=== PATIENT | female | born 1955 | race Caucasian/White ===

== ENCOUNTER 2023-08-10 11:33 | Outpatient (OUT) | payer OTHER, SELFPAY ==
--- NOTE | 2023-08-10 11:34 | MM_ITS ---
Patient: KINSEY PANDEY Exam Date: 08/10/2023 : 1955 Gender:F Ordering : DR SABRINA MEEK Admission #: [id number] Family : Order #: [id number] CLICK HERE TO VIEW EXAM RADIOLOGY REPORT PROCEDURE: MM TOMOSYNTHESIS SCREENING BI COMPARISON: MG MAMM SCREEN 3D ALESSIO CAD, 07/25/2022. MG MAMM SCREEN 3D ALESSIO CAD, 07/22/2021. MG MAMM SCREEN ALESSIO W CAD, 05/14/2020. MG MAMM ALESSIO SCRN W CAD DIG, 07/28/2011. INDICATIONS: Screening Calculator Name NCI Breast Cancer Risk Assessment Tool 5 Year Breast Cancer Risk 1.70% Lifetime Breast Cancer Risk 5.70% Personal Breast Cancer No Personal Ovarian Cancer No Treatments None Family Cancers Mother with colon cancer at age 73; Father with eye cancer at age 79; Daughter with uterine cancer at age 26. LOCATION: [facility] BREAST COMPOSITION: Scattered areas fibroglandular density. FINDINGS: DIAGNOSTIC CATEGORY 2--BENIGN FINDING: RIGHT BREAST: No significant suspicious finding. Scattered benign-appearing calcifications are present. No significant change has occurred. LEFT BREAST: No significant suspicious finding. Stable collections of dense material within upper-outer quadrant suspected secondary to prior implant rupture. Implants have been removed. No significant change has occurred. RECOMMENDATIONS: ROUTINE MAMMOGRAM AND CLINICAL EVALUATION IN 12 MONTHS. PLEASE NOTE: A NORMAL MAMMOGRAM DOES NOT EXCLUDE THE POSSIBILITY OF BREAST CANCER. A CLINICALLY SUSPICIOUS PALPABLE LUMP SHOULD BE BIOPSIED. Dictated by: Gaurang Collins M.D. on 08/14/2023 at 13:12 Approved by: Gaurang Collins M.D. on 08/14/2023 at 13:16
== END 2023-08-10 11:34 | disposition home or self-care (01) ==
LOC: MAMMO 11:33
PROVIDERS: PCP Family Medicine; Visit Provider Family Medicine
DX: Z12.31 Encounter for screening mammogram for malignant neoplasm of breast (principal); Z80.0 Family history of malignant neoplasm of digestive organs; Z80.49 Family history of malignant neoplasm of other genital organs; Z80.8 Family history of malignant neoplasm of other organs or systems
CPT/HCPCS: 77063; 77067

== ENCOUNTER 2023-09-27 09:10 | Outpatient (OUT) | payer OTHER, SELFPAY ==
[2023-09-27 12:56] LABS: Calcium 9.7 mg/dL (8.5-10.1)
== END 2023-09-27 09:11 | disposition home or self-care (01) ==
LOC: LAB 09:12
PROVIDERS: PCP Family Medicine
DX: E83.51 Hypocalcemia (principal)
CPT/HCPCS: 36415; 82310

== ENCOUNTER 2023-10-04 07:27 | Outpatient (RCR) | payer OTHER, SELFPAY ==
[2023-10-04 09:49] LABS: Estimated GFR (African America >60 (>=60); Estimated GFR (Non-African Ame >60 (>=60)
[2023-10-04 09:55] VITALS: BP 147/90; PULSE 100; RESP 16; TEMP 36.6; O2SAT 95
[2023-10-04] MEDS: ZOLEDRONIC ACID/MANNITOL-WATER 5 MG/100 ML BOTTLE 400 MG IV (09:58)
--- NOTE | 2023-10-04 10:04 | PC.NURSE ---
0940: Pt. to [facility] amb. for Reclast infusion. Relays going to lab already. Seated in recliner. VSS. #22 gauge IV initiated to left ac on first attempt. Flushes easily without edema or redness. Pt. tolerated with no c/o. Drinking water. Denies needs or c/o.
--- NOTE | 2023-10-04 10:06 | PC.NURSE ---
0958: IV Reclast initiated as ordered.
--- NOTE | 2023-10-04 10:21 | PC.NURSE ---
1019: IV Reclast completed. Pt. without s&s of adverse reaction. IV d/c'd, pressure to site. 1020: Pt. d/c'd amb. to home.
== END 2023-10-15 12:00 | disposition home or self-care (01) ==
LOC: LAB 07:27
PROVIDERS: PCP Family Medicine
DX: M85.80 Other specified disorders of bone density and structure, unspecified site (principal)
CPT/HCPCS: 36415; 82310; 82565; 96365; J3489

== ENCOUNTER 2024-05-21 14:00 | Outpatient (OUT) | payer OTHER, SELFPAY ==
--- NOTE | 2024-05-21 | XR_ITS ---
The [address] [address] Patient Name: KINSEY PANDEY MRN: [id number] date: 1955 Sex: F Assigned Patient Location: Current Patient Location: Accession/Order Number: [id number] Exam Date: 05/21/2024 15:00 Report Date: 05/23/2024 06:37 At the request of: BELLA PURDY Procedure: XR foot RT min 3V PROCEDURE: XR foot RT min 3V HISTORY: RIGHT FOOT PAIN COMPARISON: None. FINDINGS: BONES:Marked degenerative change of the first metatarsophalangeal joint. Mild degenerative changes of the second through 5th tarsal-metatarsal joints. No fracture, dislocation, bone lesion. SOFT TISSUES:No visible soft tissue swelling. EFFUSION:None visible. OTHER: Negative. XR/XR foot RT min 3V IMPRESSION: 1. Multifocal degenerative changes; marked involving the first metatarsophalangeal joint. Electronically authenticated by: JOSE ALEJANDRO MACK Date: 05/23/2024 06:37
== END 2024-05-21 14:01 | disposition home or self-care (01) ==
LOC: EC 14:00
PROVIDERS: PCP Family Medicine; Visit Provider Podiatrist Foot & Ankle Surgery
DX: M79.671 Pain in right foot (principal)
CPT/HCPCS: 73630

== ENCOUNTER 2024-08-14 11:23 | Outpatient (OUT) | payer OTHER, SELFPAY ==
--- NOTE | 2024-08-14 11:26 | MM_ITS ---
Patient Name: KINSEY PANDEY MR#: [id number] : 1955 Exam Date: 08/14/2024 Ordering Doctor: DR SABRINA MEEK RADIOLOGY REPORT PROCEDURE: MM TOMOSYNTHESIS SCREENING BI COMPARISON: MM TOMOSYNTHESIS SCREENING BI, 08/10/2023. MG MAMM SCREEN 3D ALESSIO CAD, 07/25/2022. MG MAMM SCREEN 3D ALESSIO CAD, 07/22/2021. MG MAMM ALESSIO SCRN W CAD DIG, 07/28/2011. INDICATIONS: Screening Calculator Name NCI Breast Cancer Risk Assessment Tool 5 Year Breast Cancer Risk 1.70% Lifetime Breast Cancer Risk 5.50% Personal Breast Cancer No Personal Ovarian Cancer No Treatments None Family Cancers Mother with colon cancer at age 73; Father with eye cancer at age 79; Daughter with uterine cancer at age 26. LOCATION: [facility] BREAST COMPOSITION: There are scattered areas of fibroglandular density. FINDINGS: DIAGNOSTIC CATEGORY 2--BENIGN FINDING: RIGHT BREAST: No significant suspicious finding. No significant change has occurred. LEFT BREAST: No significant suspicious finding. No significant change has occurred. Stable numerous lobules of dense material within posterior upper-outer quadrant secondary to prior implant rupture. Implants have been removed. RECOMMENDATIONS: ROUTINE MAMMOGRAM AND CLINICAL EVALUATION IN 12 MONTHS. PLEASE NOTE: A NORMAL MAMMOGRAM DOES NOT EXCLUDE THE POSSIBILITY OF BREAST CANCER. A CLINICALLY SUSPICIOUS PALPABLE LUMP SHOULD BE BIOPSIED. Dictated by: Gaurang Collins M.D. on 08/14/2024 at 15:03 Approved by: Gaurang Collins M.D. on 08/14/2024 at 15:05
== END 2024-08-14 11:24 | disposition home or self-care (01) ==
LOC: MAMMO 11:24
PROVIDERS: PCP Family Medicine; Visit Provider Family Medicine
DX: Z12.31 Encounter for screening mammogram for malignant neoplasm of breast (principal); Z80.0 Family history of malignant neoplasm of digestive organs; Z80.8 Family history of malignant neoplasm of other organs or systems
CPT/HCPCS: 77063; 77067

== ENCOUNTER 2024-09-27 09:18 | Outpatient (OUT) | payer OTHER, SELFPAY ==
--- NOTE | 2024-09-27 09:23 | XR_ITS ---
The [place] [id number] Patient Name: KINSEY PANDEY MRN: [id number] date: 1955 Sex: F Assigned Patient Location: [facility] Current Patient Location: [facility] Accession/Order Number: [id number] Exam Date: 09/27/2024 09:30 Report Date: 09/27/2024 15:30 At the request of: SABRINA MEEK Procedure: XR DEXA axial skeleton EXAMINATION: XR DEXA axial skeleton, 09/27/2024 9:30 AM EST HISTORY: Osteoporosis, M81.0 COMPARISON: None. TECHNIQUE: Dual-energy X-ray absorptiometry (DEXA) bone density study performed for the axial skeleton. FINDINGS: Bone mineral density AP spine L1-L4 measures 1.076 g/sq cm. T score -0.9. Normal. Lowest bone mineral densities in the left femoral neck measuring 0.816 g/sq cm. squared. T score -1.6. Osteopenia XR/XR DEXA axial skeleton IMPRESSION: Osteopenia. Moderate fracture risk Pharmacologic treatment recommendations * No uniform recommendation applies to all patients. Management plans must be individualized. * Consider initiating pharmacologic treatment in postmenopausal women and men >= 50 years of age who have the following: Primary fracture prevention: * T-score <= - 2.5 at the femoral neck, total hip, lumbar spine, 33% radius (some uncertainty with existing data) by DXA. * Low bone mass (osteopenia: T-score between - 1.0 and - 2.5) at the femoral neck or total hip by DXA with a 10-year hip fracture risk >= 3% or a 10-year major osteoporosis-related fracture risk >= 20% (i.e., clinical vertebral, hip, forearm, or proximal humerus) based on the [place]-adapted FRAXregistered model. Secondary fracture prevention: * Fracture of the hip or vertebra regardless of BMD [4, 5]. * Fracture of proximal humerus, pelvis, or distal forearm in persons with low bone mass (osteopenia: T-score between - 1.0 and - 2.5). The decision to treat should be individualized in persons with a fracture of the proximal humerus, pelvis, or distal forearm who do not have osteopenia or low BMD [12, 13]. Nat MS, Ambika SL, Jagdeep KL, Francisco Javier EM, Srinath KG, Salas AJ, Keren ES. The clinician's guide to prevention and treatment of osteoporosis. Osteoporos Int. 2021;33(10):4586-5991. doi: 10.1007/r70894-101-69948-n. Epub 2021Feb 10. Erratum in: Osteoporos Int. 2021May 12;: PMID: [id number]; PMCID: [id number]. Electronically authenticated by: THANH MARS Date: 09/27/2024 15:30
--- OUTSIDE RECORDS SUMMARY | 2024-09-27 09:26 | XMS_ITS | CCD ---
Author Organization [facility] Inform ion Partnership [facility] Care Team Providers Care Financial Services Internship Name Role Phone BELLE HUGHES Referring Unavailjone e BELLE HUGHES Referring Unavailjone e Sabrina Meek Unavailable Ascencion Fallon II Unavailable [phone] Sarahi Carlos Unavailable DO Sabrina Meek Primary Care Provider DO Sabrina Meek Attending Provider Sabrina Meek Unavailable Unavailable Unavailable FANTASMA, DR BENNETT Admitting Unavailable FANTASMA, DR BENNETT Attending Unavailable FANTASMA, DR BENNETT Primary Care Unavailable BUTTERNUT, DR THANH Louis Consulting Unavailable FANTASMA, DR BENNETT Consulting Unavailable ERNIE ORDONEZ Admitting Unavailable ERNIE ORDONEZ Attending Unavailable FANTASMA, DR BENNETT Primary Care Unavailable ERNIE ORDONEZ Consulting Unavailable DO Sabrina Meek Primary Care Provider DO George Cox Attending Provider [phone] MD Teddy Thurston Attending Provider DO Sabrina Meek Primary Care Provider [phone] MD [facility]enc[facility] Fallon II Attending Provider Marcella Flores Unavailable DO Sabrina Meek Primary Care Provider [phone] DONI Flores Attending Provider [phone] DO Sabrina Meek Attending Provider DO Sabrina Meek Primary Care Provider Teddy Thurston Referring Unavailable Teddy Thurston Attending Unavailable Dr. Sabrina Meek Primary Care Unavailabl e Kuns, DO Sabrina Primary Care Provider MD [facility]enc[facility] Fallon II Attending Provider [phone] Rajeev Ziegler Unavailable Mehul Solano Unavailable Yossis, DO Sabrina Attending Provider MD Mehul Solano Attending Provider [phone] Kuns, DO Sabrina Primary Care Provider [phone] Kuns, DO Sabrina Primary Care Provider [phone] Kuns, DO Sabrina Attending Provider MD Mehul Solano Attending Provider Kuns Sabrina VALENZUELA R Primary Care Provider Unavailab le TEDDY THURSTON Referring Unavailable KUNS, SABRINA R Primary Care Unavailable Kuns, DO Bennett Primary Care Provider Kuns, DO Sabrina Attending Provider Kuns, Sabrina Attending Unavailable Kuns, Sabrina Admitting Unavailable Kuns, Sabrina Primary Care Unavailable Kuns, Sabrina Attending Unavailable Kuns, Sabrina Admitting Unavailable Kuns, Sabrina Primary Care Unavailable [facility]enc[facility] Fallon II Admitting Unavailjone e [facility]enc[facility] Fallon II Attending Unavailabl e Kuns, Sabrina Primary Care Unavailable Mehul Solano Admitting Unavailable Mehul Solano Attending Unavailable Kuns, Sabrina Primary Care Unavailable Kuns, Sabrina Attending Unavailable Kuns, Sabrina Admitting Unavailable Kuns, Sabrina Primary Care Unavailable Kuns , Sabrina R Primary Care Provider GEORGE COX Attending Unavailable Allergies Allergy Classification Reported Allergen(s) Allergy Type Date of Onset Reaction(s) Facility HMG-CoA Reductase Inhibitors (statins) (1 source) rosuvastatin Drug Allergy 01-05-20 [facility] Work Phone: Opioid Agonists (1 source) Codeine Drug Allergy 01-05-20 24 Nausea/vomiting [facility] red yeast rice (1 source) red yeast rice Drug Allergy 01-05-20 24 Bleeding [facility] Work Phone: Unclassified (4 sources) Iodinated Contrast Media; Translations: [IODINATED CONTRAST MEDIA] Drug Allergy 01-05-20 24 Nausea/vomiting , GI intolerance [facility] Work Phone: (20 sources) Amoxicillin / Clavulanate Drug Allergy vomiting [facility] [employer] Other (20 sources) Codeine; Translations: [codeine] Drug Allergy 05-21-20 02 GI intolerance [facility] (20 sources) homatropine / HYDROcodone Drug Allergy hallucinates [facility] [employer] Other (20 sources) Lovastatin Drug Allergy 11-05-19 21 muscle pain [facility] (20 sources) red rice yeast Propensity to adverse reactions 11-08-19 24 nosebleeds [facility] (20 sources) RADIOACTIVE DYE Propensity to adverse reactions 11-08-19 24 violent vomiting and migraine [facility] (18 sources) Amoxicillin; Translations: [amoxicillin] Drug Allergy 11-05-19 21 GI intolerance [facility] (18 sources) Clavulanate; Translations: [clavulanic acid] Drug Allergy 11-05-19 21 GI intolerance [facility] (18 sources) homatropine; Translations: [homatropine] Drug Allergy 11-06-19 21 Hallucinating, Hallucinating, hallucinates [facility] (18 sources) HYDROcodone; Translations: [hydrocodone] Drug Allergy 11-06-19 21 Hallucinating, Hallucinating, hallucinates [facility] (3 sources) Contrast media Allergy to substance (finding) Nausea, Vomiting -[facility] 250 DO Work Phone: (6 sources) red yeast rice; Translations: [red yeast rice] Drug Allergy 12-22-19 16 GI bleeding, GI intolerance [facility] (1 source) Dannielle albicans allergenic extract Drug Allergy [facility] (1 source) Codeine Drug Allergy [facility] (1 source) Iodine (And Iodine Containting Drugs) Drug allergy (disorder) [facility] (11 sources) Amoxicillin / Clavulanate Drug Allergy vomiting [employer] Other (20 sources) rosuvastatin; Translations: [rosuvastatin] Drug Allergy 05-15-20 myalgia, dysuria, fatigue, Muscle weakness, Other [facility] (1 source) Codeine Drug Allergy 11-06-19 [facility] (1 source) Lovastatin Drug Allergy 11-05-19 [facility] (2 sources) Black Cohosh Extract Drug Allergy 02-21-20 [facility] (2 sources) Lovastatin Allergy to substance 07-10-20 [facility] (2 sources) Rosuvastatin calcium Allergy to substance 01-05-20 [facility] Medications Current Medications Medication Drug Class(es) Dates Sig (Normalized) Sig (Original) acetaminophen 325 mg oral tablet (20 sources) Start: 11-30-2023 acetaminophen (Tylenol) 325 MG tablet 1 tablet 11/30/2023 Active take 1 tablet by phil th every four hours Tylenol 325 MG 1 tablet as needed Orally every 4 hrs Active take 1 tablet by phil th three times daily Acetaminophen 500 MG Oral Tablet one thr ee times daily Quantity: 0 Refills: 0 Ordered: 01-Jul-2022 DO Active amLODIPine 5 mg oral tablet (20 sources) Dihydropyridine Calcium Channel Sumeet Start: 05-12-2020 End: 04-23-2024 amLODIPine (Norvasc) 5 MG tablet Daily 04/23/2024 Active azithromycin 250 mg oral tablet (20 sources) Macrolide Antimicrobial Start: 09-19-2023 Zithro max Z-Juliano 250 MG as directed Orally as directed Sep, Active Start: 11-30-2022 Zithromax Z-Pa k 250 MG as directed Orally as directed Nov, Active Start: 05-14-2022 Azithromycin 2 50 MG Oral Tablet Quantity: 6 Refills: 0 Ordered: 14-May-2022 DO Start : 14-May-2022 Complete Start: 05-14-2022 Azithromycin 2 50 MG 2 tablet on the first day, then 1 tablet daily for 4 days Orally Once a day for 5 day(s) Apr, Active Start: 05-02-2022 Zithromax Z-Pa k 250 MG 2 tablet on the first day, then 1 tablet daily for 4 days Orally Once a day for 5 day(s) Apr, Active Start: 09-13-2021 take 2 tablets by mo ut once daily, then take 1 tablet by mouth once daily Zithromax 250 MG 2 tablet on the first day, then 1 tablet daily for 4 days Orally as directed Sep, Active Calcium (2 sources) Phosphate Binder, Calcium Start: 02-24-2024 take 2 tablets by mouth twice daily at mealtime [facility] Calcium 600 MG tablet TAKE 2 TABLETS BY MOUTH TWICE A DAY WITH MEALS FOR 90 DAYS 02/24/2024 Active calcium carbonate 1500 mg oral tablet (20 sources) Start: 11-30-2023 take 2 tablets by mouth twice daily at mealtime Calcium Carbonate Active MG PO November 30, 2023 1:00am Free[employer] tablets with meals Orally Twice a day; Note: Source Status: Taking; Refills: 1; Qty: 360 Tablet; Provider: Fantasma Hong Start: 03-09-2023 take 2 tablets by mo [facility] every twelve hours Calcium 600 MG 2 tablets with meals Orally Twice a day for 90 days February, Active Start: 03-09-2023 take 2 tablets by mo [facility] every twelve hours Calcium 600 MG 2 tablets with meals Orally Twice a day February, Active Start: 03-09-2023 take 2 tablets by mo [facility] every twelve hours take 2 tablets by mo [facility] once daily calcium carbonate (CALCIUM 600 ORAL) Take 2 tablets by mouth once daily. Active Calcium 600 MG T ABS 2 tabs daily Quantity: 0 Refills: 0 Ordered: 11-Jul-2023 DO Active cholecalciferol 1.25 mg oral capsule (20 sources) Vitamin D Start: 11-30-2023 take 1 capsule by mouth every week Cholecalciferol (Vitamin D3) Active 1250 MCG PO every week November 30, 2023 1:00am FreeTextSig: TAKE 1 CAPSULE BY MOUTH ONE TIME PER WEEK FOR 30 DAYS; Note: Source Status: Taking; Refills: 4; Qty: 12 Capsule; Provider: Mark Naranjo ( ) Start: 03-06-2023 take 1 capsule by mo uth every week Cholecalciferol 1.25 MG (26033 UT) 1 capsule Orally Once a week for 30 days SIG: Take 1 capsule once a week for 8 weeks. February, Active Start: 03-06-2023 D3-50 1.25 MG (5 0000 UT) TAKE 1 CAPSULE BY MOUTH ONE TIME PER WEEK FOR 30 DAYS for 84 Active ezetimibe 10 mg oral tablet (20 sources) Dietary Cholesterol Absorption Inhibitor Start: 05-04-2023 take 1 tablet by mouth two times weekly Ezetimibe 10 MG 1 tablet Orally twice a week Apr, Active Start: 11-12-2021 Ezetimibe 10 M G Oral Tablet Quantity: 30 Refills: 0 Ordered: 07-Jun-2022 DO Start : 12-Nov-2021 Complete Start: 03-18-2019 [facility] Ezetimibe (Zetia) 10 mg Tablet Active 10 MG PO Daily November 05, 2020 1:00am hydroCHLOROthiazide 25 mg / triamterene 37.5 mg oral capsule (20 sources) Potassium-sparing Diuretic, Thiazide Diuretic Start: 11-21-2023 End: 12-11-2023 take 1 capsule by mouth once daily Triamterene-Hydrochlorothiazid Active 1 CAP PO Daily 90 December 11, 2023 3:43pm Start: 12-01-2021 take 1 capsule by mo [facility] once daily in the morning Triamterene-HCTZ 37.5-25 MG Oral Capsule TAKE 1 CAPSULE BY MOUTH EVERY DAY IN THE MORNING Quantity: 30 Refills: 0 Ordered: 07-Jun-2022 DO Start : 01-Dec-2021 Complete Start: 06-17-2020 Start: 06-17-2020 take 1 capsule by mo coh once daily in the morning Dyazide 37.5-25 MG 1 capsule in the morning Orally Once a day for 90 days Jun, Active Start: 06-17-2020 take 1 capsule by mo coh once daily in the morning Dyazide 37.5-25 MG 1 capsule in the morning Orally Once a day Jun, Active triamterene-hydr ochlorothiazide (Maxzide-25) 37.5-25 MG tablet 1 (one) time each day at the same time Active Magnesium (2 sources) magnesium 250 MG tablet 1 (one) time each day at the same time Active melatonin 10 mg oral tablet (4 sources) take 1 tablet by phil th once daily at bedtime melatonin 10 mg tablet Take 1 tablet (10 mg) by mouth once daily at bedtime. Active take 1 capsule by mo [facility] once daily at bedtime Melatonin 10 MG Oral Capsule one daily a t bedtime Quantity: 0 Refills: 0 Ordered: 01-Jul-2022 DO Active methylPREDNISolone 4 mg oral tablet (13 sources) Corticosteroid Start: 06-12-2023 Medrol 4 MG as directed Orally May, Active Start: 05-14-2022 methylPREDNISo lone 4 MG as directed Orally for daily dose take half with breakfast, half with dinner for 6 days Apr, Active Start: 05-02-2022 Medrol 4 MG as directed Orally as directed Apr, Active Start: 12-31-2021 Medrol 4 MG as directed Orally every 12 hrs for 5 days Dec, Active Start: 09-16-2021 Medrol 4 MG as directed Orally Sep, Active Multiple Vitamin (Multi Vitamin) tablet (2 sources) Multiple Vitamin (Multi Vitamin) tablet 1 (one) time each day at the same time Active Fmdelzzzgskd-Il-Aiir-Min erals (Multiple Vitamin, Womens) Tablet (15 sources) Start: 11-05-2020 take 1 tablet by mouth once daily Qkhswzsfrtnl-Ot-Nqrw-Mi nerals (Multiple Vitamin, Womens) Tablet Active 10 TAB PO Daily November 05, 2020 12:00am Start: 11-05-2020 take 1 tablet by phil once daily Tmxagoirbatg-Bj-Mfsv-Minerals (Multiple Vitamin, Womens) Tablet Active 10 TAB PO Daily November 05, 2020 1:00am potassium chloride 20 meq extended release oral tablet (20 sources) Start: 05-06-2022 Potassium Chlo ride ER 20 MEQ Oral Tablet Extended Release Quantity: 30 Refills: 0 Ordered: 07-Jun-2022 DO Start : 06-May-2022 Complete Start: 07-20-2020 End: 04-23-2024 take 20 mEq by mouth once daily Potassium Chloride Dis continued 20 MEQ PO Daily November 05, 2020 1:00am April 23, 2024 5:29pm take 1 tablet by phil th once daily potassium chloride CR (Klor-Con M20) 20 mEq ER tablet Take 1 tablet (20 mEq) by mouth once daily. Active prasterone 10 mg oral tablet (2 sources) prasterone, DHEA , 10 MG tablet 1 (one) time each day at the same time Active simvastatin 20 mg oral tablet (20 sources) HMG-CoA Reductase Inhibitor Start: 07-11-2023 Simvastatin Active 20 MG PO January 01, 2024 12:00am Start: 11-12-2021 Simvastatin 10 MG Oral Tablet Quantity: 30 Refills: 0 Ordered: 07-Jun-2022 DO Start : 12-Nov-2021 Complete Start: 08-20-2018 End: 01-01-2024 take 10 mg by mouth once daily Simvastatin Discontinue d 10 MG PO Daily November 05, 2020 1:00am January 01, 2024 5:18pm Womens One Daily (20 sources) Womens One Daily Active Completed/Discontinued Medications Medication Drug Class(es) Dates Sig (Normalized) Sig (Original) alendronic acid 70 mg oral tablet (20 sources) Bisphosphonate Start: 11-30-2023 End: 01-02-2024 take 1 tablet by mouth once daily Alendronate Discontinued MG PO November 30, 2023 1:00am January 02, 2024 10:44am FreeTextSi tablet 30 minutes before the first food, beverage or medicine of the day with plain water Orally Q week; Note: Source Status: Not-Taking\PRN; Provider: Daryn Dooley take 1 tablet by mouth in the mo rning alendronate (Fosamax) 70 mg tablet Take 1 tablet (70 mg) by mouth every 7 days. Take in the morning with a full glass of water, on an empty stomach, and do not take anything else by mouth or lie down for the next 30 min. Active take 1 tablet by mouth once darren y Fosamax 70 MG 1 tablet 30 minutes before the first food, beverage or medicine of the day with plain water Orally Q week Not-Taking/PRN take 1 tablet by mouth every wee k Alendronate Sodium 70 MG Oral Tablet TAKE 1 TABLET ONCE WEEKLY. Quantity: 0 Refills: 0 Ordered: 11-Jul-2023 DO Active amoxicillin 500 mg oral capsule (20 sources) Penicillin-class Antibacterial Start: 11-12-2021 Amoxicillin 500 MG Oral Capsule Quantity: 8 Refills: 0 Ordered: 12-Nov-2021 DO Start : 12-Nov-2021 Complete Start: 04-22-2019 take 4 tablets by mo [facility] every two hours Amoxicillin 500 MG 4 tablets Orally 2 hours prior to oral surgery Apr, Active Start: 04-22-2019 Ketorolac (20 sources) Nonsteroidal Anti-inflammatory Drug, Cyclooxygenase Inhibitor Start: 02-24-2014 Start: 02-24-2014 Toradol per 15 mg February, 2 mL loratadine 10 mg oral tablet (2 sources) take 1 tablet by mouth once daily Loratadine 10 MG Oral Tablet TAKE 1 TABLET DAILY. Quantity: 90 Refills: 1 Ordered: 01-Jul-2022 DO Active meclizine hydrochloride 12.5 mg oral tablet (20 sources) Antiemetic Start: 02-25-20 take 1-2 tablets by mouth every eight hours as needed Meclizine HCl 12.5 MG 1-2 tablets as needed Orally q 8 hours PRN February, Not-Taking meloxicam 7.5 mg oral tablet (20 sources) Nonsteroidal Anti-inflammatory Drug Start: 11-21-19 End: 02-07-20 24 take 7.5 mg by mouth once daily Meloxicam Discontinued 7.5 MG PO Daily January 17, 2024 3:27pm February 07, 2024 5:06pm Start: 02-14-2022 Meloxicam 7.5 MG Oral Tablet Quantity: 30 Refills: 0 Ordered: 06-Jun-2022 DO Start : 14-Feb-2022 Complete Start: 09-12-2003 take 7.5 mg by mouth twice daily Meloxicam Active 7.5 MG PO Twice daily 180 February 07, 2024 5:05pm methylPREDNISolone 4 MG Oral Tablet Therapy Pack (1 source) Start: 05-14-2022 methylPREDNISolone 4 MG Oral Tablet Therapy Pack TAKE 6 TABLETS ON DAY 1 DIRECTED ON PACKAGE AND DECREASE BY 1 TAB EACH DAY FOR A TOTAL OF 6 DAYS Quantity: 21 Refills: 0 Ordered: 14-May-2022 DO Start : 14-May-2022 Complete rosuvastatin calcium 20 mg oral tablet (11 sources) HMG-CoA Reductase Inhibitor Start: 07-01-2022 take 1 tablet by mouth once daily Rosuvastatin Calcium 20 MG Oral Tablet TAKE 1 TABLET DAILY. Quantity: 90 Refills: 3 Ordered: 01-Jul-2022 Teddy Thurston MD Start : 01-Jul-2022 Active new start/ stop simvastatin/ stop zetia take 1 tablet by mouth two times weekly Rosuvastatin Calcium 20 MG 1 tablet Orally twice a week Active triamcinolone acetonide 40 mg/ml injectable suspension (20 sources) Corticosteroid Start: 05-14-2022 Kenalog-40 May, 40 mg Start: 05-14-2022 Start: 03-15-2020 Start: 03-15-2020 Kenalog -40 mg February, 40 mg Start: 04-01-2018 Start: 04-01-2018 KENALOG - 10 m g Mar, 40 mg Start: 07-11-2013 Start: 07-11-2013 KENALOG - 10 m g Jun, 1 mL Problems Active Problems Problem Classification Problem Date Documented Date Episodic/Chronic Anxiety disorders (20 sources) Mixed anxiety and depressive disorder; Translations: [Other specified anxiety disorders] 01-01-2024 Chronic Cardiac dysrhythmias (20 sources) Ventricular premature beats; Translations: [Ventricular premature depolarization] Onset: 2 Resolved: 2 Chronic Coagulation and hemorrhagic disorders (15 sources) Easy bruising; Translations: [Spontaneous ecchymoses] 11-06-2020 Episodic Conditions associated with dizziness or vertigo (20 sources) Dizziness; Translations: [Dizziness and giddiness] Onset: 2 Resolved: 2 Episodic Diabetes mellitus without complication (20 sources) Hyperglycemia; Translations: [Hyperglycemia, unspecified] 01-01-2024 Episodic Diseases of mouth; excluding dental (14 sources) Aphthous ulcer of mouth; Translations: [Recurrent oral aphthae] Episodic Disorders of lipid metabolism (20 sources) Hyperlipidemia; Translations: [Hyperlipidemia, unspecified] Onset: 2 Resolved: 2 Chronic Esophageal disorders (20 sources) Gastroesophageal reflux disease; Translations: [Gastro-esophageal reflux disease without esophagitis] 01-01-2024 Chronic Essential hypertension (20 sources) Elevated blood pressure; Translations: [Essential (primary) hypertension] Onset: 2 Resolved: 2 Chronic Genitourinary symptoms and ill-defined conditions (15 sources) Blood in urine; Translations: [Hematuria, unspecified] Episodic Malaise and fatigue (14 sources) Fatigue; Translations: [Other fatigue] Episodic Menopausal disorders (1 source) Postmenopausal atrophic vaginitis; Translations: [Postmenopausal atrophic vaginitis] Onset: Chronic Mood disorders (7 sources) Menopausal depression; Translations: [Other specified depressive episodes] 01-02-2024 Chronic Osteoarthritis (20 sources) Osteoarthritis of knee; Translations: [Unilateral primary osteoarthritis, right knee] 01-01-2024 Chronic Osteoporosis (20 sources) Osteoporosis; Translations: [Age-related osteoporosis without current pathological fracture] 01-01-2024 Chronic Other and unspecified benign neoplasm (1 source) Benign lipomatous neoplasm of skin and subcutaneous tissue of right leg Episodic Other bone disease and musculoskeletal deformities (4 sources) Other specified disorders of bone density and structure, unspecified site Episodic Other bone disease and musculoskeletal deformities (6 sources) Osteopenia; Translations: [Other specified disorders of bone density and structure, unspecified site] Episodic Other bone disease and musculoskeletal deformities (11 sources) Osteopenia; Translations: [Other specified disorders of bone density and structure, unspecified site] Episodic Other connective tissue disease (20 sources) History of right hip replacement; Translations: [Presence of right artificial hip joint] Chronic Other connective tissue disease (20 sources) History of total replacement of right hip joint; Translations: [Presence of right artificial hip joint] Chronic Other connective tissue disease (5 sources) Presence of right artificial hip joint; Translations: [Hip joint replacement] Chronic Other connective tissue disease (5 sources) History of total hip arthroplasty; Translations: [Presence of right artificial hip joint] 01-02-2024 Chronic Other connective tissue disease (14 sources) Muscle pain; Translations: [Myalgia] Episodic Other connective tissue disease (20 sources) Recurrent falls ; Translations: [Repeated falls] Episodic Other connective tissue disease (2 sources) Iliotibial band syndrome, right leg Episodic Other connective tissue disease (3 sources) Trochanteric bursitis; Translations: [Trochanteric bursitis, unspecified hip] Episodic Other connective tissue disease (5 sources) Trochanteric bursitis, unspecified hip; Translations: [Enthesopathy of hip region] Episodic Other connective tissue disease (6 sources) Bursitis of hip; Translations: [Trochanteric bursitis, unspecified hip] 11-30-2023 Episodic Other diseases of veins and lymphatics (20 sources) Disorder of cardiovascular system; Translations: [Disorder of vein, unspecified] Episodic Other endocrine disorders (4 sources) Disorder of endocrine system; Translations: [Endocrine disorder, unspecified] 01-09-2024 Episodic Other female genital disorders (1 source) Other specified noninflammatory disorders of vulva and perineum; Translations: [Other specified noninflammatory disorders of vulva and perineum] Onset: Episodic Other female genital disorders (17 sources) Vaginal dryness; Translations: [Other specified noninflammatory disorders of vagina] Episodic Other female genital disorders (1 source) Other specified noninflammatory disorders of vagina Episodic Other injuries and conditions due to external causes (14 sources) Contusion; Translations: [Other injury of unspecified body region, initial encounter] 11-06-2020 Episodic Other injuries and conditions due to external causes (13 sources) Other injury of unspecified body region, initial encounter; Translations: [Bruising] Episodic Other nervous system disorders (14 sources) Chronic pain; Translations: [Other chronic pain] 11-30-2023 Chronic Other nervous system disorders (5 sources) Other chronic pain; Translations: [Other chronic pain] Chronic Other non-traumatic joint disorders (20 sources) Pain in left knee; Translations: [Left knee pain] Onset: 1 Resolved: 2 Episodic Other nutritional; endocrine; and metabolic disorders (20 sources) Obesity; Translations: [Obesity, unspecified] 01-02-2024 Chronic Other nutritional; endocrine; and metabolic disorders (3 sources) Obesity, unspecified; Translations: [Obesity, unspecified] Onset: 2 Resolved: 2 Chronic Other nutritional; endocrine; and metabolic disorders (7 sources) Hypocalcemia; Translations: [Hypocalcemia] Chronic Other nutritional; endocrine; and metabolic disorders (3 sources) Overweight in adulthood with body mass index of 25 or more but less than 30; Translations: [Overweight] Episodic Other screening for suspected conditions (not mental disorders or infectious disease) (4 sources) Electrocardiogram abnormal; Translations: [Nonspecific abnormal electrocardiogram [ECG] [EKG]] Onset: 4 01-05-2024 Episodic Other skin disorders (2 sources) Localized swelling, mass and lump, right lower limb Episodic Other upper respiratory disease (20 sources) Seasonal allergy; Translations: [Other seasonal allergic rhinitis] Chronic Other upper respiratory infections (7 sources) Chronic sinusitis; Translations: [Chronic sinusitis, unspecified] 01-02-2024 Chronic Rdaha-; endo-; and myocarditis; cardiomyopathy (except that caused by tuberculosis or sexually transmitted disease) (20 sources) Cardiomyopathy; Translations: [Cardiomyopathy, unspecified] Onset: 2 Resolved: 2 Chronic Residual codes; unclassified (17 sources) Reduced libido; Translations: [Decreased libido] Episodic Residual codes; unclassified (1 source) Decreased libido Episodic Residual codes; unclassified (4 sources) Family history of cancer of colon; Translations: [Family history of malignant neoplasm of digestive organs] Onset: 4 08-23-2024 Episodic Screening and history of mental health and substance abuse codes (3 sources) Ex-smoker; Translations: [Personal history of tobacco use] Episodic Spondylosis; intervertebral disc disorders; other back problems (20 sources) Solitary sacroiliitis; Translations: [Sacroiliitis, not elsewhere classified] Chronic Unclassified (1 source) Endocrine disorder, unspecified; Translations: [Endocrine disorder, unspecified] Onset: 4 Unclassified (1 source) Presence of right artificial hip joint; Translations: [Presence of right artificial hip joint] Onset: 3 Past or Other Problems Problem Classification Problem Date Documented Da te Episodic/Chronic Allergic reactions (1 source) Allergic contact dermatitis due to plants, except food Onset: 05-14-2022 Resolved: 05-14-2022 Episodic E Codes: Fall (1 source) Unspecified fall, initial encounter Onset: 06-22-2022 Resolved: 06-22-2022 Episodic Headache; including migraine (1 source) Headache; including migraine Onset: 06-22-2022 Resolved: 06-22-2022 Immunizations and screening for infectious disease (4 sources) Encounter for immunization; Translations: [ENCOUNTER FOR IMMUNIZATION] Onset: 08-31-2021 Episodic Other connective tissue disease (2 sources) Falls; Translations: [Repeated falls] Onset: 03-09-2023 03-09-2023 Episodic Other endocrine disorders (3 sources) Endocrine disorder, unspecified; Translations: [Endocrine disorder, unspecified] Onset: 02-14-2024 Episodic Other injuries and conditions due to external causes (1 source) Unspecified injury of head, initial encounter Onset: 06-22-2022 Resolved: 06-22-2022 Episodic Other non-traumatic joint disorders (2 sources) Pain in left hip; Translations: [Left hip pain M25.552] Onset: 08-04-2021 Resolved: 09-24-2021 Episodic Other non-traumatic joint disorders (4 sources) Pain in right hip Onset: 09-24-2021 Resolved: 04-01-2022 Episodic Other nutritional; endocrine; and metabolic disorders (1 source) Body mass index (BMI) 29.0-29.9, adult Onset: 06-22-2022 Resolved: 06-22-2022 Episodic Residual codes; unclassified (1 source) Family history of other mental and behavioral disorders Onset: 06-22-2022 Resolved: 06-22-2022 Episodic Residual codes; unclassified (1 source) Other general symptoms and signs Onset: 06-22-2022 Resolved: 06-22-2022 Episodic Spondylosis; intervertebral disc disorders; other back problems (1 source) Cervicalgia Onset: 06-22-2022 Resolved: 06-22-2022 Episodic Unclassified (1 source) Cough R05.9 Onset: 09-16-2021 Resolved: 09-16-2021 Results Test Name Value Interpretation Reference Range Facility Alanine aminotransferase [En zymatic activity/volume] in Serum or PlasmaOrdered By: Sabrina Meek on 06-28-2024 ALT [Catalytic activity/Vol] 16 U/L 7-52 [facility] Comment on above: Performed By: #### D HEAS, INSULIN, TEST F + T #### [facility] , Albumin [Mass/volume] in Ser um or Plasma by Bromocresol green (BCG) dye binding methoOrdered By: Sabrina Meek on 06-28-2024 Albumin BCG dye [Mass/Vol] 4.3 g/dL 3.5-5.7 [facility] Alkaline phosphatase [Enzyma tic activity/volume] in Serum or PlasmaOrdered By: Sabrina Meek on 06-28-2024 ALP [Catalytic activity/Vol] 52 U/L 34-104 [facility] Comment on above: Performed By: #### D HEAS, INSULIN, TEST F + T #### [facility] , Aspartate aminotransferase [ Enzymatic activity/volume] in Serum or PlasmaOrdered By: Sabrina Meek on 06-28-2024 AST [Catalytic activity/Vol] 17 U/L 39 [facility] Comment on above: Performed By: #### Ronni HEAS, INSULIN, TEST F + T #### [facility] , Automated basophil %Ordered By: Sabrina Meek on 06-28-2024 Basophils/100 WBC (Bld) 0.5 % . [facility] Comment on above: Performed By: #### Ronni HEAS, INSULIN, TEST F + T #### [facility] , Automated basophil countOrde red By: Sabrina Meek on 06-28-2024 Basophils (Bld) [#/Vol] 0.0 10*3/uL 0.0-0.2 [facility] Comment on above: Result Comment: PERF ORMED BY: [facility] [address] [place] [address] PATHOLOGIST [employer] LEAK TESTER LORRAINE GUTIERREZ M.D. Performed By: #### Ronni HEAS, INSULIN, TEST F + T #### [facility] , Automated blood monocyte cou ntOrdered By: Sabrina Meek on 06-28-2024 Monocytes (Bld) [#/Vol] 0.5 10*3/uL 0.0-0.8 [facility] Comment on above: Performed By: #### Ronni HEAS, INSULIN, TEST F + T #### [facility] , Automated eosinophil %Ordere d By: Sabrina Meek on 06-28-2024 Eosinophils/100 WBC (Bld) 3.8 % . [facility] Comment on above: Performed By: #### Ronni HEAS, INSULIN, TEST F + T #### [facility] , Automated eosinophil countOr dered By: Sabrina Meek on 06-28-2024 Eosinophils (Bld) [#/Vol] 0.2 10*3/uL 0.0-0.45 [facility] Comment on above: Performed By: #### D HEAS, INSULIN, TEST F + T #### [facility] , Automated monocyte %Ordered By: Sabrina Meek on 06-28-2024 Monocytes/100 WBC (Bld) 8.3 % . [facility] Comment on above: Performed By: #### Ronni HEAS, INSULIN, TEST F + T #### [facility] , Automated neutrophil %Ordere d By: Sabrina Meek on 06-28-2024 Neutrophils/100 WBC (Bld) 55.7 % . [facility] Comment on above: Performed By: #### Ronni HEAS, INSULIN, TEST F + T #### [facility] , Bilirubin.total [Mass/volume ] in Serum or PlasmaOrdered By: Sabrina Meek on 06-28-2024 Bilirubin [Mass/Vol] 0.5 mg/dL 0.3-1.0 [facility] Comment on above: Performed By: #### Ronni BERGAS, INSULIN, TEST F + T #### [facility] , Calcium [Mass/volume] in Ser um or PlasmaOrdered By: Sabrina Meek on 06-28-2024 Calcium [Mass/Vol] 9.4 mg/dL 8.6-10.3 [facility] Comment on above: Performed By: #### Ronni HEAS, INSULIN, TEST F + T #### [facility] , Carbon dioxide, total [Moles /volume] in Serum or PlasmaOrdered By: Sabrina Meek on 06-28-2024 CO2 [Moles/Vol] 31.3 mmol/L High 21.0-31.0 [facility] Comment on above: Performed By: #### Ronni HEAS, INSULIN, TEST F + T #### [facility] , Chloride [Moles/volume] in S galen or PlasmaOrdered By: Sabrina Meek on 06-28-2024 Chloride [Moles/Vol] 106 mmol/L 98-107 [facility] Comment on above: Performed By: #### D HEAS, INSULIN, TEST F + T #### [facility] , Cholesterol [Mass/volume] in Serum or PlasmaOrdered By: Sabrina Meek on 06-28-2024 Cholesterol [Mass/Vol] 154 mg/dL 140-200 [facility] Comment on above: Chol less than 200 m g/dl low riskChol 201-239 mg/dl borderline riskChol 240 mg/dl and greater high risk Result Comment: Chol less than 200 mg/dl low risk Chol 201-239 mg/dl borderline risk Chol 240 mg/dl and greater high risk Performed By: #### D HEAS, INSULIN, TEST F + T #### [facility] , Cholesterol in LDL Calc [Mas s/Vol]Ordered By: Sabrina Meek on 06-28-2024 Cholesterol in LDL [Mass/Vol] 57 mg/dL 0-100 [facility] Comment on above: LDL ATP III CLASSIFI CATIONLDL less than 100 mg/dL OptimalLDL 100-129 mg/dL Near or above optimalLDL 130-159 mg/dL Borderline highLDL 160-189 mg/dL HighLDL greater than 189 mg/dL Very high Cholesterol in VLDL Calc [Ma ss/Vol]Ordered By: Sabrina Meek on 06-28-2024 Cholesterol in VLDL [Mass/Vol] 25 mg/dL [facility] Complete Blood Count Auto Di ffon 06-28-2024 Mean Corpuscular HGB Conc 33.9 g/dL Normal 32.0-35.0 [facility] Comment on above: Performed By: #### D HEAS, INSULIN, TEST F + T #### [facility] , NRBC% 0.1 /100{WBC} Normal 0-0.5 [facility] Comment on above: Performed By: #### D HEAS, INSULIN, TEST F + T #### [facility] , Comprehensive Metabolic Pane reji 06-28-2024 Albumin [Mass/Vol] 4.3 g/dL Normal 3.5-5.7 [facility] Comment on above: Performed By: #### D HEAS, INSULIN, TEST F + T #### [facility] , GFR/1.73 sq M.predicted MDRD (S/P/Bld) [Vol rate/Area] mL/min/{1.73_m2} Normal [facility] Comment on above: Performed By: #### D HEAS, INSULIN, TEST F + T #### [facility] , Creatinine [Mass/volume] in Serum or PlasmaOrdered By: Sabrina Meek on 06-28-2024 Creatinine [Mass/Vol] 0.68 mg/dL 0.60-1.20 [facility] Comment on above: Performed By: #### D HEAS, INSULIN, TEST F + T #### [facility] , Erythrocyte distribution wid th [Ratio] by Automated countOrdered By: Sabrina Meek on 06-28-2024 Erythrocyte distribution width (RBC) [Ratio] 13.5 % 11.9-15.3 [facility] Comment on above: Performed By: #### D HEAS, INSULIN, TEST F + T #### [facility] , Erythrocytes [#/volume] in B lood by Automated countOrdered By: Sabrina Meek on 06-28-2024 RBC (Bld) [#/Vol] 4.36 10*6/uL 3.60-5.00 [facility] Comment on above: Performed By: #### Ronni HEAS, INSULIN, TEST F + T #### [facility] , Glucose [Mass/volume] in Ser um or PlasmaOrdered By: Sabrina Meek on 06-28-2024 Glucose [Mass/Vol] 89 mg/dL 70-100 [facility] Comment on above: ADA recommended refe rence rangeRandom Glucose Reference Range is dependent on time and content of last meal. Glucose of more than 200 mg/dL in a nonstressed, ambulatory subject supports the diagnosis of Diabetes Mellitus. Result Comment: [place] om Glucose Reference Range is dependent on time and content of last meal. Glucose of more than 200 mg/dL in a nonstressed, ambulatory subject supports the diagnosis of Diabetes Mellitus. ADA recommended reference range Performed By: #### D HEAS, INSULIN, TEST F + T #### [facility] , Hematocrit [Volume Fraction] of Blood by Automated countOrdered By: Sabrina Meek on 06-28-2024 Hematocrit (Bld) [Volume fraction] 39.6 % 34.0-46.4 [facility] Comment on above: Performed By: #### D HEAS, INSULIN, TEST F + T #### [facility] , Hemoglobin [Mass/volume] in BloodOrdered By: Sabrina Meek on 06-28-2024 Hemoglobin (Bld) [Mass/Vol] 13.4 g/dL 11.8-15.4 [facility] Comment on above: Performed By: #### D HEAS, INSULIN, TEST F + T #### [facility] , Leukocytes [#/volume] correc javier for nucleated erythrocytes in Blood by Automated counOrdered By: Sabrina Meek on 06-28-2024 WBC corrected for nucl RBC Auto (Bld) [#/Vol] 6.2 10*3/uL 3.8-11.6 [facility] Leukocytes [#/volume] in Blo od by Automated countOrdered By: Sabrina Meek on 06-28-2024 WBC (Bld) [#/Vol] 6.2 10*3/uL 3.8-11.6 [facility] Comment on above: Performed By: #### Ronni HEAS, INSULIN, TEST F + T #### [facility] , Lipid Panelon 06-28-2024 LDL Cholesterol,Calculated 57 mg/dL Normal 0-100 [facility] Comment on above: Result Comment: LDL ATP III CLASSIFICATION LDL less than 100 mg/dL Optimal LDL 100-129 mg/dL Near or above optimal LDL 130-159 mg/dL Borderline high LDL 160-189 mg/dL High LDL greater than 189 mg/dL Very high Performed By: #### Ronni HEAS, INSULIN, TEST F + T #### [facility] , Triglyceride w/Reflex 128 mg/dL Normal 0-149 [facility] Comment on above: Result Comment: TRIG ATP III CLASSIFICATION TRIG less than 150 mg/dL Normal TRIG 150-199 mg/dL Borderline high TRIG 200-500 mg/dL High TRIG greater than 500 mg/dL Very high Standard traceable to the Center for Disease Conrtrol and Prevention (CDC) test method. Performed By: #### D HEAS, INSULIN, TEST F + T #### [facility] , VLDL CHOLESTEROL 25 mg/dL Normal [facility] Comment on above: Performed By: #### D HEAS, INSULIN, TEST F + T #### [facility] , Lymphocytes [#/volume] in Bl ood by Automated countOrdered By: Sabrina Meek on 06-28-2024 Lymphocytes (Bld) [#/Vol] 2.0 10*3/uL 1.00-4.8 [facility] Comment on above: Performed By: #### D HEAS, INSULIN, TEST F + T #### [facility] , Lymphocytes/100 leukocytes i n Blood by Automated countOrdered By: Sabrina Meek on 06-28-2024 Lymphocytes/100 WBC (Bld) 31.7 % . [facility] Comment on above: Performed By: #### D HEAS, INSULIN, TEST F + T #### [facility] , MCH [Entitic mass] by Automa javier countOrdered By: Sabrina Meek on 06-28-2024 MCH (RBC) [Entitic mass] 30.8 pg 24.7-34.3 [facility] Comment on above: Performed By: #### D HEAS, INSULIN, TEST F + T #### [facility] , MCHC Auto (RBC) [Mass/Vol]Or dered By: Sabrina Meek on 06-28-2024 MCHC (RBC) [Mass/Vol] 33.9 g/dL 32.0-35.0 [facility] MCV [Entitic volume] by Auto mated countOrdered By: Sabrina Meek on 06-28-2024 MCV (RBC) [Entitic vol] 90.8 fL 80-100 [facility] Comment on above: Performed By: #### Ronni HEAS, INSULIN, TEST F + T #### [facility] , Neutrophils [#/volume] in Bl ood by Automated countOrdered By: Sabrina Meek on 06-28-2024 Neutrophils (Bld) [#/Vol] 3.4 10*3/uL 1.8-7.7 [facility] Comment on above: Performed By: #### Ronni HEAS, INSULIN, TEST F + T #### [facility] , No Panel InformationOrdered By: Sabrina Meek on 06-28-2024 Estimated GFR (CKD-EPI) > 60.0 mL/Min [facility] Creatinine Clearance (Chem N/A [facility] Nucleated erythrocytes [Pres ence] in Blood by Automated countOrdered By: Sabrina Meek on 06-28-2024 Nucleated RBC Auto Ql (Bld) 0.1 /100{WBC} 0-0.5 [facility] Platelet mean volume [Entiti c volume] in Blood by Automated countOrdered By: Sabrina Meek on 06-28-2024 Platelet mean volume (Bld) [Entitic vol] 9.7 fL 6.3-10.7 [facility] Comment on above: Performed By: #### Ronni HEAS, INSULIN, TEST F + T #### [facility] , Platelets [#/volume] in Bloo d by Automated countOrdered By: Sabrina Meek on 06-28-2024 Platelets (Bld) [#/Vol] 193 10*3/uL 150-450 [facility] Comment on above: Performed By: #### Ronni HEAS, INSULIN, TEST F + T #### [facility] , Potassium [Moles/volume] in Serum or PlasmaOrdered By: Sabrina Meek on 06-28-2024 Potassium [Moles/Vol] 4.0 mmol/L 3.5-5.1 [facility] Comment on above: Performed By: #### Ronni HEAS, INSULIN, TEST F + T #### [facility] , Protein [Mass/volume] in Ser um or PlasmaOrdered By: Sabrina Meek on 06-28-2024 Protein [Mass/Vol] 6.3 g/dL Low 6.4-8.9 [facility] Comment on above: Performed By: #### D HEAS, INSULIN, TEST F + T #### [facility] , Serum globulin measurement b y calculation (mass/volume)Ordered By: Sabrina Meek on 06-28-2024 Globulin (S) [Mass/Vol] 2.0 g/dL [facility] Comment on above: Performed By: #### D HEAS, INSULIN, TEST F + T #### [facility] , Serum or plasma albumin/glob ulin mass ratioOrdered By: Sabrina Meek on 06-28-2024 Albumin/Globulin [Mass ratio] 2.2 {ratio} [facility] Comment on above: Performed By: #### D HEAS, INSULIN, TEST F + T #### [facility] , Serum or plasma anion gap de terminationOrdered By: Sabrina Meek on 06-28-2024 Anion gap [Moles/Vol] 9.7 mmol/L 6.0-15.0 [facility] Comment on above: Performed By: #### D HEAS, INSULIN, TEST F + T #### [facility] , Serum or plasma high density lipoprotein (HDL) cholesterol measurementOrdered By: Sabrina Meek on 06-28-2024 Cholesterol in HDL [Mass/Vol] 71 mg/dL 23- [facility] Comment on above: HDL CHOL ATP-III CLA SSIFICATION Cardiovascular RiskHDL > or equal to 60 mg/dL LOWHDL < 40 mg/dL HIGH Result Comment: HDL CHOL ATP-III CLASSIFICATION Cardiovascular Risk HDL > or equal to 60 mg/dL LOW HDL < 40 mg/dL HIGH Performed By: #### D HEAS, INSULIN, TEST F + T #### [facility] , Serum or plasma total choles terol/high density lipoprotein (HDL) cholesterol mass ratOrdered By: Sabrina Meek on 06-28-2024 Cholesterol.total/Choles terol in HDL [Mass ratio] 2.2 {ratio} <5.0 [facility] Comment on above: Performed By: #### D HEAS, INSULIN, TEST F + T #### [facility] , Sodium [Moles/volume] in Ser um or PlasmaOrdered By: Sabrina Meek on 06-28-2024 Sodium [Moles/Vol] 143 mmol/L 136-145 [facility] Comment on above: Performed By: #### D HEAS, INSULIN, TEST F + T #### [facility] , Thyrotropin [Units/volume] i n Serum or PlasmaOrdered By: Sabrina Meek on 06-28-2024 TSH Qn 1.78 m[IU]/L 0.45-5.33 [facility] Comment on above: Result Comment: PERF ORMED BY: [facility] [address] [place] [address] PATHOLOGIST [employer] LEAK TESTER LORRAINE GUTIERREZ M.D. Performed By: #### D HEIRMA, INSULIN, TEST F + T #### [facility] , Triglyceride [Mass/volume] i n Serum or PlasmaOrdered By: Sabrina Meek on 06-28-2024 Triglyceride [Mass/Vol] 128 mg/dL 0-149 [facility] Comment on above: TRIG ATP III CLASSIF ICATIONTRIG less than 150 mg/dL NormalTRIG 150-199 mg/dL Borderline highTRIG 200-500 mg/dL High TRIG greater than 500 mg/dL Very highStandard traceable to the Center for Disease Conrtrol and Prevention (CDC) test method. Urea nitrogen [Mass/volume] in Serum or PlasmaOrdered By: Sabrina Meek on 06-28-2024 Urea nitrogen [Mass/Vol] 18 mg/dL 7-25 [facility] Comment on above: Performed By: #### D HEAS, INSULIN, TEST F + T #### [facility] , Cardiac stress study Procedu reon 03-18-[address], [address] [place] [address] Exercise Stress Test Patient Name: SHERICE VARGAS Ordering Provider: [id number] TEDDY THURSTON Study Date: 03/18/2024 Reading Physician: Elmo Thurston MD MRN/PID: [id number] Supervising Physician: Elmo Thurston MD Fellow: Date of /Age: 9 1955 / years Fellow: Gender: F Nurse: Sole Grant RN Admission Status: Ramp Flight Attendant: NA Height: 154.94 cm Technologist: Weight: 71.22 kg Additional Staff: BSA: 1.70 m2 BMI: 29.67 kg/m2 Patient Location: Study Type: STRESS TEST ONLY Diagnosis/ICD: Ventricular premature depolarization-I49.3 Indication: Arrythmia CPT Codes: Stress Test Interpretation-03473; Stress Test Supervision-[id number] Falls Risk: Low: Patient has low risk for sustaining a fall; environmental safety interventions in place. Study Details: Correct procedure and correct patient verified verbally. Patient Performance: The patient exercised to stage II on a protocol for 5 minutes and 15 seconds, achieving 7.00 METS. The peak heart rate achieved was 149 bpm, which was 98 % of the age predicted target heart rate of 152 bpm. The resting blood pressure was 106/76 mmHg with a heart rate of 75 bpm. The standing blood pressure was 108/76 mmHg with a heart rate of 73 bpm. The patient's functional capacity was average. The patient developed dyspnea during the stress exam. The symptoms resolved with rest. The blood pressure response was normal. The test was terminated due to: dyspnea. Sinus tachycardia with nondiagnostic ST-T changes. Double Product (HR x BP): 206. Baseline ECG: Resting ECG showed normal sinus rhythm. Normal sinus rhythm with diffuse ST-T abnormality. Stress Stage Data: + +-- -+------+-------+ HR Sys BP Lau BP + +-- -+------+-------+ Baseline Resting 75 106 76 + +-- -+------+-------+ Baseline Standing 73 108 76 + +-- -+------+-------+ Stage I 129 132 79 + +-- -+------+-------+ Stage II 149 138 74 + +-- -+------+-------+ Recovery ECG: The heart rate recovery was normal. + +---+--- ---+-------+ HR Sys BP Lau BP + +---+--- ---+-------+ Recovery I 144 138 74 + +---+--- ---+-------+ Recovery II 130 138 74 + +---+--- ---+-------+ Recovery III 110 104 78 + +---+--- ---+-------+ Recovery IV 101 108 68 + +---+--- ---+-------+ Recovery V 98 + +---+--- ---+-------+ Summary: 1. Graded exercise stress test with nondiagnostic ST-T changes and review of abnormal baseline. 2. No provoked chest pain or arrhythmia. 3. Appropriate hemodynamic response to exercise. 4. Good exercise tolerance. 5. Normal heart rate recovery phase. 6. Patient was able to exercise for 5 minutes 15 seconds achieving workload of 7 METS and 89% of maximum predicted heart rate. 7. Adequate level of stress achieved. Elmo Thurston MD Electronically signed on 03/18/2024 at 1:26:15 PM Final Teddy Ramirez MD - 03/18/[address], [place] [address] Exercise Stress Test Patient Name: SHERICE VARGAS Ordering Provider: Elmo THURSTON Study Date: 03/18/2024 Reading Physician: Elmo Thurston MD MRN/PID: [id number] Supervising Physician: Elmo Thurston MD Fellow: Date of /Age: 9 1955 / years Fellow: Gender: F Nurse: Sole Grant RN Admission Status: Ramp Flight Attendant: NA Height: 154.94 cm Technologist: Weight: 71.22 kg Additional Staff: BSA: 1.70 m2 BMI: 29.67 kg/m2 Patient Location: Study Type: STRESS TEST ONLY Diagnosis/ICD: Ventricular premature depolarization-I49.3 Indication: Arrythmia CPT Codes: Stress Test Interpretation-65651; Stress Test Supervision-[id number] Falls Risk: Low: Patient has low risk for sustaining a fall; environmental safety interventions in place. Study Details: Correct procedure and correct patient verified verbally. Patient Performance: The patient exercised to stage II on a protocol for 5 minutes and 15 seconds, achieving 7.00 METS. The peak heart rate achieved was 149 bpm, which was 98 % of the age predicted target heart rate of 152 bpm. The resting blood pressure was 106/76 mmHg with a heart rate of 75 bpm. The standing blood pressure was 108/76 mmHg with a heart rate of 73 bpm. The patient's functional capacity was average. The patient developed dyspnea during the stress exam. The symptoms resolved with rest. The blood pressure response was normal. The test was terminated due to: dyspnea. Sinus tachycardia with nondiagnostic ST-T changes. Double Product (HR x BP): 206. Baseline ECG: Resting ECG showed normal sinus rhythm. Normal sinus rhythm with diffuse ST-T abnormality. Stress Stage Data: + +-- -+------+-------+ HR Sys BP Lau BP + +-- -+------+-------+ Baseline Resting 75 106 76 + +-- -+------+-------+ Baseline Standing 73 108 76 + +-- -+------+-------+ Stage I 129 132 79 + +-- -+------+-------+ Stage II 149 138 74 + +-- -+------+-------+ Recovery ECG: The heart rate recovery was normal. + +---+--- ---+-------+ HR Sys BP Lau BP + +---+--- ---+-------+ Recovery I 144 138 74 + +---+--- ---+-------+ Recovery II 130 138 74 + +---+--- ---+-------+ Recovery III 110 104 78 + +---+--- ---+-------+ Recovery IV 101 108 68 + +---+--- ---+-------+ Recovery V 98 + +---+--- ---+-------+ Summary: 1. Graded exercise stress test with nondiagnostic ST-T changes and review of abnormal baseline. 2. No provoked chest pain or arrhythmia. 3. Appropriate hemodynamic response to exercise. 4. Good exercise tolerance. 5. Normal heart rate recovery phase. 6. Patient was able to exercise for 5 minutes 15 seconds achieving workload of 7 METS and 89% of maximum predicted heart rate. 7. Adequate level of stress achieved. [id number] Thurston MD Electronically signed on 03/18/2024 at 1:26:15 PM Final [facility] Work Phone: Cardiac stress study Procedu reOrdered By: Teddy Thurston on 03-18-2024 [facility] Work Phone: STRESS TEST ONLYon STRESS TEST ONLY [address], [place] [address] Exercise Stress Test Patient Name: SHERICE VARGAS Ordering Provider: [id number] TEDDY THURSTON Study Date: 03/18/2024 Reading Physician: Elmo Thurston MD MRN/PID: [id number] Supervising Physician: Elmo Thurston MD Fellow: Date of /Age: 9 1955 / 68 years Fellow: Gender: F Nurse: Sole Grant RN Admission Status: Ramp Flight Attendant: BRITNEY Height: 154.94 cm Technologist: Weight: 71.22 kg Additional Staff: BSA: 1.70 m2 BMI: 29.67 kg/m2 Patient Location: Study Type: STRESS TEST ONLY Diagnosis/ICD: Ventricular premature depolarization-I49.3 Indication: Arrythmia CPT Codes: Stress Test Interpretation-74105; Stress Test Supervision-[id number] Falls Risk: Low: Patient has low risk for sustaining a fall; environmental safety interventions in place. Study Details: Correct procedure and correct patient verified verbally. Patient Performance: The patient exercised to stage II on a protocol for 5 minutes and 15 seconds, achieving 7.00 METS. The peak heart rate achieved was 149 bpm, which was 98 % of the age predicted target heart rate of 152 bpm. The resting blood pressure was 106/76 mmHg with a heart rate of 75 bpm. The standing blood pressure was 108/76 mmHg with a heart rate of 73 bpm. The patient's functional capacity was average. The patient developed dyspnea during the stress exam. The symptoms resolved with rest. The blood pressure response was normal. The test was terminated due to: dyspnea. Sinus tachycardia with nondiagnostic ST-T changes. Double Product (HR x BP): 206. Baseline ECG: Resting ECG showed normal sinus rhythm. Normal sinus rhythm with diffuse ST-T abnormality. Stress Stage Data: + +-- -+------+-------+ HR Sys BP Lau BP + +-- -+------+-------+ Baseline Resting 75 106 76 + +-- -+------+-------+ Baseline Standing 73 108 76 + +-- -+------+-------+ Stage I 129 132 79 + +-- -+------+-------+ Stage II 149 138 74 + +-- -+------+-------+ Recovery ECG: The heart rate recovery was normal. + +---+--- ---+-------+ HR Sys BP Lau BP + +---+--- ---+-------+ Recovery I 144 138 74 + +---+--- ---+-------+ Recovery II 130 138 74 + +---+--- ---+-------+ Recovery III 110 104 78 + +---+--- ---+-------+ Recovery IV 101 108 68 + +---+--- ---+-------+ Recovery V 98 + +---+--- ---+-------+ Summary: 1. Graded exercise stress test with nondiagnostic ST-T changes and review of abnormal baseline. 2. No provoked chest pain or arrhythmia. 3. Appropriate hemodynamic response to exercise. 4. Good exercise tolerance. 5. Normal heart rate recovery phase. 6. Patient was able to exercise for 5 minutes 15 seconds achieving workload of 7 METS and 89% of maximum predicted heart rate. 7. Adequate level of stress achieved. [id number] Teddy Thurston MD Electronically signed on 03/18/2024 at 1:26:15 PM Final [facility] Dehydroepiandrosterone Sulfa teofilo 02-14-2024 Dehydroepiandrosterone Sulfate 63.9 ug/dL Normal 20.4-186.6 [facility] Comment on above: Result Comment: Perf ormed at: CB - [facility] [address] [id number] Financial Quantitative Analyst: Brian Mckinnon PhD, Phone: [phone] PERFORMED BY: [address] [id number] PATHOLOGIST [employer] LEAK TESTER JIANLAN SUN M.D. Performed By: #### D HEAS, INSULIN, TEST F + T #### [facility] , Insulinon 02-14-2024 Insulin 10.8 u[iU]/mL Normal 2.6-24.9 [facility] Comment on above: Result Comment: Perf ormed at: [address] [id number] Financial Quantitative Analyst: Brian Mckinnon PhD, Phone: [phone] Performed By: #### D MORENAAS, INSULIN, TEST F + T #### [facility] , Testosterone Free and Totalo n 02-14-2024 Testosterone [Mass/Vol] 64 ng/dL Normal 3-67 [facility] Comment on above: Performed By: #### D HEAS, INSULIN, TEST F + T #### [facility] , Testosterone,Free 1.7 pg/mL Normal 0.0-4.[address] [facility] Comment on above: Result Comment: Perf ormed at: [address] [id number] Financial Quantitative Analyst: Brian Mckinnon PhD, Phone: [phone] Performed at: [address] [id number] Financial Quantitative Analyst: Patria Traylor MD, Phone: [phone] Performed By: #### D HEAS, INSULIN, TEST F + T #### [facility] , Cortisolon 11-20-2023 Cortisol 8.6 ug/dL Normal [facility] Comment on above: Order Comment: Reaso n for Exam Hormone imbalance Result Comment: Refe rence range: AM 6 - 24 ug/dl PM <10 ug/dl [facility] ornamental brick installer and method: BERNARDO UNICEL DXI, POLYCLONAL ANTIBODY CORTISOL ASSAY. Performed By: #### P JONY, TEST F + T, ESTRADIOL, DHEAS, ESTRONE #### [facility] , #### [id number], ASHLEY #### [address] Dehydroepiandrosterone Sulfa teOrdered By: Sabrina Meek on 11-20-2023 Dehydroepiandrosterone Sulfate 30.0 ug/dL Normal 20.4-186.6 [facility] Comment on above: Order Comment: Reaso n for Exam Hormone imbalance Performed By: #### P JONY, TEST F + T, ESTRADIOL, DHEAS, ESTRONE #### [facility] , #### [id number], ASHLEY #### [facility] [address] Estradiolon 11-20-2023 Estradiol <5.0 Normal 0.0-54.7 [facility] Comment on above: Order Comment: Reaso n for Exam Hormone imbalance Result Comment: Adul t Female Range Follicular phase 12.5 - 166.0 Ovulation phase 85.8 - 498.0 Luteal phase 43.8 - 211.0 Postmenopausal <6.0 - 54.7 1st trimester 215.0 - >4300.0 Baljit ECLIA methodology Performed By: #### D HEIRMA, INSULIN, TEST F + T #### [facility] , Estrone, Serumon 11-20-2023 Estrone, Serum 8 pg/mL Normal 0-125 [facility] Comment on above: Order Comment: Reaso n for Exam Hormone imbalance Result Comment: Rang e Adult (Premenopausal) 27 - 231 Menstrual Cycle (1-10 days) 19 - 149 Menstrual Cycle (11-20 days) 32 - 176 Menstrual Cycle (21-30 days) 37 - 200 Adult (Postmenopausal) 0 - 125 Performed at: [facility] [address] [id number] Financial Quantitative Analyst: Patria Traylor MD, Phone: [phone] PERFORMED BY: [place] [address] PATHOLOGIST [employer]IC[employer] LEAK TESTER LORRAINE GUTIERREZ M.D. Performed By: #### D HEAS, INSULIN, TEST F + T #### [facility] , Free testosterone measuremen t by LC-MS/MSOrdered By: Sabrina Meek on 11-20-2023 Testosterone Free [Mass/Vol] 0.3 pg/mL 0.0-4.2 [facility] Comment on above: Performed at: - [facility] [id number] [place], [place] [id number] Director: Brian Mckinnon PhD, Phone: [phone] at: [employer] [id number] Director: Patria Traylor MD, Phone: [phone] Progesteroneon 11-20-2023 Progesterone <0.1 Normal . [facility] Comment on above: Order Comment: Reaso n for Exam Hormone imbalance Result Comment: Foll icular phase 0.1 - 0.9 Luteal phase 1.8 - 23.9 Ovulation phase 0.1 - 12.0 First trimester 11.0 - 44.3 Second trimester 25.4 - 83.3 Third trimester 58.7 - 214.0 Postmenopausal 0.0 - 0.1 Performed at: [facility] [address] [place], [place] [id number] Financial Quantitative Analyst: Brian Mckinnon PhD, Phone: [phone] Performed By: #### P JONY, TEST F + T, ESTRADIOL, DHEAS, ESTRONE #### [facility] , #### [id number], ASHLEY #### [address] Random cortisol measurementO rdered By: Sabrina Meek on 11-20-2023 Cortisol [Mass/Vol] 8.6 ug/dL [facility] Comment on above: [facility] ornamental brick installer and method:BERNARDO UNICEL DXI, POLYCLONAL ANTIBODY CORTISOL ASSAY.Reference range: AM 6 - 24 ug/dl PM <10 ug/dl Serum estrone measurementOrd ered By: Sabrina Meek on 11-20-2023 E1 [Mass/Vol] 8 pg/mL 0-125 [facility] Comment on above: Range Adult (Premeno pausal) 27 - 231 Menstrual Cycle (1-10 days) 19 - 149 Menstrual Cycle (11-20 days) 32 - 176 Menstrual Cycle (21-30 days) 37 - 200 Adult (Postmenopausal) 0 - 125Performed at: [employer] [id number] Director: Patria Traylor MD, Phone: [phone] Serum or plasma estradiol (E 2) measurement (mass/volume)Ordered By: Sabrina Meek on 11-20-2023 E2 [Mass/Vol] pg/mL 0.0-54.7 [facility] Comment on above: Adult Female Range F ollicular phase 12.5 - 166.0 Ovulation phase 85.8 - 498.0 Luteal phase 43.8 - 211.0 Postmenopausal <6.0 - 54.7 1st trimester 215.0 - >4300.0Roche ECLIA methodology Serum or plasma progesterone measurement (mass/volume)Ordered By: Sabrina Meek on 11-20-2023 Progesterone [Mass/Vol] ng/mL . [facility] Comment on above: Follicular phase 0.1 - 0.9 Luteal phase 1.8 - 23.9 Ovulation phase 0.1 - 12.0 First trimester 11.0 - 44.3 Second trimester 25.4 - 83.3 Third trimester 58.7 - 214.0 Postmenopausal 0.0 - 0.1Performed at: [facility] [employer] [id number] Director: Brian Mckinnon PhD, Phone: [phone] Testosterone Free and TotalO rdered By: Sabrina Meek on 11-20-2023 Testosterone [Mass/Vol] ng/dL Low 3-67 [facility] Comment on above: Order Comment: Reaso n for Exam Hormone imbalance Performed By: #### P JONY, TEST F + T, ESTRADIOL, DHEAS, ESTRONE #### [facility] , #### [id number], ASHLEY #### [address] Testosterone Free and Totalo n 11-20-2023 Testosterone,Free 0.3 pg/mL Normal 0.0-4.[address] [facility] Comment on above: Order Comment: Reaso n for Exam Hormone imbalance Result Comment: Perf ormed at: [facility] [address] [place] [id number] Financial Quantitative Analyst: Brian Mckinnon PhD, Phone: [phone] Performed at: BN - [facility] [address] [id number] Financial Quantitative Analyst: Patria Traylor MD, Phone: [phone] Performed By: #### P JONY, TEST F + T, ESTRADIOL, DHEAS, ESTRONE #### [facility] , #### [id number], ASHLEY #### [address] Vitamin D 25 Hydroxy Totalon 11-20-2023 Vitamin D 25 Hydroxy Total 62.2 ng/mL Normal 30-100 [facility] Comment on above: Order Comment: Reaso n for Exam Hormone imbalance Result Comment: RICARDO MIN D STATUS 25([place])VITAMIN D RANGE (ng/mL) Deficient <20 Insufficient 20 to <30 Sufficient 30 to 100 Reference: Genaro Mayorga, Damon GONZALES, et al. Evaluation,treatment, and prevention of vitamin D deficiency; an Endocrine Society clinical practice guideline. JCEM. 2010; 96(7):191-. PERFORMED BY: [place] [address] PATHOLOGIST SEMIC[employer] PACKAGES LEAK TESTER LORRAINE GUTIERREZ M.D. Performed By: #### P JONY, TEST F + T, ESTRADIOL, DHEAS, ESTRONE #### [facility] , #### [id number], ASHLEY #### [address] Vitamin D+Metabolites [Mass/ volume] in Serum or PlasmaOrdered By: Sabrina Meek on 11-20-2023 Vitamin D+Metabolites [Mass/Vol] 62.2 ng/mL 30-100 [facility] Comment on above: VITAMIN D STATUS 25( [place])VITAMIN D RANGE (ng/mL) Deficient <20 Insufficient 20 to <30Sufficient 30 to 100Reference: Genaro Mayorga, Damon GONZALES, et al. Evaluation,treatment, and prevention of vitamin D deficiency; an Endocrine Society clinical practice guideline. JCEM. 2010; 96(7):191-. XR femur RT 2V*on 08-31-2023 XR femur RT 2V* [facility] Main [place] [address] [place] [address] XRay Report Signed Patient: Sherice Vargas MR#: [id number] 0 : 1955 Acct:[id number] Age/Sex: 68 / F ADM Date: 08/31/23 [place] [facility] [place]: Type: REG CLI Attending Dr: Ascencion Fallon II, MD Copies to: Ascencion Fallon MD Ordering Provider: Ascencion Fallon MD Date of Service: 08/31/23 XR/XR femur RT 2V*: History of right hip replacement XR femur RT 2V* 08/31/2023 12:41 PM SIGNS AND SYMPTOMS: Total right hip arthroplasty on right, continued pain in right hip. Palpable knot lateral mid shaft of right femur PROTOCOL: Frontal and lateral radiographs of the right femur COMPARISON: None FINDINGS: There is total right hip arthroplasty hardware. There is no hardware complication or malalignment. There is total right knee arthroplasty hardware. No acute bony injury. Suspected venous varices are noted along the anterior soft tissues of the thigh. XR/XR femur RT 2V* IMPRESSION: No acute bony injury. Venous varices are noted along the soft tissues of the thigh. Uncomplicated right total hip and right total knee arthroplasty hardware. Impression dictated by: Gaetano Reilly M.D.08/31/2023 6:29 PM Dictation Location: [place] [address] Transcribed By: [facility] 08/31/231828 Dictated By: Gaetano Reilly II, MD 08/31/231826 Signed By: 08/31/231828 Normal [facility] XR hip RT min 2V(w/wo pelvis )*on 08-31-2023 XR hip RT min 2V(w/wo pelvis)* [facility] Main [address] [address] XRay Report Signed Patient: Sherice Vargas MR#: [id number] 0 : 1955 Acct:[id number] Age/Sex: 68 / F ADM Date: 08/31/23 [place] [facility] [place] Room: Type: REG CLI Attending Dr: Ascencion Fallon II, MD Copies to: Ascencion Fallon MD Ordering Provider: Ascencion Fallon MD Date of Service: 08/31/23 XR/XR hip RT min 2V(w/wo pelvis)*: Left hip pain XR hip RT min 2V(w/wo pelvis)* 08/31/2023 12:01 PM SIGNS AND SYMPTOMS: Continued right total hip pain status post arthroplasty PROTOCOL: Frontal radiograph the pelvis with crosstable lateral view of the right hip COMPARISON: 02/23/2023 FINDINGS: There is total right hip arthroplasty hardware without evidence of hardware complication, fracture, or dislocation. The bony ring of the pelvis is intact. Degenerative changes are noted in the lumbar spine. XR/XR hip RT min 2V(w/wo pelvis)* IMPRESSION: Uncomplicated total right hip arthroplasty hardware. Impression dictated by: Gaetano Reilly M.D.08/31/2023 6:23 PM Dictation Location: [place] [address] Transcribed By: [facility] 08/31/231822 Dictated By: Gaetano Reilly II, MD 08/31/231821 Signed By: 08/31/231822 Normal [facility] Office Visit (Cardiology)on 07-11-2023 Follow-up visit Diagnoses/Problems Assessed Essential hypertension, benign (401.1) (I10) Former smoker (V15.82) (Z87.891) Hyperlipidemia (272.4) (E78.5) Overweight with body mass index (BMI) of 29 to 29.9 in adult (278.02,V85.25) (E66.3,Z68.29) Premature ventricular contraction on electrocardiography (427.69) (I49.3) Abnormal EKG (794.31) (R94.31) Orders Hyperlipidemia Start: Ezetimibe 10 MG Oral Tablet; TAKE 1 TABLET BY MOUTH EVERY DAY Start: Simvastatin 20 MG Oral Tablet; TAKE 1 TABLET AT BEDTIME SocHx: Former smoker Tobacco Use Screening; Status:Complete; Done: [id number] Unlinked Stop: Ezetimibe 10 MG Oral Tablet Patient Instructions Please bring all medicines, vitamins, and herbal supplements with you when you come to the office. Prescriptions will not be filled unless you are compliant with your follow up appointments or have a follow up appointment scheduled as per instruction of your physician. Refills should be requested at the time of your visit. Follow up in 1 year. Zetia 10mg daily Zocor 20 mg one daily Chief Complaint SHERICE VARGAS is being seen for an annual follow-up of. History of Present Illness Patient is here for follow-up continue management for hypertension, PVCs, obesity and hyperlipidemia. Last time I saw her I advised her to switch from simvastatin/Zetia combination to rosuvastatin but she reports that she did not tolerate rosuvastatin due to muscle aches. She is currently taking Zetia a few times daily her lipid profile showed her lipid is significantly elevated. Currently she denies complaint of chest pain, palpitation, lightheadedness, dizziness or syncope. She continues to be active and walking 4 miles every day. Recent EKG was done showing anterior ST-T changes but unchanged from previous EKG Assessment 1. Hypertension but recently blood pressure well controlled 2. PVCs asymptomatic appears to be benign based on previous workup. Appears quiesced sent 3. Obesity with recent weight gain and BMI 29 4. Abnormal EKG but unchanged from before likely due to hypertensive heart disease 5. Hyperlipidemia o worsened since her Zetia and simvastatin change. She did not tolerate rosuvastatin Plan 1. Patient was advised to continue Zetia 10 mg daily and to resume her previously well-tolerated simvastatin 20 mg daily I advised her if she develop any symptoms to notify me 2. Patient was counseled regarding exercise, losing weight and dietary modification 3. We'll see her back now office in 1 year in follow-up advised her to send me a copy of her lab work when it is done through her PCP Surgical History Problems History of Complete colonoscopy History of Hip surgery History of Hysterectomy History of Knee replacement History of Knee surgery History of Shoulder surgery Current Meds Medication NameInstruction Alendronate Sodium 70 MG Oral TabletTAKE 1 TABLET ONCE WEEKLY. amLODIPine Besylate 5 MG Oral TabletTake 1 tablet daily Calcium 600 MG TABS2 tabs daily Ezetimibe 10 MG Oral Tablet1 tab twice aweek Klor-Con M20 20 MEQ Oral Tablet Extended ReleaseTAKE 1 TABLET DAILY. Melatonin 10 MG Oral Capsuleone daily at bedtime Mobic 7.5 MG TABSTake 1 tablet twice daily Triamterene-HCTZ 37.5-25 MG Oral CapsuleTAKE 1 CAPSULE Daily Allergies Medication codeine Adverse Reaction; Nausea; Updated By: Krystin Rodríguez; 07/01/2022 9:49:35 AM red yeast rice Adverse Reaction; nose bleed; Updated By: Krystin Rodríguez; 07/01/2022 9:49:35 AM NOSE BLEEDS rosuvastatin Muscle weakness; Recorded By: Nito Malone; 07/11/2023 1:29:21 PM NonMedication IV Contrast Dye Adverse Reaction; Nausea; Vomiting; Updated By: Krystin Rodríguez; 07/01/2022 9:49:35 AM Social History Problems Alcohol use (V49.89) (Z78.9) Caffeine use (V49.89) (Z78.9) Former smoker (V15.82) (Z87.891) No illicit drug use Review of Systems Constitutional: not feeling tired. Cardiovascular: no intermittent leg claudication and as noted in HPI. Respiratory: no cough and no shortness of breath. Gastrointestinal: no change in bowel habits and no blood in stools. Integumentary: no skin rashes. Neurological: no seizures and no frequent falls. All other systems have been reviewed and are negative for complaint. Vitals Vital Signs Recorded: [id number] 01:57PMRecorded: 55Knp5938 01:34PM [id number], LUE, Sitting [id number], LUE, Sitting Heart Rate68, R Radial Height5 ft 1 in Ddhvpt365 lb 9.6 oz BMI Brodnewftt96.4 kg/m2 BSA Calculated1.7 Tobacco Useb) No PHQ-2 #1. Over the last 2 weeks have you felt down, depressed or hopeless? (If yes, answer PHQ-9 below)No PHQ-2 #2. Over the last 2 weeks have you felt little interest or pleasure in doing things? (If yes, answer PHQ-9 below)No Falls Screening (Age 18+)a) No falls within the last year Physical Exam Constitutional: alert and in no acute distress. Neck: neck is supple, symmetric, trachea midline, no masses and no thyromegaly . Pulmonary: no inc (more content not included)... Normal [employer] Tobacco Screening.on 023 Adult depression screening assessment No [facility] 250 DO Work Phone: Fall risk assessment a) No falls within the last year [facility] [employer] 250 DO Work Phone: Tobacco use status [facility] b) No M [facility] [employer] 250 DO Work Phone: Urine 10 SGon 07-05-2023 Albumin DL <= 20 mg/L (U) [Mass/Vol] Negative [employer] Other pH (U) 5.5 [pH] [employer] Other Urine 10 SG Negative [employer] Other Urine 10 SG 1.025 [employer] Other Urine 10 SG trace-intact [employer] Other Urine 10 SG 0,2 [employer] Other Alanine aminotransferase [En zymatic activity/volume] in Serum or PlasmaOrdered By: Sabrina Meek on 05-24-2023 ALT [Catalytic activity/Vol] 16 U/L 7-52 [facility] Albumin [Mass/volume] in Ser um or Plasma by Bromocresol green (BCG) dye binding methoOrdered By: Sabrina Meek on 05-24-2023 Albumin BCG dye [Mass/Vol] 4.6 g/dL 3.5-5.7 [facility] Alkaline phosphatase [Enzyma tic activity/volume] in Serum or PlasmaOrdered By: Sabrina Meek on 05-24-2023 ALP [Catalytic activity/Vol] 64 U/L 34-104 [facility] Aspartate aminotransferase [ Enzymatic activity/volume] in Serum or PlasmaOrdered By: Sabrina Meek on 05-24-2023 AST [Catalytic activity/Vol] 15 U/L 13-39 [facility] Basophils Auto (Bld) [#/Vol] Ordered By: Sabrina Meek on 05-24-2023 Basophils (Bld) [#/Vol] 0.0 10*3/uL 0.0-0.2 [facility] Basophils/100 WBC Auto (Bld) Ordered By: Sabrina Meek on 05-24-2023 Basophils/100 WBC (Bld) 0.3 % . [facility] Bilirubin.total [Mass/volume ] in Serum or PlasmaOrdered By: Sabrina Meek on 05-24-2023 Bilirubin [Mass/Vol] 0.4 mg/dL 0.3-1.0 [facility] Calcium [Mass/volume] in Ser um or PlasmaOrdered By: Sabrina Meek on 05-24-2023 Calcium [Mass/Vol] 9.5 mg/dL 8.6-10.3 [facility] Carbon dioxide, total [Moles /volume] in Serum or PlasmaOrdered By: Sabrina Meek on 05-24-2023 CO2 [Moles/Vol] 26.2 mmol/L 21.0-31.0 [facility] Chloride [Moles/volume] in S galen or PlasmaOrdered By: Sabrina Meek on 05-24-2023 Chloride [Moles/Vol] 108 mmol/L 98-107 [facility] Cholesterol [Mass/volume] in Serum or PlasmaOrdered By: Sabrina Meek on 05-24-2023 Cholesterol [Mass/Vol] 232 mg/dL 140-200 [facility] Comment on above: Chol less than 200 m g/dl low riskChol 201-239 mg/dl borderline riskChol 240 mg/dl and greater high risk Cholesterol in LDL Calc [Mas s/Vol]Ordered By: Sabrina Meek on 05-24-2023 Cholesterol in LDL [Mass/Vol] 129 mg/dL 0-100 [facility] Comment on above: LDL ATP III CLASSIFI CATIONLDL less than 100 mg/dL OptimalLDL 100-129 mg/dL Near or above optimalLDL 130-159 mg/dL Borderline highLDL 160-189 mg/dL HighLDL greater than 189 mg/dL Very high Cholesterol in VLDL Calc [Ma ss/Vol]Ordered By: Sabrina Meek on 05-24-2023 Cholesterol in VLDL [Mass/Vol] 18 mg/dL [facility] Creatinine [Mass/volume] in Serum or PlasmaOrdered By: Sabrina Meek on 05-24-2023 Creatinine [Mass/Vol] 0.69 mg/dL 0.60-1.20 [facility] Eosinophils Auto (Bld) [#/Vo l]Ordered By: Sabrina Meek on 05-24-2023 Eosinophils (Bld) [#/Vol] 0.0 10*3/uL 0.0-0.45 [facility] Eosinophils/100 WBC Auto (Bl d)Ordered By: Sabrina Meek on 05-24-2023 Eosinophils/100 WBC (Bld) 0.0 % . [facility] Erythrocyte distribution wid th Auto (RBC) [Ratio]Ordered By: Sabrina Meek on 05-24-2023 Erythrocyte distribution width (RBC) [Ratio] 13.5 % 11.9-15.3 [facility] Free testosterone measuremen t by LC-MS/MSOrdered By: Sabrina Meek on 05-24-2023 Testosterone Free [Mass/Vol] <0.2 pg/mL 0.0-4.2 [facility] Comment on above: Performed at: - [address] [id number] Director: Brian Mckinnon PhD, Phone: [phone] at: BN - [facility] [address] [id number] Director: Patria Traylor MD, Phone: [phone] Globulin Calc (S) [Mass/Vol] Ordered By: Sabrina Meek on 05-24-2023 Globulin (S) [Mass/Vol] 2.0 g/dL [facility] Glucose [Mass/volume] in Ser um or PlasmaOrdered By: Sabrina Meek on 05-24-2023 Glucose [Mass/Vol] 96 mg/dL 70-100 [facility] Comment on above: ADA recommended refe rence rangeRandom Glucose Reference Range is dependent on time and content of last meal. Glucose of more than 200 mg/dL in a nonstressed, ambulatory subject supports the diagnosis of Diabetes Mellitus. Hematocrit Auto (Bld) [Volum e fraction]Ordered By: Sabrina Meek on 05-24-2023 Hematocrit (Bld) [Volume fraction] 39.8 % 34.0-46.4 [facility] Hemoglobin [Mass/volume] in BloodOrdered By: Sabrina Meek on 05-24-2023 Hemoglobin (Bld) [Mass/Vol] 13.4 g/dL 11.8-15.4 [facility] Laboratory - Chemistry and C hemistry - challengeOrdered By: Sabrina Meek on 05-24-2023 Testosterone [Mass/Vol] ng/dL 3-67 [facility] Leukocytes [#/volume] correc javier for nucleated erythrocytes in Blood by Automated counOrdered By: Sabrina Meek on 05-24-2023 WBC corrected for nucl RBC Auto (Bld) [#/Vol] 7.8 10*3/uL 3.8-11.6 [facility] Lymphocytes Auto (Bld) [#/Vo l]Ordered By: Sabrina Meek on 05-24-2023 Lymphocytes (Bld) [#/Vol] 1.5 10*3/uL 1.00-4.8 [facility] Lymphocytes/100 WBC Auto (Bl d)Ordered By: Sabrina Meek on 05-24-2023 Lymphocytes/100 WBC (Bld) 19.0 % . [facility] MCH Auto (RBC) [Entitic mass ]Ordered By: Sabrina Meek on 05-24-2023 MCH (RBC) [Entitic mass] 30.4 pg 24.7-34.3 [facility] MCHC Auto (RBC) [Mass/Vol]Or dered By: Sabrina Meek on 05-24-2023 MCHC (RBC) [Mass/Vol] 33.8 g/dL 32.0-35.0 Fir [facility] MCV Auto (RBC) [Entitic vol] Ordered By: Sabrina Meek on 05-24-2023 MCV (RBC) [Entitic vol] 90.1 fL 80-100 [facility] Monocytes Auto (Bld) [#/Vol] Ordered By: Sabrina Meek on 05-24-2023 Monocytes (Bld) [#/Vol] 0.5 10*3/uL 0.0-0.8 [facility] Monocytes/100 WBC Auto (Bld) Ordered By: Sabrina Meek on 05-24-2023 Monocytes/100 WBC (Bld) 5.9 % . [facility] Neutrophils Auto (Bld) [#/Vo l]Ordered By: Sabrina Meek on 08-09-2023 Neutrophils (Bld) [#/Vol] 5.8 10*3/uL 1.8-7.7 [facility] Neutrophils/100 WBC Auto (Bl d)Ordered By: Sabrina Meek on 05-24-2023 Neutrophils/100 WBC (Bld) 74.8 % . [facility] No Panel InformationOrdered By: Sabrina Meek on 05-24-2023 Dehydroepiandrosterone Sulfate 21.5 ug/dL 20.4-186.6 [facility] Estimated GFR (CKD-EPI) > 60.0 mL/Min [facility] Creatinine Clearance (Chem N/A [facility] Nucleated erythrocytes [Pres ence] in Blood by Automated countOrdered By: Sabrina Meek on 05-24-2023 Nucleated RBC Auto Ql (Bld) 0.1 /100{WBC} 0-0.5 [facility] Platelet mean volume Auto (B ld) [Entitic vol]Ordered By: Sabrina Meek on 05-24-2023 Platelet mean volume (Bld) [Entitic vol] 9.7 fL 6.3-10.7 [facility] Platelets Auto (Bld) [#/Vol] Ordered By: Sabrina Meek on 05-24-2023 Platelets (Bld) [#/Vol] 219 10*3/uL 150-450 [facility] Potassium [Moles/volume] in Serum or PlasmaOrdered By: Sabrina Meek on 05-24-2023 Potassium [Moles/Vol] 4.2 mmol/L 3.5-5.1 [facility] Protein [Mass/volume] in Ser um or PlasmaOrdered By: Sabrina Meek on 05-24-2023 Protein [Mass/Vol] 6.6 g/dL 6.4-8.9 [facility] RBC Auto (Bld) [#/Vol]Ordere d By: Sabrina Meek on 05-24-2023 RBC (Bld) [#/Vol] 4.42 10*6/uL 3.60-5.00 [facility] Random cortisol measurementO rdered By: Sabrina Meek on 05-24-2023 Cortisol [Mass/Vol] 2.2 ug/dL [facility] Comment on above: Reference range: AM 6 - 24 ug/dl PM <10 ug/dl Serum estrone measurementOrd ered By: Sabrina Meek on 05-24-2023 E1 [Mass/Vol] <6 pg/mL 0-125 [facility] Comment on above: Range Adult (Premeno pausal) 27 - 231 Menstrual Cycle (1-10 days) 19 - 149 Menstrual Cycle (11-20 days) 32 - 176 Menstrual Cycle (21-30 days) 37 - 200 Adult (Postmenopausal) 0 - 125Performed at: - [facility] [id number] Director: Patria Traylor MD, Phone: [phone] Serum or plasma albumin/glob ulin mass ratioOrdered By: Sabrina Meek on 05-24-2023 Albumin/Globulin [Mass ratio] 2.3 {ratio} [facility] Serum or plasma anion gap de terminationOrdered By: Sabrina Meek on 05-24-2023 Anion gap [Moles/Vol] 13.0 mmol/L 6.0-15.0 [facility] Serum or plasma estradiol (E 2) measurement (mass/volume)Ordered By: Sabrina Meek on 05-24-2023 E2 [Mass/Vol] 6.8 pg/mL . [facility] Comment on above: Adult Female: Follic ular phase 12.5 - 166.0 Ovulation phase 85.8 - 498.0 Luteal phase 43.8 - 211.0 Postmenopausal <6.0 - 54.7 1st trimester 215.0 - >4300.0Roche ECLIA methodology Serum or plasma high density lipoprotein (HDL) cholesterol measurementOrdered By: Sabrina Meek on 05-24-2023 Cholesterol in HDL [Mass/Vol] 84 mg/dL 23-92 [facility] Comment on above: HDL CHOL ATP-III CLA SSIFICATION Cardiovascular RiskHDL > or equal to 60 mg/dL LOWHDL < 40 mg/dL HIGH Serum or plasma progesterone measurement (mass/volume)Ordered By: Sabrina Meek on 05-24-2023 Progesterone [Mass/Vol] 0.2 ng/mL . [facility] Comment on above: Follicular phase 0.1 - 0.9 Luteal phase 1.8 - 23.9 Ovulation phase 0.1 - 12.0 First trimester 11.0 - 44.3 Second trimester 25.4 - 83.3 Third trimester 58.7 - 214.0 Postmenopausal 0.0 - 0.1Performed at: - [facility] [id number] [place], [place] [id number] Director: Brian Mckinnon PhD, Phone: [phone] Serum or plasma total choles terol/high density lipoprotein (HDL) cholesterol mass ratOrdered By: Sabrina Meek on 05-24-2023 Cholesterol.total/Choles terol in HDL [Mass ratio] 2.8 {ratio} <5.0 [facility] Sodium [Moles/volume] in Ser um or PlasmaOrdered By: Sabrina Meek on 05-24-2023 Sodium [Moles/Vol] 143 mmol/L 136-145 [facility] Thyrotropin [Units/volume] i n Serum or PlasmaOrdered By: Sabrina Meek on 05-24-2023 TSH Qn 1.06 m[IU]/L 0.45-5.33 [facility] Triglyceride [Mass/volume] i n Serum or PlasmaOrdered By: Sabrina Meek on 05-24-2023 Triglyceride [Mass/Vol] 93 mg/dL 0-149 [facility] Comment on above: TRIG ATP III CLASSIF ICATIONTRIG less than 150 mg/dL NormalTRIG 150-199 mg/dL Borderline highTRIG 200-500 mg/dL High TRIG greater than 500 mg/dL Very highStandard traceable to the Center for Disease Conrtrol and Prevention (CDC) test method. Urea nitrogen [Mass/volume] in Serum or PlasmaOrdered By: Sabrina Meek on 05-24-2023 Urea nitrogen [Mass/Vol] 24 mg/dL 7-25 [facility] Vitamin D+Metabolites [Mass/ volume] in Serum or PlasmaOrdered By: Sabrina Meek on 05-24-2023 Vitamin D+Metabolites [Mass/Vol] 56.9 ng/mL 30-100 [facility] Comment on above: VITAMIN D STATUS 25( [place])VITAMIN D RANGE (ng/mL) Deficient <20 Insufficient 20 to <30Sufficient 30 to 100Reference: Kody PERALTA,Genaro SCHAFER, Damon GONZALES, et al. Evaluation,treatment, and prevention of vitamin D deficiency; an Endocrine Society clinical practice guideline. JCEM. 2010; 96(7):1911-30. WBC Auto (Bld) [#/Vol]Ordere d By: Sabrina Meek on 05-24-2023 WBC (Bld) [#/Vol] 7.8 10*3/uL 3.8-11.6 [facility] Alanine aminotransferase [En zymatic activity/volume] in Serum or PlasmaOrdered By: Marcella Flores on 03-02-2023 ALT [Catalytic activity/Vol] 19 U/L 7-52 [facility] Albumin [Mass/volume] in Ser um or Plasma by Bromocresol green (BCG) dye binding methoOrdered By: Marcella Flores on 03-02-2023 Albumin BCG dye [Mass/Vol] 4.6 g/dL 3.5-5.7 [facility] Alkaline phosphatase [Enzyma tic activity/volume] in Serum or PlasmaOrdered By: Marcella Flores on 03-02-2023 ALP [Catalytic activity/Vol] 81 U/L 34-104 [facility] Aspartate aminotransferase [ Enzymatic activity/volume] in Serum or PlasmaOrdered By: Marcella Flores on 03-02-2023 AST [Catalytic activity/Vol] 21 U/L 13-39 [facility] Basophils Auto (Bld) [#/Vol] Ordered By: Marcella Flores on 03-02-2023 Basophils (Bld) [#/Vol] 0.0 10*3/uL 0.0-0.2 [facility] Basophils/100 WBC Auto (Bld) Ordered By: Marcella Flores on 03-02-2023 Basophils/100 WBC (Bld) 0.3 % . [facility] Bilirubin.total [Mass/volume ] in Serum or PlasmaOrdered By: Marcella Flores on 03-02-2023 Bilirubin [Mass/Vol] 0.4 mg/dL 0.3-1.0 [facility] Calcium [Mass/volume] in Ser um or PlasmaOrdered By: Marcella Flores on 03-02-2023 Calcium [Mass/Vol] 9.9 mg/dL 8.6-10.3 [facility] Carbon dioxide, total [Moles /volume] in Serum or PlasmaOrdered By: Marcella Flores on 03-02-2023 CO2 [Moles/Vol] 30.6 mmol/L 21.0-31.0 [facility] Chloride [Moles/volume] in S galen or PlasmaOrdered By: Marcella Flores on 03-02-2023 Chloride [Moles/Vol] 105 mmol/L 98-107 [facility] Creatinine [Mass/volume] in Serum or PlasmaOrdered By: Marcella Flores on 03-02-2023 Creatinine [Mass/Vol] 0.83 mg/dL 0.60-1.20 [facility] Eosinophils Auto (Bld) [#/Vo l]Ordered By: Marcella Flores on 03-02-2023 Eosinophils (Bld) [#/Vol] 0.1 10*3/uL 0.0-0.45 [facility] Eosinophils/100 WBC Auto (Bl d)Ordered By: Marcella Flores on 03-02-2023 Eosinophils/100 WBC (Bld) 2.1 % . [facility] Erythrocyte distribution wid th Auto (RBC) [Ratio]Ordered By: Marcella Flores on 03-02-2023 Erythrocyte distribution width (RBC) [Ratio] 13.1 % 11.9-15.3 [facility] Globulin Calc (S) [Mass/Vol] Ordered By: Marcella Flores on 03-02-2023 Globulin (S) [Mass/Vol] 2.3 g/dL [facility] Glucose [Mass/volume] in Ser um or PlasmaOrdered By: Marcella Flores on 03-02-2023 Glucose [Mass/Vol] 93 mg/dL 70-100 [facility] Comment on above: ADA recommended refe rence rangeRandom Glucose Reference Range is dependent on time and content of last meal. Glucose of more than 200 mg/dL in a nonstressed, ambulatory subject supports the diagnosis of Diabetes Mellitus. Hematocrit Auto (Bld) [Volum e fraction]Ordered By: Marcella Flores on 03-02-2023 Hematocrit (Bld) [Volume fraction] 41.5 % 34.0-46.4 [facility] Hemoglobin [Mass/volume] in BloodOrdered By: Marcella Flores on 03-02-2023 Hemoglobin (Bld) [Mass/Vol] 13.8 g/dL 11.8-15.4 [facility] Leukocytes [#/volume] correc javier for nucleated erythrocytes in Blood by Automated counOrdered By: Marcella Flores on 03-02-2023 WBC corrected for nucl RBC Auto (Bld) [#/Vol] 6.1 10*3/uL 3.8-11.6 [facility] Lymphocytes Auto (Bld) [#/Vo l]Ordered By: Marcella Flores on 03-02-2023 Lymphocytes (Bld) [#/Vol] 2.0 10*3/uL 1.00-4.8 [facility] Lymphocytes/100 WBC Auto (Bl d)Ordered By: Marcella Flores on 03-02-2023 Lymphocytes/100 WBC (Bld) 32.8 % . [facility] MCH Auto (RBC) [Entitic mass ]Ordered By: Marcella Flores on 03-02-2023 MCH (RBC) [Entitic mass] 30.1 pg 24.7-34.3 [facility] MCHC Auto (RBC) [Mass/Vol]Or dered By: Marcella Flores on 03-02-2023 MCHC (RBC) [Mass/Vol] 33.4 g/dL 32.0-35.0 [facility] MCV Auto (RBC) [Entitic vol] Ordered By: Marcella Flores on 03-02-2023 MCV (RBC) [Entitic vol] 90.2 fL 80-100 [facility] Monocytes Auto (Bld) [#/Vol] Ordered By: Marcella Flores on 03-02-2023 Monocytes (Bld) [#/Vol] 0.6 10*3/uL 0.0-0.8 [facility] Monocytes/100 WBC Auto (Bld) Ordered By: Marcella Flores on 03-02-2023 Monocytes/100 WBC (Bld) 10.2 % . [facility] Neutrophils Auto (Bld) [#/Vo l]Ordered By: Marcella Flores on 03-02-2023 Neutrophils (Bld) [#/Vol] 3.3 10*3/uL 1.8-7.7 [facility] Neutrophils/100 WBC Auto (Bl d)Ordered By: Marcella Flores on 03-02-2023 Neutrophils/100 WBC (Bld) 54.6 % . [facility] No Panel InformationOrdered By: Marcella Flores on 03-02-2023 Estimated GFR (CKD-EPI) > 60.0 mL/Min [facility] Creatinine Clearance (Chem N/A [facility] Nucleated erythrocytes [Pres ence] in Blood by Automated countOrdered By: Marcella Flores on 03-02-2023 Nucleated RBC Auto Ql (Bld) 0.1 /100{WBC} 0-0.5 [facility] Parathyrin.intact [Mass/volu me] in Serum or PlasmaOrdered By: Marcella Flores on 03-02-2023 Parathyrin.intact [Mass/Vol] 48.2 pg/mL 12-88 [facility] Platelet mean volume Auto (B ld) [Entitic vol]Ordered By: Marcella Flores on 03-02-2023 Platelet mean volume (Bld) [Entitic vol] 9.0 fL 6.3-10.7 [facility] Platelets Auto (Bld) [#/Vol] Ordered By: Marcella Flores on 03-02-2023 Platelets (Bld) [#/Vol] 205 10*3/uL 150-450 [facility] Potassium [Moles/volume] in Serum or PlasmaOrdered By: Marcella Flores on 03-02-2023 Potassium [Moles/Vol] 4.2 mmol/L 3.5-5.1 [facility] Protein [Mass/volume] in Ser um or PlasmaOrdered By: Marcella Flores on 03-02-2023 Protein [Mass/Vol] 6.9 g/dL 6.4-8.9 [facility] RBC Auto (Bld) [#/Vol]Ordere d By: Marcella Flores on 03-02-2023 RBC (Bld) [#/Vol] 4.59 10*6/uL 3.60-5.00 [facility] Serum or plasma albumin/glob ulin mass ratioOrdered By: Marcella Flores on 03-02-2023 Albumin/Globulin [Mass ratio] 2.0 {ratio} [facility] Serum or plasma anion gap de terminationOrdered By: Marcella Flores on 03-02-2023 Anion gap [Moles/Vol] 11.6 mmol/L 6.0-15.0 [facility] Sodium [Moles/volume] in Ser um or PlasmaOrdered By: Marcella Flores on 03-02-2023 Sodium [Moles/Vol] 143 mmol/L 136-145 [facility] Thyrotropin [Units/volume] i n Serum or PlasmaOrdered By: Marcella Flores on 03-02-2023 TSH Qn 1.40 m[IU]/L 0.45-5.33 [facility] Urea nitrogen [Mass/volume] in Serum or PlasmaOrdered By: Mareclla Flores on 03-02-2023 Urea nitrogen [Mass/Vol] 24 mg/dL 7-25 [facility] Vitamin D+Metabolites [Mass/ volume] in Serum or PlasmaOrdered By: Marcella Flores on 03-02-2023 Vitamin D+Metabolites [Mass/Vol] 27.8 ng/mL 30-100 [facility] Comment on above: VITAMIN D STATUS 25( [place])VITAMIN D RANGE (ng/mL) Deficient <20 Insufficient 20 to <30Sufficient 30 to 100Reference: Kody MF,Genaro NC, Damon GONZALES, et al. Evaluation,treatment, and prevention of vitamin D deficiency; an Endocrine Society clinical practice guideline. JCEM. 2010; 96(7):1911-30. WBC Auto (Bld) [#/Vol]Ordere d By: Marcella Flores on 03-02-2023 WBC (Bld) [#/Vol] 6.1 10*3/uL 3.8-11.6 [facility] Cholesterol [Mass/volume] in Serum or PlasmaOrdered By: Teddy Thurston on 10-31-2022 Cholesterol [Mass/Vol] 168 mg/dL 140-200 [facility] Comment on above: Chol less than 200 m g/dl low riskChol 201-239 mg/dl borderline riskChol 240 mg/dl and greater high risk Cholesterol in LDL Calc [Mas s/Vol]Ordered By: Teddy Thurston on 10-31-2022 Cholesterol in LDL [Mass/Vol] 66 mg/dL 0-100 [facility] Comment on above: LDL ATP III CLASSIFI CATIONLDL less than 100 mg/dL OptimalLDL 100-129 mg/dL Near or above optimalLDL 130-159 mg/dL Borderline highLDL 160-189 mg/dL HighLDL greater than 189 mg/dL Very high Cholesterol in VLDL Calc [Ma ss/Vol]Ordered By: Teddy Thurston on 10-31-2022 Cholesterol in VLDL [Mass/Vol] 21 mg/dL [facility] - Chemistry and C hemistry - challengeon 10-31-2022 Cholesterol [Mass/Vol] 168\S\168 Normal 140-200 [facility] 250 DO Work Phone: Comment on above: Chol less than 200 m g/dl low risk Chol 201-239 mg/dl borderline risk Chol 240 mg/dl and greater high risk Cholesterol in LDL [Mass/Vol] 66\S\66 Normal 0-100 [facility] 250 DO Work Phone: Comment on above: LDL ATP III CLASSIFI CATION LDL less than 100 mg/dL Optimal LDL 100-129 mg/dL Near or above optimal LDL 130-159 mg/dL Borderline high LDL 160-189 mg/dL High LDL greater than 189 mg/dL Very high No Panel Informationon 10-31 21\S\21 Normal [facility] 250 DO Work Phone: 2.1\S\2.1 Normal <5.0 [facility] 250 DO Work Phone: Comment on above: PERFORMED BY:[facility] [place], [place] [id number] MEDICAL DIRECTORLORRAINE GUTIERREZ M.D. 107\S\107 Normal 35-149 [facility] 250 DO Work Phone: Comment on above: TRIG ATP III CLASSIF ICATION TRIG less than 150 mg/dL Normal TRIG 150-199 mg/dL Borderline high TRIG 200-500 mg/dL High TRIG greater than 500 mg/dL Very high Standard traceable to the Center for Disease Conrtrol and Prevention (CDC) test method. 81\S\81 Normal 35-85 [facility] 250 DO Work Phone: Comment on above: HDL CHOL ATP-III CLA SSIFICATION Cardiovascular Risk HDL > or equal to 60 mg/dL LOW HDL < 40 mg/dL HIGH Serum or plasma alanine zuniga otransferase measurement without P-5'-P (enzymatic activiOrdered By: Teddy Thurston on 10-31-2022 ALT No additional P-5'-P [Catalytic activity/Vol] 21 U/L 10-60 [facility] Serum or plasma aspartate am inotransferase measurement (enzymatic activity/volume)Ordered By: Teddy Thurston on 10-31-2022 AST [Catalytic activity/Vol] 21 U/L 10-42 [facility] Serum or plasma high density lipoprotein (HDL) cholesterol measurementOrdered By: Teddy Thurston on 10-31-2022 Cholesterol in HDL [Mass/Vol] 81 mg/dL 35-85 [facility] Comment on above: HDL CHOL ATP-III CLA SSIFICATION Cardiovascular RiskHDL > or equal to 60 mg/dL LOWHDL < 40 mg/dL HIGH Serum or plasma total choles terol/high density lipoprotein (HDL) cholesterol mass ratOrdered By: Teddy Thurston on 10-31-2022 Cholesterol.total/Choles terol in HDL [Mass ratio] 2.1 {ratio} <5.0 [facility] Triglyceride [Mass/volume] i n Serum or PlasmaOrdered By: Teddy Thurston on 10-31-2022 Triglyceride [Mass/Vol] 107 mg/dL 35-149 [facility] Comment on above: TRIG ATP III CLASSIF ICATIONTRIG less than 150 mg/dL NormalTRIG 150-199 mg/dL Borderline highTRIG 200-500 mg/dL High TRIG greater than 500 mg/dL Very highStandard traceable to the Center for Disease Conrtrol and Prevention (CDC) test method. MG MAMM SCREEN 3D ALESSIO CADon 07-25-2022 MG MAMM SCREEN 3D ALESSIO CAD Patient: SHERICE VARGAS Exam Date: 07/25/2022 : 1955 Gender:F Ordering : DR SABRINA MEEK Admission #: [id number] Family : Order #: [id number] CLICK HERE TO VIEW EXAM RADIOLOGY REPORT PROCEDURE: MAMMOGRAM SCREENING 3D BILATERAL CAD COMPARISON: MG MAMM ALESSIO SCRN W CAD DIG, 12/09/2015. MG MAMM SCREEN ALESSIO W CAD, 05/14/2020. MG MAMM SCREEN 3D ALESSIO CAD, 07/22/2021. INDICATIONS: Screening mammography Calculator Name NCI Breast Cancer Risk Assessment Tool 5 Year Breast Cancer Risk 1.60% Lifetime Breast Cancer Risk 5.90% Personal Breast Cancer No Personal Ovarian Cancer No Treatments None Family Cancers Mother with colon cancer at age 73; Father with eye cancer at age 79; Daughter with uterine cancer at age 26. LOCATION: [facility] BREAST COMPOSITION: Scattered areas fibroglandular density. FINDINGS: DIAGNOSTIC CATEGORY 2--BENIGN FINDING. NO CHANGE FROM COMPARISON. Scattered benign-appearing calcifications are present. RIGHT BREAST: No significant suspicious finding. LEFT BREAST: No significant suspicious finding. Again demonstrated is an area of nodular hyperdensity in the upper outer quadrant stable from the prior exam. Stability over time suggests a benign process and I suspect ruptured breast implant. RECOMMENDATIONS: ROUTINE MAMMOGRAM AND CLINICAL EVALUATION IN 12 MONTHS. PLEASE NOTE: A NORMAL MAMMOGRAM DOES NOT EXCLUDE THE POSSIBILITY OF BREAST CANCER. A CLINICALLY SUSPICIOUS PALPABLE LUMP SHOULD BE BIOPSIED. Dictated by: Thanh Martin MD on 07/25/2022 at 11:40 Approved by: Thanh Martin MD on 07/25/2022 at 11:51 Normal [facility] Tobacco Screening.on 022 Adult depression screening assessment No [facility] 250 DO Work Phone: Fall risk assessment a) No falls within the last year [facility] 250 DO Work Phone: Tobacco use status [facility] b) No [facility] 250 DO Work Phone: Albumin [Mass/volume] in Ser um or PlasmaOrdered By: Sabrina Meek on 06-28-2022 Albumin [Mass/Vol] 4.0 g/dL 3.2-5.5 [facility] Basophils Auto (Bld) [#/Vol] Ordered By: Sabrina Meek on 06-28-2022 Basophils (Bld) [#/Vol] 0.0 10*3/uL 0.0-0.2 [facility] Basophils/100 WBC Auto (Bld) Ordered By: Sabrina Meek on 06-28-2022 Basophils/100 WBC (Bld) 0.4 % . [facility] Blood hemoglobin measurement (mass/volume)Ordered By: Sabrina Meek on 06-28-2022 Hemoglobin (Bld) [Mass/Vol] 14.2 g/dL 11.8-15.4 [facility] Blood leukocytes automated c ount (number/volume)Ordered By: Sabrina Meek on 06-28-2022 WBC (Bld) [#/Vol] 6.2 10*3/uL 4.5-11.0 [facility] Cholesterol [Mass/volume] in Serum or PlasmaOrdered By: Sabrina Meek on 06-28-2022 Cholesterol [Mass/Vol] 196 mg/dL 140-200 [facility] Comment on above: Chol less than 200 m g/dl low risk Chol 201-239 mg/dl borderline risk Chol 240 mg/dl and greater high risk Cholesterol in LDL Calc [Mas s/Vol]Ordered By: Sabrina Meek on 06-28-2022 Cholesterol in LDL [Mass/Vol] 92 mg/dL 0-100 [facility] Comment on above: LDL ATP III CLASSIFI CATION LDL less than 100 mg/dL Optimal LDL 100-129 mg/dL Near or above optimal LDL 130-159 mg/dL Borderline high LDL 160-189 mg/dL High LDL greater than 189 mg/dL Very high Cholesterol in VLDL Calc [Ma ss/Vol]Ordered By: Sabrina Meek on 06-28-2022 Cholesterol in VLDL [Mass/Vol] 17 mg/dL [facility] Creatinine and Glomerular fi ltration rate.predicted panel (S/P/Bld)Ordered By: Sabrina Meek on 06-28-2022 Creatinine [Mass/Vol] 0.73 mg/dL 0.44-1.03 [facility] Eosinophils Auto (Bld) [#/Vo l]Ordered By: Sabrina Meek on 06-28-2022 Eosinophils (Bld) [#/Vol] 0.1 10*3/uL 0.0-0.45 [facility] Eosinophils/100 WBC Auto (Bl d)Ordered By: Sabrina Meek on 06-28-2022 Eosinophils/100 WBC (Bld) 2.3 % . [facility] Erythrocyte distribution wid th Auto (RBC) [Ratio]Ordered By: Sabrina Meek on 06-28-2022 Erythrocyte distribution width (RBC) [Ratio] 13.5 % 11.9-15.3 [facility] Estimated glomerular filtrat ion rate (GFR) non- AmericanOrdered By: Sabrina Meek on 06-28-2022 GFR/1.73 sq M.predicted among non-blacks MDRD (S/P/Bld) [Vol rate/Area] > 60 mL/Min [facility] Globulin Calc (S) [Mass/Vol] Ordered By: Sabrina Meek on 06-28-2022 Globulin (S) [Mass/Vol] 2.6 g/dL [facility] Hematocrit Auto (Bld) [Volum e fraction]Ordered By: Sabrina Meek on 06-28-2022 Hematocrit (Bld) [Volume fraction] 42.9 % 34.0-46.4 [facility] - Hematology and Cell countsOrdered By: Sabrina Meek on 06-28-2022 Nucleated RBC/100 WBC (Bld) [Ratio] 0.0 % 0-0.5 [facility] Lymphocytes Auto (Bld) [#/Vo l]Ordered By: Sabrina Meek on 06-28-2022 Lymphocytes (Bld) [#/Vol] 1.6 10*3/uL 1.00-4.8 [facility] Lymphocytes/100 WBC Auto (Bl d)Ordered By: Sabrina Meek on 06-28-2022 Lymphocytes/100 WBC (Bld) 25.4 % . [facility] MCH Auto (RBC) [Entitic mass ]Ordered By: Sabrina Meek on 06-28-2022 MCH (RBC) [Entitic mass] 30.8 pg 24.7-34.3 [facility] MCHC Auto (RBC) [Mass/Vol]Or dered By: Sabrina Meek on 06-28-2022 MCHC (RBC) [Mass/Vol] 33.2 g/dL 32.0-35.0 Fir [facility] MCV Auto (RBC) [Entitic vol] Ordered By: Sabrina Meek on 06-28-2022 MCV (RBC) [Entitic vol] 92.8 fL 80-100 [facility] Monocytes Auto (Bld) [#/Vol] Ordered By: Sabrina Meek on 06-28-2022 Monocytes (Bld) [#/Vol] 0.6 10*3/uL 0.0-0.8 [facility] Monocytes/100 WBC Auto (Bld) Ordered By: Sabrina Meek on 06-28-2022 Monocytes/100 WBC (Bld) 9.2 % . [facility] Neutrophils Auto (Bld) [#/Vo l]Ordered By: Sabrina Meek on 06-28-2022 Neutrophils (Bld) [#/Vol] 3.9 10*3/uL 1.8-7.7 [facility] Neutrophils/100 WBC Auto (Bl d)Ordered By: Sabrina Meek on 06-28-2022 Neutrophils/100 WBC (Bld) 62.7 % . [facility] No Panel InformationOrdered By: Sabrina Meek on 06-28-2022 Estimated GFR () > 60 mL/Min [facility] Comment on above: GFR estimated refere nce range: According to KDOQI guidelines, <60 ml/min/1.73m2 is sufficient to diagnose a patient with chronic kidney disease. Pharmacy Creatinine Clearance (Chem N/A [facility] Platelet mean volume Auto (B ld) [Entitic vol]Ordered By: Sabrina Meek on 06-28-2022 Platelet mean volume (Bld) [Entitic vol] 9.3 fL 6.3-10.7 [facility] Platelets Auto (Bld) [#/Vol] Ordered By: Sabrina Meek on 06-28-2022 Platelets (Bld) [#/Vol] 225 10*3/uL 150-450 [facility] Protein [Mass/volume] in Ser um or PlasmaOrdered By: Sabrina Meek on 06-28-2022 Protein [Mass/Vol] 6.6 g/dL 6.1-7.9 [facility] RBC Auto (Bld) [#/Vol]Ordere d By: Sabrina Meek on 06-28-2022 RBC (Bld) [#/Vol] 4.63 10*6/uL 3.60-5.00 [facility] Serum or plasma alanine zuniga otransferase measurement without P-5'-P (enzymatic activiOrdered By: Sabrina Meek on 06-28-2022 ALT No additional P-5'-P [Catalytic activity/Vol] 19 U/L 10-60 [facility] Serum or plasma albumin/glob ulin mass ratioOrdered By: Sabrina Meek on 06-28-2022 Albumin/Globulin [Mass ratio] 1.5 {ratio} [facility] Serum or plasma alkaline darshana sphatase measurement (enzymatic activity/volume)Ordered By: Sabrina Meek on 06-28-2022 ALP [Catalytic activity/Vol] 75 U/L 32-92 [facility] Serum or plasma anion gap de terminationOrdered By: Sabrina Meek on 06-28-2022 Anion gap [Moles/Vol] 10.9 mmol/L 6.0-15.0 [facility] Serum or plasma aspartate am inotransferase measurement (enzymatic activity/volume)Ordered By: Sabrina Meek on 06-28-2022 AST [Catalytic activity/Vol] 19 U/L 10-42 [facility] Serum or plasma calcium carol ann urement (mass/volume)Ordered By: Sabrina Meek on 06-28-2022 Calcium [Mass/Vol] 9.6 mg/dL 8.2-10.2 [facility] Serum or plasma chloride stefany surement (moles/volume)Ordered By: Sabrina Meek on 06-28-2022 Chloride [Moles/Vol] 102 mmol/L 95-114 [facility] Serum or plasma glucose carol ann urement (mass/volume)Ordered By: Sabrina Meek on 06-28-2022 Glucose [Mass/Vol] 86 mg/dL 70-100 [facility] Comment on above: ADA recommended refe rence range Random Glucose Reference Range is dependent on time and content of last meal. Glucose of more than 200 mg/dL in a nonstressed, ambulatory subject supports the diagnosis of Diabetes Mellitus. Serum or plasma high density lipoprotein (HDL) cholesterol measurementOrdered By: Sabrina Meek on 06-28-2022 Cholesterol in HDL [Mass/Vol] 87 mg/dL 35-85 [facility] Comment on above: HDL CHOL ATP-III CLA SSIFICATION Cardiovascular Risk HDL > or equal to 60 mg/dL LOW HDL < 40 mg/dL HIGH Serum or plasma potassium me asurement (moles/volume)Ordered By: Sabrina Meek on 06-28-2022 Potassium [Moles/Vol] 3.9 mmol/L 3.5-5.1 [facility] Serum or plasma sodium measu rement (moles/volume)Ordered By: Sabrina Meek on 06-28-2022 Sodium [Moles/Vol] 139 mmol/L 136-146 [facility] Serum or plasma total biliru bin measurement (mass/volume)Ordered By: Sabrina Meek on 06-28-2022 Bilirubin [Mass/Vol] 0.6 mg/dL 0.3-1.2 [facility] Serum or plasma total carbon dioxide measurement (moles/volume)Ordered By: Sabrina Meek on 06-28-2022 CO2 [Moles/Vol] 30.0 mmol/L 22.0-30.0 [facility] Serum or plasma total choles terol/high density lipoprotein (HDL) cholesterol mass ratOrdered By: Sabrina Meek on 06-28-2022 Cholesterol.total/Choles terol in HDL [Mass ratio] 2.3 {ratio} <5.0 [facility] Serum or plasma urea nitroge n measurement (mass/volume)Ordered By: Sabrina Meek on 06-28-2022 Urea nitrogen [Mass/Vol] 19 mg/dL 9-23 [facility] TSH DL <= 0.005 mIU/L QnOrde red By: Sabrina Meek on 06-28-2022 TSH Qn 2.32 m[IU]/L 0.45-5.33 [facility] Triglyceride [Mass/volume] i n Serum or PlasmaOrdered By: Sabrina Meek on 06-28-2022 Triglyceride [Mass/Vol] 86 mg/dL 35-149 [facility] Comment on above: TRIG ATP III CLASSIF ICATION TRIG less than 150 mg/dL Normal TRIG 150-199 mg/dL Borderline high TRIG 200-500 mg/dL High TRIG greater than 500 mg/dL Very high Standard traceable to the Center for Disease Conrtrol and Prevention (CDC) test method. Urine 10 SGon 03-31-2022 Albumin DL <= 20 mg/L (U) [Mass/Vol] Negative [employer] Other pH (U) 6.5 [pH] [employer] Other Urine 10 SG Negative [employer] Other Urine 10 SG 1.015 [employer] Other Urine 10 SG trace-intact [employer] Other Urine 10 SG 0.2 [employer] Other CBC with Diffon 04-14-2021 AB IMMATURE NEUT 0.02 K/UL Normal 0.0-0.1 [facility] ABS BASO 0.03 K/UL Normal 0.00-0.22 [facility] ABS EOS 0.07 K/UL Normal 0-0.45 [facility] ABS NEUTROPHILS 5.05 K/UL Normal 1.8-7.7 Replaced by [facility] ABS.NEUT.CALCULATED 5.05 K/UL Normal [facility] Comment on above: Result Comment: Perf ormed at [facility] [address] [facility] [address] Basophils/100 WBC (Bld) 0.40 % Normal 0-1 L [facility] DIFF TYPE AUTO DIFF Normal [facility] Eosinophils/100 WBC (Bld) 0.90 % Normal 0-3 [facility] Erythrocyte distribution width (RBC) [Ratio] 12.8 % Normal 11.7-15.0 [facility] Hematocrit (Bld) [Volume fraction] 47.5 % High 36-44 [facility] Hemoglobin (Bld) [Mass/Vol] 15.6 g/dL High 12.0-15.0 [facility] Lymphocytes (Bld) [#/Vol] 1.62 10*3/uL Normal 1.2-3.2 [facility] Lymphocytes/100 WBC (Bld) 22.00 % Normal 20-40 [facility] MCH (RBC) [Entitic mass] 31.2 pg Normal 26-34 [facility] MCHC 32.8 % Normal 31-37 [facility] MCV (RBC) [Entitic vol] 95.0 fL Normal 80-100 L [facility] MEAN PLT VOL 10.2 CU Normal 7.0-12.6 [facility] Monocytes (Bld) [#/Vol] 0.59 10*3/uL Normal 0-0.8 [facility] Monocytes/100 WBC (Bld) 8.00 % Normal 0-8 L [facility] Neutrophils/100 WBC (Bld) 0.30 % Normal 0.0-1.0 [facility] Neutrophils/100 WBC (Bld) 68.40 % Normal 50-70 [facility] Platelets (Bld) [#/Vol] 262 10*3/uL Normal 150-450 [facility] RBC (Bld) [#/Vol] 5.00 10*6/uL High 4.0-4.9 [facility] RDW-SD 45.7 FL Normal 37.0-54.0 [facility] WBC (Bld) [#/Vol] 7.4 10*3/uL Normal 4.5-11.0 [facility] COMPREHENSIVE METABOLIC PANE Reji 04-14-2021 Albumin [Mass/Vol] 5.1 g/dL High 3.5-5.0 [facility] Albumin/Globulin [Mass ratio] 2.0 {ratio} Normal 1.5-3.0 [facility] ALP [Catalytic activity/Vol] 80 U/L Normal 35-125 [facility] ALT [Catalytic activity/Vol] 20 U/L Normal 5-40 [facility] Anion gap [Moles/Vol] 11 mmol/L Normal 0-19 [facility] AST [Catalytic activity/Vol] 23 U/L Normal 5-40 [facility] Bilirubin [Mass/Vol] 0.3 mg/dL Normal 0.1-1.2 [facility] Calcium [Mass/Vol] 10.4 mg/dL Normal 8.5-10.4 [facility] Chloride [Moles/Vol] 102 mmol/L Normal 97-107 [facility] CO2 [Moles/Vol] 30 mmol/L Normal 24-31 [facility] Creatinine [Mass/Vol] 0.7 mg/dL Normal 0.4-1.6 [facility] ESTIMATED GFR 90 mL/min/1.73 m2 Normal [facility] Comment on above: Result Comment: GFR ml/min/1.73m2 Stage ----- 90 1 60-89 2 30-59 3 15-29 4 <15 5 For -Americans, multiply EGFR result by 1.210 Calculation not validated for patients under 18 years of age. Performed at [facility] [address] [facility] [address] Globulin (S) [Mass/Vol] 2.6 g/dL Normal 1.9-3.7 L [facility] Glucose [Mass/Vol] 96 mg/dL Normal 65-99 [facility] Potassium [Moles/Vol] 3.8 mmol/L Normal 3.4-5.1 [facility] Protein [Mass/Vol] 7.7 g/dL Normal 5.9-7.9 [facility] Sodium [Moles/Vol] 143 mmol/L Normal 133-145 [facility] Urea nitrogen [Mass/Vol] 15 mg/dL Normal 8-25 [facility] Urea nitrogen/Creatinine [Mass ratio] 21.4 mg/mg High 8-21 [facility] SARS-CoV-2,INFLUENZA A/B NUC LEIC ACID TESTon 04-14-2021 EUA DISCLAIMER Normal [facility] Comment on above: Result Comment: This test has been authorized by FDA under an EUA for use by CLIA Certified Moderate and High-Complexity laboratories and Point of Care (POC), i.e., in patient care settings operating under a CLIA Certificate of Waiver, Certificate of Compliance, or Certificate of Accreditation. This test has been authorized only for the simultaneous qualitative detection and differentiation of nucleic acid from SARS-CoV-2, influenza A virus, and influenza B virus and not for any other viruses or pathogens. This test is only authorized for the duration of the declaration that circumstances exist justifying the authorization of emergency use of in vitro diagnostic tests for the detection and/or diagnosis of COVID-19, unless the authorization is terminated or revoked sooner. Performed at [place] [address] FLU A by PCR Negative [facility] FLU B by PCR Negative [facility] SARS-CoV-2 (COVID-19) RNA NICOLASA+probe Ql (Unsp spec) Negative Normal NEG [facility] TYPE AND SCREENon 04-14-2021 TYPE AND SCREEN BLOOD COMPONENT TYPE - RED CELL GROUP Performed at [place] [address] UNITS ORDERED - 0 Performed at [place] [address] SPECIMEN EXPIRATION - 04/23/2021 Performed at [place] [address] ABO/RH(D) - O POSITIVE Performed at [place] [address] ANTIBODY SCREEN - NEGATIVE Performed at [place] [address] ARM BAND NUMBER - [id number] Performed at [place] [address] SURGERY DATE - [id number] BW Performed at [place] [address] TEST ORDERED - TYPE AND SCREEN Performed at [place] [address] PT TRANSFUSION HISTORY - BLOOD BANK RECORD SEARCH COMPLETED NO PREVIOUS RECORD NO PREVIOUS TRANSFUSIONS IN LIFETIME Performed at [address] Comment on above: Performed By: #### [facility] [place] [place] #### [place] [address] UA-REFLEX TO CULTUREon 04-14 RBC NONE SEEN Normal 0-3 [facility] Urinalysis dipstick W Reflex Microscopic panel (U) MANUAL MICROSCOPIC URINES Normal [facility] WBC NONE SEEN Normal 0-3 [facility] Bacteria identified Cx Nom (U) Normal [facility] Comment on above: Result Comment: CULT URE NOT INDICATED Performed at [facility] [address] [facility] [address] BILI Negative Normal NEG [facility] Clarity (U) CLEAR Normal [facility] Color (U) YELLOW Normal [facility] GLUC Negative Normal NEG [facility] Hemoglobin Ql (U) Negative Normal NEG [facility] KET Negative Normal NEG [facility] LEUK Negative Normal NEG [facility] NIT Negative Normal NEG [facility] pH (U) 7.5 [pH] Normal 4.6-8.0 [facility] PROT Negative Normal NEG [facility] SP GRAV,URINE 1.020 Normal 1.005-1.030 [facility] URO 0.2 MG/DL Normal 0-1.0 [facility] Surgical Pathologyon 019 Surgical Pathology (NOTE) [id number] [employer] CONSULTING PATHOLOGISTS [facility] ANATOMIC PATHOLOGY [address] [place] [id number] SURGICAL PATHOLOGY CONSULTATION Patient Name: SHERICE VARGAS [facility] Rec: [id number] Path Number: [id number] Collected: 12/18/2018 Received: 12/19/2018 Reported: 12/20/2018 15:02 -- Diagnosis -- Labial lesion biopsy: Benign epithelial inclusion cyst. Polo Burt Electronically Signed Out rdd/12/20/2018 Clinical Information Pre-op Diagnosis: VULVAR LESION Operative Findings: LABIA Source of Specimen 1: LABIAL LESION Gross Description SHERICE VARGAS, LABIA LESION Thompson fragments, 0.4 x 0.3 x 0.1 cm in aggregate. Entirely 1cs. tm Microscopic Description Microscopic examination performed. Normal [facility] Comment on above: Performed By: #### P PPVS #### [facility] [address] [place] [id number] Financial Quantitative Analyst: Dimitri Murray MD Progress Noteon 02-27-2018 HIM IP Note OR Carding Machine Feeder Normal [facility] Cult,Genitalon 02-23-2018 Cult,Genital Specimen Description .VAGINA Performed at [address] [place] [address] ([phone] Special Requests NOT REPORTED Culture PRESUMPTIVE ID: GARDNERELLA VAGINALIS HEAVY GROWTH NORMAL URO-GENITAL TANVI NEGATIVE FOR NEISSERIA GONORRHOEAE NEGATIVE FOR GROUP B STREPTOCOCCI Performed at [facility] [address] [place] [address] [phone] ([phone] Report Status FINAL 02/23/2018 [facility] Comment on above: Performed By: #### G EC #### [employer] [id number] [place] [address] Cytologyon 02-20-2018 Cytology (NOTE) [id number] [facility] CONSULTING PATHOLOGISTS [facility] ANATOMIC PATHOLOGY [address] [place] [phone] GYNECOLOGIC CYTOLOGY REPORT Patient Name: SHERICE VARGAS MR#: [id number] Specimen #[id number] Source: 1: Vaginal material, (ThinPrep vial, Imaging-assisted review) Clinical History Hysterectomy Atrophic vaginitis: N95.2 INTERPRETATION Vaginal material, (ThinPrep vial, Imaging-assisted review): Specimen Adequacy: Satisfactory for evaluation. - Scant cellularity, predominantly inflammatory exudate. Descriptive Diagnosis: Negative for intraepithelial lesion or malignancy. Supplemental Nurse: YURIDIA Baron(ASCP) Electronically Signed Out cd/03/18/2018 [facility] Progress Noteon 02-20-2018 HIM IP Note OR Carding Machine Feeder [facility] Vital Signs Date Time Vital Sign Value Performing Clinician Facility 08-23-2024 09:25-0500 Body height 152.4 cm Adeyoh DO Work Phone: [facility] 08-23-2024 09:25-0500 Body mass index (BMI) [Ratio] 30.66 kg/m2 EVRGR Work Phone: [facility] 08-23-2024 09:25-0500 Body weight 71.22 kg Adeyoh DO Work Phone: [facility] 08-23-2024 09:25-0500 Diastolic blood pressure 80 mm[Hg] GeorgeHiptype Work Phone: [facility] 08-23-2024 09:25-0500 Systolic blood pressure 120 mm[Hg] George Itzkowitz DO Work Phone: [facility] 07-10-2024 12:40-0400 Body height 152.4 cm DO Sabrina Kuns Work Phone: [facility] 07-10-2024 12:40-0400 Body mass index (BMI) [Ratio] 30.4 kg/m2 DO Sabrina Kuns Work Phone: [facility] 07-10-2024 12:40-0400 Body weight 70.76 kg DO Sabrina Kuns Work Phone: [facility] 07-10-2024 12:40-0400 Diastolic blood pressure 80 mm[Hg] DO Sabrina Kuns Work Phone: [facility] 07-10-2024 12:40-0400 Heart rate 68 /min DO Sabrina Kuns Work Phone: [facility] 07-10-2024 12:40-0400 Respiratory rate 16 /min DO Sabrina Kuns Work Phone: [facility] 07-10-2024 12:40-0400 SaO2% (BldA) [Mass fraction] 93 % DO Sabrina Kuns Work Phone: [facility] 07-10-2024 12:40-0400 Systolic blood pressure 112 mm[Hg] DO Sabrina Kuns Work Phone: [facility] 03-18-2024 11:46-0400 Diastolic blood pressure 76 mm[Hg] Sena 1 [facility] 03-18-2024 11:46-0400 Heart rate 75 /min Sena [address] [place] [address] 03-18-2024 11:46-0400 Systolic blood pressure 106 mm[Hg] Sena 1 [facility] 02-07-2024 09:53-0400 Body height 152.4 cm DO Sabrina Kuns Work Phone: [facility] 02-07-2024 09:53-0400 Body mass index (BMI) [Ratio] 31 kg/m2 DO Sabrina Kuns Work Phone: [facility] 02-07-2024 09:53-0400 Body weight 72.12 kg DO Sabrina Kuns Work Phone: [facility] 01-02-2024 10:42-0400 Body height 152.4 cm DO Sabrina Kuns Work Phone: [facility] 01-02-2024 10:42-0400 Body mass index (BMI) [Ratio] 31.2 kg/m2 DO Sabrina Kuns Work Phone: [facility] 01-02-2024 10:42-0400 Body weight 72.57 kg DO Sabrina Kuns Work Phone: [facility] 01-02-2024 10:42-0400 Diastolic blood pressure 76 mm[Hg] DO Sabrina Kuns Work Phone: [facility] 01-02-2024 10:42-0400 Heart rate 72 /min DO Sabrina Kuns Work Phone: [facility] 01-02-2024 10:42-0400 Respiratory rate 16 /min DO Sabrina Kuns Work Phone: [facility] 01-02-2024 10:42-0400 SaO2% (BldA) [Mass fraction] 98 % DO Sabrina Kuns Work Phone: [facility] 01-02-2024 10:42-0400 Systolic blood pressure 120 mm[Hg] DO Sabrina Kuns Work Phone: [facility] 11-21-2023 09:05-0500 Diastolic blood pressure 85 mm[Hg] DO Sabrina Kuns Work Phone: [facility] 11-21-2023 09:05-0500 Heart rate 84 /min DO Sabrina Kuns Work Phone: [facility] 11-21-2023 09:05-0500 Respiratory rate 18 /min DO Sabrina Kuns Work Phone: [facility] 11-21-2023 09:05-0500 SaO2% (BldA) [Mass fraction] 95 % DO Sabrina Kuns Work Phone: [facility] 11-21-2023 09:05-0500 Systolic blood pressure 125 mm[Hg] DO Sabrina Kuns Work Phone: [facility] 11-21-2023 08:27-0500 Inhaled oxygen flow rate 3 L/min DO Sabrina Kuns Work Phone: [facility] 11-21-2023 08:06-0500 Body height 152.4 cm DO Sabrina Kuns Work Phone: [facility] 11-21-2023 08:06-0500 Body weight 72.57 kg DO Sabrina Kuns Work Phone: [facility] 10-26-2023 09:45-0500 Body height 152.4 cm [employer] Other [facility] 10-26-2023 09:45-0500 Body mass index (BMI) [Ratio] 31.05 kg/m2 Ascencion Millanisle II Other [employer] Other 10-26-2023 09:45-0500 Body weight 72.12 kg Ascencion Ludlow II Other [facility] 09-06-2023 13:30-0500 Body height 152.4 cm Rajeev Ziegler Other [facility] 09-06-2023 13:30-0500 Body mass index (BMI) [Ratio] 31.05 kg/m2 Rajeev Ziegler Other [facility] [employer] Other 09-06-2023 13:30-0500 Body weight 72.12 kg Rajeev Toney Other [facility] 09-06-2023 13:30-0500 Diastolic blood pressure 88 mm[Hg] Rajeev Ziegler Other [facility] 09-06-2023 13:30-0500 Respiratory rate 16 /min Rajeev Ziegler Other [facility] [employer] Other 09-06-2023 13:30-0500 SaO2% (BldA) [Mass fraction] 97 % Rajeev Ziegler Other [facility] [employer] Other 09-06-2023 13:30-0500 Systolic blood pressure 142 mm[Hg] Rajeev Ziegler Other [facility] 08-31-2023 11:45-0500 Body height 152.4 cm Asc[employer]ion Fallon II Other [employer] Other 08-31-2023 11:45-0500 Body mass index (BMI) [Ratio] 30.46 kg/m2 [employer] Fallon [employer] Other [employer] Other 08-31-2023 11:45-0500 Body weight 70.76 kg Ascencion Fallon II Other [employer] [facility] [employer] Other 07-11-2023 13:57-0400 Diastolic blood pressure 80 mm[Hg] Sabrina R Kuns Work Phone: [facility] DO Work Phone: 07-11-2023 13:57-0400 Systolic blood pressure 121 mm[Hg] Sabrina R Kuns Work Phone: [facility] DO Work Phone: 07-11-2023 13:34-0400 Body height 154.94 cm Sabrina R Kuns Work Phone: [facility] DO Work Phone: 07-11-2023 13:34-0400 Body mass index (BMI) [Ratio] 29.4 kg/m2 Sabrina R Kuns Work Phone: [facility] DO Work Phone: 07-11-2023 13:34-0400 Body surface area Derived from formula 1.7 m2 Sabrina R Kuns Work Phone: [facility] DO Work Phone: 07-11-2023 13:34-0400 Body weight 70.58 kg Sabrina R Kuns Work Phone: [facility] DO Work Phone: 07-11-2023 13:34-0400 Diastolic blood pressure 90 mm[Hg] Sabrina R Kuns Work Phone: [facility] DO Work Phone: 07-11-2023 13:34-0400 Heart rate 68 /min Sabrina R Kuns Work Phone: [facility] DO Work Phone: 07-11-2023 13:34-0400 Systolic blood pressure 122 mm[Hg] Sabrina R Kuns Work Phone: [facility] DO Work Phone: 07-05-2023 15:30-0400 Body height 152.4 cm Sabrina [employer] Other [employer] Other 07-05-2023 15:30-0400 Body mass index (BMI) [Ratio] 30.46 kg/m2 Sabrina [employer] Other [employer] Other 07-05-2023 15:30-0400 Body weight 70.76 kg Sabrina Kuns Other [employer] Other 07-05-2023 15:30-0400 Diastolic blood pressure 76 mm[Hg] Sabrina Kuns Other [employer] Other 07-05-2023 15:30-0400 Respiratory rate 16 /min Sabrina Kuns Other [employer] Other 07-05-2023 15:30-0400 SaO2% (BldA) [Mass fraction] 97 % Sabrina Kuns Other [employer] Other 07-05-2023 15:30-0400 Systolic blood pressure 110 mm[Hg] Sabrina Kuns Other [employer] Other 05-31-2023 14:00-0400 Body height 152.4 cm Sabrina Kuns Other [employer] Other 05-31-2023 14:00-0400 Body mass index (BMI) [Ratio] 30.66 kg/m2 Sabrina Kuns Other [employer] Other 05-31-2023 14:00-0400 Body weight 71.22 kg Sabrina Kuns Other [employer] Other 05-31-2023 14:00-0400 Diastolic blood pressure 64 mm[Hg] Sabrina Kuns Other [employer] Other 05-31-2023 14:00-0400 Respiratory rate 16 /min Sabrina Kuns Other [employer] Other 05-31-2023 14:00-0400 SaO2% (BldA) [Mass fraction] 95 % Sabrinachaparrita Meek Other [employer] Other 05-31-2023 14:00-0400 Systolic blood pressure 118 mm[Hg] [employer]rina [employer] Other [employer] Other 02-23-2023 15:30-0400 Body height 154.94 cm [employer] Other [employer] Other 02-23-2023 15:30-0400 Body mass index (BMI) [Ratio] 30.98 kg/m2 [employer] Other [employer] Other 02-23-2023 15:30-0400 Body weight 74.39 kg [employer] Other [employer] Other 07-01-2022 10:09-0400 Diastolic blood pressure 85 mm[Hg] Sabrina R Yossis Work Phone: [facility] DO Work Phone: 07-01-2022 10:09-0400 Systolic blood pressure 138 mm[Hg] Sabrina R Yossis Work Phone: [facility] DO Work Phone: 07-01-2022 09:54-0400 Body height 154.94 cm Sabrina R Kuns Work Phone: [facility] DO Work Phone: 07-01-2022 09:54-0400 Body mass index (BMI) [Ratio] 29.67 kg/m2 Sabrina R Kuns Work Phone: [facility] DO Work Phone: 07-01-2022 09:54-0400 Body surface area Derived from formula 1.7 m2 Sabrina R Kuns Work Phone: [facility] DO Work Phone: 07-01-2022 09:54-0400 Body weight 71.22 kg Sabrina R Kuns Work Phone: [facility] DO Work Phone: 07-01-2022 09:54-0400 Diastolic blood pressure 100 mm[Hg] Sabrina R Kuns Work Phone: [facility] DO Work Phone: 07-01-2022 09:54-0400 Heart rate 66 /min Sabrina R Kuns Work Phone: [facility] DO Work Phone: 07-01-2022 09:54-0400 Systolic blood pressure 162 mm[Hg] Sabrina R Kuns Work Phone: [facility] DO Work Phone: 06-22-2022 14:15-0400 Body height 154.94 cm Sabrina Kuns Other [employer] Other 06-22-2022 14:15-0400 Body mass index (BMI) [Ratio] 29.74 kg/m2 Sabrina Kuns Other [employer] Other 06-22-2022 14:15-0400 Body weight 71.4 kg Sabrina Kuns Other [employer] Other 06-22-2022 14:15-0400 Diastolic blood pressure 72 mm[Hg] Sabrina Kuns Other [employer] Other 06-22-2022 14:15-0400 Respiratory rate 20 /min [employer] Other [employer] Other 06-22-2022 14:15-0400 SaO2% (BldA) [Mass fraction] 96 % [employer] Other [employer] Other 06-22-2022 14:15-0400 Systolic blood pressure 134 mm[Hg] [employer] Other [employer] Other 05-14-2022 13:15-0400 Body height 154.94 cm Sarahi Carlos Other [employer] Other 05-14-2022 13:15-0400 Body mass index (BMI) [Ratio] 29.66 kg/m2 Sarahi Carlos Other [employer] Other 05-14-2022 13:15-0400 Body weight 71.22 kg Sarahi Carlos Other [employer] Other 05-14-2022 13:15-0400 Diastolic blood pressure 77 mm[Hg] Sarahi Carlos Other [employer] Other 05-14-2022 13:15-0400 Respiratory rate 20 /min Sarahi Carlos Other [employer] Other 05-14-2022 13:15-0400 SaO2% (BldA) [Mass fraction] 98 % Sarahi Carlos Other [employer] Other 05-14-2022 13:15-0400 Systolic blood pressure 127 mm[Hg] Sarahi Carlos Other [employer] Other 04-01-2022 12:30-0400 Body height 154.94 cm Ascencion Martinezle II Other [employer] Other 04-01-2022 12:30-0400 Body mass index (BMI) [Ratio] 30.42 kg/m2 Ascencion Martinezle II Other [employer] Other 04-01-2022 12:30-0400 Body weight 73.03 kg Ascencion Martinezle II Other [employer] Other 03-31-2022 11:15-0400 Body height 154.94 cm Sabrina Kuns Other [employer] Other 03-31-2022 11:15-0400 Body mass index (BMI) [Ratio] 30.42 kg/m2 Sabrina Kuns Other [employer] Other 03-31-2022 11:15-0400 Body weight 73.03 kg Sabrina Kuns Other [employer] Other 03-31-2022 11:15-0400 Diastolic blood pressure 70 mm[Hg] Sabrina Kuns Other [employer] Other 03-31-2022 11:15-0400 Respiratory rate 18 /min Sabrina Kuns Other [employer] Other 03-31-2022 11:15-0400 SaO2% (BldA) [Mass fraction] 97 % Sabrina Kuns Other [employer] Other 03-31-2022 11:15-0400 Systolic blood pressure 115 mm[Hg] Sabrina Kuns Other [employer] Other 12-31-2021 12:30-0400 Body height 154.94 cm Ascencion Millanisle II Other [employer] Other 12-31-2021 12:30-0400 Body mass index (BMI) [Ratio] 30.61 kg/m2 Ascencion Millanisle II Other [employer] Other 12-31-2021 12:30-0400 Body weight 73.48 kg Ascencion Martinezle II Other [employer] Other 12-28-2021 11:30-0400 Body height 154.94 cm [employer] Other [employer] Other 12-28-2021 11:30-0400 Body mass index (BMI) [Ratio] 30.61 kg/m2 Sabrina Kuns Other [employer] Other 12-28-2021 11:30-0400 Body weight 73.48 kg Sabrina Kuns Other [employer] Other 12-28-2021 11:30-0400 Diastolic blood pressure 72 mm[Hg] Sabrina Kuns Other [employer] Other 12-28-2021 11:30-0400 Respiratory rate 17 /min Sabrina Kuns Other [employer] Other 12-28-2021 11:30-0400 SaO2% (BldA) [Mass fraction] 99 % Sbarina Kuns Other [employer] Other 12-28-2021 11:30-0400 Systolic blood pressure 130 mm[Hg] Sabrina Kuns Other [employer] Other 09-24-2021 09:00-0500 Body height 154.94 cm Ascencion Fallon II Other [employer] Other 09-24-2021 09:00-0500 Body mass index (BMI) [Ratio] 28.72 kg/m2 Ascencion Fallon II Other [employer] Other 09-24-2021 09:00-0500 Body weight 68.95 kg Ascencion Fallon II Other [employer] Other 08-04-2021 15:30-0400 Body height 154.94 cm [employer]ar[employer] Other [employer] Other 08-04-2021 15:30-0400 Body mass index (BMI) [Ratio] 29.09 kg/m2 Sabrina Kuns Other [employer] Other 08-04-2021 15:30-0400 Body weight 69.85 kg Sabrina Kuns Other [employer] Other 08-04-2021 15:30-0400 Diastolic blood pressure 70 mm[Hg] Sabrina Kuns Other [employer] Other 08-04-2021 15:30-0400 Respiratory rate 16 /min Sabrina Kuns Other [employer] Other 08-04-2021 15:30-0400 SaO2% (BldA) [Mass fraction] 97 % Sabrina Kuns Other [employer] Other 08-04-2021 15:30-0400 Systolic blood pressure 100 mm[Hg] Sabrina Kuns Other [facility] [employer] Other Encounters Encounter Date Encounter Type Care Provider Facility Start: 08-23-2024 End: 08-23-2024 ambulatory GEORGE COX Not Available Start: 08-23-2024 End: 08-23-2024 Office outpatient visit 15 minutes George Cox DO Work Phone: [facility] [address] [facility] Comment on above: Family history of co reji cancer (Primary Dx) Start: 07-10-2024 Patient encounter status DO Br ett Kuns Work Phone: [facility] Start: 07-10-2024 End: 07-10-2024 ambulatory DO Sabrina Kuns Work Phone: [facility] Work Phone: Start: 07-10-2024 End: 07-10-2024 Encounter for general adult medical examination without abnormal findings DO Sabrina Kuns Work Phone: [facility] Start: 07-10-2024 End: 07-10-2024 Patient encounter procedure DO Sabrina Kuns Work Phone: [facility] [place] Work Phone: Start: 06-28-2024 End: 06-28-2024 Patient encounter procedure DO Sabrina Kuns Work Phone: [facility] [place] Work Phone: Start: 06-28-2024 End: 06-28-2024 ambulatory DO Sabrina Kuns Work Phone: [facility] Work Phone: Start: 03-18-2024 End: 03-18-2024 Subsequent hospital visit by physician Sena Morales Stress Room 1 [facility] Comment on above: Premature ventricula r contraction on electrocardiography Start: 03-18-2024 End: 03-18-2024 ambulatory [facility] Start: 02-14-2024 End: 02-14-2024 ambulatory Sabrina Kuns Facility:[facility] Start: 02-07-2024 End: 02-07-2024 ambulatory DO Sabrina Kuns Work Phone: [facility] Work Phone: Start: 02-07-2024 End: 02-07-2024 Patient encounter procedure DO Sabrina Kuns Work Phone: [facility] Work Phone: Start: 01-02-2024 End: 01-02-2024 ambulatory DO Sabrina Kuns Work Phone: [facility] Work Phone: Start: 01-02-2024 End: 01-02-2024 Patient encounter procedure DO Sabrina Kuns Work Phone: [facility] [place] Work Phone: Start: 12-11-2023 Non-patient / Non-visit DO Abril tt Kuns Work Phone: [facility] Work Phone: Start: 11-30-2023 End: 11-30-2023 ambulatory DO Sabrina Kuns Work Phone: [facility] Work Phone: Start: 11-30-2023 End: 11-30-2023 Patient encounter procedure DO Sabrina Kuns Work Phone: [facility] Work Phone: Start: 11-21-2023 (Procedure) Iban Solano [facility] Start: 11-21-2023 End: 11-21-2023 Admission to same day surgery center DO Sabrina Kuns Work Phone: [facility] Work Phone: Start: 11-21-2023 End: 11-21-2023 ambulatory DO Sabrina Kuns Work Phone: [facility] Work Phone: Start: 11-20-2023 End: 11-20-2023 Patient encounter procedure DO Sabrina Kuns Work Phone: [facility] [place] Work Phone: Start: 11-20-2023 End: 11-20-2023 ambulatory DO Sabrina Kuns Work Phone: [facility] Work Phone: Start: 11-17-2023 End: 11-17-2023 ambulatory Sabrina Kuns Other [employer] Other Start: 11-17-2023 Telephone encounter Sabrina Kuns [facility] [place] Start: 11-08-2023 End: 11-08-2023 ambulatory Mehul Solano Other [employer] Other Start: 11-08-2023 Office outpatient ne w 45 minutes Mehul Solano [facility] [place] Start: 11-08-2023 End: 11-08-2023 Patient encounter procedure DO Sabrina Kuns Work Phone: [facility]- Start: 11-01-2023 End: 11-01-2023 ambulatory Sabrina Kuns Other [employer] Other Start: 11-01-2023 Telephone encounter Sabrina Kuns [facility] [place] Start: 10-26-2023 End: 10-26-2023 ambulatory Ascencion Fallon II Other [employer] Other Start: 10-26-2023 Office outpatient vi sit 15 minutes Ascencion Ludlow II [facility] Start: 10-26-2023 End: 10-26-2023 Patient encounter procedure DO Sabrina Kuns Work Phone: [facility] Work Phone: Start: 10-02-2023 End: 10-02-2023 ambulatory Marcella Flores Other [employer] Other Start: 10-02-2023 Telephone encounter Marcella Flores [facility] Start: 09-25-2023 End: 09-25-2023 ambulatory Sabrina Kuns Other [employer] Other Start: 09-25-2023 Telephone encounter Sabrina Kuns [facility] [place] Start: 09-19-2023 End: 09-19-2023 ambulatory Sabrina Kuns Other [employer] Other Start: 09-19-2023 Telephone encounter Sabrina Kuns [facility] [place] Start: 09-11-2023 End: 09-11-2023 ambulatory Ascencion Fallon II Other [employer] Other Start: 09-11-2023 Telephone encounter Ascencion Fallon II [facility] [place] Start: 09-06-2023 End: 09-06-2023 ambulatory Rajeev Ziegler Other [employer] Other Start: 09-06-2023 Office consultation new/estab patient 40 min Rajeev Ziegler [facility] [place] Start: 09-06-2023 End: 09-06-2023 Patient encounter procedure DO Sabrina Kuns Work Phone: [facility] [place] Work Phone: Start: 08-31-2023 Office outpatient vi sit 25 minutes Ascencion Fallon II [facility] Start: 08-31-2023 Telephone encounter Marcella Mark [facility] Start: 08-31-2023 End: 08-31-2023 Patient encounter procedure DO Sabrina Kuns Work Phone: [facility] Start: 08-31-2023 End: 08-31-2023 ambulatory DO Sabrina Kuns Work Phone: [employer] Other Start: 08-31-2023 End: 08-31-2023 Patient encounter procedure DO Sabrina Kuns Work Phone: [facility] Work Phone: Start: 07-11-2023 Office outpatient vi sit 15 minutes Sabrina R Kuns Work Phone: -[facility] 250 DO Work Phone: Start: 07-11-2023 ambulatory Mourhaf Traboulssi Faci lity: Start: 07-05-2023 End: 07-05-2023 ambulatory Sabrina Yossis Other [employer] Other Start: 07-05-2023 Encounter for genera l adult medical examination without abnormal findings Sabrinachaparrita Sys [facility] [place] Start: 07-05-2023 Patient encounter status Sabrina Yossis Other [employer] Other Start: 07-05-2023 Periodic preventive med est patient 65yrs& older Sabrinachaparrita Sys [facility] [place] Start: 06-14-2023 End: 06-14-2023 ambulatory Sabrina Kuns Other [employer] Other Start: 06-14-2023 Telephone encounter Sabrina Yossis [facility] [place] Start: 06-12-2023 End: 06-12-2023 ambulatory Sabrina Kuns Other [employer] Other Start: 06-12-2023 Telephone encounter Sabrina Yossis [facility] [place] Start: 05-31-2023 End: 05-31-2023 ambulatory Sabrina Kuns Other [employer] Other Start: 05-31-2023 Office outpatient vi sit 25 minutes Sabrina Kuns [facility] Start: 05-24-2023 End: 05-24-2023 ambulatory DO Sabrina Kuns Work Phone: [facility] Work Phone: Start: 05-24-2023 End: 05-24-2023 Patient encounter procedure DO Sabrina Kuns Work Phone: [facility] [place] Work Phone: Start: 05-16-2023 End: 05-16-2023 ambulatory Sabrina Kuns Other [employer] Other Start: 05-16-2023 Telephone encounter Sabrina Kuns [facility] Start: 05-15-2023 End: 05-15-2023 ambulatory Sabrina Kuns Other [employer] Other Start: 05-15-2023 Telephone encounter Sabrina Kuns [facility] Start: 04-10-2023 End: 04-10-2023 ambulatory Sabrina Kuns Other [employer] Other Start: 04-10-2023 Telephone encounter Sabrina Kuns [facility] Start: 03-22-2023 End: 03-22-2023 ambulatory Marcella Flores Other [employer] Other Start: 03-22-2023 Telephone encounter Marcella Flores [facility] Start: 03-02-2023 End: 03-02-2023 Patient encounter procedure DO Sabrina Kuns Work Phone: [facility] Start: 02-23-2023 End: 02-23-2023 Patient encounter procedure DO Sabrina Kuns Work Phone: [facility] Start: 02-23-2023 End: 02-23-2023 ambulatory DO Sabrina Kuns Work Phone: [facility] Work Phone: Start: 02-23-2023 Office outpatient vi sit 25 minutes Ascencion Fallon II [facility] Start: 02-09-2023 End: 02-09-2023 ambulatory Sabrina Kuns Other [employer] Other Start: 02-09-2023 Encounter for genera l adult medical examination without abnormal findings Sabrina Kuns [facility] Start: 02-09-2023 Telephone encounter Sabrina Kuns [facility] Start: 12-05-2022 End: 12-05-2022 ambulatory Sabrina Kuns Other [employer] Other Start: 12-05-2022 Telephone [facility] Start: 11-30-2022 End: 11-30-2022 ambulatory Sabrina Kuns Other [employer] Other Start: 11-30-2022 Telephone encounter [facility] Start: 11-01-2022 Chart Update Sabrina R Yossis Work Phone: [facility] 250 DO Work Phone: Start: 10-31-2022 End: 10-31-2022 ambulatory DO Sabrina Kuns Work Phone: [facility] Work Phone: Start: 10-31-2022 End: 10-31-2022 Patient encounter procedure DO Sabrina Kuns Work Phone: [facility] [place] Work Phone: Start: 08-29-2022 End: 08-29-2022 Departed Referred DO [facility]rinachaparrita Sys Work Phone: [facility] [place] Work Phone: Start: 07-25-2022 End: 07-26-[address] SABRINA MEEK Facility: Start: 07-05-2022 End: 07-05-2022 ambulatory Sabrina Meek Other [employer] Other Start: 07-05-2022 Telephone encounter Sabrina Meek [facility] Start: 07-05-2022 End: 07-05-2022 Patient encounter procedure DO Sabrinachaparrita Meek Work Phone: [facility] [place] Start: 07-01-2022 Office outpatient vi sit 15 minutes Sabrina Meek Work Phone: [facility] 250 DO Work Phone: Start: 06-28-2022 End: 06-28-2022 Patient encounter procedure DO Sabrina Meek Work Phone: [facility] [place] Start: 06-23-2022 End: 06-23-2022 ambulatory Sabrina Meek Other [employer] Other Start: 06-23-2022 Telephone encounter Sabrina Meek [facility] Start: 06-22-2022 End: 06-22-2022 ambulatory Sabrina Meek Other [employer] Other Start: 06-22-2022 Office outpatient vi sit 25 minutes Sabrina Meek [facility] Start: 06-09-2022 End: 06-09-2022 ambulatory Sabrina Meek Other [employer] Other Start: 06-09-2022 Telephone encounter Sabrina Meek [facility] Start: 05-14-2022 End: 05-14-2022 ambulatory Sarahi Carlos Other [employer] Other Start: 05-14-2022 Office outpatient vi sit 15 minutes Sarahi Carlos [facility] Start: 05-06-2022 End: 05-06-2022 ambulatory Sabrina Meek Other [employer] Other Start: 05-06-2022 Encounter for genera l adult medical examination without abnormal findings Sabrinachaparrita Meek [facility] [place] Start: 05-06-2022 Telephone encounter Sabrina Sys [facility] [place] Start: 05-02-2022 End: 05-02-2022 ambulatory Sabrina Meek Other [employer] Other Start: 05-02-2022 Telephone encounter Sabrina Sys [facility] [place] Start: 04-01-2022 End: 04-01-2022 ambulatory Ascencion Vasyl II Other [employer] Other Start: 04-01-2022 Office outpatient vi sit 15 minutes Ascencion Ludlow II [facility] Start: 03-31-2022 End: 03-31-2022 ambulatory Sabrina Meek Other [employer] Other Start: 03-31-2022 Encounter for genera l adult medical examination without abnormal findings Sabrinachaparrita Sys [facility] [place] Start: 03-31-2022 Periodic preventive med est patient 65yrs& older Sabrina Sys [facility] [place] Start: 02-14-2022 End: 02-14-2022 ambulatory Sabrina Sys Other [employer] Other Start: 02-14-2022 Telephone encounter Sabrina Sys [facility] [place] Start: 01-03-2022 End: 01-03-2022 ambulatory Ascencion Vasyl II Other [employer] Other Start: 01-03-2022 Telephone encounter Ascencion Martinezle II [facility] Start: 12-31-2021 End: 12-31-2021 ambulatory Ascencion Ludlow II Other [employer] Other Start: 12-31-2021 Office outpatient vi sit 25 minutes Ascencion Ludlow II [facility] Start: 12-28-2021 End: 12-28-2021 ambulatory Sabrina Kuns Other [employer] Other Start: 12-28-2021 Office outpatient vi sit 15 minutes Sabrina Kuns [facility] [place] Start: 12-01-2021 End: 12-01-2021 ambulatory Sabrina Kuns Other [employer] Other Start: 12-01-2021 Encounter for genera l adult medical examination without abnormal findings Sabrina Kuns [facility] [place] Start: 12-01-2021 Telephone encounter Sabrina Kuns [facility] [place] Start: 11-24-2021 End: 11-24-2021 ambulatory Sabrina Kuns Other [employer] Other Start: 11-24-2021 Telephone encounter Sabrina Kuns [facility] [place] Start: 11-12-2021 End: 11-12-2021 ambulatory Sabrina Kuns Other [employer] Other Start: 11-12-2021 Telephone encounter Sabrina Kuns [facility] Start: 11-05-2021 End: 11-05-2021 ambulatory Sabrina Kuns Other [employer] Other Start: 11-05-2021 Encounter for genera l adult medical examination without abnormal findings Sabrina Kuns [facility] [place] Start: 11-05-2021 Telephone encounter Sabrina Kuns [facility] [place] Start: 09-27-2021 End: 09-27-2021 ambulatory Sabrina Kuns Other [employer] Other Start: 09-27-2021 Telephone encounter Sabrina Kuns [facility] Start: 09-24-2021 End: 09-24-2021 ambulatory Ascencion Vasyl II Other [employer] Other Start: 09-24-2021 Office outpatient ne w 45 minutes Ascencion Ludlow II [facility] Start: 09-22-2021 End: 09-22-2021 ambulatory Sabrina Kuns Other [employer] Other Start: 09-22-2021 Telephone encounter Sabrina Kuns [facility] Start: 09-16-2021 End: 09-16-2021 ambulatory Sabrina Kuns Other [employer] Other Start: 09-16-2021 Telephone encounter Sabrina Kuns [facility] Start: 08-31-2021 End: 09-01-2021 ambulatory ERNIE ORDONEZ Facility: Start: 08-04-2021 Office outpatient vi sit 15 minutes Sabrina Kuns [facility] Start: 12-18-2018 End: 12-19-2018 Patient encounter procedure [facility] Start: 02-20-2018 End: 02-21-2018 Patient encounter procedure [facility] Procedures Date Procedure Procedure Detail Performing Clinician Start: 03-18-2024 Cv strs tst xers&/or rx cont ecg trcg only Teddy Thurston MD Work Phone: Start: 11-21-2023 Injection of local anesthetic into sacroiliac joint DO Sabrina [employer] Work Phone: Start: 08-31-2023 Plain X-ray of right femur DO Sabrina [employer] Work Phone: Start: 08-31-2023 Plain X-ray of right hip DO Sabrina Yossis Work Phone: Start: 03-02-2023 Dual energy X-ray absorptiometry DO Sabrina Kuns Work Phone: Start: 02-23-2023 Plain X-ray of right hip DO Sabrina Kuns Work Phone: Start: 07-05-2022 CT of head without contrast DO Sabrinachaparrita Sys Work Phone: Start: 06-11-2020 Colonoscopy Sena 1 Start: 12-18-2018 Level iv surg pathol ogy gross&microscopic exam BEL[facility] HUGHES Start: 02-20-2018 Cytopathology proced ure, preparation of smear, genital source [facility] HUGHES Start: 02-20-2018 GENITAL CULTURE BELLE ISAAC Arthroplasty of knee Sabrina R Yossis Work Phone: H/O: artificial joint Sabrina Fantasma Other Hysterectomy Sabrina R Yossis Work Phone: Operative procedure on hip B rett R Yossis Work Phone: Operative procedure on knee Sabrina R Yossis Work Phone: Repair of shoulder Sabrina R K uns Work Phone: Total colonoscopy Sabrina R Ku ns Work Phone: Plan of Treatment Date Care Activity Detail Author Start: 06-11-2030 Screening for malignant neoplasm of colon [facility] Start: 07-11-2024 End: 07-11-2024 Patient encounter procedure 07/11/2024 1:00 PM EDT Office Visit [facility] [address] [facility] [address] [place] [address] Teddy Thurston MD [address] [facility] [address] [place] [address] [facility] Start: 07-10-2024 [facility] Start: 02-10-2024 COVID-19 Vaccine ( season) COVID-19 Vaccine () [facility] Start: 11-21-2023 [facility] Start: 07-11-2023 FUV, Provider: Teddy Thurston, Status: Pen, Time: 1:30 PM FUV, Provider: Teddy Thurston, Status: Pen, Time: 1:30 PM -[facility] [facility] DO Work Phone: Start: 07-05-2022 Doppler ultrasonography of bilateral carotid arteries US carotid doppler BI [facility] Start: 08-23-2021 DTaP/Tdap/Td Vaccines (2 - Td or Tdap) DTaP/Tdap/Td Vaccines (2 - Td or Tdap) [facility] Start: 1996 Screening for malignant neoplasm of breast Mammogram [facility] Start: 1974 Diabetes mellitus screening Diabetes Screening [facility] Start: 1974 Hepatitis C screening Hepatitis C Screening [facility] Start: 1956 Lipid panel Lipid Panel [facility] Start: 1956 Screening for malignant neoplasm of colon [facility] Start: 1956 Screening for osteoporosis Bone Density Scan [facility] Start: 1956 Yearly Adult Physical Yearly Adult Physical [facility] Comprehensive metabo lic 2000 panel - Serum or Plasma [facility] Dehydroepiandrostero ne sulfate level [facility] Estradiol (E2) [Mass /volume] in Serum or Plasma [facility] Estrone (E1) [Mass/v olume] in Serum or Plasma [facility] Estrone (E1) [Mass/v olume] in Serum or Plasma [facility] Patient Education [place] Non Diagnostic Block [facility] Work Phone: Patient referral [facility] Work Phone: Progesterone [Mass/v olume] in Serum or Plasma [facility] Testosterone Free [M ass/volume] in Serum or Plasma [facility] Testosterone Free [M ass/volume] in Serum or Plasma [facility] Immunizations Immunization Date Immunization Notes Care Provider Fa cility 06-14-2024 COVID-19 (PFIZER) 12Y and older DO Sabrina Meek Work Phone: [facility] 06-14-2024 COVID-19 Comirnaty (Pfizer) Tri-Sucrose 12+ DO Sabrina Meek Work Phone: [facility] 06-14-2024 influenza, high dose seasonal, preservative-free DO Sabrina Meek Work Phone: [facility] 06-14-2024 Seasonal trivalent influenza vaccine, adjuvanted, preservative free DO Sabrinachaparrita Meek Work Phone: [facility] 11-02-2023 Arexvy-For documentation purposes only Mehul Solano Other [facility] 11-02-2023 Prevnar 20 Mehul Solano Other [facility] 10-11-2023 COVID-19 Vaccine Pfi zer - Documentation Purposes Only Ascencion Fallon II Other [facility] 10-11-2023 Flu Shot - Documentation Purposes Only Ascencion Fallon II Other [facility] 08-18-2022 COVID-19 Pfizer (bivalent) Sabrinachaparrita Sylaila Other [facility] 08-18-2022 Fluzone High-Dose Quadrivalent 0.7 ML Intramuscular Suspension Prefilled Syringe Sabrina R Fantasma Work Phone: -[facility] 250 DO Work Phone: 02-15-2022 Comirnaty 30 MCG/0.3 ML Intramuscular Suspension Sabrina R Fantasma Work Phone: [facility] 02-15-2022 COVID-19 Moderna Sabrina Meek Other [facility] 08-31-2021 COVID-19 Vaccine Pfi zer - Documentation Purposes Only Sabrina Meek Other [facility] 06-30-2021 influenza, injectabl e, quadrivalent, contains preservative Sabrina Kuns Other [employer] Other 06-30-2021 influenza, injectabl e, quadrivalent, preservative free DO Sabrina Kuns Work Phone: [facility] 12-21-2020 COVID-19 Vaccine Talia - Documentation Purposes Only Sabrina Kuns Other [facility] 07-29-2020 influenza, seasonal, injectable Sabrina R Kuns Work Phone: [facility] 07-10-2020 zoster vaccine recombinant Sabrina Kuns Other [facility] 06-10-2020 influenza, seasonal, injectable Asbrina Kuns Other [facility] 05-07-2020 zoster vaccine recombinant Sabrina Kuns Other [facility] 03-15-2020 Kenalog -40 mg Sabrina Kuns Other [employer] Other 07-01-2019 influenza, injectabl e, quadrivalent, preservative free DO Sabrina Kuns Work Phone: [facility] 07-01-2019 influenza, injectabl e, quadrivalent, contains preservative Sabrina Kuns Other [employer] Other 08-13-2018 influenza virus vaccine, unspecified formulation [address] Work Phone: 08-13-2018 influenza, seasonal, injectable Sabrina R Kuns Work Phone: [facility] 06-19-2018 influenza, injectabl e, quadrivalent, preservative free DO Sabrina Kuns Work Phone: [facility] 06-19-2018 influenza, injectabl e, quadrivalent, contains preservative Sabrina Kuns Other [employer] Other 04-01-2018 KENALOG - 10 mg Sabrina Kuns Other [employer] Other 08-10-2015 influenza, injectabl e, quadrivalent, preservative free Sabrina R Kuns Work Phone: [facility] 08-10-2015 influenza, injectabl e, quadrivalent, contains preservative Sabrina Kuns Other [facility] [employer] Other 02-20-2015 zoster vaccine, live Sabrina K uns Other [facility] 12-08-2014 pneumococcal polysaccharide vaccine, 23 valent [employer] Other [facility] 02-24-2014 Toradol per 15 mg Sabrina Kuns Other [employer] Other 11-01-2013 influenza virus vaccine, split virus (incl. purified surface antigen) Sabrina Kuns Other [employer] Other 11-01-2013 influenza virus vaccine, unspecified formulation DO Sabrina Kuns Work Phone: [facility] 07-11-2013 KENALOG - 10 mg Sabrina Kuns Other [facility] [employer] Other 10-11-2012 zoster vaccine, live Sabrina K uns Other [facility] 08-23-2011 tetanus and diphther ia toxoids, adsorbed, preservative free, for adult use (5 Lf of tetanus toxoid and 2 Lf of diphtheria toxoid) DO Sabrina Kuns Work Phone: [facility] 08-23-2011 tetanus toxoid, redu jose diphtheria toxoid, and acellular pertussis vaccine, adsorbed Sabrina Meek Other [facility] [employer] Other 01-06-2003 TD(adult) unspecifie d formulation [facility] Work Phone: 04-24-1992 TD(adult) unspecifie d formulation Sabrina Meek Work Phone: -[facility] 250 DO Work Phone: Payers Date Payer Category Payer Private Health Insurance [id number] 2022 Private Health Insurance [id number] 2017 Medicare [id number] 2016 Medicare [id number] 1959 Medicare [id number] 1959 Self-pay [id number] 1959 Unknown [id number] 1955 Unknown [id number] 2.16.8 [id number] 1956 Unknown [id number] 2.16.8 [id number] 1956 Unknown [id number] 2.16.84 [id number] 1955 Unknown [id number] 2.16. [id number] 1956 Unknown [id number] 2.16.8 [id number] 1956 Unknown [id number] 2.16.84 [id number] Unknown Unknown [id number] 2.16.84 [id number] Unknown [id number] 2.16.8 [id number] Unknown [id number] 2.16.8 [id number] Unknown [id number] 2.16.8 [id number] Social History Date Type Detail Facility Unknown if ever smoked [facility] [employer] Other Start: 03-27-2023 End: 01-05-2024 Sex Assigned At [facility] Other Start: 11-06-2020 End: 07-10-2024 Tobacco smoking status NHIS Ex-smoker (finding) [facility] Start: 1955 Sex Assigned At Female F [facility] Start: 03-27-2023 End: 01-05-2024 Alcohol use Alcohol use -[facility] DO Work Phone: History of tobacco use Current smoker [facility] Work Phone: History of tobacco use Cigarette Smoker [facility] Work Phone: Start: 01-05-2024 End: 08-23-2024 Alcoholic beverage intake Current drinker of alcohol (finding) [facility] Work Phone: Start: 1955 Sex assigned at Not on file [facility] Work Phone: Start: 03-08-2024 End: 03-18-2024 Exposure to SARS-CoV-2 (event) Not sure [facility] Start: 03-27-2023 Tobacco smoking stat us NHIS Never smoked tobacco [facility] Start: 03-27-2023 Tobacco use and exposure Smokeless tobacco non-user [facility] Start: 03-27-2023 Education 15 [facility] Start: 03-27-2023 Alcohol Comment caffeine: 2-4 cups per day, coffee/tea [facility] Goals Date Patient Goal Desired Activity /State Clinical Notes 09-07-2012 to 08-23-2024 George Jorge Steven, - 08/23/2024 9:15 AM EST Note Date & Type Note Facility 08-23-2024 History of Presen t illness Narrative Images from the original note were not included. Sherice Vargas 1955 Sherice Vargas is a 69 y.o. female presents with chief complaint of Schedule colonoscopy HPI: HPI Sherice presents to schedule a colonoscopy, she states she is overdue and her mother of colon cancer SUBJECTIVE: MEDICATIONS: ALLERGIES No current outpatient medications Not on File PAST MEDICAL HISTORY: SOCIAL HISTORY SURGICAL HISTORY: Past Medical History: Diagnosis Date Arthritis Chicken pox Depression (CMS/HCC) Family history of cancer High cholesterol (CMS/HCC) History of medical problems hernia Hypertension (CMS/HCC) Measles Migraine headache (CMS/HCC) Mumps Social History Tobacco Use Smoking status: Never Smokeless tobacco: Never Substance Use Topics Alcohol use: Yes Comment: caffeine: 2-4 cups per day, coffee/tea Drug use: Never Past Surgical History: Procedure Laterality Date BACK SURGERY ruptured disc EGD 06/29/2020 HYSTERECTOMY LIPOMA RESECTION 08/29/2022 excision abdominal wall TOTAL HIP ARTHROPLASTY Right TOTAL KNEE ARTHROPLASTY Bilateral TOTAL SHOULDER ARTHROPLASTY Right 2019 TOTAL SHOULDER ARTHROPLASTY Left 2020 FAMILY HISTORY Family History Problem Relation Name Age of Onset Arthritis Mother Colon cancer Mother Diabetes Mother Hypertension Mother Arthritis Father Dementia Father REVIEW OF SYMPTOMS: Review of Systems Constitutional: Negative for diaphoresis and unexpected weight change. HENT: Negative for hearing loss, tinnitus and voice change. Respiratory: Negative for shortness of breath. Cardiovascular: Negative for chest pain and palpitations. Musculoskeletal: Negative for arthralgias. Neurological: Negative for dizziness, seizures and headaches. All other systems reviewed and are negative. Hematological: Negative for adenopathy. Does not bruise/bleed easily. OBJECTIVE: Visit Vitals Smoking Status Never Physical Exam HENT: Head: Normocephalic. Cardiovascular: Rate and Rhythm: Normal rate and regular rhythm. Pulmonary: Effort: Pulmonary effort is normal. Breath sounds: Normal breath sounds. Abdominal: General: Abdomen is flat. Bowel sounds are normal. Palpations: Abdomen is soft. Skin: General: Skin is warm and dry. Neurological: Mental Status: She is alert. ASSESSMENT AND PLAN: Assessment/Plan Problem List Items Addressed This Visit Family history of colon cancer - Primary I explained the colonoscopy procedure in detail to the patient and discussed the risks and benefits including but not exclusive of bleeding, and perforation. I asked the patient not to drive, operate any machinery or make any important decisions on the day of the procedure. The patient is in agreement and arrangements for colonoscopy have been made. documented in this encounter [facility] 07-10-2024 Evaluation note Authored July 10, 2024 12:58pm The above note written by ANA Mccullough acting as human recorder, note dictated by Dr. Sabrina Meek. [facility] Work Phone: 1(951) 474-340203-19-2024 Evaluation note* Author Michaelle Carter [facility] Authored January 02, 2024 11: 06am The above note written by Robson Carter LPN, acting as human recorder, note dictated by Dr. Sabrina Meek. [facility] Work Phone: 1(174) 769-625802-02-2024 Evaluation note* Encounter Date Diagnosis Assessment Notes Treatment Notes Treatment Clinical Notes Nov, Hormone imbalance (ICD-10 - E34.9) [employer] Other 01-24-2024 Evaluation note* Encounter Date Diagnosis Assessment Notes Treatment Notes Treatment Clinical Notes Oct, Sacroiliitis (ICD-10 - M46.1) Patients primary complaint today is right lumbar and gluteal pain. I agree with orthopedics assessment; patient shows notable tenderness over the right sacroiliac joint on exam and would be a reasonable candidate to proceed with a right sacroiliac joint injection. Risks and benefits of procedure explained to patient; patient verbalizes understanding. Patient was provided with educational literature for further information. In the meantime, she will continue her current medication regimen. Anatomy of spine discussed in detail with patient in regards to patients condition. Oct, Trochanteric bursitis (ICD-10 - M70.60) Patient is also voicing complaints of pain over the outide of the right hip. She shows notable tenderness over the right greater trochanter on exam. Based on location of pain and exam findings, patient is a candidate for a right trochanteric bursa injection. Risks and benefits of procedure explained to patient; patient verbalizes understanding. Oct, Other chronic pain (ICD-10 - G89.29) Oct, Other Above note written by Gurpreet Hughes MA, [employer]ist. Edited and approved by Dr. Mehul Solano MD. Medical decision making shows a new problem to me with further workup planned or suggested with the potential for extensive treatment options that were considered with the most applicable given this patient's situation as noted above. Treatment options considered include a combination of physical therapy approaches, pharmacologic management, and interventional procedures. Those most applicable to the patient were discussed at this time. Risk of complications and/or morbidity and mortality is high given that acute and chronic pain poses a threat to life and bodily function if undertreated, poorly treated or with failure to maintain adequate treatment and timely followup. Given the serious and fluctuating nature of pain with extensive consideration for whenever pain changes, there always remains the possibility of prolonged functional impairment requiring constant patient reassessment and high-level medical decision making. The amount and complexity of data reviewed is high given that patient labs, radiology reports, and other test were obtained, reviewed and summarized as applicable from the physician portal and/or outside medical records. Pertinent positive and negative findings were considered in medical decision-making. 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 At this point stable I would recommend that we just continue to monitor her symptoms. In regards to the right ET men syndrome she has exercises that she has been doing at home these have been helping her tremendously. I recommend continuing those. In regards to the right sacroiliitis I would recommend getting into see Dr. Solano to determine if a right SI joint injection would be a good option for her. I am happy to see her a couple months after that injection to check on her progress if she is not getting relief. [employer] Other 12-18-2023 Evaluation note* Encounter Date Diagnosis Assessment Notes Treatment Notes Treatment Clinical Notes Sep, Osteopenia, unspecified location (ICD-10 - M85.80) [employer] Other 12-11-2023 Evaluation note* Encounter Date Diagnosis Assessment Notes Treatment Notes Treatment Clinical Notes Sep, Osteopenia (ICD-10 - M85.80) [employer] Other 11-22-2023 Evaluation note* Encounter Date Diagnosis Assessment Notes Treatment Notes Treatment Clinical Notes Aug, Lipoma of right lower extremity (ICD-10 - D17.23) Patient soft tissue mass is a lipoma and this was explained to patient. Ultrasound shows findings consistent with a lipoma. This is small and superficial and only causes her discomfort with direct pressure. I do not believe that this is what is causing her pain and discomfort when she is physically active. 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 Patient was instructed to do aggressive stretching of the IT band and ice as well as use Voltaren gel over this location. She was given an exercise handout for this. If worsening or not improving other aggressive therapies could be trialed, but I recommend these options first. [employer] Other 11-16-2023 Evaluation note* Encounter Date Diagnosis Assessment Notes Treatment Notes Treatment Clinical Notes Aug, History of right hip replacement (ICD-10 - Z96.641) Aug, Mass of right thigh (ICD-10 - R22.41) Aug, Other We had a long discussion today again regarding her total hip squeaking. While this is a known complication of the ceramic on ceramic hip it is not something that requires any further treatment at this time. Her x-rays have continued to her look good without any signs of changes. In regards to the right thigh mass, I did reach out personally and speak with Dr. Ziegler in regards to an ultrasound evaluation of the mass. We will have the patient see him for an ultrasound evaluation to look to see if this is a fluid-filled mass or a solitary mass and if it is any mobility. He will also be able to identify what layer of tissue this may be a part of, whether or not it is a fibromatous lesion of the IT band or if this is fatty lipoma or some other lesion. I will plan to see her back in the office after she has been evaluated by Dr. Ziegler. [employer] Other 09-20-2023 Evaluation note* Encounter Date Diagnosis Assessment Notes Treatment Notes Treatment Clinical Notes Jun, Wellness examination (ICD-10 - Z00.00) Personalized health advice was given to the beneficiary to health education of preventative counseling services or programs aimed at reducing identified risk factors and improving self-management or community-based lifestyle interventions to reduce health risks and promote self-management and wellness, including physical activity and nutrition. A written plan for screenings was discussed, flu vaccination, routine lab studies, eye exams, as well as risk factors for other medical problems. Jun, Hyperlipidemia (ICD-10 - E78.5) Discussion was had the patient would benefit from a statin medication . The patient states she was on Simvastatin for twenty years then her litigation specialist stopped it and changed to Crestor . Patient has since stopped this due to intolerance and continues Zetia twice a week. I recommend the patient discuss restarting Simvastatin with at her upcoming appointment next month. The patient voices understanding. Jun, Hematuria, unspecified type (ICD-10 - R31.9) Trace hematuria noted upon review of in house urinalysis. A normal CT of the abdomen was performed 06/19/2020. Jun, PVCs (premature ventricular contractions) (ICD-10 - I49.3) In house EKG ordered and reviewed resulting in similar abnormal findings compared to last year. Dysrhythmia is noted upon auscultation. I did provide the patient with a copy of her EKG and lab results and recommend she show these to her litigation specialist at her upcoming visit. A copy was also sent from the office. [employer] Other 08-30-2023 Evaluation note* Encounter Date Diagnosis Assessment Notes Treatment Notes Treatment Clinical Notes May, Hypertension (ICD-10 - I10) [employer] Other 08-16-2023 Evaluation note* Encounter Date Diagnosis Assessment Notes Treatment Notes Treatment Clinical Notes May, Hyperlipidemia (ICD-10 - E78.5) Blood work reviewed with the patient. Total cholesterol increased from 196 to now 232, LDL increased as well from 92 to 129. I advised though that her HDL being as high as it is helps as her ratio is still only 2.8. She is to continue with zetia and may discontinue the crestor due to intolerance. Patient voiced understanding and agreed. May, Vaginal dryness (ICD-10 - N89.8) Patient has noticed vaginal dryness which is becoming bothersome. Hormone levels reviewed with the patient. She is to follow with Buderer as scheduled. May, Low libido (ICD-10 - R68.82) Encouraged patient to follow with Buderer as scheduled for hormone therapy. May, Left knee pain (ICD-10 - M25.562) Refill e-scribed. May, Osteopenia (ICD-10 - M85.80) Patient is to continue on the above regimen. May, Hypertension (ICD-10 - I10) Blood pressure has seemed to improve after she started becoming more active. [employer] Other 08-01-2023 Evaluation note* Encounter Date Diagnosis Assessment Notes Treatment Notes Treatment Clinical Notes May, Hormone imbalance (ICD-10 - E34.9) [employer] Other 07-31-2023 Evaluation note* Encounter Date Diagnosis Assessment Notes Treatment Notes Treatment Clinical Notes Apr, Hyperlipidemia (ICD-10 - E78.5) [employer] Other 06-26-2023 Evaluation note* Encounter Date Diagnosis Assessment Notes Treatment Notes Treatment Clinical Notes Mar, Hypertension (ICD-10 - I10) [employer] Other 05-11-2023 Evaluation note* Encounter Date Diagnosis Assessment Notes Treatment Notes Treatment Clinical Notes February, History of total right hip arthroplasty (ICD-10 - Z96.641) February, Other We discussed at this time that overall her x-rays I think look really good and I do not see any changes compared to her prior x-rays from last summer. She is not having any pain in the right hip. This squeaking is intermittent at most. At this point time I would recommend that we continue with x-ray surveillance and in the meantime we will get her to sign a release form so that we can get the operative report from the [facility]. If the squeaking becomes persistent and starts driving her nuts then we would certainly need to consider revision to a possible ceramic on polyethylene component. We did not get into these details at this point. I am going to see her 1 year from now with repeat x-rays. She is in a call if there is any issues before then. [employer] Other 04-27-2023 Evaluation note* Encounter Date Diagnosis Assessment Notes Treatment Notes Treatment Clinical Notes Jan, Wellness examination (ICD-10 - Z00.00) [employer] Other 02-20-2023 Evaluation note* Encounter Date Diagnosis Assessment Notes Treatment Notes Treatment Clinical Notes Nov, Hypertension (ICD-10 - I10) Nov, Left knee pain (ICD-10 - M25.562) [employer] Other 09-20-2022 Evaluation note* Encounter Date Diagnosis Assessment Notes Treatment Notes Treatment Clinical Notes Jun, Left knee pain (ICD-10 - M25.562) [employer] Other 09-08-2022 Evaluation note* Encounter Date Diagnosis Assessment Notes Treatment Notes Treatment Clinical Notes Jun, Obesity (ICD-10 - E66.9) Jun, Cardiomyopathy (ICD-10 - I42.9) Jun, PVCs (premature ventricular contractions) (ICD-10 - I49.3) Jun, Dizziness (ICD-10 - R42) [employer] Other 09-07-2022 Evaluation note* Encounter Date Diagnosis Assessment Notes Treatment Notes Treatment Clinical Notes Jun, Hypertension (ICD-10 - I10) The patients blood pressure was WNL yupon check in. Jun, Head trauma, initial encounter (ICD-10 - S09.90XA) Noted from recent fall, due to the patients symtpoms we will order a head CT. Jun, Neck pain, acute (ICD-10 - M54.2) We will continue to monitor. Jun, Family history of dementia (ICD-10 - Z81.8) Brain CT ordered. Jun, Forgetfulness (ICD-1 0 - R68.89) Patient reports a recent episode of forgetting who she was with or where she was at for about 20 minutes. Jun, Fall (ICD-10 - W19.XXXA) Brusing noted upon examination, we will continue to monitor. Jun, Irregular heart rate (ICD-10 - I49.9) Noted upon auscultation. The patient does follow with Dr. Thurston. ECHO and carotid ultrasound ordered to rule out abnormalities. Jun, Headache (ICD-10 - R51.9) Brain CT ordered to rule out abnormalities. Jun, Hyperlipidemia (ICD-10 - E78.5) Patient is to continue to follow with Dr. Thurston as scheduled. Blood work ordered. Jun, BMI 29.0-29.9,adult (ICD-10 - Z68.29) I advised the patient she is not a candidate for adipex. Patient is to continue to monitor diet and exercise. [employer] Other 07-30-2022 Evaluation note* Encounter Date Diagnosis Assessment Notes Treatment Notes Treatment Clinical Notes Apr, Poison ambar dermatitis (ICD-10 - L23.7) Discussed diagnosis with patient. Kenalog injection provided in office. Will send in rx of steroid to take as directed. Advised to take medications with food and plenty of water, complete entire course even if feeling better. Will send in rx of Azithromycin to use as directed as well. Patient instructed not to scratch or pick at rash. May use hydrocortisone cream or calamine lotion for topical relief. Patient may also use cool wet compress for itching relief. Keep rash open to air. Wash all clothing/items that could have come into contact with plant oil. Follow up with PCP in 1 week or sooner if symptoms worsen. Immediate eval by ER if develop fever, stiff neck, nausea, vomiting, joint/body aches, increase in swelling, redness, warmth, red streaking, purulent drainage, or any other new or concerning symptoms arise. Patient verbalizes understanding and is agreeable to treatment plan [employer] Other 07-22-2022 Evaluation note* Encounter Date Diagnosis Assessment Notes Treatment Notes Treatment Clinical Notes Apr, Wellness examination (ICD-10 - Z00.00) [employer] Other 06-17-2022 Evaluation note* Encounter Date Diagnosis Assessment Notes Treatment Notes Treatment Clinical Notes Mar, Hip pain, bilateral (ICD-10 - M25.551) Mar, Hyperlipidemia (ICD-10 - E78.5) Mar, Other In regards to h er bilateral greater trochanteric bursitis and she is doing fantastic and I recommended that she continue her daily exercise regimen to keep this at bay. If in the future if she has any issues or another flareup occurs we can consider another Medrol Dosepak versus injections. In regards to the left knee, I think that she may have some irritation of the IT band bursa as a result I recommended that she use Voltaren gel, which she has used in the past and had great success for other ailments, on a daily basis to keep inflammation at bay. If over the next 6 to 8 weeks she notes persistent lateral left knee pain that wakes her up at night or this gets worse and she is going to give us a call and we will get new x-rays of the left knee and discuss treatment options. [employer] Other 06-16-2022 Evaluation note* Encounter Date Diagnosis Assessment Notes Treatment Notes Treatment Clinical Notes Mar, Wellness examination (ICD-10 - Z00.00) Personalized health advice was given to the beneficiary to health education of preventative counseling services or programs aimed at reducing identified risk factors and improving self-management or community-based lifestyle interventions to reduce health risks and promote self-management and wellness, including physical activity and nutrition. A written plan for screenings was discussed, flu vaccination, routine lab studies, eye exams, as well as risk factors for other medical problems. Mar, Hyperlipidemia (ICD-10 - E78.5) Blood work results reviewed with the patient . No signs of anemia or leukemia. Liver enzymes, kidney functions , TSH and glucose are within normal limits. Total cholesterol has improved compared to previous findings. The patient is tolerating the medication well , therefore I recommend the patient continue as directed. The patient encourged to continue following with litigation specialist for annual exam as scheduled 06/2022. [employer] Other 05-02-2022 Evaluation note* Encounter Date Diagnosis Assessment Notes Treatment Notes Treatment Clinical Notes February, Left knee pain (ICD-10 - M25.562) [employer] Other 03-18-2022 Evaluation note* Encounter Date Diagnosis Assessment Notes Treatment Notes Treatment Clinical Notes Dec, Hip pain, bilateral (ICD-10 - M25.551) Dec, Hyperlipidemia (ICD-10 - E78.5) Dec, Other 1. We again discussed her left hip bursitis. And she was doing fantastic keeping this at bay until she flared it up with all the yard work. 2. We discussed oral anti-inflammatorie s and Tylenol. Recommended continuing her Mobic as previously prescribed. We also will prescribe her a Medrol dose pack. Recommended adjusting their Tylenol dosing to 1000mg by mouth up to 3 times a day. 3. We will also get her back into physical therapy. 4. We discussed steroid injections as a treatment option. At this point being also acute and that she has had such great results with physical therapy and other conservative treatments we will hold off on an injection at this time. 5. Follow up in 3 months. However, if she is not getting much relief by the end of next week and she can call make an appointment so we can do an injection. [employer] Other 03-15-2022 Evaluation note* Encounter Date Diagnosis Assessment Notes Treatment Notes Treatment Clinical Notes Dec, Hip pain, bilateral (ICD-10 - M25.551) Upon discussion with the patient exercise and activity improves bilateral hip pain. As above the patient consulted with orthopedic and states she had a good experience with . I recommend the patient continue performing her daily exercise regimen and return to the office with any other concerns. Dec, Hyperlipidemia (ICD-10 - E78.5) [employer] Other 02-16-2022 Evaluation note* Encounter Date Diagnosis Assessment Notes Treatment Notes Treatment Clinical Notes Nov, Wellness examination (ICD-10 - Z00.00) [employer] Other 02-09-2022 Evaluation note* Encounter Date Diagnosis Assessment Notes Treatment Notes Treatment Clinical Notes Nov, Left knee pain (ICD-10 - M25.562) Nov, Hyperlipidemia (ICD-10 - E78.5) [employer] Other 01-28-2022 Evaluation note* Encounter Date Diagnosis Assessment Notes Treatment Notes Treatment Clinical Notes Oct, Hyperlipidemia (ICD-10 - E78.5) [employer] Other 01-21-2022 Evaluation note* Encounter Date Diagnosis Assessment Notes Treatment Notes Treatment Clinical Notes Oct, Wellness examination (ICD-10 - Z00.00) [employer] Other 12-13-2021 Evaluation note* Encounter Date Diagnosis Assessment Notes Treatment Notes Treatment Clinical Notes Sep, Left knee pain (ICD-10 - M25.562) [employer] Other 12-10-2021 Evaluation note* Encounter Date Diagnosis Assessment Notes Treatment Notes Treatment Clinical Notes Sep, Left hip pain (ICD-10 - M25.552) Sep, Right hip pain (ICD-10 - M25.551) Sep, Other 1. We had a long discussion regarding the etiology of her symptoms. In regards to the right lower extremity, I feel that she is got some tight hamstrings that is now led to pes bursitis. I recommended continuing with her physical therapy and stretching on the right lower extremity. Also recommended Tylenol up to 3000 mg a day as needed pain. Recommended continuing with her meloxicam as prescribed. Also recommended using Voltaren gel over the pes bursa. In regards to the left hip, I explained to her that she needs to continue with physical therapy for stretching for this bursitis. Also recommended similar Tylenol and meloxicam uses. Furthermore, recommended Voltaren gel for pain on the left hip. 2. We did discuss doing injections in the greater trochanteric bursa as well as the pes bursa but I feel that were still early in the process and the patient may be able to manage this with physical therapy and oral anti-inflammatories alone. Patient is in agreement. She will continue physical therapy for 6-8 more weeks and then follow-up with me to see her progress. If she still having significant pain then we can consider corticosteroid injections at that time. [employer] Other 12-02-2021 Evaluation note* Encounter Date Diagnosis Assessment Notes Treatment Notes Treatment Clinical Notes Sep, Cough (ICD-10 - R05.9) [employer] Other 10-20-2021 Evaluation note* Encounter Date Diagnosis Assessment Notes Treatment Notes Treatment Clinical Notes Jul, Left knee pain (ICD-10 - M25.562) Patient continues to have left hip pain with swelling. Denies any pain with rotation. Patient is to increase the meloxicam to 15 mg daily.Physical therapy order provided. Jul, Left hip pain (ICD-10 - M25.552) Patient does complain of left hip pain in which it make her limp. She is currently in physical therapy for her shoulder and I do feel this would benefit her hip. [employer] Other 01-24-2021 Consult note Author Mark Mendoza [facility] November 08, 2020 3:39pm Note Date/Time November 06, 2020 8 :29am [facility] [place] [id number] Hem/Onc Consult Note - OP Signed Patient: Sherice Vargas MR#: [id number] : 1955 Acct:[id number] Age/Sex: 65 / F Type: REG RCR Copies to: Sabrina Meek DO~ HPI Date/Time of Service: Date of Service: 11/06/2020 Time of Service: 08:27 Referring Provider/PCP: Referring Provider: Sabrina Meek DO PCP: Sabrina Meek DO - History of Present Illness Chief Complaint: patient is here today for consult for bruising from Dr Meek. She has had bruising for last 6 months at random times on arms and legs mostly HPI: 65-year-old female referred by her primary care provider Dr. Sabrina Marte for easy bruising. Past medical history includes cardiomyopathy, arthritis, hyperlipidemia, depression. She has had multiple surgeries in the past., she describes bruises on the legs, Significant varicosities, multiple red spots on the arm. Outpatient medications include simvastatin, amlodipine, potassium, Dyazide, Zetia. Multiple allergies including Augmentin, codeine, lovastatin, IVdye. Past surgeries include total hysterectomy at age 41 no bleeding. Right total hip arthroplasty age 47ish no bleeding. Left breast repair from dog bite in July 2013 no bleeding. Right shoulder replacement in August 2014 no bleeding. Bilateral knee replacement 2010 and 2013 no bleeding issues. Childbirth x4 vaginal, no excess bleeding. No bleeding with teeth brushing. no blood in stool or vaginal bleeding. Recent laboratory evaluation reveals normal creatinine of 0.74 with a BUN of 8. Electrolytes within normal range. Total protein of 6.9 with an albumin of 4.5. Normal liver function studies. White blood cell count of 7.5 with normal white blood cell differential, hemoglobin of 14.9 with an MCV of 90.7 and a platelet count of 262,000. She has a hematoma under her R great toenail. No visible bruising on her arms currently. No petechiae. mother had colon and liver cancer in 70s. father had an eyeball cancer. maybe a melanoma. Lost 34lbs since february. Very concerted effort. She has walked 5 or 6 miles per day and exercise bike for an hour a day. PMFSH - Medical History Medical History: Medical History (Last Updated 11/06/20 @ 08:13 by Jimena Tompkins) Arthritis Cardiomyopathy Hyperlipemia Hypertension Left rotator cuff tear - Surgical History Surgical History: Surgical History (Last Reviewed 11/06/20 @ 08:13 by Jimena Tompkins) H/O repair of right rotator cuff H/O right knee surgery H/O total hysterectomy History of total right hip arthroplasty - Family History Family History: Family History (Last Updated 11/06/20 @ 08:16 by Jimena Tompkins) Mother Cancer Colon cancer Liver cancer Father Cancer Father FHx: mental illness Father Dementia Father Eye cancer - Social History Smoking Status: Former smoker Substance Use Type: None Home Medications & Allergies Allergies codeine Allergy (Verified 11/06/20 08:03) Vomiting homatropine [From Hycodan (with homatropine)] Allergy (Verified 11/06/20 08:03) Hallucinating hydrocodone [From Hycodan (with homatropine)] Allergy (Verified 11/06/20 08:03) Hallucinating amoxicillin [From Augmentin] Adverse Reaction (Verified 11/05/20 14:54) Vomiting clavulanic acid [From Augmentin] Adverse Reaction (Verified 11/05/20 14:54) Vomiting lovastatin Adverse Reaction (Verified 11/05/20 14:54) Muscle Pain Home Medications amlodipine 5 mg PO DAILY 11/05/20 [History Confirmed 11/06/20] ezetimibe [Zetia] 10 mg PO DAILY 11/05/20 [History Confirmed 11/06/20] eaebfsxklxhu-Qh-kqzb-minerals [Multiple Vitamin, Womens] 10 tab PO DAILY 11/05/20 [History Confirmed 11/06/20] potassium chloride 20 meq PO DAILY 11/05/20 [History Confirmed 11/06/20] simvastatin 10 mg PO DAILY 11/05/20 [History Confirmed 11/06/20] Objective - Height/Weight Height/Weight: Height 4 ft 11.5 in Weight 67.132 kg - Vital Signs Vital Signs: 11/06/20 08:22 Temperature 97 F L Pulse Rate [Left Brachial] 75 Respiratory Rate 20 Blood Pressure [Left Arm] 136/81 02 Sat by Pulse Oximetry 95 - Emotional Needs Assessment Emotional Needs Assessment: Emotional Needs Identified? No Distress Screening Total 0 Physical Exam Narrative: ECOG PS: 0 General : patient is alert and oriented to person place and time, no acute distress. Neck: no JVD or thyromegaly. Lymph: no cervical, supraclavicular, axillary adenopathy. Heart: regular rate and rhythm no murmurs rubs or gallops. Abdomen: soft nontender nondistended, no hepatosplenomegaly. Lungs: clear to auscultation bilaterally, no wheezes rales or rhonchi. Skin: no signficant bruising on arms or legs. no petechie in oral mucosa or skin. Extremities: no clubbing cyanosis or edema. Assessment and Plan (1) Bruising Abnormal bruising. She states her father had similar bruising when he was her age. Her skin does not seem excessively thin but i suggest senile bruising. Platelet count, PT, PTT normal. No medications should be contributing to bruising. We discussed additional workup including platelet function testing, testing for von willebrand disease. We have decided to defer additional testing until followup. (2) Abnormal bruising - Time with Patient Coordination of Care & Counseling Time: Greater than 50% of time spent with patient was for coordination of care (as documented) and bxqs-el-kmyb counseling of patient and/or family. Attestation Statement - Physician Attestation labs today. pt/ptt only. f/u 8 wks. no labs at f/u ordered today, will depend on results of pt/ptt. -after visit complete she will keep f/u in 8 wks. No additional labs prior to appt. will decide after history at fu. Dictated By: Mark Mendoza II, DO DD/ 0827 Signed By: <Electronically signed by Mark Mendoza II, DO> 11/08/20 1539 [facility] Work Phone: [phone] History general Narrative - Reported* Type Description Date Medical History Right Hip X-Ray [facility] (09/07/12) Medical History Left Breast [facility] (01/2013) Medical History Labs (11/28/13,11/07/14) Medical History Bi-lateral Breast Implant [facility] (07/2013) Medical History Chest x-ray (09/2014) Medical History Cardiomyopathy Medical History EKG (10/27/2014) Medical History [facility] consult w/ () Medical History 11/2014-received Pneumovax vaccin e Medical History Left Rotator Cuff Tear Medical History Right Rotator Cuff Degeneration Medical History Arthritis Medical History 08/2013 Colonscopy Medical History EKG 08/26/17 Medical History Mammogram 01/29/18; neg 9 Medical History hyperlipidemia Medical History chronic depression Medical History normal colonoscopy 09/14/2015 5- 10 years Medical History 06/2020 EGD/Colon Surgical History Right total Hip Arthroplasty Surgical History Total Hysterectomy Surgical History Left breast repair from dog bit e 07/2013 Surgical History Rt Shoulder Rotator Cuff repair () 08/2014 Surgical History Right knee surgery Surgical History Left shoulder replacement-Dr.Go longoria 04/20/2021 Hospitalization History Right Total Hip Arthropl asty Hospitalization History Total Hysterectomy Hospitalization History childbirth x4 [employer] Other 11-23-2012 History general Narrative - Reported* Type Description Date Medical History Right Hip X-Ray [facility] (09/07/12) Medical History Left Breast [facility] (01/2013) Medical History Labs (11/28/13,11/07/14) Medical History Bi-lateral Breast Implant [facility] (07/2013) Medical History Chest x-ray (09/2014) Medical History Cardiomyopathy Medical History EKG (10/27/2014) Medical History [facility] consult w/ () Medical History 11/2014-received Pneumovax vaccin e Medical History Left Rotator Cuff Tear Medical History Right Rotator Cuff Degeneration Medical History Arthritis Medical History 08/2013 Colonscopy Medical History EKG 08/26/17 Medical History Mammogram 01/29/18; neg 9 Medical History hyperlipidemia Medical History chronic depression Medical History normal colonoscopy 09/14/2015 5- 10 years Medical History 06/2020 EGD/Colon- Surgical History Right total Hip Arthroplasty Surgical History Total Hysterectomy Surgical History Left breast repair from dog bit e 07/2013 Surgical History Rt Shoulder Rotator Cuff repair () 08/2014 Surgical History Right knee surgery Surgical History Left shoulder replacement-Dr.Go longoria 04/20/2021 Hospitalization History Right Total Hip Arthropl asty Hospitalization History Total Hysterectomy Hospitalization History childbirth x4 [employer] Other 11-23-2012 History general Narrative - Reported* Type Description Date Medical History Right Hip X-Ray [facility] (09/07/12) Medical History Left Breast [facility] (01/2013) Medical History Labs (11/28/13,11/07/14) Medical History Bi-lateral Breast Implant [facility] (07/2013) Medical History Chest x-ray (09/2014) Medical History Cardiomyopathy Medical History EKG (10/27/2014) Medical History [facility] consult w/ () Medical History 11/2014-received Pneumovax vaccin e Medical History Left Rotator Cuff Tear Medical History Right Rotator Cuff Degeneration Medical History Arthritis Medical History 08/2013 Colonscopy Medical History EKG 08/26/17 Medical History Mammogram 01/29/18; neg 9 Medical History hyperlipidemia Medical History chronic depression Medical History normal colonoscopy 09/14/2015 5- 10 years Medical History 06/2020 EGD/Colon- Medical History Irregular heart rhythm Surgical History Right total Hip Arthroplasty Surgical History Total Hysterectomy Surgical History Left breast repair from dog bit e 07/2013 Surgical History Rt Shoulder Rotator Cuff repair () 08/2014 Surgical History Right knee surgery Surgical History Left shoulder replacement-Dr.Go longoria 04/20/2021 Hospitalization History Right Total Hip Arthropl asty Hospitalization History Total Hysterectomy Hospitalization History childbirth x4 [employer] Other chief complaint+Reason for visit Narrative* Chief Complaint Op Sp Lt Hip Pain z96.[address] Fallon Us Right Thigh Mas Op Sp Rt Hip Pain [facility] Work Phone: [place] complaint+Reason for visit Narrative* Chief Complaint Op Sp Lt Hip Pain z96.[address] Fallon Us Right Thigh Mas Op Sp Rt Hip Pain [id number], [id number] [facility] Work Phone: [place] complaint+Reason for visit Narrative* Chief Complaint Referral Dr. Daisy dunlap Us Right Thigh Mas Op Sp Rt Hip Pain Consult Dr Fallon Rt Hip Pain Si Joint E34.9 , F/U RIGHT SI JOINT AND RIGHT TROCH BURSA INJECTION Reason for Visit Other chronic pain Sacroiliitis Trochanteric bursitis [facility] Work Phone: Evaluation noteNo InformationNortNorrist[facility] [employer] Other Evaluation noteNo assessment information available [facility] Work Phone: [facility] [employer] Other Evaluation note* Diagnosis Onset Date Resolution Status Other chronic pain acute Sacroiliitis acute Trochanteric bursitis acute [facility] Work Phone: Evaluation note* Author Michaelle Carter [facility] Authored January 02, 2024 11: 06am The above note written by Robson Carter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
== END 2024-09-27 09:19 | disposition home or self-care (01) ==
LOC: RAD 09:19
PROVIDERS: PCP Family Medicine; Visit Provider Family Medicine
DX: M81.0 Age-related osteoporosis without current pathological fracture (principal); M85.80 Other specified disorders of bone density and structure, unspecified site
CPT/HCPCS: 77080

== ENCOUNTER 2024-10-17 07:28 | Outpatient (RCR) | payer OTHER, MEDICARE, SELFPAY ==
[2024-10-17 10:10] VITALS: BP 127/73; PULSE 79; TEMP 37; O2SAT 94
[2024-10-17 10:18] LABS: Calcium 9.9 mg/dL (8.5-10.1); Estimated GFR (African America >60 (>=60 mL/min/1.73m^2); Estimated GFR (Non-African Ame >60 (>=60 mL/min/1.73m^2)
[2024-10-17] MEDS: ZOLEDRONIC ACID/MANNITOL-WATER 5 MG/100 ML BOTTLE 400 MG IV (10:56)
== END 2024-11-15 23:59 | disposition home or self-care (01) ==
LOC: INF 07:28
PROVIDERS: PCP Family Medicine; Visit Provider Family Medicine
DX: M81.0 Age-related osteoporosis without current pathological fracture (principal)
CPT/HCPCS: 36415; 82310; 82565; 96365; J3489

== ENCOUNTER 2025-08-20 09:59 | Outpatient (OUT) | payer MEDICARE, SELFPAY ==
--- NOTE | 2025-08-20 10:02 | MM_ITS ---
Patient Name: KINSEY PANDEY MR#: [id number] : 1955 Exam Date: 08/20/2025 Ordering Doctor: DR SABRINA MEEK RADIOLOGY REPORT PROCEDURE: MM TOMOSYNTHESIS SCREENING BI COMPARISON: MM TOMOSYNTHESIS SCREENING BI, 08/14/2024. MM TOMOSYNTHESIS SCREENING BI, 08/10/2023. MG MAMM SCREEN 3D ALESSIO CAD, 07/25/2022. MG MAMM ALESSIO SCRN W CAD DIG, 07/28/2011. INDICATIONS: Screening Calculator Name NCI Breast Cancer Risk Assessment Tool 5 Year Breast Cancer Risk 1.70% Lifetime Breast Cancer Risk 5.20% Personal Breast Cancer No Personal Ovarian Cancer No Treatments None Family Cancers Mother with colon cancer at age 73; Father with eye cancer at age 79; Daughter with uterine cancer at age 26. LOCATION: The BREAST COMPOSITION: There are scattered areas of fibroglandular density. FINDINGS: DIAGNOSTIC CATEGORY 1--NEGATIVE. RIGHT BREAST: No significant suspicious finding. LEFT BREAST: No significant suspicious finding. RECOMMENDATIONS: ROUTINE MAMMOGRAM AND CLINICAL EVALUATION IN 12 MONTHS. Dictated by: William Edmonds MD on 08/20/2025 at 12:31 Approved by: William Edmonds MD on 08/20/2025 at 12:34
--- OUTSIDE RECORDS SUMMARY | 2025-08-20 10:02 | XMS_ITS | Clinical Summary ---
Author Organization [facility] Address [address] [place] [address] Care Team Providers Care Cut Off Machine Helper Name Role Phone Guillermo Jose Miguel Gely VALENZUELA Primary Care Provider [phone] Allergies Active AllergyReactionsCriticalityNoted DateCommentsAmoxicillinGI intolerance 07/10/2024lack Pgddqw5702/20/2018Clavulanic AcidGI hvrewytdtyb73/25/2024odeineGI snglweyopulBmm82/06/1579Ivevlndfuez18/25/2024 Other Reaction(s): Hallucinating, hallucinates Dwltilaxmij34/25/2024 Other Reaction(s): Hallucinating, hallucinates Iodinated Contrast MediaGI wucbfddnxmnVhu20/22/9919Bfrewndmyq35/25/2024 Other Reaction(s): Muscle Pain Monascus Purpureus Went YeastGI bleeding,GI jpxpytsmwbzNyadpg20/08/2016 Nosebleeds DofctvyxgvluAtc29/22/2024 Other Reaction(s): Myalgia, myalgia, dysuria, fatigue Medications MedicationSigDispense QuantityRefillsLast FilledStart DateEnd DateStatus acetaminophen (Tylenol) 325 MG tablet 1 kqjvzw0611/30/2023ctive amLODIPine (Norvasc) 5 MG tablet Daily04/23/2024ctive [facility] Calcium 600 MG tablet TAKE 2 TABLETS BY MOUTH TWICE A DAY WITH MEALS FOR 90 DAYS02/24/2024ctive cholecalciferol (Vitamin D-3) 1.25 MG (63001 UT) capsule Take by mouth 1 (one) time per weekActive ezetimibe (Zetia) 10 MG tablet Take 10 mg by mouth DailyActive magnesium 250 MG tablet 1 (one) time each day at the same timeActive meloxicam (Mobic) 7.5 MG tablet Take 7.5 mg by mouth in the morning and 7.5 mg before bedtime.Active Multiple Vitamin (Multi Vitamin) tablet 1 (one) time each day at the same timeActive potassium chloride CR (K-Tab) 20 MEQ ER tablet Take 20 mEq by mouth DailyActive prasterone, DHEA, 10 MG tablet 1 (one) time each day at the same timeActive simvastatin (Zocor) 20 MG tablet Take 20 mg by mouth at bedtimeActive triamterene-hydrochlorothiazide (Maxzide-25) 37.5-25 MG tablet 1 (one) time each day at the same timeActive Active Problems ProblemNoted DateDiagnosed DateFamily history of colon plaphj7508/23/2024epeated falls03/09/2023 Encounters DateTypeDepartmentCare EiidTslquetpanj20/07/2025 11:15 AM EDTAncillary Procedure [facility] [address] [place] [address] 07/22/2025 9:15 AM EDTOffice Visit [facility] [address] [place] [address] Gaurang Mayo DPM Fracture of base of fifth metatarsal bone of left foot with routine healing, subsequent encounter (Primary Dx); Pain and swelling of toe of left foot; Difficulty dhyriyy3407/22/2025amboo flowsheet [facility] [address] [place] [address] Gaurang Mayo DPM 07/22/20254113Mvolrc51/06/9738Yhwkbv39/26/2025 9:30 AM EDTAncillary Procedure [facility] [address] [place] [address] 06/10/2025 8:45 AM EDTOffice Visit [facility] [address] [place] [address] Gaurang Mayo DPM Fracture of base of fifth metatarsal bone of left foot with routine healing, subsequent encounter (Primary Dx); Pain and swelling of toe of left foot; Difficulty jpltfow5706/10/2025amboo flowsheet [facility] [address] [place] [address] Gaurang Mayo, DPPolo 06/10/20252077Lhqsyz06/25/2025Travelfrom Last 3 Months Family History Medical HistoryRelationNameCommentsArthritisFatherDementiaFatherArthritisMother Colon cancerMotherDiabetesMotherHypertensionMotherBreast cancerNeg HxOvarian cancerNeg HxPancreatic cancerNeg YgOodzpgcxChraGwgdcqXtuwbbobUfdljil9Jyidup HdziowsaRwadnwUsbxdsqxFkgibv53 Social History Tobacco UseTypesPacks/DayYears UsedDateSmoking Tobacco: NeverSmokeless Tobacco: Never Tobacco Cessation:Counseling Given: Not Answered Alcohol UseStandard Drinks/WeekCommentsYes0 (1 standard drink = 0.6 oz pure alcohol)caffeine: 2-4 cups per day, coffee/teaEducationAnswerDate RecordedWhat is the highest level of school you have completed or the highest degree you have received?Associate degree: occupational, technical, or vocational program 3CommentsUnknownSex and Gender InformationValueDate RecordedSex Assigned at BirthNot on fileLegal LehUflfol68/15/2023 6:36 PM EDTGender Identity Not on fileSexual OrientationNot on fileOccupationIndustryJob Start DateJob End DateRetiredNot on fileNot on fileNot on file Last Filed Vital Signs Vital SignReadingTime TakenCommentsBlood Vgkfvqrv368/8011 9:25 AM EST Pulse--Temperature--Respiratory Rate--Oxygen Saturation--Inhaled Oxygen Concentration--Yijhoi42.1 kg (137 lb)07/22/2025 9:33 AM BGZTaamlo404.4 cm (5') 07/22/2025 9:33 AM EDTBody Mass Index26.7607/22/2025 9:33 AM EDT Plan of Treatment Health MaintenanceDue DateLast DoneCommentsCT Dojbnfdhpfnk1955FIT-DNA 1955FIT1955FOBT1955 4450Wtjolgtosibod15/29/8090Abwnffwuc64/29/1996 COVID-19 Vaccine ( season), 06/14/2024, 10/11/2023, Additional history iftsfxJzxmoondvfb61, 06/11/2020 Colorectal Cancer Hwciucwal76/11/2034neumococcal Vaccine: 65+ YearsCompleted 11/02/2023Influenza EjnotqvOvuajnqqj32/20/2025, 06/14/2024, 10/11/2023, Additional history exists Procedures Procedure NamePriorityDate/TimeAssociated DiagnosisCommentsXR FOOT 3+ VIEWS LEFT Vtfwtds1007/22/2025 11:13 AM EDT Fracture of base of fifth metatarsal bone of left foot with routine healing, subsequent encounter Pain and swelling of toe of left foot Difficulty walking XR FOOT 3+ VIEWS GTYAEebuuby36/26/2025 9:27 AM EDT Fracture of base of fifth metatarsal bone of left foot with routine healing, subsequent encounter Pain and swelling of toe of left foot Difficulty walking IGLOUZOMFYPRdyihdb34/11/2024 12:52 PM ESTfrom Last 3 Months or Most Recently Relevant to Health Maintenance Results * XR foot 3+ views left (07/22/2025 11:13 AM EDT) Only the most recent of2 resultswithin the time period is included. Anatomical RegionLateralityModalityLower Extremities, FootLeftRadiographic ImagingSpecimen (Source)Anatomical Location / LateralityCollection Method / VolumeCollection TimeReceived Time Narrative 07/22/2025 11:14 AM EDT Imaging Result: 3 views left foot: Weight-bearing: DP, oblique, lateral: 07/22/2025: ??The fracture line remains clearly visible without interval changes from previous views of 06/10/2025. ??Unremarkable for acute osseous or joint pathology otherwise. Authorizing ProviderResult TypeResult StatusSteven A Rusher DPMIMG XR PROCEDURES Final Result * Colonoscopy (09/25/2024 12:52 PM EST)Anatomical RegionLateralityModality Other Narrative Authorizing ProviderResult TypeResult StatusFredric Jorge Harris DOHEALTH MAINTENANCEFinal Result from Last 3 Months or Most Recently Relevant to Health Maintenance Insurance * Guarantor: Sherice Vargas TypeRelation to PatientDate of BirthPhone Billing AddressPersonal/KlidjqXmju1955 [facility] [address] MemberSubscriberPlan / Payer (Effective 2016-Present)Name:Sherice Vargas Member ID:[id number] Relation to Subscriber:SelfName:Sherice Vargas Subscriber ID:[id number] Payer ID:[id number] Group ID:Not on file Type:Medicare Address: [place] [phone] Care Teams Team MemberRelationshipSpecialtyStart DateEnd Date Jose Miguel Li DO [address] [place] [address] PCP - GeneralFamily Medicine03/07/23
--- OUTSIDE RECORDS SUMMARY | 2025-08-20 10:02 | XMS_ITS | Clinical Summary ---
Author Organization [facility] Address [address], [address] [place] [address] Care Team Providers Care President Educational Institution Name Role Phone Unavailable Primary Care Provider Unavailabl e Allergies Active AllergyReactionsCriticalityNoted DateCommentsBlack Wmvefz5302/20/2018 Uyavkeh2902/20/2018 Medications MedicationSigDispense QuantityRefillsLast FilledStart DateEnd DateStatus meloxicam (MOBIC) 15 MG tablet Take 15 mg by mouth dailyActive ezetimibe (ZETIA) 10 MG tablet Take 10 mg by mouth dailyActive simvastatin (ZOCOR) 10 MG tablet Take 10 mg by mouth nightlyActive cyclobenzaprine (FLEXERIL) 10 MG tablet Take 10 mg by mouth 3 times daily as needed for Muscle spasmsActive cetirizine (ZYRTEC) 10 MG tablet Take 10 mg by mouth dailyActive Naproxen Sodium (ALEVE PO) Take by mouthActive Immunizations ImmunizationAdministration DatesNext DueInfluenza Vaccine, unspecified evuzdboaoll77/29/2018TDaP, ADACEL (age 10y-64y), BOOSTRIX (age 10y+), IM, 0.5mL 08/23/2011Zoster Live (Zostavax)02/20/2015 Family History Medical HistoryRelationNameCommentsColon CancerMotherliver cancerDiabetesMother RelationNameStatusCommentsFatherAliveMaternal GrandfatherDeceasedMaternal GrandmotherDeceasedMotherDeceasedPaternal GrandfatherDeceasedPaternal GrandmotherDeceased Social History Tobacco UseTypesPacks/DayYears UsedDateSmoking Tobacco: NeverSmokeless Tobacco: NeverAlcohol UseStandard Drinks/WeekCommentsYes0 (1 standard drink = 0.6 oz pure alcohol)socailPHQ-2AnswerDate RecordedPHQ-2 Lmtvp458CommentsNo Sex and Gender InformationValueDate RecordedSex Assigned at BirthNot on file Legal BojAgwcog71/10/2013 4:48 PM ESTGender IdentityNot on fileSexual OrientationNot on file Last Filed Vital Signs Vital SignReadingTime TakenCommentsBlood Nsytalre185/7803 9:43 AM EST Pulse--Temperature--Respiratory Rate--Oxygen Saturation--Inhaled Oxygen Concentration--Vpdtwy71.7 kg (166 lb 12.8 oz)12/18/2018 9:43 AM KGSZhdjxy001.9 cm (5' 1 )12/18/2018 9:43 AM ESTBody Mass Index31.5203 9:43 AM EST Plan of Treatment Not on file Insurance
--- OUTSIDE RECORDS SUMMARY | 2025-08-20 10:03 | XMS_ITS | Patient Health Record ---
Author Organization [facility] [place] Address [address] [place] [address] Care Team Providers Care Barrel Dedenting Machine Operator Name Role Phone Jair Li DO Primary Care Provider Unavailabl e Allergies Allergen (clinical drug ingredient) Drug/Non Drug Allergy documented on EMR Reaction Allergy Type Onset Date Status red rice yeast (uncoded)nose bleedsAllergyActive Reason For Referral No Information Medications Medication SIG (Take, Route, Frequency, Duration) Notes Start Date End Date Status Potassium Chloride ER 20 MEQ 1 tablet with food Orally Once a day ActiveSimvastatin 20 MG1 tablet in the evening Orally Once a dayActiveTylenol 325 MG1 tablet as needed Orally every 6 hrsActiveEzetimibe 10 MG1 tablet Orally Once a dayActiveMagnesium 250 MG1 tablet with a meal Orally Once a dayActive amLODIPine Besylate 5 MG1 tablet Orally Once a dayActiveTriamterene-HCTZ 37.5-25 MG1 tablet in the morning Orally Once a dayActiveEstriolActiveEstriol- Progesterone MicroActiveCalcium 600 MG1 tablet with meals Orally Twice a day ActiveDHEA 10 MG5mg Orally dailyActiveMultivitamin -1 tablet Orally Once a day ActiveMeloxicam 7.5 MG1 tablet Orally Once a dayActive Social History Tobacco Use: Social History Observation Description Date Details (start date - stop date) Former Smoker NA - NA Tobacco Control (Standard) Question Answer Notes Tobacco use: Former smoker Problems Problem Type SNOMED Code ICD Code Onset Dates Problem Status W/U Status Risk Notes Problem Acquired hallux rigidus (9886523) Hallux rigidus, right foot (M20.21) ActiveconfirmedProblemPain in right foot (128757838293801)Right foot pain (M79.671)Activeconfirmed Plan Of Treatment Pending Test Test Name Order Date XR Foot RT (3 views) * 05/21/2024 XR foot RT min 3V 05/23/2024 Insurance Providers Payer Name Payer Address Payer Phone Subscriber Number Group Number Insured Name Patient Relationship to Insured Coverage Start Date Coverage End Date [employer] [address] [address] [place] [address] [id number] [phone] Jayant Vargas Spouse - patient is the spouse of the insured [place] [id number] Mike Vargaself - patient is the insured Medical (General) History Medical History History ICD Code arthritis hypertensionhigh cholesteroljoint replacementvaricose veinsSurgical History Surgery Date(Month/Year) hysterectomy right knee replacementright total hip replacementleft knee replacementright reverse shoulder replacementleft reverse shoulder replacement
--- OUTSIDE RECORDS SUMMARY | 2025-08-20 10:03 | XMS_ITS | Clinical Summary ---
Author Organization [facility] Address [address] [place], [place] [address] Care Team Providers Care Animal Laboratory Helper Name Role Phone Shad Barr Primary Care Provider [phone] Allergies Active AllergyReactionsCriticalityNoted HrmjTuiqbzjhXbpewod66/06/2002Opioids - Morphine Jqykdvtuz65/06/2002 PERCOCET Red Yeast TolbJgjwvkrckwh59/08/2016 Nosebleeds Medications MedicationSigDispense QuantityRefillsLast FilledStart DateEnd DateStatus MOBIC 7.5MG TABLET Take one(1) tablet daily. 90 Active Additional Information Patient taking differently: Take one(1) tablet daily. 15mg, Reported on 12/22/2015 FLUTICASONE PROPIONATE (FLONASE NASAL) Use in the nose once daily.Active cyclobenzaprine (FLEXERIL) 10 mg tablet Take 10 mg by mouth as needed.Active traMADol (ULTRAM) 50 mg tablet Take 50 mg by mouth every 6 hours as needed.Active ezetimibe-simvastatin 10-10 mg (VYTORIN) 10-10 mg per tablet Take 1 tablet by mouth twice a week.Active Active Problems ProblemNoted DateDiagnosed DateShoulder pain, right07/22/2015Rotator cuff tear arthropathy of both zfyqcsmxs43/07/2015Tendon rupture, nontraumatic, biceps, long head07/22/2015Contracture of xwkawvai83/07/2015Primary localized osteoarthrosis, fvdewrz7505/21/2002 Social History Tobacco UseTypesPacks/DayYears UsedDateSmoking Tobacco: NeverAlcohol UseStandard Drinks/WeekCommentsNot Asked0 (1 standard drink = 0.6 oz pure alcohol) CommentsNoSex and Gender InformationValueDate RecordedSex Assigned at BirthNot on fileLegal AbsGnjgwh04/02/2012 9:49 AM ESTGender IdentityNot on fileSexual OrientationNot on file Last Filed Vital Signs Vital SignReadingTime TakenCommentsBlood Ggtwkvgz875/6504 10:45 AM EDT Tujix244401/20/2004 10:45 AM EDTTemperature--Respiratory Rate--Oxygen Saturation-- Inhaled Oxygen Concentration--Kassec16.5 kg (137 lb 12.6 oz)01/20/2004 10:45 AM HXYXswcro305.9 cm (5' 1 )01/20/2004 10:45 AM EDTBody Mass Index26.03001/20/2004 10:45 AM EDT Plan of Treatment Health MaintenanceDue DateLast DoneCommentsAnxiety Cnayshrvk00/29/1974Depression Iprymstna54/29/1974Hepatitis C Oedisqkrx92/29/1974DTaP,Tdap,Td Vaccine (1 - Tdap)1975Mammogram Pbxlvzdeo46/29/1996CT Wrhpnwxlamvq60/29/2001Cologuard (FIT-DNA)07/14/20011853Jikltcwniyq89/29/2001Colorectal Cancer Frpmslwqm48/29/2001 Fecal Occult Blood2001Lipid Vjnyvndjl83/29/5321Xyragdjkbjcyw54/29/2001 Pneumococcal Vaccine: 50+ (1 of 1 - PCV)2006Shingrix Vaccine (1 of 2) 2006Diabetes Wzqjymlvo29/24/, 02/06/2004, 02/05/2004, Additional history existsBone Density Tptvsjjcs06/29/2021dvance Directive Cnvmhxymbq11/01/2025ovid-19 Vaccine ( - 2024- season)2025Influenza Vaccine (#1)2025RSV Vaccine (1 - 1-dose 75+ series)2031 Procedures Procedure NamePriorityDate/TimeAssociated DiagnosisCommentsBASIC METABOLIC PANEL 02/07/2004 8:45 AM EDT from Last 3 Months or Most Recently Relevant to Health Maintenance Results * (ABNORMAL) BASIC METABOLIC PNL (02/07/2004 8:45 AM EDT)ComponentValueRef Range Test MethodAnalysis TimePerformed AtPathologist JzqiqixnhIahtfjf6639 - 110 mg/dLL[facility] XHWOWR580 - 25 mg/dLLAKE[facility] LABCreatinine0.6(A) 0.7 - 1.4 mg/dLLAKEHE[facility] BKQIjwvcv274591 - 148 mmol/[facility] LABPotassium3.2(A)3.5 - 5.0 mmol/[facility] DZBWyrgyruj68815 - 110 mmol/[facility] MRSRV55477 - 32 mmol/[facility] LABAnion Esr622 - 15 mmol/[facility] LABCalcium8.1(A)8.5 - 10.5 mg/dLLAKEHE[facility] LABSpecimen (Source)Anatomical Location / LateralityCollection Method / Volume Collection TimeReceived Time02/07/2004 8:45 AM EDT Narrative Authorizing ProviderResult TypeResult StatusViktor Todd Tamayo MDLABORATORYFinal ResultPerforming OrganizationAddressCity/State/ZIP CodePhone Number [facility] [address] [place] [address] from Last 3 Months or Most Recently Relevant to Health Maintenance Insurance [address] [place] [address] Care Teams Team MemberRelationshipSpecialtyStart DateEnd Date Shad Barr [address] [place] [address] PCP - GeneralOrthopedics05/06/15
--- OUTSIDE RECORDS SUMMARY | 2025-08-20 10:03 | XMS_ITS | Clinical Summary ---
Author Organization [facility] Address [address] [place] [address] Phone Care Team Providers Care Machine Records Units Supervisor Name Role Phone Guillermo Jose Miguel Gely VALENZUELA Primary Care Provider [phone] Gissell Thurston MD Unavailable [phone] Allergies Active AllergyReactionsCriticalityNoted DateCommentsCodeineNausea/vomitingLow 01/05/2024Iodinated Contrast MediaNausea/filbuqlnUas67/22/2024Red Yeast Rice VmvsxwaxCyepas52/22/2718UrgfzykpulroSeifexoLwu81/22/2024 Medications MedicationSigDispense QuantityRefillsLast FilledStart DateEnd DateStatus amLODIPine (Norvasc) 5 mg tablet Take 1 tablet (5 mg) by mouth once daily.Active meloxicam (Mobic) 7.5 mg tablet Take 1 tablet (7.5 mg) by mouth 2 times a day.09/12/2003Active potassium chloride CR (Klor-Con M20) 20 mEq ER tablet Take 1 tablet (20 mEq) by mouth once daily.Active triamterene-hydrochlorothiazid (Maxzide-25) 37.5-25 mg tablet Take 1 tablet by mouth once daily.Active calcium carbonate (CALCIUM 600 ORAL) Take 2 tablets by mouth once daily.Active melatonin 10 mg tablet Take 1 tablet (10 mg) by mouth once daily at bedtime.Active ezetimibe (Zetia) 10 mg tablet Indications:Hyperlipidemia, unspecified hyperlipidemia typeTake 1 tablet (10 mg) by mouth once daily. 90 tablet 109/509/6Active simvastatin (Zocor) 20 mg tablet Indications:Hyperlipidemia, unspecified hyperlipidemia typeTake 1 tablet (20 mg) by mouth once daily at bedtime. 90 tablet 5007/04/2026ctive Active Problems ProblemNoted DateDiagnosed DateBMI 29.0-29.9,adult07/11/2024Former smoker 07/11/2024bnormal EKG001/05/2024Essential hypertension, tekyku2201/05/2024 Qxuimulnvufxyf85/22/2024remature ventricular contraction on electrocardiography 01/05/2024 Encounters DateTypeDepartmentCare JlcvLfpjhumwqoo68/22/2025Scanned Document [facility] [address] [place] [address] Scanning, Generic Provider 07/03/2025[facility] [address] [place] [address] Brletic, Tori B, MARKETING COMPLIANCE MANAGER Hyperlipidemia, unspecified hyperlipidemia type06/19/2025Patient Risk Score [facility] Care Management [address] [place] [address] from Last 3 Months Immunizations ImmunizationAdministration DatesNext DueFlu vaccine, quadrivalent, high-dose, preservative free, age 65y+ (FLUZONE)08/18/2022Influenza, Ehbnublmpul10/29/2018 Influenza, injectable, hueppwdlpwbj72/15/2021,07/01/2019,06/19/2018Td (adult), ljknjprnnro00/24/2003,04/24/1992Tdap vaccine, age 7 year and older (BOOSTRIX, ADACEL)08/23/2011Zoster vaccine, recombinant, adult (SHINGRIX)07/10/2020, 05/07/2020Zoster, live02/20/2015,10/11/2012 Family History Medical HistoryRelationNameCommentsCancerFatherDementiaFatherColon cancerMother DiabetesMotherHypertensionMotherRelationNameStatusCommentsFatherMother Social History Tobacco UseTypesPacks/DayYears UsedDateSmoking Tobacco: FormerCigarettes Smokeless Tobacco: NeverAlcohol UseStandard Drinks/WeekCommentsYes0 (1 standard drink = 0.6 oz pure alcohol)CommentsUnknownSex and Gender Information ValueDate RecordedSex Assigned at BirthNot on fileLegal JytSnpeax93/26/2022 9:44 AM ESTGender IdentityNot on fileSexual OrientationNot on file Last Filed Vital Signs Vital SignReadingTime TakenCommentsBlood Aceofpjx222/72007/11/2024 1:02 PM EDT Iylvd735707/11/2024 1:02 PM EDTTemperature--Respiratory Rate--Oxygen Saturation-- Inhaled Oxygen Concentration--Cxqsnz42.1 kg (154 lb 9.6 oz)07/11/2024 1:02 PM XKNAydufp381.9 cm (5' 1 )07/11/2024 1:02 PM EDTBody Mass Index29.21007/11/2024 1:02 PM EDT Plan of Treatment DateTypeDepartmentCare Team (Latest Contact Info)Xwoovvzccjy47/01/2025 10:40 AM ESTOffice Visit [facility] [address] [facility] [address] [place] [address] Gissell Thurston MD [address] [facility] [address] [place] [address] Health MaintenanceDue DateLast DoneCommentsCT Ghoovwjoikjx1956FIT-DNA (Cologuard)1956FIT1956Lipid Panel1955 0295Opyjhyvnyyaan1956 Hepatitis C Aeausgmwu49/29/7488Zkrfhajup47/29/1996MMR Vaccines (1 of 1 - Standard series)03/20/2015Bone Density Scan1DTaP/Tdap/Td Vaccines (2 - Td or Tdap)/05/2011, 08/23/2011, 01/06/2003, Additional history existsDiabetes Evyuogwzc45/, 07/16/2019Yearly Adult Physical /Influenza Vaccine (#1)/, 10/11/2023, 08/18/2022, Additional history existsCOVID-19 Vaccine ( season) , 10/11/2023, 08/18/2022, Additional history exists Fnbgygkootm96, 06/11/2020Colorectal Cancer Tsyxdvoua42/27/2030 Irritable Bowel ZmlslaonBlxpawsquswl30/27/2020Zoster VaccinesCompleted 07/10/2020, 05/07/2020, 02/20/2015, Additional history existsPneumococcal OudyiroYgxbfpmco50/18/2024, 12/08/2014RSV High Risk: (Elderly (60+) or Population)Iyxwnjgjt40/18/2024HIB VaccinesAged OutNo longer eligible based on patient's age to complete this topicHPV VaccinesAged OutNo longer eligible based on patient's age to complete this topicHepatitis A VaccinesAged OutNo longer eligible based on patient's age to complete this topicHepatitis B VaccinesAged OutNo longer eligible based on patient's age to complete this topicIPV Vaccines Aged OutNo longer eligible based on patient's age to complete this topic Meningococcal VaccineAged OutNo longer eligible based on patient's age to complete this topicRotavirus VaccinesAged OutNo longer eligible based on patient's age to complete this topic Procedures Procedure NamePriorityDate/TimeAssociated DiagnosisCommentsCOMPREHENSIVE METABOLIC GFCUANTZT69/30/2021 10:07 AM EDT from Last 3 Months or Most Recently Relevant to Health Maintenance Results * (ABNORMAL) Comprehensive Metabolic Panel (04/14/2021 10:07 AM EDT)Component ValueRef RangeTest MethodAnalysis TimePerformed AtPathologist SignatureCalcium 10.48.5 - 10.4 MG/DL04/14/2021 10:52 AM [facility] YJOYZG180 - 40 U/L04/14/2021 10:52 AM [facility] LABAlkaline Vvrsvscdruh9370 - 125 U/L04/14/2021 10:52 AM [facility] Total Bilirubin0.30.1 - 1.2 MG/DL04/14/2021 10:52 AM [facility] LABTotal Protein7.75.9 - 7.9 G/DL04/14/2021 10:52 AM [facility] LABAlbumin5.1(H)3.5 - 5.0 GM/DL04/14/2021 10:52 AM [facility] LABGlobulin, Total2.61.9 - 3.7 G/DL04/14/2021 10:[address] [facility] LABA/G Ratio2.01.5 - 3.0 RATIO04/14/2021 10:[address] [facility] VRZErlddp693527 - 145 MMOL/L04/14/2021 10:[address] [facility] LABPotassium3.83.4 - 5.1 MMOL/L04/14/2021 10:52 AM [facility] ZZRBbfxixlz03372 - 107 MMOL/L04/14/2021 10:52 AM [facility] AIRJoqbsknqgtl4178 - 31 MMOL/L04/14/2021 10:52 AM [facility] LABAnion Lce019 - 19 MMOL/L04/14/2021 10:[address] [facility] LABUrea Alsazgbl674 - 25 MG/DL04/14/2021 10:[address] [facility] LABCreatinine0.70.4 - 1.6 MG/DL04/14/2021 10:52 AM [facility] LABUrea Nitrogen/Creatinine (g/g) Urine21.4(H)8 - 21 RATIO04/14/2021 10:52 AM [facility] RHYEfdqput7990 - 99 MG/DL04/14/2021 10:52 AM [facility] LABALT (SGPT)205 - 40 U/L 04/14/2021 10:52 AM [facility] LABESTIMATED KNY85rU/min/1.73 m204/14/2021 10:52 AM [facility] LABComment: GFR ml/min/1.73m2 ?? Stage ?? ----- ?? 90 ? 1 ?? 60-89 ?2 ?? 30-59 ?3 ?? 15-29 ?4 <15 5 For -Americans, multiply EGFR result by 1.210 Calculation not validated for patients under 18 years of age. Performed at [facility] [id number] [facility] [address] Specimen (Source)Anatomical Location / LateralityCollection Method / Volume Collection TimeReceived Time04/14/2021 10:07 AM EDT04/14/2021 10:20 AM EDT Narrative Authorizing ProviderResult TypeResult StatusLynnfernando MCGEE BLOOD ORDERABLESFinal ResultPerforming OrganizationAddressCity/State/ZIP CodePhone Number [facility] from Last 3 Months or Most Recently Relevant to Health Maintenance Insurance Care Teams Team MemberRelationshipSpecialtyStart DateEnd Date Jose Miguel Li DO PCP - General10/16/99 Gissell Thurston MD [address] [facility] [address], [place] [address] PCP - MSSP ACO Attributed Provider10/16/24
--- OUTSIDE RECORDS SUMMARY | 2025-08-20 10:07 | XMS_ITS | CCD ---
Author Organization [facility] Informat ion Partnership [facility] Care Team Providers Care Site Worker Name Role Phone BELLE HUGHES Referring UnavailBELLE Roberson Referring UnavailSabrina Quiros Unavailable [facility] Unavailable Sarahi Carlos Unavailable DO Sabrina Meek Primary Care Provider DO Sabrina Meek Attending Provider Sabrina Meek Unavailable Unavailable Unavailable FANTASMA, DR BENNETT Admitting Unavailable FANTASMA, DR BENNETT Attending Unavailable FANTASMA, DR BENNETT Primary Care Unavailable QUITAQUE, DR THANH Louis Consulting Unavailable FANTASMA, DR BENNETT Consulting Unavailable ERNIE ORDONEZ Admitting Unavailable ERNIE ORDONEZ Attending Unavailable FANTASMA, DR BENNETT Primary Care Unavailable ERNIE ORDONEZ Consulting Unavailable DO Sabrina Meek Primary Care Provider DO George Harris Attending Provider MD Teddy Johnston Attending Provider DO Sabrina Meek Primary Care Provider MD [facility] Attending Provider Marcella Flores Unavailable DO Sabrina Meek Primary Care Provider DONI Flores Attending Provider DO Sabrina Meek Attending Provider Kuns, DO Sabrina Primary Care Provider Teddy Johnston Referring Unavailable Teddy Johnston Attending Unavailable Dr. Sabrina Meek Primary Care Unavailabl e Kuns, DO Sabrina Primary Care Provider [phone] MD [facility] Attending Provider [phone] ToneyRajeev Unavailable Mehul Solano Unavailable Kuns, DO Sabrina Attending Provider MD Mehul Solano Attending Provider Kuns, DO Sabrina Primary Care Provider Kuns, DO Sabrina Primary Care Provider Kuns, DO Sabrina Attending Provider MD Mehul Solano Attending Provider Kuns DO, Sabrina R Primary Care Provider Unavailab le TEDDY JOHNSTON Referring Unavailable KUNSSABRINA R Primary Care Unavailable Kuns, DO Sabrina Primary Care Provider Kuns, DO Sabrina Attending Provider [phone] Kuns DO, Sabrina R Primary Care Provider Kuns DO, Sabrina R Primary Care Provider Kuns DO, Sabrina Primary Care Provider Kuns DO, Sabrina Attending Provider [phone] Kuns DO, Sabrina R Primary Care Provider Kuns DO, Sabrina Referring Provider Rox Rios APRN Attending Provider Kuns DO, Sabrina Primary Care Provider Kuns DO, Sabrina Attending Provider Rox Rios APRN Attending Provider Gaetano Watson MD Attending Provider Kuns DO, Sabrina Primary Care Provider Kuns DO, Sabrina Attending Provider Wero BED MACHINE OPERATOR, Neliad Cuellar Attending Provider Kuns DO, Sabrina Primary Care Provider Kuns DO, Sabrina R Primary Care Provider TEDDY JOHNSTON Attending Unavailable KUNS, SABRINA R Primary Care Unavailable Kuns DO, Sabrina Attending Provider [phone] Wero, Nelida M Admitting Unavailable Wero, Nelida M Attending Unavailable Kuns, Sabrina Primary Care Unavailable Kuns, Sabrina Primary Care Unavailable Kuns, Sabrina Attending Unavailable Kuns, Sabrina Admitting Unavailable Kuns, Sabrina Primary Care Unavailable Kuns, Sabrina Attending Unavailable Kuns, Sabrina Admitting Unavailable Kuns, Sabrina Primary Care Unavailable Walter, Gaetano R Admitting Unavailable Walter, Gaetano R Attending Unavailable Turovskaya, Rox Admitting Unavailable Kuns, Sabrina Primary Care Unavailable Turovskaya, Rox Attending Unavailable Kuns, Sabrina Referring Unavailable Kuns, Sabrina Primary Care Unavailable Kuns, Sabrina Attending Unavailable Kuns, Sabrina Admitting Unavailable Kuns, Sabrina Primary Care Unavailable Kuns, Sabrina Attending Unavailable Kuns, Sabrina Admitting Unavailable Kuns DO, Sabrina Primary Care Provider [phone] JOSE ALEJANDRO MAYO Attending Unavailable RUSHER, JOSE ALEJANDRO Villalobos Attending Unavailable ITDENIS, GEORGE Patel Attending Unavailable RUSHERJOSE ALEJANDRO Referring Unavailable RUSHER, JOSE ALEJANDRO Villalobos Attending Unavailable RUSHER, JOSE ALEJANDRO Villalobos Referring Unavailable ITZKOVANCE, GEORGE Patel Attending Unavailable Allergies Allergy ClassificationReported Allergen(s)Allergy TypeDate of OnsetReaction(s) FacilityHMG-CoA Reductase Inhibitors (statins) (1 source)rosuvastatinDrug Ytohutn58-97-3654VidcbrvEbujywqiroPremier Health [facility] Work Phone: Opioid Agonists (1 source)CodeineDrug Hhskyzg88-65-6117Lhktpm/[facility]red yeast rice (1 source)red yeast riceDrug Seuwnfs69-89-5530ZcjjtjlzQpwvcbzukiSelect [facility] Work Phone: Unclassified (19 sources)Iodinated Contrast Media; Translations: [IODINATED CONTRAST MEDIA] Drug Sipgted90-36-4358Xflzfz/vomiting, GI intoleranceAdena Pike Medical Center Work Phone: (20 sources)Amoxicillin / ClavulanateDrug AllergyvomitMichigan Economic Development Corporation Other (20 sources)Codeine; Translations: [codeine]Drug Lbrbuor53-93-4718MA intolerance, Nausea/vomitingSt. [facility] (20 sources)homatropine / HYDROcodoneDrug AllergyhallucinatesWixom [employer] Other (20 sources)LovastatinDrug Fnoawnq18-80-4176puxzml painSt. Rita'S Hospital (20 sources)red rice yeastPropensity to adverse sfirjrlgd91-01-1025klzizmreja [facility] (20 sources)RADIOACTIVE DYEPropensity to adverse dedkrxzoa02-07-6442xpusnzw vomiting and migraineSt. Rita'S Hospital (20 sources)AmoxicillinDrug Twoxgtx99-74-7508EO intoleranceSt. [facility]'S Hospital (20 sources)ClavulanateDrug Lapqcqn67-70-7779VX intoleranceSt. Rita'S Hospital (20 sources)homatropineDrug Ncamktl57-66-7226Uowlfhojasmka, Hallucinating, hallucinatesSt. [facility]'S Hospital (20 sources)HYDROcodoneDrug Hxfonmf77-64-5421Xzisrwhsaebnd, Hallucinating, hallucinatesSt. Rita'S Hospital (3 sources)Contrast mediaAllergy to substance (finding)Nausea, VomitingSauk Centre Hospital 250 DO Work Phone: (20 sources)red yeast rice; Translations: [red yeast rice]Drug Hlnvour86-56-0234 GI bleeding, GI intolerance, BleedingSelect [facility] (1 source)Dannielle albicans allergenic extractDrug AllergyThe [facility] (1 source)CodeineDrug AllergyThe [facility] (1 source)Iodine (And Iodine Containting Drugs)Drug allergy (disorder)[facility] (11 sources)Amoxicillin / ClavulanateDrug AllergyvomitHCA Midwest Division [facility] Other (20 sources)rosuvastatin; Translations: [rosuvastatin]Drug Nfupslo47-57-0159 MyalgiaSt. Rita'S HospitalComment on above:Onset Date: 05/15/2023 (15 sources)Black Cohosh ExtractDrug Olxorva08-07-5546T[facility] (15 sources)LovastatinAllergy to cjoqeytab47-84-2413RBGB [facility] (15 sources)Rosuvastatin calciumAllergy to nzywdlfyw66-78-2616KDAX [facility] Medications Current Medications MedicationDrug Class(es)DatesSig (Normalized)Sig (Original)acetaminophen 325 mg oral tablet (20 sources)Start: 44-92-2626wmplxxoexbmnz (Tylenol) 325 MG tablet 1 tablet 11/30/2023 Activetake 1 tablet by mouth every four hoursTylenol 325 MG 1 tablet as needed Orally every 4 hrs Activetake 1 tablet by mouth three times daily Acetaminophen 500 MG Oral Tablet one three times daily Quantity: 0 Refills: 0 Ordered: 01-Jul-2022 DO ActiveamLODIPine 5 mg oral tablet (20 sources)Dihydropyridine Calcium Channel BlockerStart: 05-12-2020 End: 75-84-1605iyYUSOSate (Norvasc) 5 MG tablet Daily 04/23/2024 ActiveCalcium (15 sources)Phosphate Binder, CalciumStart: 81-44-9551ptff 2 tablets by mouth twice daily at mealtimeCVS Calcium 600 MG tablet TAKE 2 TABLETS BY MOUTH TWICE A DAY WITH MEALS FOR 90 DAYS 02/24/2024 Activecholecalciferol 1.25 mg oral capsule (20 sources)Vitamin DStart: 19-43-6263hmfu 1 capsule by mouth every week Cholecalciferol (Vitamin D3) 1,250 mcg (50,000 unit) capsule Active 0 .ROUTE .COMPLEX November 08, 2024 8:38am TAKE 1 CAPSULE BY MOUTH ONCE A WEEK Complies with drug therapyStart: 11-30-2023 End: 73-88-7762egmi 1 capsule by mouth every weekCholecalciferol (Vitamin D3) 1,250 mcg (50,000 unit) capsule Discontinued 1250 MCG PO every week November 30, 2023 1:00am November 08, 2024 8:38am FreeTextSig: TAKE 1 CAPSULE BY MOUTH ONE TIME PERWEEK FOR 30 DAYS; Note: Source Status: Taking; Refills: 4; Qty: 12 Capsule; Provider: Mark Naranjo ( )Start: 20-48-6766daby 1 capsule by mouth every weekCholecalciferol 1.25 MG (41009 UT) 1 capsule Orally Once a week for 30 days SIG: Take 1 capsule once a week for 8 weeks. February, ActiveStart: 92-96-6253Y7-50 1.25 MG (66973 UT) TAKE 1 CAPSULE BY MOUTH ONE TIME PER WEEK FOR 30 DAYS for 84 Activecyclobenzaprine hydrochloride 10 mg oral tablet (17 sources)Muscle RelaxantStart: 01-03-2025 End: 29-34-4241qusg 1 tablet by mouth once daily at bedtime as needed for muscle spasmsCyclobenzaprine 10 mg tablet Active 10 MG PO Daily at bedtime as needed for muscle spasm February 11, 2025 1:02pm Complies with drug therapyezetimibe 10 mg oral tablet (20 sources)Dietary Cholesterol Absorption InhibitorStart: 86-41-4707zejw 1 tablet by mouth two times weeklyEzetimibe 10 MG 1 tablet Orally twice a week Apr, ActiveStart: 97-97-0093Gnxvbuufj 10 MG Oral Tablet Quantity: 30 Refills: 0 Ordered: 07-Jun-2022 DO Start : 12-Nov-2021 CompleteStart: 03-18-2019 End: 42-03-9473igpz 1 tablet by mouth once dailyEzetimibe (Zetia) 10 mg Tablet Active 10 MG PO Daily November 05, 2020 1:00am Complies with drug therapy Magnesium (15 sources)magnesium 250 MG tablet 1 (one) time each day at the same time Activemelatonin 10 mg oral tablet (5 sources)take 1 tablet by mouth once daily at bedtimemelatonin 10 mg tablet Take 1 tablet (10 mg) by mouth once daily at bedtime. Activetake 1 capsule by mouth once daily at bedtimeMelatonin 10 MG Oral Capsule one daily at bedtime Quantity: 0 Refills: 0 Ordered: 01-Jul-2022 DO ActiveMultiple Vitamin (Multi Vitamin) tablet (15 sources)Multiple Vitamin (Multi Vitamin) tablet 1 (one) time each day at the same time YiihfdAfnnsqgbwqct-Pe-Rkmn-Minerals (Multiple Vitamin, Womens) Tablet (20 sources)Start: 03-92-3124mwkg 1 tablet by mouth once daily Oywbvhshnkza-Uo-Hkla-Minerals (Multiple Vitamin, Womens) Tablet Active 10 TAB PO Daily November 05, 2020 1:00am Complies with drug therapyStart: 67-86-0079skqd 1 tablet by mouth once dailyStart: 13-93-0447arum 1 tablet by mouth once daily Adbbuzawkzfz-Ez-Tshk-Minerals (Multiple Vitamin, Womens) Tablet Active 10 TAB PO Daily November 05, 2020 12:00amStart: 17-03-3287hjxm 1 tablet by mouth once xwnvwDtondyynmqyb-Wb-Fiyv-Minerals (Multiple Vitamin, Womens) Tablet Active 10 TAB PO Daily November 05, 2020 1:00amprasterone 10 mg oral tablet (15 sources)prasterone, DHEA, 10 MG tablet 1 (one) time each day at the same time Activesimvastatin 20 mg oral tablet (20 sources)HMG-CoA Reductase InhibitorStart: 07-11-2023 End: 18-27-9488Xrxkcuxoles 20 mg tablet Active 20 MG PO January 01, 2024 12:00am Complies with drug therapyStart: 82-10-3213Rfwcdpmlsmn 10 MG Oral Tablet Quantity: 30 Refills: 0 Ordered: 07-Jun-2022 DO Start : 12-Nov-2021 Complete Start: 08-20-2018 End: 53-41-5554oktv 1 tablet by mouth once dailySimvastatin 10 mg Tablet Discontinued 10 MG PO Daily November 05, 2020 1:00am January 01, 2024 5:18pm Womens One Daily (20 sources)Womens One Daily Xqzpae069 ml zoledronic acid 0.05 mg/ml injection (11 sources)BisphosphonateStart: 92-37-3489Qovgzculxg Shda-Gktwsspn-Pstac (Reclast) 5 mg/100 mL piggyback Active 1 EACH IV Once September 18, 2024 1:00am Complies with drug therapy Completed/Discontinued Medications MedicationDrug Class(es)DatesSig (Normalized)Sig (Original)alendronic acid 70 mg oral tablet (20 sources)BisphosphonateStart: 11-30-2023 End: 47-31-7345inft 1 tablet by mouth once dailyAlendronate 70 mg tablet Discontinued MG PO November 30, 2023 1:00am January 02, 2024 10:44am Free TextSi tablet 30 minutes before the first food, beverage or medicine of the day with plain water Orally Q week; Note: Source Status: Not-TakingundefinedPRN; Provider: Daryn Dooley End: 41-92-2854zgfh 1 tablet by mouth in the morningalendronate (Fosamax) 70 mg tablet Take 1 tablet (70 mg) by mouth every 7 days. Take in the morningwith a full glass of water, on an empty stomach, and do not take anything else by mouth or lie downfor the next 30 min. 07/11/2024 Discontinued (Discontinued by another clinician)take 1 tablet by mouth once dailyFosamax 70 MG 1 tablet 30 minutes before the first food, beverage or medicine of the day with plainwater Orally Q week Not-Taking/PRNtake 1 tablet by mouth every weekAlendronate Sodium 70 MG Oral Tablet TAKE 1 TABLET ONCE WEEKLY. Quantity: 0 Refills: 0 Ordered: 11-Jul-2023 DO Activeamoxicillin 500 mg oral capsule (20 sources)Penicillin-class AntibacterialStart: 92-55-6319Umtjgsleonv 500 MG Oral Capsule Quantity: 8 Refills: 0 Ordered: 12-Nov-2021 DO Start : 12-Nov-2021 CompleteStart: 25-66-9457gtxs 4 tablets by mouth every two hoursAmoxicillin 500 MG 4 tablets Orally 2 hours prior to oral surgery Apr, ActiveStart: 17-37-6096lmoiujkjqgph 250 mg oral tablet (20 sources)Macrolide AntimicrobialStart: 01-01-2025 End: 52-53-2935Pwmsvsxprgls (Zithromax Z-Juliano) 250 mg tablet Discontinued 0 PO .COMPLEX 6 January 01, 2025 12:00am January 03, 2025 1:14pm For 250 mg dose pack: take 500 mg today (day 1), then 250 mg for 4 days (days 2-5) POStart: 81-51-8318Yudtyuwjb Z-Juliano 250 MG as directed Orally as directed Sep, ActiveStart: 07-48-4553Tuldntzmm Z-Juliano 250 MG as directed Orally as directed Nov, ActiveStart: 43-67-7964Vunfkbnbajpq 250 MG Oral Tablet Quantity: 6 Refills: 0 Ordered: 14-May-2022 DO Start : 14-May-2022 CompleteStart: 05-14-2022 Azithromycin 250 MG 2 tablet on the first day, then 1 tablet daily for 4 days Orally Once a day for5 day(s) Apr, ActiveStart: 89-44-6072Zegrqtdal Z- Juliano 250 MG 2 tablet on the first day, then 1 tablet daily for 4 days Orally Once a day for 5 day(s) Apr, ActiveStart: 74-97-0783ntqi 2 tablets by mouth once daily, then take 1 tablet by mouth once dailyZithromax 250 MG 2 tablet on the first day, then 1 tablet daily for 4 days Orally as directed Sep, Activecalcium carbonate 1500 mg oral tablet (20 sources)Start: 11-30-2023 End: 80-93-0120iryf 1 tablet by mouth twice dailyCalcium Carbonate 600 mg calcium (1,500 mg) tablet Active 1200 MG PO Twice daily 360 September 25, 2024 6:07pm Complies with drug therapyStart: 11-30-2023 End: 39-72-4529xroe 1 tablet by mouth twice dailyCalcium Carbonate 600 mg calcium (1,500 mg) tablet Discontinued 600 MG PO Twice daily 180 September 25, 2024 6:06pm September 25, 2024 6:09pmStart: 46-50-0070keak 2 tablets by mouth every twelve hoursCalcium 600 MG 2 tablets with meals Orally Twice a day for 90 days February, ActiveStart: 16-63-3482kgxk 2 tablets by mouth every twelve hoursCalcium 600 MG 2 tablets with meals Orally Twice a day February, ActiveStart: 23-63-6583qcja 2 tablets by mouth every twelve hourstake 2 tablets by mouth once dailycalcium carbonate (CALCIUM 600 ORAL) Take 2 tablets by mouth once daily. ActiveCalcium 600 MG TABS 2 tabs daily Quantity: 0 Refills: 0 Ordered: 11-Jul-2023 DO ActivehydroCHLOROthiazide 25 mg / triamterene 37.5 mg oral capsule (20 sources)Potassium-sparing Diuretic, Thiazide DiureticStart: 11-21-2023 End: 16-44-1020pzfl 1 capsule by mouth once dailyTriamterene-Hydrochlorothiazid 37.5-25 mg capsule Discontinued 1 CAP PO Daily December 11, 2023 3:43pm November 12, 2024 2:56pmStart: 45-13-9575omib 1 capsule by mouth once daily in the morningTriamterene-HCTZ 37.5-25 MG Oral Capsule TAKE 1 CAPSULE BY MOUTH EVERY DAY IN THE MORNING Quantity:30 Refills: 0 Ordered: 07-Jun-2022 DO Start : 01-Dec-2021 CompleteStart: 76-33-2550Brpmw: 38-21-3216jpiv 1 capsule by mouth once daily in the morningDyazide 37.5-25 MG 1 capsule in the morning Orally Once a day for 90 days Jun, ActiveStart: 11-36-4581kgjq 1 capsule by mouth once daily in the morningDyazide 37.5-25 MG 1 capsule in the morning Orally Once a day Jun, Activetriamterene-hydrochlorothiazide (Maxzide-25) 37.5-25 MG tablet 1 (one) time each day at the same time ActiveKetorolac (20 sources)Nonsteroidal Anti-inflammatory Drug, Cyclooxygenase InhibitorStart: 62-69-6070Wqunb: 42-23-1688Hdgnnxr per 15 mg February, 2 mLloratadine 10 mg oral tablet (2 sources)take 1 tablet by mouth once dailyLoratadine 10 MG Oral Tablet TAKE 1 TABLET DAILY. Quantity: 90 Refills: 1 Ordered: 01-Jul-2022 DO Activemeclizine hydrochloride 12.5 mg oral tablet (20 sources)AntiemeticStart: 39-58-4397pdnc 1-2 tablets by mouth every eight hours as neededMeclizine HCl 12.5 MG 1-2 tablets as needed Orally q 8 hours PRN February, Not-Takingmeloxicam 7.5 mg oral tablet (20 sources)Nonsteroidal Anti-inflammatory DrugStart: 11-21-2023 End: 61-98-0628qgtk 1 tablet by mouth once dailyMeloxicam 7.5 mg tablet Discontinued 7.5 MG PO Daily January 17, 2024 3:27pm February 07, 2024 5:06pm Start: 60-90-9723Ahwrljkro 7.5 MG Oral Tablet Quantity: 30 Refills: 0 Ordered: 06-Jun-2022 DO Start : 14-Feb-2022 CompleteStart: 09-12-2003 End: 52-68-6949gzma 1 tablet by mouth twice dailyMeloxicam 7.5 mg tablet Discontinued 7.5 MG PO Twice daily August 26, 2024 4:44pm August 27, 2024 9:23ammethylPREDNISolone 4 mg oral tablet (20 sources)CorticosteroidStart: 01-01-2025 End: 79-38-6962rfrf 1 tablet by mouth onceMethylprednisolone (Medrol (Juliano)) 4 mg tablets,dose pack Discontinued 0 PO per package directions January 01, 2025 12:00am January 03, 2025 1:14pm PO PER PKG DIR for 6 daysStart: 85-43-8105Zjjcui 4 MG as directed Orally May, ActiveStart: 73-82-6482dvbesgGXSGUZOyqpjy 4 MG as directed Orally for daily dose take half with breakfast, half with dinner for 6 days Apr, ActiveStart: 49-66-5036Xixzit 4 MG as directed Orally as directed Apr, ActiveStart: 26-09-4061Xwjttq 4 MG as directed Orally every 12 hrs for 5 days Dec, ActiveStart: 81-02-4626Cndzoi 4 MG as directed Orally Sep, ActivemethylPREDNISolone 4 MG Oral Tablet Therapy Pack (1 source)Start: 82-92-0366wmwqxkDUDNEIQqcndu 4 MG Oral Tablet Therapy Pack TAKE 6 TABLETS ON DAY 1 DIRECTED ON PACKAGE ANDDECREASE BY 1 TAB EACH DAY FOR A TOTAL OF 6 DAYS Quantity: 21 Refills: 0 Ordered: 14-May-2022 DO Start : 14-May-2022 CompletePost-Op Shoe unit (3 sources)Start: 05-12-2025 End: 52-69-1242Yqoe-Op Shoe unit Discontinued 0 .Route May 12, 2025 12:00am July 17, 2025 9:52am As directedStart: 27-94-2875Ixuz-Op Shoe unit Active 0 .Route May 12, 2025 12:00am As directedpotassium chloride 20 meq extended release oral tablet (20 sources)Start: 40-33-9534Onjevmoiy Chloride ER 20 MEQ Oral Tablet Extended Release Quantity: 30 Refills: 0 Ordered: 07-Jun-2022 DO Start : 06-May-2022 CompleteStart: 07-20-2020 End: 78-17-7569mgks 1 tablet by mouth once dailyPotassium Chloride 20 mEq Tablet Extended Release Discontinued 20 MEQ PO Daily November 05, 2020 1:00am April 23, 2024 5:29pmtake 1 tablet by mouth once dailypotassium chloride CR (Klor-Con M20) 20 mEq ER tablet Take 1 tablet (20 mEq) by mouth once daily. Active rosuvastatin calcium 20 mg oral tablet (11 sources)HMG-CoA Reductase InhibitorStart: 72-02-2611wdrr 1 tablet by mouth once dailyRosuvastatin Calcium 20 MG Oral Tablet TAKE 1 TABLET DAILY. Quantity: 90 Refills: 3 Ordered: 01-Jul-2022 Teddy Johnston MD Start : 01-Jul-2022 Active new start/ stop simvastatin/ stop zetiatake 1 tablet by mouth two times weeklyRosuvastatin Calcium 20 MG 1 tablet Orally twice a week Active triamcinolone acetonide 40 mg/ml injectable suspension (20 sources)CorticosteroidStart: 86-31-8086Bvbdkxv-40 May, 40 mgStart: 92-63-8475Ypkoe: 63-34-1446Ylcxc: 75-72-7485Xjxwgmx -40 mg February, 40 mg Start: 36-82-9204Dgfnf: 01-04-5217DGMVLGD - 10 mg Mar, 40 mgStart: 92-94-6376Lwoen: 68-34-5085OVZDUSI - 10 mg Jun, 1 mL Problems Active Problems Problem ClassificationProblemDateDocumented DateEpisodic/ChronicAnxiety disorders (20 sources)Mixed anxiety and depressive disorder; Translations: [Other specified anxiety disorders]55-65-1158QqhaphyNbazyfn dysrhythmias (20 sources)Ventricular premature beats; Translations: [Ventricular premature depolarization]Onset: 06-22-2022 Resolved: 55-81-1798NwappczYbardczmupy and hemorrhagic disorders (20 sources)Easy bruising; Translations: [Spontaneous ecchymoses]11-06-2020 EpisodicConditions associated with dizziness or vertigo (20 sources)Dizziness; Translations: [Dizziness and giddiness]Onset: 06-23-2022 Resolved: 21-62-9087YtfdyzbxOqbnbbks mellitus without complication (20 sources)Hyperglycemia; Translations: [Hyperglycemia, unspecified]Onset: 203053-64-4241UjbnmbkuFflybebc of mouth; excluding dental (14 sources)Aphthous ulcer of mouth; Translations: [Recurrent oral aphthae] EpisodicDisorders of lipid metabolism (20 sources)Hyperlipidemia; Translations: [Hyperlipidemia, unspecified]Onset: 11-12-2021 Resolved: 85-10-5970OomasaxThyfrogpyl disorders (20 sources)Gastroesophageal reflux disease; Translations: [Gastro-esophageal reflux disease without esophagitis]80-85-9621MslqjduWeinnpckz hypertension (20 sources)Elevated blood pressure; Translations: [Essential (primary) hypertension]Onset: 06-22-2022 Resolved: 24-90-5976PlmjrkzNbyqcvoh of lower limb (13 sources)Displaced fracture of fifth metatarsal bone, unspecified foot, initial encounter for closed fracture; Translations: [Fracture of fifth metatarsal bone]19-70-2009HdxiicqsEwbmbufbmbldr symptoms and ill-defined conditions (15 sources)Blood in urine; Translations: [Hematuria, unspecified]Episodic Malaise and fatigue (14 sources)Fatigue; Translations: [Other fatigue]EpisodicMenopausal disorders (1 source)Postmenopausal atrophic vaginitis; Translations: [Postmenopausal atrophic vaginitis]Onset: 29-54-1338SzfukofBdym disorders (18 sources)Menopausal depression; Translations: [Other specified depressive episodes]49-99-6628XstahdbBqtggkzjnkbssv (20 sources)Osteoarthritis of knee; Translations: [Unilateral primary osteoarthritis, right knee]74-72-4490EwfiwmrDlbypliyecvh (20 sources)Osteoporosis; Translations: [Age-related osteoporosis without current pathological fracture]76-33-0845XsufpykVdjytzq on above:DEXA 02/2023 Other and unspecified benign neoplasm (1 source)Benign lipomatous neoplasm of skin and subcutaneous tissue of right legEpisodicOther bone disease and musculoskeletal deformities (4 sources)Other specified disorders of bone density and structure, unspecified siteEpisodicOther bone disease and musculoskeletal deformities (6 sources)Osteopenia; Translations: [Other specified disorders of bone density and structure, unspecified site]EpisodicOther bone disease and musculoskeletal deformities (11 sources)Osteopenia; Translations: [Other specified disorders of bone density and structure, unspecified site]EpisodicOther connective tissue disease (20 sources)History of right hip replacement; Translations: [Presence of right artificial hip joint]ChronicOther connective tissue disease (20 sources)History of total replacement of right hip joint; Translations: [Presence of right artificial hip joint]35-08-2555YgqqiwwCcqkx connective tissue disease (5 sources)Presence of right artificial hip joint; Translations: [Hip joint replacement]ChronicOther connective tissue disease (11 sources)History of total hip arthroplasty; Translations: [Presence of right artificial hip joint]83-98-0381ZbikixiGohsr connective tissue disease (1 source)History of total knee arthroplasty; Translations: [Presence of right artificial knee joint]03-72-1686EorvsvjQpzhn connective tissue disease (5 sources)History of right total knee replacement; Translations: [Presence of right artificial knee joint]41-49-3705YchtrxhCcjmz connective tissue disease (14 sources)Muscle pain; Translations: [Myalgia]EpisodicOther connective tissue disease (20 sources)Recurrent falls ; Translations: [Repeated falls]EpisodicOther connective tissue disease (2 sources)Iliotibial band syndrome, right legEpisodicOther connective tissue disease (3 sources)Trochanteric bursitis; Translations: [Trochanteric bursitis, unspecified hip]EpisodicOther connective tissue disease (5 sources)Trochanteric bursitis, unspecified hip; Translations: [Enthesopathy of hip region]EpisodicOther connective tissue disease (17 sources)Bursitis of hip; Translations: [Trochanteric bursitis, unspecified hip]33-66-9162PsqlfdbvMmscd connective tissue disease (10 sources)Neuropathic pain; Translations: [Neuralgia and neuritis, unspecified]94-22-8500LulalamnYgzic connective tissue disease (5 sources)Muscle weakness of upper limb; Translations: [Other symptoms and signs involving the musculoskeletal system]98-31-0060BnvturfrFigyn connective tissue disease (13 sources)Other symptoms and signs involving the musculoskeletal system; Translations: [Other musculoskeletalsymptoms referable to limbs]Onset: 939119-58-5125WxvmufrhLrjqh connective tissue disease (6 sources)Pain in toe; Translations: [Pain in left toe(s)]51-72-8480Xrmctlcy Other diseases of veins and lymphatics (20 sources)Disorder of cardiovascular system; Translations: [Disorder of vein, unspecified]EpisodicOther endocrine disorders (2 sources)Endocrine disorder, unspecifiedEpisodicOther endocrine disorders (15 sources)Disorder of endocrine system; Translations: [Endocrine disorder, unspecified]50-84-1762QutrfqqrZinal female genital disorders (1 source)Other specified noninflammatory disorders of vulva and perineum; Translations: [Other specified noninflammatory disorders of vulva and perineum] Onset: 46-50-2664OmdplmszAkkgy female genital disorders (17 sources)Vaginal dryness; Translations: [Other specified noninflammatory disorders of vagina]EpisodicOther female genital disorders (1 source)Other specified noninflammatory disorders of vaginaEpisodicOther injuries and conditions due to external causes (14 sources)Contusion; Translations: [Other injury of unspecified body region, initial encounter]48-69-3734IkznnzrdPlxbn injuries and conditions due to external causes (13 sources)Other injury of unspecified body region, initial encounter; Translations: [Bruising]EpisodicOther injuries and conditions due to external causes (4 sources)Injury of left foot; Translations: [Unspecified injury of left foot, initial encounter]40-51-1814FgpmphwaCquqe nervous system disorders (20 sources)Chronic pain; Translations: [Other chronic pain]56-51-4470Tcsndsn Other nervous system disorders (5 sources)Other chronic pain; Translations: [Other chronic pain]ChronicOther nervous system disorders (10 sources)Cervical nerve root compression; Translations: [Cervical root disorders, not elsewhere classified]62-16-0008JrqbboaQudrq nervous system disorders (4 sources)Cervical root disorders, not elsewhere classified; Translations: [Brachial neuritis or radiculitis NOS]Onset: 104388-40-7598IbpviopIjzxe nervous system disorders (6 sources)Difficulty walking; Translations: [Difficulty in walking, not elsewhere classified]00-40-2228WljigntVapcn nervous system disorders (1 source)Cervical radiculopathy; Translations: [Cervical root disorders, not elsewhere classified]94-87-0544JqyoxqpMtljb non-traumatic joint disorders (20 sources)Pain in left knee; Translations: [Left knee pain]Onset: 08-04-2021 Resolved: 62-56-3529MnanpomaPaqsq non-traumatic joint disorders (15 sources)Pain in right shoulder; Translations: [Right shoulder pain] 29-93-1949DelcubviQmdvm nutritional; endocrine; and metabolic disorders (20 sources)Obesity; Translations: [Obesity, unspecified]52-78-9563XxvrqwpYyryh nutritional; endocrine; and metabolic disorders (3 sources)Obesity, unspecified; Translations: [Obesity, unspecified]Onset: 06-23-2022 Resolved: 37-01-7058QiflpgxYcgyl nutritional; endocrine; and metabolic disorders (7 sources)Hypocalcemia; Translations: [Hypocalcemia]ChronicOther nutritional; endocrine; and metabolic disorders (5 sources)Overweight in adulthood with body mass index of 25 or more but less than 30; Translations: [Overweight]Onset: 090827-42-6991NlakpirrAykqu skin disorders (2 sources)Localized swelling, mass and lump, right lower limbEpisodicOther upper respiratory disease (20 sources)Seasonal allergy; Translations: [Other seasonal allergic rhinitis] ChronicOther upper respiratory infections (18 sources)Chronic sinusitis; Translations: [Chronic sinusitis, unspecified] 88-95-2874HmulrngFbkt-; endo-; and myocarditis; cardiomyopathy (except that caused by tuberculosis or sexually transmitted disease) (20 sources)Cardiomyopathy; Translations: [Cardiomyopathy, unspecified]Onset: 06-23-2022 Resolved: 76-84-5569JgjwedfGjiiactx codes; unclassified (17 sources)Reduced libido; Translations: [Decreased libido]EpisodicResidual codes; unclassified (1 source)Decreased libidoEpisodicSpondylosis; intervertebral disc disorders; other back problems (20 sources)Solitary sacroiliitis; Translations: [Sacroiliitis, not elsewhere classified]ChronicSpondylosis; intervertebral disc disorders; other back problems (20 sources)Cervicalgia; Translations: [Neck pain]Onset: 06-22-2022 Resolved: 93-05-4659BcmvobyeQvaqpnh on above:moderate to severeUnclassified (1 source)S92.353A - Displaced fracture of fifth metatarsal bone, unspecified foot, initial encounter for closed fracture Past or Other Problems Problem ClassificationProblemDateDocumented DateEpisodic/ChronicAllergic reactions (1 source)Allergic contact dermatitis due to plants, except foodOnset: 05-14-2022 Resolved: 92-92-6211ExeuzkjlL Codes: Fall (1 source)Unspecified fall, initial encounterOnset: 06-22-2022 Resolved: 93-08-0876KodqbdmqBhpqvldn; including migraine (1 source)Headache; including migraineOnset: 06-22-2022 Resolved: 73-64-3391Znbkgejqufayc and screening for infectious disease (4 sources)Encounter for immunization; Translations: [ENCOUNTER FOR IMMUNIZATION]Onset: 32-63-4033ZovcaqyuIxvwi connective tissue disease (15 sources)Falls; Translations: [Repeated falls]Onset: 842308-34-7959 EpisodicOther connective tissue disease (1 source)Neuralgia and neuritis, unspecified; Translations: [Neuralgia and neuritis, unspecified]Onset: 73-89-4540YbmwucmqIchxh injuries and conditions due to external causes (1 source)Unspecified injury of head, initial encounterOnset: 06-22-2022 Resolved: 25-83-0511ZstdpnwvBbihi non-traumatic joint disorders (2 sources)Pain in left hip; Translations: [Left hip pain M25.552]Onset: 08-04-2021 Resolved: 73-33-2556JlwdayzmEnjll non-traumatic joint disorders (4 sources)Pain in right hipOnset: 09-24-2021 Resolved: 37-08-4737LphcenbjBdftc nutritional; endocrine; and metabolic disorders (3 sources)Body mass index (BMI) 29.0-29.9, adult; Translations: [Body mass index (BMI) 29.0-29.9, adult]Onset: 06-22-2022 Resolved: 80-50-7425AuhsvwpuEaqmi screening for suspected conditions (not mental disorders or infectious disease) (8 sources)Electrocardiogram abnormal; Translations: [Nonspecific abnormal electrocardiogram [ECG] [EKG]]Onset: 280040-72-9544UslwdsazCvqbrpnw codes; unclassified (1 source)Family history of other mental and behavioral disordersOnset: 06-22-2022 Resolved: 85-98-8938GxljepwrNrxhdlfm codes; unclassified (1 source)Other general symptoms and signsOnset: 06-22-2022 Resolved: 44-63-6027VpqopiuiHebdhguv codes; unclassified (19 sources)Family history of cancer of colon; Translations: [Family history of malignant neoplasm of digestiveorgans]Onset: 564172-57-5841Qhhyxtvv Screening and history of mental health and substance abuse codes (7 sources)Ex-smoker; Translations: [Personal history of tobacco use]Onset: 686868-12-0912XxxjyrlwUxnabkerzzai (1 source)Cough R05.9Onset: 09-16-2021 Resolved: 69-87-7437Tlntsefgbpza (1 source)Onset: Results Test NameValueInterpretationReference RangeFacilityXR Foot - left 3 Viewson 19-22-5495Dzniukp Result: 3 views left foot: Weight-bearing: DP, oblique, lateral: 07/22/2025: The fracture line remains clearly visible without interval changes from previous views of 06/10/2025. Unremarkable for acute osseous or joint pathology otherwise.[facility] HealthcareNOPR HealthcareRadiology Study observation (narrative)[facility] OtbdtxolwwE4C with Estimated Average Gluon 00-62-3215Ofjbvpo [Mass/Vol]111 mg/dLNoDuke Regional Hospital Physician GroupComment on above:Result Comment: PERFORMED BY: [place] [id number] PATHOLOGIST SHOT BLASTER TOD HAYES M.D.Performed By: #### CMP, TSH3, CBC, LIPID, A1C [facility] #### [place] [address] USAA1C with Estimated Average GluOrdered By: Sabrina Meek on 04-52-5393FaD6c (Bld) [Mass fraction]5.5 %4.3-5.6FHolzer Medical Center – JacksonComment on above:Result Comment: Increased risk for diabetes: 5.7 - 6.4 diabetes: >6.4 glycemic control for adults with diabetes: <7.0Performed By: #### CMP, TSH3, CBC, LIPID, A1C WT eA #### [facility] [address] [place] [address] USAIncreased risk for diabetes: 5.7 - 6.4diabetes: >6.4glycemic control for adults with diabetes: <7.0Alanine aminotransferase [Enzymatic activity/volume] in Serum or PlasmaOrdered By: Sabrina Meek on 07-66-0746XXU [Catalytic activity/Vol]15 U/L7-52St. [facility]'S HospitalComment on above:Performed By: #### CMP, TSH3, CBC, LIPID, A1C WT eA #### [facility] [address] [place] [address] USAAlbumin [Mass/volume] in Serum or Plasma by Bromocresol green (BCG) dye binding methoOrdered By: Sabrina Meek on 52-86-0088Uiofljr BCG dye [Mass/Vol]4.5 g/dL3.5-5.7FHolzer Medical Center – JacksonAlkaline phosphatase [Enzymatic activity/volume] in Serum or PlasmaOrdered By: Sabrina Meek on 67-55-5493UVB [Catalytic activity/Vol]56 U/Y48-786SzmyzqmwaSt. Rita'S HospitalComment on above:Performed By: #### CMP, TSH3, CBC, LIPID, A1C WTH eA #### [facility] [address] [place] [address] USAAspartate aminotransferase [Enzymatic activity/volume] in Serum or PlasmaOrdered By: Sabrina Meek on 98-72-8835JYC [Catalytic activity/Vol] 18 U/V40-18KelkqzwfqSt. Rita'S HospitalComment on above:Performed By: #### CMP, TSH3, CBC, LIPID, A1C WT eA #### [facility] [address] [place] [address] USABasophils [#/volume] in Blood by Automated countOrdered By: Sabrina Meek on 35-55-9972Bvrisbwvp (Bld) [#/Vol]0.0 10*3/uL0.0-0.2FHolzer Medical Center – JacksonComment on above:Result Comment: PERFORMED BY: [place] [address] PATHOLOGIST SHOT BLASTER TOD HAYES M.D.Performed By: #### CMP, TSH3, CBC, LIPID, A1C WTH eA #### [place] [address] USABasophils/100 leukocytes in Blood by Automated count Ordered By: Sabrina Meek on 31-00-6793Davovlfau/100 WBC (Bld)0.5 %.St[facility] Rita'S HospitalComment on above:Performed By: #### CMP, TSH3, CBC, LIPID, A1C WTH eA #### [place] [address] USABilirubin.total [Mass/volume] in Serum or PlasmaOrdered By: Sabrina Meek on 10-12-8999Gezycopbi [Mass/Vol]0.4 mg/dL0.3-1.0St. [facility]'S HospitalComment on above:Performed By: #### CMP, TSH3, CBC, LIPID, A1C WTH eA #### [place] [address] USABlood estimated average glucose determination by estimation from glycated hemoglobinOrdered By: Sabrina Meek on 60-62-6571Mypqolh glucose Estimated from glycated hemoglobin (Bld) [Mass/Vol]111 mg/dLSt. Rita'S HospitalCalcium [Mass/volume] in Serum or PlasmaOrdered By: Sabrina Meek on 26-52-7568Vseoavq [Mass/Vol]9.3 mg/dL8.6-10.3FHolzer Medical Center – JacksonComment on above:Performed By: #### CMP, TSH3, CBC, LIPID, A1C WTH eA #### [place] [address] USACarbon dioxide, total [Moles/volume] in Serum or Plasma Ordered By: Sabrina Meek on 62-35-6085CB6 [Moles/Vol]32.8 mmol/LHigh21.0-31.0 St[facility]'S HospitalComment on above:Performed By: #### CMP, TSH3, CBC, LIPID, A1C WTH eA #### [facility] [address] [place] [address] USAChloride [Moles/volume] in Serum or PlasmaOrdered By: Sabrina Meek on 51-39-2159Zmwttoul [Moles/Vol]105 mmol/V76-098QdwgvytoxSt. Rita'S HospitalComment on above:Performed By: #### CMP, TSH3, CBC, LIPID, A1C WT eA #### [facility] [address] [place] [address] USACholesterol [Mass/volume] in Serum or PlasmaOrdered By: Sabrina Meek on 67-50-6383Dccfksyzqzt [Mass/Vol]180 mg/hO510-265WryiuoeqcSt. Rita'S HospitalComment on above:Chol less than 200 mg/dl low riskChol 201-239 mg/dl borderline riskChol 240 mg/dl and greater high riskResult Comment: Chol less than 200 mg/dl low risk Chol 201-239 mg/dl borderline risk Chol 240 mg/dl and greater high riskPerformed By: #### CMP, TSH3, CBC, LIPID, A1C WT eA #### [facility] [address] [place] [address] USACholesterol in HDL [Mass/volume] in Serum or PlasmaOrdered By: Sabrina Meek on 54-42-3147Pcmgrbuovxq in HDL [Mass/Vol]73 mg/hH64-26DltgtpdznSt. Rita'S HospitalComment on above:HDL CHOL ATP-III CLASSIFICATION Cardiovascular RiskHDL > or equal to 60 mg/dL LOWHDL < 40 mg/dL HIGHResult Comment: HDL CHOL ATP-III CLASSIFICATION Cardiovascular Risk HDL > or equal to 60 mg/dL LOW HDL < 40 mg/dL HIGHPerformed By: #### CMP, TSH3, CBC, LIPID, A1C WT eA #### [facility] [address] [place] [address] USACholesterol in LDL Calc [Mass/Vol]Ordered By: Sabrina Meek on 18-83-0779Rqpkfnfezun in LDL [Mass/Vol]73 mg/dL0-100St. Rita'S HospitalComment on above:LDL ATP III CLASSIFICATIONLDL less than 100 mg/dL OptimalLDL 100-129 mg/dL Near or above ksgwdxwUKQ068-656 mg/dL Borderline highLDL 160-189 mg/dL HighLDL greater than 189 mg/dL Very highCholesterol in VLDL Calc [Mass/Vol]Ordered By: Sabrina Meek on 39-02-4626Pglicnjzmmf in VLDL [Mass/Vol]33 mg/dLSt. Rita'S HospitalComplete Blood Count Auto Diffon 43-22-5704Fcnl Corpuscular HGB Conc33.9 g/aTZpphvc30.0-35.0The [facility] Physician GroupComment on above:Performed By: #### CMP, TSH3, CBC, LIPID, A1C WT eA #### [facility] [address] [place] [address] USANRBC%0.1 /100{WBC}Normal0-0.5The [facility] Physician [facility] Comment on above:Performed By: #### CMP, TSH3, CBC, LIPID, A1C WTH eA #### [place] [address] USAWhite Blood Count5.9 [CFU]/mLNormal3.8-11.6The [facility] Physician [facility] HospitalComment on above:Performed By: #### CMP, TSH3, CBC, LIPID, A1C WTH eA #### [place] [address] USAComprehensive Metabolic Panelon 58-12-0826Lvjgkdc [Mass/Vol]4.5 g/dLNormal3.5-5.7The [facility] Physician [facility] HospitalComment on above: Performed By: #### CMP, TSH3, CBC, LIPID, A1C WTH eA #### [place] [address] USAGFR/1.73 sq M.predicted MDRD (S/P/Bld) [Vol rate/Area] mL/min/{1.73_m2}NormalThe [facility] Physician GroupComment on above:Performed By: #### CMP, TSH3, CBC, LIPID, A1C WTH eA #### [place] [address] USACreatinine [Mass/volume] in Serum or PlasmaOrdered By: Sabrina Meek on 04-48-1698Bwhthhxhma [Mass/Vol]0.78 mg/dL0.60-1.20St. [facility]'S HospitalComment on above:Performed By: #### CMP, TSH3, CBC, LIPID, A1C WTH eA #### [facility] [address] [place] [address] USAEosinophils [#/volume] in Blood by Automated countOrdered By: Sabrina Meek on 06-77-9455Msanglhwolb (Bld) [#/Vol]0.3 10*3/uL0.0-0.45 [facility]S HospitalComment on above:Performed By: #### CMP, TSH3, CBC, LIPID, A1C WTH eA #### [facility] [address] [place] [id number] USAEosinophils/100 leukocytes in Blood by Automated count Ordered By: Sabrina Meek on 22-26-3559Hzbwkrwsxbs/100 WBC (Bld)4.9 %.St[facility] Rita'S HospitalComment on above:Performed By: #### CMP, TSH3, CBC, LIPID, A1C WTH eA #### [place] [id number] USAErythrocyte distribution width [Ratio] by Automated count Ordered By: Sabrina Meek on 51-42-0261Jwntheymptm distribution width (RBC) [Ratio] 13.3 %11.9-15.3FHolzer Medical Center – JacksonComment on above:Performed By: #### CMP, TSH3, CBC, LIPID, A1C WTH eA #### [facility] [address] [place] [id number] USAErythrocytes [#/volume] in Blood by Automated countOrdered By: Sabrina Meek on 39-59-4880SLU (Bld) [#/Vol]4.67 10*6/uL3.60-5.00St. [facility]'S HospitalComment on above:Performed By: #### CMP, TSH3, CBC, LIPID, A1C WTH eA #### [facility] [address] [place] [id number] USAGlomerular filtration rate [Volume Rate/Area] in Serum, Plasma or Blood by CreatinineOrdered By: Sabrina Meek on 60-18-3005Pruffjhyvj filtration rate [Volume Rate/Area] in Serum, Plasma or Blood by Creatinine> 60.0 mL/MinSt. Rita'S HospitalGlucose [Mass/volume] in Serum or Plasma Ordered By: Sabrina Meek on 07-04-6156Xvqizzp [Mass/Vol]95 mg/nY77-161ZoqeljnkySt. Rita'S HospitalComment on above:ADA recommended reference rangeRandom Glucose Reference Range is dependent on time and content of last meal. Glucose of more than 200 mg/dL in a nonstressed, ambulatory subject supports the diagnosisof Diabetes Mellitus.Result Comment: Random Glucose Reference Range is dependent on time and content of last meal. Glucose of more than 200 mg/dL in a nonstressed, ambulatory subject supports the diagnosis of Diabetes Mellitus. ADA recommended reference rangePerformed By: #### CMP, TSH3, CBC, LIPID, A1C WTH eA #### [facility] [address] [place] [address] USAHematocrit [Volume Fraction] of Blood by Automated count Ordered By: Sabrina Meek on 14-84-2054Xxlsverwtj (Bld) [Volume fraction]43.0 % 34.0-46.4FHolzer Medical Center – JacksonComment on above:Performed By: #### CMP, TSH3, CBC, LIPID, A1C WTH eA #### [facility] [address] [place] [address] USAHemoglobin [Mass/volume] in BloodOrdered By: Sabrina Meek on 08-84-9848Azfyayhbyl (Bld) [Mass/Vol]14.6 g/dL11.8-15.4FHolzer Medical Center – JacksonComment on above:Performed By: #### CMP, TSH3, CBC, LIPID, A1C WTH eA #### [facility] [address] [place] [address] USALeukocytes [#/volume] corrected for nucleated erythrocytes in Blood by Automated counOrdered By: Sabrina Meek on 29-97-4730PYK corrected for nucl RBC Auto (Bld) [#/Vol]5.9 10*3/uL3.8-11.6FHolzer Medical Center – Jackson Leukocytes [#/volume] in Blood by Automated countOrdered By: Sabrina Meek on 36-10-7687VOB (Bld) [#/Vol]5.9 10*3/uL3.8-11.6FHolzer Medical Center – Jackson Comment on above:Performed By: #### CMP, TSH3, CBC, LIPID, A1C WTH eA #### [facility] [address] [place] [address] USALipid Panelon 22-81-6468CPY Cholesterol,Hquvilkxdg22 mg/dL Normal0-100The [facility] Physician GroupComment on above:Result Comment: LDL ATP III CLASSIFICATION LDL less than 100 mg/dL Optimal LDL 100-129 mg/dL Near or above optimal LDL 130-159 mg/dL Borderline high LDL 160-189 mg/dL High LDL greater than 189 mg/dL Very highPerformed By: #### CMP, TSH3, CBC, LIPID, A1C WTH eA #### [facility] [address] [place] [address] USATriglyceride w/Dnzdwz535 mg/dLHigh0-149The [facility] Physician GroupComment on above:Result Comment: TRIG ATP III CLASSIFICATION TRIG less than 150 mg/dL Normal TRIG 150-199 mg/dL Borderline high TRIG 200-500 mg/dL High TRIG greater than 500 mg/dL Very high Standard traceable to the Center for Disease Conrtrol and Prevention (CDC) test method.Performed By: #### CMP, TSH3, CBC, LIPID, A1C WTH eA #### [facility] [address] [place] [address] USAVLDL PVEVFLBKGPI38 mg/dLNormalThe [facility] Physician GroupComment on above:Performed By: #### CMP, TSH3, CBC, LIPID, A1C WTH eA #### [facility] [address] [place] [address] USALymphocytes [#/volume] in Blood by Automated countOrdered By: Sabrina Meek on 07-04-3452Rwzitiklebs (Bld) [#/Vol]1.9 10*3/uL1.00-4.8 [facility]'S HospitalComment on above:Performed By: #### CMP, TSH3, CBC, LIPID, A1C WTH eA #### [facility] [address] [place] [address] USALymphocytes/100 leukocytes in Blood by Automated count Ordered By: Sabrina Meek on 01-82-2801Itugtibbgya/100 WBC (Bld)31.6 %.[facility]'S HospitalComment on above:Performed By: #### CMP, TSH3, CBC, LIPID, A1C WTH eA #### [facility] [address] [place] [address] [facility] [Entitic mass] by Automated countOrdered By: Sabrina Meek on 73-22-0734UVQ (RBC) [Entitic mass]31.1 pg24.7-34.3FHolzer Medical Center – JacksonComment on above:Performed By: #### CMP, TSH3, CBC, LIPID, A1C WTH eA #### [place] [id number] [facility] Auto (RBC) [Mass/Vol]Ordered By: Sabrina Meek on 04-79-1645GZBB (RBC) [Mass/Vol]33.9 g/dL32.0-35.0St. Rita'S HospitalMCV [Entitic volume] by Automated countOrdered By: Sabrina Meek on 49-81-5925PNY (RBC) [Entitic vol]92.0 rX74-406LgtihbwcjSt. Rita'S Hospital Comment on above:Performed By: #### CMP, TSH3, CBC, LIPID, A1C WTH eA #### [facility] [address] [place] [address] USAMonocytes [#/volume] in Blood by Automated countOrdered By: Sabrina Meek on 11-16-7426Nrkvhoygz (Bld) [#/Vol]0.6 10*3/uL0.0-0.8St. [facility]'S HospitalComment on above:Performed By: #### CMP, TSH3, CBC, LIPID, A1C WTH eA #### [address] [address] USAMonocytes/100 leukocytes in Blood by Automated count Ordered By: Sabrina Meek on 78-01-7129Ftnvsfpxr/100 WBC (Bld)10.9 %.[facility]'S HospitalComment on above:Performed By: #### CMP, TSH3, CBC, LIPID, A1C WT eA #### [facility] [address] [place] [address] USANeutrophils [#/volume] in Blood by Automated countOrdered By: Sabrina Meek on 51-06-4689Kkxmichrbhf (Bld) [#/Vol]3.1 10*3/uL1.8-7.7FHolzer Medical Center – JacksonComment on above:Performed By: #### CMP, TSH3, CBC, LIPID, A1C WT eA #### [facility] [address] [place] [id number] USANeutrophils/100 leukocytes in Blood by Automated count Ordered By: Sabrina Meek on 08-57-0646Thnxdycgdae/100 WBC (Bld)52.1 %.[facility]'S HospitalComment on above:Performed By: #### CMP, TSH3, CBC, LIPID, A1C WT eA #### [facility] [address] [place] [id number] USANo Panel InformationOrdered By: Sabrina Meek on 07-07-2025 Pharmacy Creatinine Clearance (ChemN/[facility]Nucleated erythrocytes [Presence] in Blood by Automated countOrdered By: Sabrina Meek on 42-53-6862Rxaeztnmk RBC Auto Ql (Bld)0.1 /100{WBC}0-0.5FHolzer Medical Center – JacksonPlatelet mean volume [Entitic volume] in Blood by Automated count Ordered By: Sabrina Meek on 57-14-0480Gnyihsde mean volume (Bld) [Entitic vol]10.0 fL6.3-10.7FHolzer Medical Center – JacksonComment on above:Performed By: #### CMP, TSH3, CBC, LIPID, A1C WTH eA #### [facility] [address] [place] [id number] USAPlatelets [#/volume] in Blood by Automated countOrdered By: Sabrina Meek on 60-94-5299Icxmrpmzn (Bld) [#/Vol]198 10*3/aL131-292TwjmrigzqSt. Rita'S HospitalComment on above:Performed By: #### CMP, TSH3, CBC, LIPID, A1C WTH eA #### [facility] [address] [place] [address] USAPotassium [Moles/volume] in Serum or PlasmaOrdered By: Sabrina Meek on 91-96-7467Lodaecsju [Moles/Vol]4.1 mmol/L3.5-5.1FHolzer Medical Center – JacksonComment on above:Performed By: #### CMP, TSH3, CBC, LIPID, A1C WTH eA #### [place] [address] USAProtein [Mass/volume] in Serum or PlasmaOrdered By: Sabrina Meek on 07-82-0630Jvxxjmj [Mass/Vol]6.5 g/dL6.4-8.9St. [facility]'S HospitalComment on above:Performed By: #### CMP, TSH3, CBC, LIPID, A1C WTH eA #### [place] [address] USASerum globulin measurement by calculation (mass/volume) Ordered By: Sabrina Meek on 07-96-7870Qlwkgtth (S) [Mass/Vol]2.0 g/dLSt. Rita'S HospitalComment on above:Performed By: #### CMP, TSH3, CBC, LIPID, A1C WTH eA #### [place] [address] USASerum or plasma albumin/globulin mass ratioOrdered By: Sabrina Meek on 43-64-6349Hbyunoc/Globulin [Mass ratio]2.3 {ratio}St[facility]'S HospitalComment on above:Performed By: #### CMP, TSH3, CBC, LIPID, A1C WTH eA #### [place] [address] USASerum or plasma anion gap determinationOrdered By: Sabrina Meek on 78-29-5645Zhfnm gap [Moles/Vol]9.3 mmol/L6.0-15.0St[facility]'S HospitalComment on above:Performed By: #### CMP, TSH3, CBC, LIPID, A1C WTH eA #### [facility] [address] [place] [id number] USASerum or plasma total cholesterol/high density lipoprotein (HDL) cholesterol mass ratOrdered By: Sabrina Meek on 07-07-2025 Cholesterol.total/Cholesterol in HDL [Mass ratio]2.5 {ratio}<5.0St. [facility]'S HospitalComment on above:Performed By: #### CMP, TSH3, CBC, LIPID, A1C [facility] eA #### [place] [address] USASodium [Moles/volume] in Serum or PlasmaOrdered By: Sabrina Meek on 83-98-1975Dpxpyz [Moles/Vol]143 mmol/K004-502KshpgxttoSt. Rita'S HospitalComment on above:Performed By: #### CMP, TSH3, CBC, LIPID, A1C [facility] eA #### [place] [id number] USAThyrotropin [Units/volume] in Serum or PlasmaOrdered By: Sabrina Meek on 68-39-5939ZQS Qn3.25 m[IU]/L0.45-5.33St. [facility]'S HospitalComment on above:Result Comment: PERFORMED BY: [place] [address] PATHOLOGIST SHOT BLASTER TOD HAYES M.D.Performed By: #### CMP, TSH3, CBC, LIPID, A1C [facility] eA #### [place] [id number] USATriglyceride [Mass/volume] in Serum or PlasmaOrdered By: Sabrina Meek on 64-55-1715Qimgfzxcnlec [Mass/Vol]168 mg/dLHigh0-149St. Rita'S HospitalComment on above:TRIG ATP III CLASSIFICATIONTRIG less than 150 mg/dL NormalTRIG 150-199 mg/dL Borderline highTRIG 200-500 mg/dL High TRIG greater than 500 mg/dL Very highStandard traceable to the Center for Disease Conrtrol and Prevention (CDC) test method.Urea nitrogen [Mass/volume] in Serum or PlasmaOrdered By: Sabrina Meek on 47-30-6810Wryh nitrogen [Mass/Vol]18 mg/dL7-St. Rita'S HospitalComment on above:Performed By: #### CMP, TSH3, CBC, LIPID, A1C [facility] eA #### [facility] [address] [id number] USAXR Foot - left 3 Viewson 57-54-1170Mblwebf Result: 3 views left foot: Weight-bearing: DP, oblique, lateral: 06/10/2025: Fracture line identified at the plantar-lateral cortex of the 5th metatarsal styloid. Resorptive changes along the fracture lucency are appreciated. The fracture line appears consolidated near the joint line. Slight distraction without displacement or comminution. Otherwise unremarkable for acute osseous or joint pathology.[facility] Radiology Study observation (narrative)[facility] HospitalX-ray reportOrdered By: Gaetano Reilly on 71-33-4637Dnmxq reportFULTON COUNTY [facility] [place] [address] [place], [place] [id number] XRay Report Signed Patient: Sherice Pandey MR#: [id number] : 1955 Acct:[id number] Age/Sex: 69 / F ADM Date: 5 Loc: XDUCLY Room: Type: [facility] Attending Dr: Nelida Conteh APRN Copies to: Nelida Conteh APRN~ Ordering Provider: Nelida Conteh APRN Date of Service: 05/12/25 XR/XR foot LT min 3V*: LEFT FOOT PAIN XR foot LT min 3V* 05/12/2025 10:25 AM SIGNS AND SYMPTOMS: ^LEFT FOOT PAIN PROTOCOL: Frontal, lateral, and oblique radiographs of the left foot COMPARISON: None FINDINGS: There is moderate to severe joint space loss in the first metatarsophalangeal joint. There is a transversely the fracture at the base of the fifth metacarpal. The joint spaces are otherwise preserved. No additional fractures. XR/XR foot LT min 3V* IMPRESSION: There is a transversely the fracture at the base of the fifth metacarpal. There is moderate to severe joint space loss in the first metatarsophalangeal joint. Impression dictated by: Gaetano Reilly M.D. 05/12/2025 10:28 AM Dictation Location: RADIO-PC-24 Transcribed By: BALJEET 05/12/25 1028 Dictated By: Gaetano Reilly II, MD 05/12/25 1027 Signed By: 05/12/25 [facility]8 [facility] Work Phone: xr foot LT min 3V*on 86-57-2699EI foot LT min 3V* [facility] Main [address] [address] XRay Report Signed Patient: Sherice Pandey MR#: [id number] 0 : 1955 Acct:[id number] Age/Sex: 69 / F ADM Date: 05/12/25 Loc: XDUCLY Room: Type: [facility] Attending Dr: Nelida Conteh APRN Copies to: Nelida Conteh APRN Ordering Provider: Nelida Conteh APRN Date of Service: 05/12/25 XR/XR foot LT min 3V*: LEFT FOOT PAIN XR foot LT min 3V* 05/12/2025 10:25 AM SIGNS AND SYMPTOMS: LEFT FOOT PAIN PROTOCOL: Frontal, lateral, and oblique radiographs of the left foot COMPARISON: None FINDINGS: There is moderate to severe joint space loss in the first metatarsophalangeal joint. There is a transversely the fracture at the base of the fifth metacarpal. The joint spaces are otherwise preserved. No additional fractures. XR/XR foot LT min 3V* IMPRESSION: There is a transversely the fracture at the base of the fifth metacarpal. There is moderate to severe joint space loss in the first metatarsophalangeal joint. Impression dictated by: Gaetano Reilly M.D. 05/12/2025 10:28 AM Dictation Location: RADIO-PC-24 Transcribed By: BALJEET 05/12/25 1028 Dictated By: Gaetano Reilly II, MD 05/12/25 1027 Signed By: 05/12/25 [facility] Physician GroupCT cervical spine wo nhanon 90-84-9222XD cervical spine wo [facility] [address] CT Scan Report Signed Patient: Sherice Pandey MR#: [id number] 0 : 1955 Acct:[id number] Age/Sex: 69 / F ADM Date: 02/10/25 Loc: [facility] Room: Type: [facility] Attending Dr: Rox Rios APRN Copies to: Rox Rios APRN Ordering Provider: Rox Rios APRN Date of Service: 02/10/25 CT/CT cervical spine wo con: G54.2 - Cervical root disorders, not elsewhere classified CT CERVICAL SPINE WITHOUT CONTRAST WITH 3D RECONSTRUCTIONS: CLINICAL HISTORY: Neck pain and weakness of the right upper extremity. COMPARISON: Plain films 01/02/2025 and MRI 01/20/2025 TECHNIQUE: Spiral axial unenhanced images were obtained through the cervical spine. Sagittal, coronal and 3D volume-rendered reconstructions were also reviewed. This CT exam was performed using one or more following dose reduction techniques: Automated exposure control, adjustment of the mA and/or kV according to patient size, or use of iterative reconstruction technique. There is reversal of normal cervical lordosis. There is also subtle S-shaped cervicothoracic curvature. There is continued minimal anterolisthesis of C2 on C3 and 2 mm anterolisthesis of C3 on C4. There is also a couple millimeters of anterolisthesis of C7 on T1. No acute compression fractures are identified. There is mild to moderate disc space narrowing at C3-4 and moderate at C4-5, C5-6 and C6-7. There is endplate sclerosis and subchondral cystic change at those levels. Endplate spurring is noted. There is also facet disease bilaterally. C2-3: No significant disc disease or stenosis is seen. C3-4: There is minor disco-osteophytic bulging. There is facet disease, worse on the right. There is slight thecal sac effacement. There is mild left and mild to moderate right foraminal encroachment. C4-5: Mild disco-osteophytic bulging is seen, slightly asymmetric in the left parasagittal region toward the lateral recess. There is facet hypertrophy, worse on the left. There is mild to moderate right and moderate left foraminal impingement. C5-6: There is disco-osteophytic bulging, slightly asymmetric in the right parasagittal region extending toward the neural foramen. Mild facet disease is seen. There is mild thecal sac effacement. There is minor left and moderate to severe right foraminal encroachment. C6-7: Disco-osteophytic bulging is noted. There is only subtle thecal sac effacement and minor inferior foraminal encroachment. Cervicothoracic junction: There is no significant disc disease or stenosis. There is facet hypertrophy, greater on the right. Shotty cervical lymph nodes are present. There is a small hypodensity at the left thyroid lobe. The upper imaged lungs show no contributory findings. CT/CT cervical spine wo con IMPRESSION: LOSS OF NORMAL CERVICAL CURVATURE. MULTILEVEL DISCOVERTEBRAL DEGENERATIVE CHANGES WITH ASSOCIATED STENOSIS, DISCUSSED ABOVE. SIMILAR FINDINGS WERE SEEN ON THE COMPARISON MRI. Impression dictated by: Ambar Red M.D. 02/10/2025 2:28 PM Dictation Location: [place] [address] Transcribed By: [facility] 02/10/25 1428 Dictated By: Ambar Red MD 02/10/25 1413 Signed By: 02/10/25 1428[facility] cervical spine wo [facility] 70-82-3738OY cervical spine wo [facility] [address] [place] [address] MRI Report Signed Patient: Sherice Pandey MR#: [id number] 0 : 1955 Acct:[id number] Age/Sex: 69 / F ADM Date: 01/20/25 Loc: [facility] Room: Type: [facility] Attending Dr: Sabrina Meek DO Copies to: Sabrina Meek DO Ordering Provider: Sabrina Meek DO Date of Service: 01/20/25 MR/MR cervical spine wo con: Intractable pain with RUE radiculopathy MRI Cervical Spine without contrast TECHNIQUE: Multiplanar T1 and T2-weighted imaging of the cervical spine obtained. HISTORY: Cervical pain with radiculopathy COMPARISON: Plain film imaging 01/04/2025 BONY ALIGNMENT: Reversal. Mild multilevel degenerative listhesis. BONY LESION: None CERVICAL CORD: No significant demyelination. SKULL BASE: unremarkable. PREVERTEBRAL SOFT TISSUES: Unremarkable NASOPHARYNGEAL REGION: unremarkable. VERTEBRAL ARTERIES: unremarkable. POSTSURGICAL CHANGES: None CERVICAL SOFT TISSUES: Unremarkable C1-2 LEVEL: Unremarkable C2-3: Disc space narrowing. Patent central canal and neural foramen. C3-4: Disc space narrowing. 1 to 2 mm degenerative anterolisthesis. Diffuse disc bulge and endplate spurring. Mild crowding the cord. No cord edema or hemorrhage. Patent left neural foramen. Mild right neural foraminal narrowing C4-5: Disc space narrowing. 1 to 2 mm degenerative anterolisthesis. Diffuse disc bulge and endplate spurring. Additional left paracentral disc protrusion. A mild amount of the cord. No cord edema or hemorrhage. Mild to moderate bilateral neural foraminal narrowing C5-6: The disc space narrowing. Component 2 mm degenerative retrolisthesis. Diffuse disc bulge and right parasagittal disc protrusion to moderate crowding the cord. No cord edema or hemorrhage. Mild left and moderate right neural foraminal narrowing C6-7: 1 to 2 mm retrolisthesis. Disc space narrowing. Diffuse disc bulge. Mild cardiac cord. No cord edema or hemorrhage. Patent neural foramen C7-T1: Unremarkable MR/MR cervical spine wo con IMPRESSION: Multilevel discovertebral degenerative changes. Levels of mild to moderate crowding of the spinal cord greatest at the C5-6 level. No cord edema or hemorrhage. foraminal narrowing as above. Impression dictated by: Yao Douglas M.D.01/20/2025 1:49 PM Dictation Location: [place] [address] Transcribed By: [facility] 01/20/25 1349 Dictated By: Yao Douglas DO 01/20/25 1341 Signed By: 01/20/25 [facility] GroupMagnetic resonance imaging reportOrdered By: Yao Douglas on 63-96-2799Fdgve reportFULTON COUNTY HEALTH CENTER [facility] [place] [facility] [address] [place] [address] MRI Report Signed Patient: Sherice Pandey MR#: [id number] : 1955 Acct:[id number] Age/Sex: 69 / F ADM Date: 5 Loc: ICMR Room: Type: REG CLI Attending Dr: Sabrina Meek DO Copies to: Sabrina Meek DO~ Ordering Provider: Sabrina Meek DO Date of Service: 01/20/25 MR/MR cervical spine wo con: Intractable pain with RUE radiculopathy MRI Cervical Spine without contrast TECHNIQUE: Multiplanar T1 and T2-weighted imaging of the cervical spine obtained. HISTORY: Cervical pain with radiculopathy COMPARISON: Plain film imaging 01/04/2025 BONY ALIGNMENT: Reversal. Mild multilevel degenerative listhesis. BONY LESION: None CERVICAL CORD: No significant demyelination. SKULL BASE: unremarkable. PREVERTEBRAL SOFT TISSUES: Unremarkable NASOPHARYNGEAL REGION: unremarkable. VERTEBRAL ARTERIES: unremarkable. POSTSURGICAL CHANGES: None CERVICAL SOFT TISSUES: Unremarkable C1-2 LEVEL: Unremarkable C2-3: Disc space narrowing. Patent central canal and neural foramen. C3-4: Disc space narrowing. 1 to 2 mm degenerative anterolisthesis. Diffuse disc bulge and endplatespurring. Mild crowding the cord. No cord edema or hemorrhage. Patent left neural foramen. Mild right neural foraminal narrowing C4-5: Disc space narrowing. 1 to 2 mm degenerative anterolisthesis. Diffuse disc bulge and endplatespurring. Additional left paracentral disc protrusion. A mild amount of the cord. No cord edema or hemorrhage. Mild to moderate bilateral neural foraminal narrowing C5-6: The disc space narrowing. Component 2 mm degenerative retrolisthesis. Diffuse disc bulge and right parasagittal disc protrusion to moderate crowding the cord. No cord edema or hemorrhage. Mild left and moderate right neural foraminal narrowing C6-7: 1 to 2 mm retrolisthesis. Disc space narrowing. Diffuse disc bulge. Mild cardiac cord. No cord edema or hemorrhage. Patent neural foramen C7-T1: Unremarkable MR/MR cervical spine wo con IMPRESSION: Multilevel discovertebral degenerative changes. Levels of mild to moderate crowding of the spinal cord greatest at the C5-6 level. No cord edema or hemorrhage. foraminal narrowing as above. Impression dictated by: Yao Douglas M.D.01/20/2025 1:49 PM Dictation Location: [place] [address] Transcribed By: [facility] 01/20/25 1349 Dictated By: Yao Douglas DO 01/20/25 1341 Signed By: 01/20/[address] [facility]S HospitalX-ray reportOrdered By: William Edmonds on 64-69-2780Dmzdb reportFIRSUMMA HEALTH [facility] Main [address] [address] XRay Report Signed Patient: Sherice Pandey MR#: [id number] : 1955 Acct:[id number] Age/Sex: 69 / F ADM Date: 5 Loc: XD Room: Type: REG CLI Attending Dr: Sabrina Meek DO Copies to: Sabrina Meek DO~ Ordering Provider: Sabrina Meek DO Date of Service: 01/04/25 XR/XR cervical spine 5V*: M54.2 - Cervicalgia CERVICAL SPINE 5 views: CLINICAL HISTORY: Neck pain COMPARISON: None FINDINGS: There is mild reversal normal lordosis. There is anterolisthesis C3 and C4 to millimeters. Moderatesevere disc space narrowing C3-C4. Severe disc space narrowing C4-C7. No prevertebral soft tissue swelling. Multilevel facet arthropathy. XR/XR cervical spine 5V* IMPRESSION: OVERALL MODERATE SEVERE MULTILEVEL DEGENERATIVE CHANGE WITHOUT EVIDENCE ACUTE FRACTURE MALALIGNMENT. Impression dictated by: William Edmonds M.D.01/04/2025 11:19 AM Dictation Location: [place] [address] Transcribed By: [facility] 01/04/251118 Dictated By: William Edmonds MD 01/04/25 111 Signed By: 01/04/25 [facility] Work Phone: XR cervical spine 5V*on 11-63-3258YZ cervical spine 5V*[facility] Main [address] [address] XRay Report Signed Patient: Sherice Pandey MR#: [id number] 0 : 1955 Acct:[id number] Age/Sex: 69 / F ADM Date: 01/04/25 Loc: XD Room: Type: REG CLI Attending Dr: Sabrina Meek DO Copies to: Sabrina Meek DO Ordering Provider: Sabrina Meek DO Date of Service: 01/04/25 XR/XR cervical spine 5V*: M54.2 - Cervicalgia CERVICAL SPINE 5 views: CLINICAL HISTORY: Neck pain COMPARISON: None FINDINGS: There is mild reversal normal lordosis. There is anterolisthesis C3 and C4 to millimeters. Moderate severe disc space narrowing C3-C4. Severe disc space narrowing C4-C7. No prevertebral soft tissue swelling. Multilevel facet arthropathy. XR/XR cervical spine 5V* IMPRESSION: OVERALL MODERATE SEVERE MULTILEVEL DEGENERATIVE CHANGE WITHOUT EVIDENCE ACUTE FRACTURE MALALIGNMENT. Impression dictated by: William Edmonds M.D.01/04/2025 11:19 AM Dictation Location: [place] [address] Transcribed By: [facility] 01/04/25 1119 Dictated By: William Edmonds MD 01/04/25 1110 Signed By: 01/04/25 1119[facility] Physician GroupEstimated glomerular filtration rate (GFR) non- Americanon 06-57-4285WRZ/1.73 sq M.predicted among non- blacks MDRD (S/P/Bld) [Vol rate/Area]Estimated glomerular filtration rate (GFR) non->=60 mL/min/1.73m 2FHolzer Medical Center – [facility] Laboratory - Chemistry and Chemistry - challengeon 48-17-1482Rlekbcx [Mass/Vol] 9.9 mg/dL8.5-10.1FHolzer Medical Center – JacksonCreatinine [Mass/Vol]0.81 mg/dL0.55-1.02[facility]'S HospitalGFR/1.73 sq M.predicted MDRD (S/P/Bld) [Vol rate/Area]mL/min/{1.73_m2}>=60 mL/min/1.73m 2FHolzer Medical Center – JacksonECG 12 Leadon 63-34-9465Xbcqua sinus rhythm with PVCs and anterior ST-T changes unchanged from beforeCPSt. Mary's [facility] Work Phone: FPC ECG *PCP OFFICE ONLY*on 43-92-4718ERU ECG *PCP OFFICE ONLY*[facility] [place] [address] [place] [address] Electrocardiograph Report Signed Patient: Sherice Pandey MR#: [id number] 0 : 1955 Acct:[id number] Age/Sex: 68 / F ADM Date: 07/10/24 Loc: EKGCAST Room: Type: [facility] Attending Dr: Sabrina Meek DO Ordering Provider: Sabrina Meek DO Date of Service: 07/10/24 ECG/FPG ECG *PCP OFFICE ONLY*: Z00.00 - Encounter for general adult medical examination ... Copies to: Test Reason : Blood Pressure : */* mmHG Vent. Rate : 70 BPM Atrial Rate : 70 BPM P-R Int : 162 ms QRS Dur : 88 ms QT Int : 420 ms P-R-T Axes : 33 -15 -32 degrees QTcB Int : 453 ms Sinus rhythm with occasional premature ventricular complexes T wave inversion in III aVF V3 V4 . Unchanged from prior EKG. Abnormal ECG When compared with ECG of 05-Sep-2014 11:33, premature ventricular complexes are now present Confirmed by Oracio Jaffe ([id number]) on 07/12/2024 9:54:19 AM Referred By: Electronically Signed By: Oracio Jaffe Transcribed By: MUS Signed By Oracio Jaffe MD 07/12/24 0954[facility] Physician GroupAlanine aminotransferase [Enzymatic activity/volume] in Serum or PlasmaOrdered By: Sabrina Meek on 76-23-3077DAC [Catalytic activity/Vol]16 U/L7-52St[facility]'S HospitalAlbumin [Mass/volume] in Serum or Plasma by Bromocresol green (BCG) dye binding methoOrdered By: Sabrina Meek on 32-18-6652Lcyigwc BCG dye [Mass/Vol]4.3 g/dL3.5-5.7FHolzer Medical Center – JacksonAlkaline phosphatase [Enzymatic activity/volume] in Serum or PlasmaOrdered By: Sabrina Meek on 63-14-9102VIL [Catalytic activity/Vol]52 U/O45-399HzpyzdwouSt. Rita'S HospitalAspartate aminotransferase [Enzymatic activity/volume] in Serum or PlasmaOrdered By: Sabrina Meek on 96-66-0034LLO [Catalytic activity/Vol]17 U/I22-55PkkgtaogvSt. Rita'S HospitalBasophils Auto (Bld) [#/Vol]Ordered By: Sabrina Meek on 06-28-2024 Basophils (Bld) [#/Vol]0.0 10*3/uL0.0-0.2FHolzer Medical Center – Jackson Basophils/100 WBC Auto (Bld)Ordered By: Sabrina Meek on 75-69-4701Mmavubmtv/100 WBC (Bld)0.5 %.[facility]'S HospitalBilirubin.total [Mass/volume] in Serum or PlasmaOrdered By: Sabrina Meek on 84-21-6676Aooawjylt [Mass/Vol]0.5 mg/dL0.3-1.0St[facility]'S HospitalCalcium [Mass/volume] in Serum or PlasmaOrdered By: Sabrina Meek on 35-18-5103Wicbzgo [Mass/Vol]9.4 mg/dL8.6-10.3 [facility]S HospitalCarbon dioxide, total [Moles/volume] in Serum or PlasmaOrdered By: Sabrina Meek on 54-01-2904CJ5 [Moles/Vol]31.3 mmol/LHigh 21.0-31.0St. [facility]'S HospitalChloride [Moles/volume] in Serum or PlasmaOrdered By: Sabrina Meek on 51-75-1925Vgwhalwl [Moles/Vol]106 mmol/L98-107 [facility]S HospitalCholesterol [Mass/volume] in Serum or Plasma Ordered By: Sabrina Meek on 03-71-8144Tibzbvcabjj [Mass/Vol]154 mg/jG458-816 [facility]S HospitalComment on above:Chol less than 200 mg/dl low riskChol 201-239 mg/dl borderline riskChol 240 mg/dl and greater high risk Cholesterol in LDL Calc [Mass/Vol]Ordered By: Sabrina Meek on 06-28-2024 Cholesterol in LDL [Mass/Vol]57 mg/dL0-100[facility] Comment on above:LDL ATP III CLASSIFICATIONLDL less than 100 mg/dL OptimalLDL 100-129 mg/dL Near or above kpybykxNCM715-209 mg/dL Borderline highLDL 160-189 mg/dL HighLDL greater than 189 mg/dL Very highCholesterol in VLDL Calc [Mass/Vol]Ordered By: Sabrina Meek on 00-02-6481Wnoupfxcbqb in VLDL [Mass/Vol]25 mg/dLSt. Rita'S HospitalCreatinine [Mass/volume] in Serum or PlasmaOrdered By: Sabrina Meek on 52-42-8132Rxfobecltm [Mass/Vol]0.68 mg/dL 0.60-1.20St. [facility]'S HospitalEosinophils Auto (Bld) [#/Vol]Ordered By: Sabrina Meek on 31-97-8315Cihvonlwthr (Bld) [#/Vol]0.2 10*3/uL0.0-0.45 [facility]S HospitalEosinophils/100 WBC Auto (Bld)Ordered By: Sabrina Meek on 63-01-4124Zmchqblwtew/100 WBC (Bld)3.8 %.[facility]'S HospitalErythrocyte distribution width Auto (RBC) [Ratio]Ordered By: Sarbina Meek on 90-86-5072Vbifboltcic distribution width (RBC) [Ratio]13.5 %11.9-15.3FHolzer Medical Center – JacksonGlobulin Calc (S) [Mass/Vol]Ordered By: Sabrina Meek on 67-07-9146Tudkdmww (S) [Mass/Vol]2.0 g/dLSt. Rita'S Hospital Glucose [Mass/volume] in Serum or PlasmaOrdered By: Sabrina Meek on 06-28-2024 Glucose [Mass/Vol]89 mg/xX10-232JjbyaslyvSt. Rita'S HospitalComment on above:ADA recommended reference rangeRandom Glucose Reference Range is dependent on time and content of last meal. Glucose of more than 200 mg/dL in a nonstressed, ambulatory subject supports the diagnosisof Diabetes Mellitus. Hematocrit Auto (Bld) [Volume fraction]Ordered By: Sabrina Meek on 06-28-2024 Hematocrit (Bld) [Volume fraction]39.6 %34.0-46.4FHolzer Medical Center – JacksonHemoglobin [Mass/volume] in BloodOrdered By: Sabrina Meek on 06-28-2024 Hemoglobin (Bld) [Mass/Vol]13.4 g/dL11.8-15.4FHolzer Medical Center – Jackson Leukocytes [#/volume] corrected for nucleated erythrocytes in Blood by Automated counOrdered By: Sabrina Meek on 19-89-3337HCR corrected for nucl RBC Auto (Bld) [#/Vol]6.2 10*3/uL3.8-11.6FHolzer Medical Center – JacksonLymphocytes Auto (Bld) [#/Vol]Ordered By: Sabrina Meek on 42-31-4110Kmmtkqwzeqa (Bld) [#/Vol]2.0 10*3/uL1.00-4.8St. [facility]'S HospitalLymphocytes/100 WBC Auto (Bld) Ordered By: Sabrina Meek on 64-75-5528Uoyggoibywr/100 WBC (Bld)31.7 %.[facility] Auto (RBC) [Entitic mass]Ordered By: Sabrina Meek on 48-13-9378HYZ (RBC) [Entitic mass]30.8 pg24.7-34.3FHolzer Medical Center – JacksonMCHC Auto (RBC) [Mass/Vol]Ordered By: Sabrina Meek on 54-27-9647RSUJ (RBC) [Mass/Vol]33.9 g/dL32.0-35.0St[facility]'S HospitalMCV Auto (RBC) [Entitic vol]Ordered By: Sabrina Meek on 32-16-2966IXL (RBC) [Entitic vol]90.8 fL 80-100St. [facility]'S HospitalMonocytes Auto (Bld) [#/Vol]Ordered By: Sabrina Meek on 01-97-5786Kxtsqkihm (Bld) [#/Vol]0.5 10*3/uL0.0-0.8St. [facility]'S HospitalMonocytes/100 WBC Auto (Bld)Ordered By: Sabrina Meek on 59-85-7354Bqlzihmqh/100 WBC (Bld)8.3 %.[facility] Neutrophils Auto (Bld) [#/Vol]Ordered By: Sabrina Meek on 08-23-9403Umdrsrqfsua (Bld) [#/Vol]3.4 10*3/uL1.8-7.7FHolzer Medical Center – JacksonNeutrophils/100 WBC Auto (Bld)Ordered By: Sabrina Meek on 74-76-4174Qmfuhqbqprg/100 WBC (Bld)55.7 %.[facility]'S HospitalNo Panel InformationOrdered By: Sabrina Meek on 43-98-5873Ehfwbqime GFR (CKD-EPI)> 60.0 mL/MinSt. Rita'S Hospital Pharmacy Creatinine Clearance (ChemN/AFHolzer Medical Center – JacksonNucleated erythrocytes [Presence] in Blood by Automated countOrdered By: Sabrina Meek on 07-13-3115Juwqolhgs RBC Auto Ql (Bld)0.1 /100{WBC}0-0.5FHolzer Medical Center – JacksonPlatelet mean volume Auto (Bld) [Entitic vol]Ordered By: Sabrina Meek on 53-69-6078Bvjnnlym mean volume (Bld) [Entitic vol]9.7 fL6.3-10.7 [facility] [facility]'S HospitalPlatelets Auto (Bld) [#/Vol]Ordered By: Sabrina Meek on 79-73-3106Btlamqmki (Bld) [#/Vol]193 10*3/pP160-752NnyebkyngSt. Rita'S HospitalPotassium [Moles/volume] in Serum or PlasmaOrdered By: Sabrina Meek on 21-28-6641Lvlwgmgto [Moles/Vol]4.0 mmol/L3.5-5.1FHolzer Medical Center – JacksonProtein [Mass/volume] in Serum or PlasmaOrdered By: Sabrina Meek on 45-90-0849Kfqzqla [Mass/Vol]6.3 g/dLLow6.4-8.9[facility] RBC Auto (Bld) [#/Vol]Ordered By: Sabrina Meek on 91-56-7197EKF (Bld) [#/Vol]4.36 10*6/uL3.60-5.00[facility] for Rehabilitationerum or plasma albumin/globulin mass ratioOrdered By: Sabrina Meek on 26-94-4663Phvcliw/Globulin [Mass ratio]2.2 {ratio}[facility] for Rehabilitationerum or plasma anion gap determinationOrdered By: Sabrina Meek on 44-41-5141Clhre gap [Moles/Vol]9.7 mmol/L6.0-15.0[facility] Medical CenterSerum or plasma high density lipoprotein (HDL) cholesterol measurementOrdered By: Sabrina Meek on 06-28-2024 Cholesterol in HDL [Mass/Vol]71 mg/qP22-87YocxlfvogSt. Rita'S Hospital Comment on above:HDL CHOL ATP-III CLASSIFICATION Cardiovascular RiskHDL > or equal to 60 mg/dL LOWHDL < 40 mg/dL HIGHSerum or plasma total cholesterol/high density lipoprotein (HDL) cholesterol mass ratOrdered By: Sabrina Meek on 77-83-3229Fevxnhmxixb.total/Cholesterol in HDL [Mass ratio]2.2 {ratio}<5.0 [facility] for Rehabilitationodium [Moles/volume] in Serum or PlasmaOrdered By: Sabrina Meek on 99-82-6029Uuyclb [Moles/Vol]143 mmol/I817-199UmctkyaocSt. Rita'S HospitalThyrotropin [Units/volume] in Serum or PlasmaOrdered By: Sabrina Meek on 63-22-0635DTX Qn1.78 m[IU]/L0.45-5.33St. [facility]'S HospitalTriglyceride [Mass/volume] in Serum or PlasmaOrdered By: Sabrina Meek on 96-53-0518Sjtbsaxbsxzm [Mass/Vol]128 mg/dL0-149[facility] Comment on above:TRIG ATP III CLASSIFICATIONTRIG less than 150 mg/dL NormalTRIG 150-199 mg/dL Borderline highTRIG 200-500 mg/dL High TRIG greater than 500 mg/dL Very highStandard traceable to the Center for Disease Conrtrol and Prevention (CDC) test method.Urea nitrogen [Mass/volume] in Serum or PlasmaOrdered By: Sabrina Meek on 82-15-0477Iqks nitrogen [Mass/Vol]18 mg/dL7-25St. Rita'S HospitalWBC Auto (Bld) [#/Vol]Ordered By: Sabrina Meek on 90-87-6157HND (Bld) [#/Vol]6.2 10*3/uL3.8-11.6FHolzer Medical Center – JacksonCardiac stress study Procedureon 03-18-[address], Suite [facility], [place] [address] Exercise Stress Test Patient Name: SHERICE PANDEY Ordering Provider: [id number] TEDDY JOHNSTON Study Date: 03/18/2024 Reading Physician: Elmo Johnston MD MRN/PID: [id number] Supervising Physician: Elmo Johnston MD Fellow: Date of /Age: 9 1955 / 68 years Fellow: Gender: F Nurse: Sole Grant RN Admission Status: Body Hanger: BRITNEY Height: 154.94 cm Technologist: Weight: 71.22 kg Additional Staff: BSA: 1.70 m2 BMI: 29.67 kg/m2 Patient Location: Study Type: STRESS TEST ONLY Diagnosis/ICD: Ventricular premature depolarization-I49.3 Indication: Arrythmia CPT Codes: Stress Test Interpretation-10325; Stress Test Supervision-16305 Falls Risk: Low: Patient has low risk [...] The test was terminated due to: dyspnea. Sinustachycardia with nondiagnostic ST- T changes. Double Product (HR x BP): 206. Baseline ECG: Resting ECG showed normal sinus rhythm. Normal sinus rhythm with diffuse ST-T abnormality. Stress Stage Data: + +---+------+-------+ HR Sys BP Lau BP + +---+------+-------+ Baseline Resting 75 106 76 + +---+------+-------+ Baseline Standing 73 108 76 + +---+------+-------+ Stage I 129 132 79 + +---+------+-------+ Stage II 149 138 74 + +---+------+-------+ Recovery ECG: The heart rate recovery was normal. + +---+------+-------+ HR Sys BP Lau BP + +---+------+-------+ Recovery I 144 138 74 + +---+------+-------+ Recovery II 130 138 74 + +---+------+-------+ Recovery III 110 104 78 + +---+------+-------+ Recovery IV 101 108 68 + +---+------+-------+ Recovery V 98 + +---+------+-------+ Summary: 1. Graded exercise stress test with [...] rate. 7. Adequate level of stress achieved. [id number] Teddy Johnston MD Electronically signed on 03/18/2024 at 1:26:15 PM Final Teddy Telles MD - 03/18/[address], [address], [place] [address] Exercise Stress Test Patient Name: SHERICE PANDEY Ordering Provider: [id number] JOHNSTON Study Date: 03/18/2024 Reading Physician: Elmo Johnston MD MRN/PID: [id number] Supervising Physician: Elmo Johnston MD Fellow: Date of /Age: 9 1955 / years Fellow: Gender: F Nurse: Sole Grant RN Admission Status: Body Hanger: BRITNEY Height: 154.94 cm Technologist: Weight: 71.22 kg Additional Staff: BSA: 1.70 m2 BMI: 29.67 kg/m2 Patient Location: Study Type: STRESS TEST ONLY Diagnosis/ICD: Ventricular premature depolarization-I49.3 Indication: Arrythmia CPT Codes: Stress Test Interpretation-14396; Stress Test Supervision-77347 Falls Risk: Low: Patient has low risk [...] The test was terminated due to: dyspnea. Sinustachycardia with nondiagnostic ST- T changes. Double Product (HR x BP): 206. Baseline ECG: Resting ECG showed normal sinus rhythm. Normal sinus rhythm with diffuse ST-T abnormality. Stress Stage Data: + +---+------+-------+ HR Sys BP Lau BP + +---+------+-------+ Baseline Resting 75 106 76 + +---+------+-------+ Baseline Standing 73 108 76 + +---+------+-------+ Stage I 129 132 79 + +---+------+-------+ Stage II 149 138 74 + +---+------+-------+ Recovery ECG: The heart rate recovery was normal. + +---+------+-------+ HR Sys BP Lau BP + +---+------+-------+ Recovery I 144 138 74 + +---+------+-------+ Recovery II 130 138 74 + +---+------+-------+ Recovery III 110 104 78 + +---+------+-------+ Recovery IV 101 108 68 + +---+------+-------+ Recovery V 98 + +---+------+-------+ Summary: 1. Graded exercise stress test with [...] rate. 7. Adequate level of stress achieved. [id number] Teddy Johnston MD Electronically signed on 03/18/2024 at 1:26:15 PM Final [facility] Work Phone: Cardiac stress study ProcedureOrdered By: Teddy Johnston on 67-46-7112OuwyrixmonLancaster Municipal Hospital Work Phone: STRESS TEST ONLYon [phone] TEST [address], [place] [address] Exercise Stress Test Patient Name: SHERICE PANDEY Ordering Provider: Elmo JOHNSTON Study Date: 03/18/2024 Reading Physician: Elmo Johnston MD MRN/PID: [id number] Supervising Physician: Elmo Johnston MD Fellow: Date of /Age: 9 1955 / years Fellow: Gender: F Nurse: Sole Grant RN Admission Status: Body Hanger: NA Height: 154.94 cm Technologist: Weight: 71.22 kg Additional Staff: BSA: 1.70 m2 BMI: 29.67 kg/m2 Patient Location: Study Type: STRESS TEST ONLY Diagnosis/ICD: Ventricular premature depolarization-I49.3 Indication: Arrythmia CPT Codes: Stress Test Interpretation-05794; Stress Test Supervision-02855 Falls Risk: Low: Patient has low risk [...] The test was terminated due to: dyspnea. Sinustachycardia with nondiagnostic ST- T changes. Double Product (HR x BP): 206. Baseline ECG: Resting ECG showed normal sinus rhythm. Normal sinus rhythm with diffuse ST-T abnormality. Stress Stage Data: + +---+------+-------+ HR Sys BP Lau BP + +---+------+-------+ Baseline Resting 75 106 76 + +---+------+-------+ Baseline Standing 73 108 76 + +---+------+-------+ Stage I 129 132 79 + +---+------+-------+ Stage II 149 138 74 + +---+------+-------+ Recovery ECG: The heart rate recovery was normal. + +---+------+-------+ HR Sys BP Lau BP + +---+------+-------+ Recovery I 144 138 74 + +---+------+-------+ Recovery II 130 138 74 + +---+------+-------+ Recovery III 110 104 78 + +---+------+-------+ Recovery IV 101 108 68 + +---+------+-------+ Recovery V 98 + +---+------+-------+ Summary: 1. Graded exercise stress test with [...] rate. 7. Adequate level of stress achieved. [id number] Teddy Johnston MD Electronically signed on 03/18/2024 at 1:26:15 PM Final [facility] HospitalFree testosterone measurement by LC-MS/MSOrdered By: Sabrina Meek on 25-72-8918Dwvrtrqkzbtj Free [Mass/Vol]0.3 pg/mL0.0-4.2FHolzer Medical Center – JacksonComment on above: Performed at: - [facility] [id number] Director: Brian Mckinnon PhD, Phone: [phone] at: - [facility] [address] [id number] Director: Patria Traylor MD, Phone: [phone] - Chemistry and Chemistry - challengeOrdered By: Sabrina Meek on 60-37-9699Tfrosglkwhby [Mass/Vol]ng/dL3-67St. [facility]S HospitalNo Panel InformationOrdered By: Sabrina Meek on 11-20-2023 Dehydroepiandrosterone Xpkqstu00.0 ug/dL20.4-186.6FHolzer Medical Center – JacksonRandom cortisol measurementOrdered By: Sabrina Meek on 88-38-6481Thgeumqq [Mass/Vol]8.6 ug/dLSt. Rita'S HospitalComment on above:[facility] Laboratory transportation lead and method:[employer] DXI, POLYCLONAL ANTIBODY CORTISOL ASSAY.Reference range: AM 6 - 24 ug/dl PM <10 ug/dlSerum estrone measurementOrdered By: Sabrina Meek on 40-85-4101O7 [Mass/Vol]8 pg/mL0-125 [facility]. Rita'S HospitalComment on above:Range Adult (Premenopausal) 27 - 231 Menstrual Cycle (1-10 days) 19 - 149 Menstrual Cycle (11-20 days) 32 - 176 Menstrual Cycle (21-30 days) 37 - 200 Adult (Postmenopausal) 0 - 125Performed at: [facility] Lab[address] [id number] Director: Patria Traylor MD, Phone: [phone] or plasma estradiol (E2) measurement (mass/volume)Ordered By: Sabrina Meek on 40-57-5442G1 [Mass/Vol]pg/mL0.0-54.7FHolzer Medical Center – JacksonComment on above:Adult Female Range Follicular phase 12.5 - 166.0 Ovulation phase 85.8 - 498.0 Luteal phase 43.8 - 211.0 Postmenopausal <6.0 - 54.7 1st trimester 215.0 - >4300.0Roche ECLIA methodologySerum or plasma progesterone measurement (mass/volume)Ordered By: Sabrina Meek on 32-28-7510Bfevrjtvptwg [Mass/Vol]ng/mL. St. Rita'S HospitalComment on above:Follicular phase 0.1 - 0.9 Luteal phase 1.8 - 23.9 Ovulation phase 0.1 - 12.0 First trimester 11.0 - 44.3 Second trimester 25.4 - 83.3 Third trimester 58.7 - 214.0 Postmenopausal 0.0 - 0.1Performed at: CB - [facility] [address] [place], [place] [id number] Director: Brian Nunes, Phone: [phone] D+Metabolites [Mass/volume] in Serum or PlasmaOrdered By: Sabrina Meek on 04-95-5359Rzotgpb D+Metabolites [Mass/Vol]62.2 ng/uB97-025NdtcvaxvjSt. Rita'S HospitalComment on above:VITAMIN D STATUS 25(OH)VITAMIN D RANGE (ng/mL) Deficient <20 Insufficient 20 to <81Vjtojaeixr55 to 100Reference: Kody MF,Genaro NC, Damon GONZALES, et al. Evaluation,treatment, and prevention of vitamin D deficiency; an Endocrine Society clinical practice guideline. JCEM. 2010; 96(7):1911-30.Office Visit (Cardiology)on 06-03-6433Tttyqd-up visit Diagnoses/Problems Assessed Essential hypertension, benign (401.1) [...] Former smoker Tobacco Use Screening; Status:Complete; Done: [id number] Unlinked Stop: Ezetimibe 10 MG Oral Tablet [...] 20 mg one daily Chief Complaint SHERICE PANDEY is being seen for an annual follow-up [...] negative for complaint. Vitals Vital Signs Recorded: 10Sjq1202 01:57PMRecorded: 16Utj3527 01:34PM Ftqgnclw515076, LUE, Sitting Zfgabyjon2585, LUE, Sitting Heart Rate68, R Radial Height5 ft 1 in Gdbmtp157 lb 9.6 oz BMI Szyaukdjpt42.4 kg/m2 BSA Calculated1.7 Tobacco Useb) No PHQ-2 #1. Over the last 2 weeks have you felt down, depressed or hopeless? (If yes, answer PHQ-9 below)No PHQ-2 #2. Over the last 2 weeks have you felt little interest or pleasure in doing things? (If yes,answer PHQ-9 below)No Falls Screening (Age 18+)a) No falls within the last year Physical Exam Constitutional: alert and in no acute distress. Neck: neck is supple, symmetric, trachea midline, no masses and no thyromegaly . Pulmonary: no inc (more content not included)...NormalUH TouchworksTobacco Screening.on 19-86-6729Lolcn depression screening assessmentNoColumbia Basin Hospital Options Away DO Work Phone: Fall risk assessmenta) No falls within the last year [facility] Holvi 250 DO Work Phone: Tobacco use status CPHSb) NoMSt. Anne Hospital Garden Price 250 DO Work Phone: Urine 10 SGon 17-70-5953Ybwgsln DL <= 20 mg/L (U) [Mass/Vol]NegativeNolee's summit hospital Slingbox Other pH (U)5.5 [pH][place] [employer]ling[employer] Other urine 10 SGNegativeWixom Slingbox Other urine 10 SG1.025Nort Slingbox Other urine 10 SGtrace-intactWixom Slingbox Other urine 10 SG0,2North Slingbox Other Alanine aminotransferase [Enzymatic activity/volume] in Serum or PlasmaOrdered By: Sabrina Meek on 80-29-1120BHD [Catalytic activity/Vol]16 U/L7-52St. [facility]'S HospitalAlbumin [Mass/volume] in Serum or Plasma by Bromocresol green (BCG) dye binding methoOrdered By: Sabrina Meek on 75-23-1049Skerhvi BCG dye [Mass/Vol]4.6 g/dL3.5-5.7FHolzer Medical Center – JacksonAlkaline phosphatase [Enzymatic activity/volume] in Serum or PlasmaOrdered By: Sabrina Meek on 10-59-7006ADL [Catalytic activity/Vol]64 U/L 34-104St. Rita'S HospitalAspartate aminotransferase [Enzymatic activity/volume] in Serum or PlasmaOrdered By: Sabrina Meek on 43-06-1136ZIT [Catalytic activity/Vol]15 U/J45-06EkzgeekthSt. Rita'S HospitalBasophils Auto (Bld) [#/Vol]Ordered By: Sarbina Meek on 36-26-6314Opgsiotmq (Bld) [#/Vol]0.0 10*3/uL0.0-0.2FHolzer Medical Center – JacksonBasophils/100 WBC Auto (Bld) Ordered By: Sabrina Meek on 92-07-9025Ovmqchupe/100 WBC (Bld)0.3 %.[facility]'S HospitalBilirubin.total [Mass/volume] in Serum or PlasmaOrdered By: Sabrina Meek on 51-39-1348Efbaaosdi [Mass/Vol]0.4 mg/dL0.3-1.0St[facility]'S HospitalCalcium [Mass/volume] in Serum or PlasmaOrdered By: Sabrina Meek on 93-52-5334Inxojmx [Mass/Vol]9.5 mg/dL8.6-10.3FHolzer Medical Center – JacksonCarbon dioxide, total [Moles/volume] in Serum or PlasmaOrdered By: Sabrina Meek on 98-12-6757IP2 [Moles/Vol]26.2 mmol/L21.0-31.0St. [facility]'S HospitalChloride [Moles/volume] in Serum or PlasmaOrdered By: Sabrina Meek on 52-24-2674Khxfkhku [Moles/Vol]108 mmol/R32-433XgqbprelvSt. Rita'S Hospital Cholesterol [Mass/volume] in Serum or PlasmaOrdered By: Sabrina Meek on 05-24-2023 Cholesterol [Mass/Vol]232 mg/hJ309-551VudglqyyfSt. Rita'S HospitalComment on above:Chol less than 200 mg/dl low riskChol 201-239 mg/dl borderline riskChol 240 mg/dl and greater high riskCholesterol in LDL Calc [Mass/Vol]Ordered By: Sabrina Meek on 54-13-6309Huzvhlogvjf in LDL [Mass/Vol]129 mg/dL0-100St. Rita'S HospitalComment on above:LDL ATP III CLASSIFICATIONLDL less than 100 mg/dL OptimalLDL 100-129 mg/dL Near or above lzrqbdlHUP873-473 mg/dL Borderline highLDL 160-189 mg/dL HighLDL greater than 189 mg/dL Very high Cholesterol in VLDL Calc [Mass/Vol]Ordered By: Sabrina Meek on 05-24-2023 Cholesterol in VLDL [Mass/Vol]18 mg/dLSt. Rita'S Hospital Creatinine [Mass/volume] in Serum or PlasmaOrdered By: Sabrina Meek on 05-24-2023 Creatinine [Mass/Vol]0.69 mg/dL0.60-1.20[facility] Eosinophils Auto (Bld) [#/Vol]Ordered By: Sabrina Meek on 97-09-9683Isowaohzvcd (Bld) [#/Vol]0.0 10*3/uL0.0-0.45St. [facility]'S HospitalEosinophils/100 WBC Auto (Bld)Ordered By: Sabrina Meek on 06-17-8703Baexgdbscbs/100 WBC (Bld)0.0 %.St. Rita'S HospitalErythrocyte distribution width Auto (RBC) [Ratio]Ordered By: Sabrina Meek on 74-34-7634Dabvsjfkkcy distribution width (RBC) [Ratio]13.5 %11.9-15.3FHolzer Medical Center – JacksonFree testosterone measurement by LC-MS/MSOrdered By: Sabrina Meek on 85-85-5677Tabdfnlueynz Free [Mass/Vol]<0.2 pg/mL0.0-4.2FHolzer Medical Center – JacksonComment on above: Performed at: - [facility] [id number] Director: Brian Mckinnon PhD, Phone: [phone] at: - [facility] [id number] Director: Patria Traylor MD, Phone: [phone] Calc (S) [Mass/Vol]Ordered By: Sabrina Meek on 85-09-5066Bnjyvcso (S) [Mass/Vol]2.0 g/dLSt. Rita'S Hospital Glucose [Mass/volume] in Serum or PlasmaOrdered By: Sabrina Meek on 05-24-2023 Glucose [Mass/Vol]96 mg/sT84-018ViqgkrtzpSt. Rita'S HospitalComment on above:ADA recommended reference rangeRandom Glucose Reference Range is dependent on time and content of last meal. Glucose of more than 200 mg/dL in a nonstressed, ambulatory subject supports the diagnosisof Diabetes Mellitus. Hematocrit Auto (Bld) [Volume fraction]Ordered By: Sabrina Meek on 05-24-2023 Hematocrit (Bld) [Volume fraction]39.8 %34.0-46.4FHolzer Medical Center – JacksonHemoglobin [Mass/volume] in BloodOrdered By: Sabrina Meek on 05-24-2023 Hemoglobin (Bld) [Mass/Vol]13.4 g/dL11.8-15.4FHolzer Medical Center – Jackson Laboratory - Chemistry and Chemistry - challengeOrdered By: Sabrina Meek on 97-99-7723Uagvbytkskan [Mass/Vol]ng/dL3-67[facility] Leukocytes [#/volume] corrected for nucleated erythrocytes in Blood by Automated counOrdered By: Sabrina Meek on 16-67-9464KQM corrected for nucl RBC Auto (Bld) [#/Vol]7.8 10*3/uL3.8-11.6FHolzer Medical Center – JacksonLymphocytes Auto (Bld) [#/Vol]Ordered By: Sabrina Meek on 42-47-3499Ptfavcsofsb (Bld) [#/Vol]1.5 10*3/uL1.00-4.8St. [facility]'S HospitalLymphocytes/100 WBC Auto (Bld) Ordered By: Sabrina Meek on 81-96-3997Mpufqfqkosj/100 WBC (Bld)19.0 %.[facility] Auto (RBC) [Entitic mass]Ordered By: Sabrina Meek on 56-97-2460KGR (RBC) [Entitic mass]30.4 pg24.7-34.3FHolzer Medical Center – JacksonMCHC Auto (RBC) [Mass/Vol]Ordered By: Sabrina Meek on 34-88-9880QHOS (RBC) [Mass/Vol]33.8 g/dL32.0-35.0St. [facility]'S HospitalMCV Auto (RBC) [Entitic vol]Ordered By: Sabrina Meek on 20-14-2581OVK (RBC) [Entitic vol]90.1 fL 80-100St. [facility]'S HospitalMonocytes Auto (Bld) [#/Vol]Ordered By: Sabrina Meek on 34-97-2875Mphvvjrfa (Bld) [#/Vol]0.5 10*3/uL0.0-0.8St. [facility]'S HospitalMonocytes/100 WBC Auto (Bld)Ordered By: Sabrina Meek on 58-60-1017Avckzgrps/100 WBC (Bld)5.9 %.[facility] Neutrophils Auto (Bld) [#/Vol]Ordered By: Sabrina Meek on 74-58-8089Vcakfyasnqs (Bld) [#/Vol]5.8 10*3/uL1.8-7.7FHolzer Medical Center – JacksonNeutrophils/100 WBC Auto (Bld)Ordered By: Sabrina Meek on 40-86-6850Xdbiunhemon/100 WBC (Bld)74.8 %.[facility]S HospitalNo Panel InformationOrdered By: Sabrina Meek on 09-05-8469Cltlqncnwljdntjqokveba Yrlqjft75.5 ug/dL20.4-186.6FHolzer Medical Center – JacksonEstimated GFR (CKD-EPI)> 60.0 mL/MinSt. Rita'S HospitalPharmacy Creatinine Clearance (ChemN/AFHolzer Medical Center – Jackson Nucleated erythrocytes [Presence] in Blood by Automated countOrdered By: Sabrina Meek on 30-17-9837Ywwdwepli RBC Auto Ql (Bld)0.1 /100{WBC}0-0.5FHolzer Medical Center – JacksonPlatelet mean volume Auto (Bld) [Entitic vol]Ordered By: Sabrina Meek on 12-59-2283Nlsnowjq mean volume (Bld) [Entitic vol]9.7 fL6.3-10.7 [facility]'S HospitalPlatelets Auto (Bld) [#/Vol]Ordered By: Sabrina Meek on 46-50-6324Otmtxmklk (Bld) [#/Vol]219 10*3/gB028-725XesxbytmfSt. Rita'S HospitalPotassium [Moles/volume] in Serum or PlasmaOrdered By: Sabrina Meek on 41-97-6419Xwzqofcqf [Moles/Vol]4.2 mmol/L3.5-5.1FHolzer Medical Center – JacksonProtein [Mass/volume] in Serum or PlasmaOrdered By: Sabrina Meek on 44-34-3367Oqksapi [Mass/Vol]6.6 g/dL6.4-8.9St. [facility]'S HospitalRBC Auto (Bld) [#/Vol]Ordered By: Sabrina Meek on 01-49-4915VYY (Bld) [#/Vol]4.42 10*6/uL3.60-5.00St. [facility]'S HospitalRandom cortisol measurement Ordered By: Sabrina Meek on 37-79-9905Dvwanmng [Mass/Vol]2.2 ug/dLSt. Rita'S HospitalComment on above:Reference range: AM 6 - 24 ug/dl PM <10 ug/dlSerum estrone measurementOrdered By: Sabrina Meek on 90-36-7806J7 [Mass/Vol] <6 pg/mL0-125St. Rita'S HospitalComment on above:Range Adult (Premenopausal) 27 - 231 Menstrual Cycle (1-10 days) 19 - 149 Menstrual Cycle (11-20 days) 32 - 176 Menstrual Cycle (21-30 days) 37 - 200 Adult (Postmenopausal) 0 - 125Performed at: - [facility] [id number] Director: Patria Traylor MD, Phone: [phone] or plasma albumin/globulin mass ratioOrdered By: Sabrina Meek on 05-24-2023 Albumin/Globulin [Mass ratio]2.3 {ratio}[facility] for Rehabilitationerum or plasma anion gap determinationOrdered By: Sabrina Meek on 98-77-1830Ftdhh gap [Moles/Vol]13.0 mmol/L6.0-15.0[facility] for Rehabilitationerum or plasma estradiol (E2) measurement (mass/volume)Ordered By: Sabrina Meek on 07-60-1632T7 [Mass/Vol]6.8 pg/mL.St. Rita'S HospitalComment on above:Adult Female: Follicular phase 12.5 - 166.0 Ovulation phase 85.8 - 498.0 Luteal phase 43.8 - 211.0 Postmenopausal <6.0 - 54.7 1st trimester 215.0 - >4300.0Roche ECLIA methodologySerum or plasma high density lipoprotein (HDL) cholesterol measurementOrdered By: Sabrina Meek on 65-84-0233Yikzamvraep in HDL [Mass/Vol]84 mg/dD23-94PpcxsqzukSt. Rita'S HospitalComment on above:HDL CHOL ATP-III CLASSIFICATION Cardiovascular RiskHDL > or equal to 60 mg/dL LOWHDL < 40 mg/dL HIGHSerum or plasma progesterone measurement (mass/volume)Ordered By: Sabrina Meek on 46-06-6145Gwxfpshmriek [Mass/Vol]0.2 ng/mL.St. Rita'S HospitalComment on above:Follicular phase 0.1 - 0.9 Luteal phase 1.8 - 23.9 Ovulation phase 0.1 - 12.0 First trimester 11.0 - 44.3 Second trimester 25.4 - 83.3 Third trimester 58.7 - 214.0 Postmenopausal 0.0 - 0.1Per formed at: CB - [facility] [address] [id number] Director: Brian Nunes, Phone: [phone] or plasma total cholesterol/high density lipoprotein (HDL) cholesterol mass ratOrdered By: Sabrina Meek on 65-90-3213Gecodnujadm.total/Cholesterol in HDL [Mass ratio]2.8 {ratio} <5.0[facility] for Rehabilitationodium [Moles/volume] in Serum or Plasma Ordered By: Sabrina Meek on 26-11-7078Ommxdc [Moles/Vol]143 mmol/N531-480MraukgivmSt. Rita'S HospitalThyrotropin [Units/volume] in Serum or PlasmaOrdered By: Sabrina Meek on 22-62-6512TGK Qn1.06 m[IU]/L0.45-5.33St. [facility]'S HospitalTriglyceride [Mass/volume] in Serum or PlasmaOrdered By: Sabrina Meek on 17-77-3515Ynfqbrnrpmdl [Mass/Vol]93 mg/dL0-149[facility] Comment on above:TRIG ATP III CLASSIFICATIONTRIG less than 150 mg/dL NormalTRIG 150-199 mg/dL Borderline highTRIG 200-500 mg/dL High TRIG greater than 500 mg/dL Very highStandard traceable to the Center for Disease Conrtrol and Prevention (CDC) test method.Urea nitrogen [Mass/volume] in Serum or PlasmaOrdered By: Sabrina Meek on 16-90-3067Ltwa nitrogen [Mass/Vol]24 mg/dL7-25St. Rita'S HospitalVitamin D+Metabolites [Mass/volume] in Serum or PlasmaOrdered By: Sabrina Meek on 82-98-0349Kmityuh D+Metabolites [Mass/Vol]56.9 ng/wO14-477 [facility]S HospitalComment on above:VITAMIN D STATUS 25(OH)VITAMIN D RANGE (ng/mL) Deficient <20 Insufficient 20 to <04Xzwbwquozz53 to 100Reference: Kody MF,Genaro SCHAFER, Damon GONZALES, et al. Evaluation,treatment, and prevention of vitamin D deficiency; an Endocrine Society clinical practice guideline. JCEM. 2010; 96(7):1911-30.WBC Auto (Bld) [#/Vol]Ordered By: Sabrina Meek on 51-20-4975MUI (Bld) [#/Vol]7.8 10*3/uL 3.8-11.6FHolzer Medical Center – JacksonAlanine aminotransferase [Enzymatic activity/volume] in Serum or PlasmaOrdered By: Marcella Flores on 87-71-0527SBT [Catalytic activity/Vol]19 U/L7-52St. [facility]'S HospitalAlbumin [Mass/volume] in Serum or Plasma by Bromocresol green (BCG) dye binding metho Ordered By: Marcella Flores on 66-50-2706Llafbgy BCG dye [Mass/Vol]4.6 g/dL 3.5-5.7FHolzer Medical Center – JacksonAlkaline phosphatase [Enzymatic activity/volume] in Serum or PlasmaOrdered By: Marcella Flores on 30-54-9356PSB [Catalytic activity/Vol]81 U/J23-583NdmavaifeSt. Rita'S HospitalAspartate aminotransferase [Enzymatic activity/volume] in Serum or PlasmaOrdered By: Marcella Flores on 30-09-8399CJF [Catalytic activity/Vol]21 U/I59-33QzedjjdodSt. Rita'S HospitalBasophils Auto (Bld) [#/Vol]Ordered By: Marcella Flores on 55-74-6322Fdcygtmma (Bld) [#/Vol]0.0 10*3/uL0.0-0.2FHolzer Medical Center – JacksonBasophils/100 WBC Auto (Bld)Ordered By: Marcella Flores on 03-02-2023 Basophils/100 WBC (Bld)0.3 %.St[facility]'S HospitalBilirubin.total [Mass/volume] in Serum or PlasmaOrdered By: Marcella Flores on 03-02-2023 Bilirubin [Mass/Vol]0.4 mg/dL0.3-1.0St. [facility]S HospitalCalcium [Mass/volume] in Serum or PlasmaOrdered By: Marcella Flores on 03-02-2023 Calcium [Mass/Vol]9.9 mg/dL8.6-10.3FHolzer Medical Center – JacksonCarbon dioxide, total [Moles/volume] in Serum or PlasmaOrdered By: Marcella Flores on 50-13-8125ZU0 [Moles/Vol]30.6 mmol/L21.0-31.0[facility] Chloride [Moles/volume] in Serum or PlasmaOrdered By: Marcella Flores on 40-03-2208Psjwnuyq [Moles/Vol]105 mmol/L32-248OljijogjjSt. Rita'S Hospital Creatinine [Mass/volume] in Serum or PlasmaOrdered By: Marcella Flores on 22-09-5540Tgpoapilyn [Mass/Vol]0.83 mg/dL0.60-1.20St. [facility]'S HospitalEosinophils Auto (Bld) [#/Vol]Ordered By: Marcella Flores on 03-02-2023 Eosinophils (Bld) [#/Vol]0.1 10*3/uL0.0-0.45[facility] Eosinophils/100 WBC Auto (Bld)Ordered By: Marcella Flores on 03-02-2023 Eosinophils/100 WBC (Bld)2.1 %.St. Rita'S HospitalErythrocyte distribution width Auto (RBC) [Ratio]Ordered By: Marcella Flores on 03-02-2023 Erythrocyte distribution width (RBC) [Ratio]13.1 %11.9-15.3FHolzer Medical Center – JacksonGlobulin Calc (S) [Mass/Vol]Ordered By: Marcella Flores on 05-65-8828Zojrmlux (S) [Mass/Vol]2.3 g/dLSt. Rita'S Hospital Glucose [Mass/volume] in Serum or PlasmaOrdered By: Marcella Flores on 39-12-1105Gdussuj [Mass/Vol]93 mg/eO96-129BjbtajeusSt. Rita'S Hospital Comment on above:ADA recommended reference rangeRandom Glucose Reference Range is dependent on time and content of last meal. Glucose of more than 200 mg/dL in a nonstressed, ambulatory subject supports the diagnosisof Diabetes Mellitus. Hematocrit Auto (Bld) [Volume fraction]Ordered By: Marcella Flores on 88-41-5080Gwqhhoilin (Bld) [Volume fraction]41.5 %34.0-46.4FHolzer Medical Center – JacksonHemoglobin [Mass/volume] in BloodOrdered By: Marcella Flores on 54-14-2705Rigkynwpmy (Bld) [Mass/Vol]13.8 g/dL11.8-15.4FHolzer Medical Center – JacksonLeukocytes [#/volume] corrected for nucleated erythrocytes in Blood by Automated counOrdered By: Marcella Flores on 18-72-3682BBR corrected for nucl RBC Auto (Bld) [#/Vol]6.1 10*3/uL3.8-11.6FHolzer Medical Center – JacksonLymphocytes Auto (Bld) [#/Vol]Ordered By: Marcella Flores on 03-02-2023 Lymphocytes (Bld) [#/Vol]2.0 10*3/uL1.00-4.8[facility] Lymphocytes/100 WBC Auto (Bld)Ordered By: Marcella Flores on 03-02-2023 Lymphocytes/100 WBC (Bld)32.8 %.[facility] HospitalH Auto (RBC) [Entitic mass]Ordered By: Marcella Flores on 53-70-5586RWX (RBC) [Entitic mass] 30.1 pg24.7-34.3FHolzer Medical Center – JacksonMCHC Auto (RBC) [Mass/Vol] Ordered By: Marcella Flores on 66-72-3689FOON (RBC) [Mass/Vol]33.4 g/dL 32.0-35.0[facility]'S HospitalMCV Auto (RBC) [Entitic vol]Ordered By: Marcella Flores on 33-06-6386ZJO (RBC) [Entitic vol]90.2 vE16-761KrzqmkyxuSt. Rita'S HospitalMonocytes Auto (Bld) [#/Vol]Ordered By: Marcella Flores on 89-20-8806Ijbaruivg (Bld) [#/Vol]0.6 10*3/uL0.0-0.8St[facility]'S HospitalMonocytes/100 WBC Auto (Bld)Ordered By: Marcella Flores on 03-02-2023 Monocytes/100 WBC (Bld)10.2 %.[facility]'S HospitalNeutrophils Auto (Bld) [#/Vol]Ordered By: Marcella Flores on 85-71-4364Kanoatfiaig (Bld) [#/Vol] 3.3 10*3/uL1.8-7.7FHolzer Medical Center – JacksonNeutrophils/100 WBC Auto (Bld)Ordered By: Marcella Flores on 17-50-7345Ujaapynqwys/100 WBC (Bld)54.6 %. [facility]S HospitalNo Panel InformationOrdered By: Marcella Flores on 13-71-7769Azeggdokf GFR (CKD-EPI)> 60.0 mL/MinSt. Rita'S HospitalPharmacy Creatinine Clearance (ChemN/AFHolzer Medical Center – JacksonNucleated erythrocytes [Presence] in Blood by Automated countOrdered By: Marcella Flores on 03-89-7179Thjbpkpvr RBC Auto Ql (Bld)0.1 /100{WBC}0-0.5 [facility]S HospitalParathyrin.intact [Mass/volume] in Serum or PlasmaOrdered By: Marcella Flores on 50-51-7630Pewvcfevbp.intact [Mass/Vol]48.2 pg/tM78-15JthgnqguoSt. Rita'S HospitalPlatelet mean volume Auto (Bld) [Entitic vol]Ordered By: Marcella Flores on 14-96-3960Ohdtvgjh mean volume (Bld) [Entitic vol]9.0 fL6.3-10.7FHolzer Medical Center – JacksonPlatelets Auto (Bld) [#/Vol]Ordered By: Marcella Flores on 68-72-5163Pretuvjiq (Bld) [#/Vol] 205 10*3/kM455-652WmchxmnokSt. Rita'S HospitalPotassium [Moles/volume] in Serum or PlasmaOrdered By: Marcella Flores on 75-12-2453Ykstsfiec [Moles/Vol] 4.2 mmol/L3.5-5.1FHolzer Medical Center – JacksonProtein [Mass/volume] in Serum or PlasmaOrdered By: Marcella Flores on 95-28-3053Diymjrn [Mass/Vol]6.9 g/dL 6.4-8.9St. [facility]'S HospitalRBC Auto (Bld) [#/Vol]Ordered By: Marcella Flores on 74-62-6298JSR (Bld) [#/Vol]4.59 10*6/uL3.60-5.00[facility] Rehabilitationerum or plasma albumin/globulin mass ratioOrdered By: Marcella Flores on 98-02-3525Hgelnmv/Globulin [Mass ratio]2.0 {ratio}[facility] for Rehabilitationerum or plasma anion gap determinationOrdered By: Marcella Flores on 55-06-3687Knjeu gap [Moles/Vol]11.6 mmol/L6.0-15.0[facility] for Rehabilitationodium [Moles/volume] in Serum or PlasmaOrdered By: Marcella Flores on 24-68-2638Xubvxl [Moles/Vol]143 mmol/M427-811OsobrozzuSt. Rita'S HospitalThyrotropin [Units/volume] in Serum or PlasmaOrdered By: Marcella Flores on 68-88-3485NKJ Qn1.40 m[IU]/L0.45-5.33St. [facility]S HospitalUrea nitrogen [Mass/volume] in Serum or PlasmaOrdered By: Marcella Flores on 90-53-9106Bzuk nitrogen [Mass/Vol]24 mg/dL7-25St. [facility]'S HospitalVitamin D+Metabolites [Mass/volume] in Serum or PlasmaOrdered By: Marcella Flores on 13-35-9938Mxrfphx D+Metabolites [Mass/Vol]27.8 ng/fB17-832 St[facility]S HospitalComment on above:VITAMIN D STATUS 25(OH)VITAMIN D RANGE (ng/mL) Deficient <20 Insufficient 20 to <06Uupzanzykv83 to 100Reference: Kody PERALTA,Genaro SCHAFER, Damon GONZALES, et al. Evaluation,treatment, and prevention of vitamin D deficiency; an Endocrine Society clinical practice guideline. JCEM. 2010; 96(7):1911-30.WBC Auto (Bld) [#/Vol]Ordered By: Marcella Flores on 94-03-1953MWP (Bld) [#/Vol]6.1 10*3/uL3.8-11.6FHolzer Medical Center – JacksonCholesterol [Mass/volume] in Serum or PlasmaOrdered By: Teddy Johnston on 24-52-3292Mjjzcmhwzdx [Mass/Vol]168 mg/tQ005-135HdriskfouSt. Rita'S HospitalComment on above:Chol less than 200 mg/dl low riskChol 201-239 mg/dl borderline riskChol 240 mg/dl and greater high riskCholesterol in LDL Calc [Mass/Vol]Ordered By: Teddy Johnston on 26-32-4418Xibzgvcgcys in LDL [Mass/Vol]66 mg/dL0-100St. Rita'S HospitalComment on above:LDL ATP III CLASSIFICATIONLDL less than 100 mg/dL OptimalLDL 100-129 mg/dL Near or above yznxjayIUT601-218 mg/dL Borderline highLDL 160-189 mg/dL HighLDL greater than 189 mg/dL Very high Cholesterol in VLDL Calc [Mass/Vol]Ordered By: Teddy Johnston on 10-31-2022 Cholesterol in VLDL [Mass/Vol]21 mg/dLSt. Rita'S Hospital Laboratory - Chemistry and Chemistry - challengeon 22-52-7986Hmytpbyceog [Mass/Vol]168\S\079Etotnn026-158RT-IywyfLakewood Health [facility] 250 DO Work Phone: Comment on above:Chol less than 200 mg/dl low risk Chol 201-239 mg/dl borderline risk Chol 240 mg/dl and greater high risk Cholesterol in LDL [Mass/Vol]66\S\70Vklyrn9-661BU-AdejzLakewood Health Center 250 DO Work Phone: Comment on above:LDL ATP III CLASSIFICATION LDL less than 100 mg/dL Optimal LDL 100-129 mg/dL Near or above optimal LDL 130-159 mg/dL Borderline high LDL 160-189 mg/dL High LDL greater than 189 mg/dL Very highNo Panel Informationon \S\21NormalMPRidgeview Medical Center 250 DO Work Phone: [phone]\S\2.1Normal<5.0MP-[facility] 250 DO Work Phone: Comment on above:PERFORMED BY:[facility] [phone] MEDICAL DIRECTORLORRAINE GUTIERREZ M.D.107\S\993Krspml69-597FO-Ytmyf [place] [facility] 250 DO Work Phone: Comment on above:TRIG ATP III CLASSIFICATION TRIG less than 150 mg/dL Normal TRIG 150-199 mg/dL Borderline high DQIG165-175 mg/dL High TRIG greater than 500 mg/dL Very high Standard traceable to the Center for Disease Conrtrol and Prevention (CDC) test method.81\S\11Sivxwp48-30NE-[facility] [place] HeartAndrew 250 DO Work Phone: Comment on above:HDL CHOL ATP-III CLASSIFICATION Cardiovascular Risk HDL > or equal to 60 mg/dL LOW HDL < 40 mg/dL HIGHSerum or plasma alanine aminotransferase measurement without P-5'-P (enzymatic activi Ordered By: Teddy Johnston on 54-66-6772AAV No additional P-5'-P [Catalytic activity/Vol]21 U/A58-90JlfzhvzwiCleveland Clinic Children's Hospital for Rehabilitationerum or plasma aspartate aminotransferase measurement (enzymatic activity/volume)Ordered By: Teddy Johnston on 61-34-1403WLJ [Catalytic activity/Vol]21 U/P46-16LpsugcjqoCleveland Clinic Children's Hospital for Rehabilitationerum or plasma high density lipoprotein (HDL) cholesterol measurementOrdered By: Teddy Johnston on 01-04-0105Twkydtmikzi in HDL [Mass/Vol]81 mg/wE25-28JlpukrtshSt. Rita'S HospitalComment on above: HDL CHOL ATP-III CLASSIFICATION Cardiovascular RiskHDL > or equal to 60 mg/dL LOWHDL < 40 mg/dL HIGHSerum or plasma total cholesterol/high density lipoprotein (HDL) cholesterol mass ratOrdered By: Teddy Johnston on 10-31-2022 Cholesterol.total/Cholesterol in HDL [Mass ratio]2.1 {ratio}<5.0St. [facility]'S HospitalTriglyceride [Mass/volume] in Serum or PlasmaOrdered By: Teddy Johnston on 63-85-2327Xxvkejkokift [Mass/Vol]107 mg/uD53-817RxzomozmpSt. Rita'S HospitalComment on above:TRIG ATP III CLASSIFICATIONTRIG less than 150 mg/dL NormalTRIG 150-199 mg/dL Borderline highTRIG 200-500 mg/dL High TRIG greater than 500 mg/dL Very highStandard traceable to the Center for Disease Conrtrol and Prevention (CDC) test method.MG MAMM SCREEN 3D ALESSIO CADon 32-92-7597OV MAMM SCREEN 3D ALESSIO CADPatient: SHERICE PANDEY Exam Date: 07/25/2022 : 1955 Gender:F Ordering : DR SABRINA MEEK Admission #: [id number] Family : Order #: [id number] CLICK HERE TO VIEW EXAM RADIOLOGY REPORT [...] uterine cancer at age 27. LOCATION: [facility] BREAST COMPOSITION: Scattered areas fibroglandular density. FINDINGS: [...] by: Thanh Martin MD on 07/25/2022 at 11:51[facility] Tobacco Screening.on 56-09-7442Tkrkx depression screening assessmentNoMP-[facility] 250 DO Work Phone: Fall risk assessmenta) No falls within the last year MP-[facility] 250 DO Work Phone: Tobacco use status CPHSb) NoMP-[facility] [place] 250 DO Work Phone: Albumin [Mass/volume] in Serum or PlasmaOrdered By: Sabrina Meek on 37-85-3702Dbtawkx [Mass/Vol]4.0 g/dL3.2-5.5FHolzer Medical Center – JacksonBasophils Auto (Bld) [#/Vol]Ordered By: Sabrina Meek on 06-28-2022 Basophils (Bld) [#/Vol]0.0 10*3/uL0.0-0.2FHolzer Medical Center – Jackson Basophils/100 WBC Auto (Bld)Ordered By: Sabrina Meek on 04-49-3948Yhjqvpjbw/100 WBC (Bld)0.4 %.[facility]S HospitalBlood hemoglobin measurement (mass/volume)Ordered By: Sabrina Meek on 46-78-5033Voygvbyfjq (Bld) [Mass/Vol]14.2 g/dL11.8-15.4FHolzer Medical Center – JacksonBlmayo clinic hospital leukocytes automated count (number/volume)Ordered By: Sabrina Meek on 05-92-7278PEB (Bld) [#/Vol]6.2 10*3/uL 4.5-11.0St[facility] HospitalCholesterol [Mass/volume] in Serum or PlasmaOrdered By: Sabrina Meek on 48-72-2049Mdjphqigexw [Mass/Vol]196 mg/cO855-865 [facility]S HospitalComment on above:Chol less than 200 mg/dl low risk Chol 201-239 mg/dl borderline risk Chol 240 mg/dl and greater high riskCholesterol in LDL Calc [Mass/Vol]Ordered By: Sabrina Meek on 06-88-9488Mvpbzdvzpsw in LDL [Mass/Vol]92 mg/dL0-100St. [facility]'S HospitalComment on above:LDL ATP III CLASSIFICATION LDL less than 100 mg/dL Optimal LDL 100-129 mg/dL Near or above optimal LDL 130-159 mg/dL Borderline high LDL 160-189 mg/dL High LDL greater than 189 mg/dL Very highCholesterol in VLDL Calc [Mass/Vol]Ordered By: Sabrina Meek on 12-41-9636Elkxwmjcdqt in VLDL [Mass/Vol]17 mg/dLSt. Rita'S HospitalCreatinine and Glomerular filtration rate.predicted panel (S/P/Bld)Ordered By: Sabrina Meek on 79-37-4354Bgantzsosp [Mass/Vol]0.73 mg/dL 0.44-1.03St. [facility]'S HospitalEosinophils Auto (Bld) [#/Vol]Ordered By: Sabrina Meek on 09-78-2014Meyvwikftug (Bld) [#/Vol]0.1 10*3/uL0.0-0.45 [facility] HospitalEosinophils/100 WBC Auto (Bld)Ordered By: Sabrina Meek on 56-74-7399Ihvvvpxttsc/100 WBC (Bld)2.3 %.[facility]'S HospitalErythrocyte distribution width Auto (RBC) [Ratio]Ordered By: Sabrina Meek on 24-67-0112Frpsteyzmal distribution width (RBC) [Ratio]13.5 %11.9-15.3FHolzer Medical Center – JacksonEstimated glomerular filtration rate (GFR) non- AmericanOrdered By: Sabrina Meek on 74-85-4008QVY/1.73 sq M.predicted among non- blacks MDRD (S/P/Bld) [Vol rate/Area]> 60 mL/MinSt. Rita'S HospitalGlobulin Calc (S) [Mass/Vol]Ordered By: Sabrina Meek on 04-48-2923Bdzevztl (S) [Mass/Vol]2.6 g/dLSt. Rita'S HospitalHematocrit Auto (Bld) [Volume fraction]Ordered By: Sabrina Meek on 12-25-4965Jqpdwdwavm (Bld) [Volume fraction]42.9 %34.0-46.4FHolzer Medical Center – JacksonLaboratory - Hematology and Cell countsOrdered By: Sabrina Meek on 14-94-4936Nfpsetvpe RBC/100 WBC (Bld) [Ratio]0.0 %0-0.5FHolzer Medical Center – JacksonLymphocytes Auto (Bld) [#/Vol] Ordered By: Sabrina Meek on 86-00-4720Jwlxezanzao (Bld) [#/Vol]1.6 10*3/uL1.00-4.8 [facility] HospitalLymphocytes/100 WBC Auto (Bld)Ordered By: Sabrina Meek on 88-29-9915Vflsymbmpbb/100 WBC (Bld)25.4 %.[facility] Auto (RBC) [Entitic mass]Ordered By: Sabrina Meek on 98-20-9116XBB (RBC) [Entitic mass]30.8 pg24.7-34.3FFirelands Regional Medical CenterHC Auto (RBC) [Mass/Vol]Ordered By: Sabrina Meek on 14-86-2537TSKT (RBC) [Mass/Vol]33.2 g/dL 32.0-35.0St[facility] HospitalMCV Auto (RBC) [Entitic vol]Ordered By: Sabrina Meek on 27-97-9905UMQ (RBC) [Entitic vol]92.8 mN33-359DaarougmmSt. Rita'S HospitalMonocytes Auto (Bld) [#/Vol]Ordered By: Sabrina Meek on 12-34-6892Zfyznjdct (Bld) [#/Vol]0.6 10*3/uL0.0-0.8St. [facility]S HospitalMonocytes/100 WBC Auto (Bld)Ordered By: Sabrina Meek on 06-28-2022 Monocytes/100 WBC (Bld)9.2 %.[facility]'S HospitalNeutrophils Auto (Bld) [#/Vol]Ordered By: Sabrina Meek on 87-42-5931Mknfhlxsrmn (Bld) [#/Vol]3.9 10*3/uL1.8-7.7FHolzer Medical Center – JacksonNeutrophils/100 WBC Auto (Bld) Ordered By: Sabrina Meek on 83-00-1672Kfyljorybyz/100 WBC (Bld)62.7 %.[facility]S HospitalNo Panel InformationOrdered By: Sabrina Meek on 06-28-2022 Estimated GFR ()> 60 mL/MinSt. Rita'S Hospital Comment on above:GFR estimated reference range: According to KDOQI guidelines, <60 ml/min/1.73m2 is sufficient todiagnose a patient with chronic kidney disease.Pharmacy Creatinine Clearance (ChemN/[facility] Platelet mean volume Auto (Bld) [Entitic vol]Ordered By: Sabrina Meek on 53-64-0047Bqjkajyl mean volume (Bld) [Entitic vol]9.3 fL6.3-10.7FHolzer Medical Center – JacksonPlatelets Auto (Bld) [#/Vol]Ordered By: Sabrina Meek on 10-82-2149Clpqrzspu (Bld) [#/Vol]225 10*3/wG790-974ZjwnyoriiSt. Rita'S HospitalProtein [Mass/volume] in Serum or PlasmaOrdered By: Sabrina Meek on 95-52-6206Mgdonao [Mass/Vol]6.6 g/dL6.1-7.9St. [facility]'S HospitalRBC Auto (Bld) [#/Vol]Ordered By: Sabrina Meek on 71-36-9488KPJ (Bld) [#/Vol]4.63 10*6/uL3.60-5.00[facility] for Rehabilitationerum or plasma alanine aminotransferase measurement without P-5'-P (enzymatic activiOrdered By: Sabrina Meek on 98-67-8261CFA No additional P-5'-P [Catalytic activity/Vol]19 U/L10-60 [facility] Rehabilitationerum or plasma albumin/globulin mass ratio Ordered By: Sabrina Meek on 92-14-0454Pfjimbv/Globulin [Mass ratio]1.5 {ratio} [facility] Rehabilitationerum or plasma alkaline phosphatase measurement (enzymatic activity/volume)Ordered By: Sabrina Meek on 98-57-2544MHX [Catalytic activity/Vol]75 U/M62-27QsdvhtxuxCleveland Clinic Children's Hospital for Rehabilitationerum or plasma anion gap determinationOrdered By: Sabrina Meek on 48-56-3176Ttskb gap [Moles/Vol]10.9 mmol/L6.0-15.0[facility] Rehabilitationerum or plasma aspartate aminotransferase measurement (enzymatic activity/volume)Ordered By: Sabrina Meek on 72-57-6222QJV [Catalytic activity/Vol]19 U/E65-89NxgwmqqhhCleveland Clinic Children's Hospital for Rehabilitationerum or plasma calcium measurement (mass/volume)Ordered By: Sabrina Meek on 48-58-1065Bcfwjig [Mass/Vol]9.6 mg/dL8.2-10.2FOhioHealth Mansfield Hospitalerum or plasma chloride measurement (moles/volume) Ordered By: Sabrina Meek on 89-13-9896Lupzxljj [Moles/Vol]102 mmol/L95-114 [facility] Rehabilitationerum or plasma glucose measurement (mass/volume)Ordered By: Sabrina Meek on 69-79-4258Wybggai [Mass/Vol]86 mg/dL 70-100St. Rita'S HospitalComment on above:ADA recommended reference range Random Glucose Reference Range is dependent on time and content of last meal. Glucose of more than 200 mg/dL in a nonstressed, ambulatory subject supports the diagnosis of Diabetes Mellitus.Serum or plasma high density lipoprotein (HDL) cholesterol measurementOrdered By: Sabrina Meek on 31-02-8025Nzagzyhgrlw in HDL [Mass/Vol]87 mg/dC62-47BmzgwozqpSt. Rita'S HospitalComment on above:HDL CHOL ATP-III CLASSIFICATION Cardiovascular Risk HDL > or equal to 60 mg/dL LOW HDL < 40 mg/dL HIGHSerum or plasma potassium measurement (moles/volume)Ordered By: Sabrina Meek on 83-11-9806Gvsryller [Moles/Vol]3.9 mmol/L3.5-5.1FOhioHealth Mansfield Hospitalerum or plasma sodium measurement (moles/volume)Ordered By: Sabrina Meek on 01-27-6556Hmtvvy [Moles/Vol]139 mmol/K369-129KtcxvajcpCleveland Clinic Children's Hospital for Rehabilitationerum or plasma total bilirubin measurement (mass/volume) Ordered By: Sabrina Meek on 32-67-7790Cxqedycvd [Mass/Vol]0.6 mg/dL0.3-1.2 [facility] Rehabilitationerum or plasma total carbon dioxide measurement (moles/volume)Ordered By: Sabrina Meek on 13-30-8241KH1 [Moles/Vol] 30.0 mmol/L22.0-30.0[facility] Rehabilitationerum or plasma total cholesterol/high density lipoprotein (HDL) cholesterol mass ratOrdered By: Sabrina Meek on 80-67-2945Xdrhtwpfdmy.total/Cholesterol in HDL [Mass ratio]2.3 {ratio} <5.0[facility] for Rehabilitationerum or plasma urea nitrogen measurement (mass/volume)Ordered By: Sabrina Meek on 12-79-3831Wzoi nitrogen [Mass/Vol]19 mg/dL9-23St. [facility]'S HospitalTS DL <= 0.005 mIU/L QnOrdered By: Sabrina Meek on 62-38-1218NWG Qn2.32 m[IU]/L0.45-5.33St. [facility]'S HospitalTriglyceride [Mass/volume] in Serum or PlasmaOrdered By: Sabrina Meek on 63-95-3062Lywzztirqpmd [Mass/Vol]86 mg/eJ71-968DvomxexeySt. Rita'S Hospital Comment on above:TRIG ATP III CLASSIFICATION TRIG less than 150 mg/dL Normal TRIG 150-199 mg/dL Borderline high TRIG 200-500 mg/dL High TRIG greater than 500 mg/dL Very high Standard traceable to the Center for Disease Conrtrol and Prevention (CDC) test method.Urine 10 SGon 24-76-1849Ghzdchi DL <= 20 mg/L (U) [Mass/Vol]NegativeWixom Slingbox Other pH (U)6.5 [pH][place]ling[employer] Other Urine 10 SGNegativeNolee's summit hospital Slingbox Other Urine 10 SG1.015Nort Slingbox Other Urine 10 SGtrace-intactNolee's summit hospital Slingbox Other urine 10 SG0.2Ngeneral [facility]onard [facility] Slingbox Other CBC with Diffon 13-50-6331JC IMMATURE NEUT0.02 K/UL Normal0.0-0.1LVeterans Health AdministrationABS BASO0.03 K/ULNormal0.00-0.22Marietta Memorial HospitalABS EOS0.07 K/ULNormal0-0.45M[facility] HospitalABS NEUTROPHILS5.05 K/UL Normal1.8-7.7[facility] HospitalABS.NEUT.CALCULATED5.05 K/ULNoLong Island College HospitalComment on above:Result Comment: Performed at [facility] [address] [facility] [address]Gvigrjlsl/100 WBC (Bld)0.40 %Normal0-1LVeterans Health AdministrationDIFF TYPEAUTO DIFFNormLincoln HospitalEosinophils/100 WBC (Bld)0.90 %Normal0-3 [facility] HospitalErythrocyte distribution width (RBC) [Ratio]12.8 %Normal 11.7-15.0[facility] HospitalHematocrit (Bld) [Volume fraction]47.5 %Qkbi63-00FpvaMarietta Memorial HospitalHemoglobin (Bld) [Mass/Vol]15.6 g/qXDmhz23.0-15.0[facility] Lymphocytes (Bld) [#/Vol]1.62 10*3/uLNormal1.2-3.2LVeterans Health Administration Lymphocytes/100 WBC (Bld)22.00 %Yhxqgp47-22KdpjMarietta Memorial HospitalMCH (RBC) [Entitic mass]31.2 idLlpwzl90-57PuwlMarietta Memorial HospitalMCHC32.8 %Wyydod56-03DvfdMarietta Memorial Hospital MCV (RBC) [Entitic vol]95.0 bOBsmgay73-713Syzc Health SystemMEAN PLT VOL10.2 CU Normal7.0-12.6M[facility] Memorial HospitalMonocytes (Bld) [#/Vol]0.59 10*3/uLNormal0-0.8 [facility] HospitalMonocytes/100 WBC (Bld)8.00 %Normal0-8[facility] Neutrophils/100 WBC (Bld)0.30 %Normal0.0-1.0[facility] HospitalNeutrophils/100 WBC (Bld)68.40 %Cjxcky36-13DrxxMarietta Memorial HospitalPlatelets (Bld) [#/Vol]262 10*3/uL Kmfazb700-980RrnxMarietta Memorial HospitalRBC (Bld) [#/Vol]5.00 10*6/uLHigh4.0-4.9[facility] HospitalRDW-SD45.7 ZQRodnvg22.0-54.0[facility] HospitalWBC (Bld) [#/Vol]7.4 10*3/uLNormal4.5-11.0[facility] HospitalCOMPREHENSIVE METABOLIC PANELon 14-59-2549Dsbncki [Mass/Vol]5.1 g/dLHigh3.5-5.0[facility] Albumin/Globulin [Mass ratio]2.0 {ratio}Normal1.5-3.0[facility] HospitalALP [Catalytic activity/Vol]80 U/PVhxtig68-573XcrbMarietta Memorial HospitalALT [Catalytic activity/Vol]20 U/LNormal5-40[facility] HospitalAnion gap [Moles/Vol]11 mmol/L Normal0-19[facility] HospitalAST [Catalytic activity/Vol]23 U/LNormal5-40[facility] HospitalBilirubin [Mass/Vol]0.3 mg/dLNormal0.1-1.2LVeterans Health AdministrationCalcium [Mass/Vol]10.4 mg/dLNormal8.5-10.4[facility] HospitalChloride [Moles/Vol]102 mmol/SPanatc90-691NqzjMarietta Memorial HospitalCO2 [Moles/Vol]30 mmol/KYqakev32-96HfgiMarietta Memorial HospitalCreatinine [Mass/Vol]0.7 mg/dLNormal0.4-1.6[facility] ESTIMATED GFR90 mL/min/1.73 f6CqmuijJczaLong Island College HospitalComment on above:Result Comment: GFR ml/min/1.73m2 Stage ----- 90 1 60-89 2 30-59 3 15-29 4 <15 5 For -Americans, multiply EGFR result by 1.210 Calculation not validated for patients under 18 years of age. Performed at [facility] [address] [facility] [address]Embsrbtk (S) [Mass/Vol]2.6 g/dLNormal1.9-3.7M[facility] HospitalGlucose [Mass/Vol]96 mg/tZVtbyoz39-01MrzkMarietta Memorial HospitalPotassium [Moles/Vol]3.8 mmol/LNormal3.4-5.1LVeterans Health Administration Protein [Mass/Vol]7.7 g/dLNormal5.9-7.9Madison Healthodium [Moles/Vol]143 mmol/LSdeblb582-908Udmp Health SystemUrea nitrogen [Mass/Vol]15 mg/dLNormal8-25 [facility] HospitalUrea nitrogen/Creatinine [Mass ratio]21.4 mg/mgHigh8-21Madison HealthARS-CoV-2,INFLUENZA A/B NUCLEIC ACID TESTon 34-83-7909OYG DISCLAIMERNoLong Island College HospitalComment on above:Result Comment: This test has been authorized by [...] is terminated or revoked sooner. Performed at [place] [address]FLU A by PCRNegativeNormal [facility] Memorial HospitalFLU B by PCRNegativePhelps Memorial HospitalARS-CoV-2 (COVID- 19) RNA NICOLASA+probe Ql (Unsp spec)NegativeNormalNEGMarietta Memorial HospitalTYPE AND SCREENon 80-61-8801PDHH AND SCREENBLOOD COMPONENT TYPE - RED CELL GROUP Performed at [place] [id number] UNITS ORDERED - 0 Performed at [place] [address] SPECIMEN EXPIRATION - 04/23/2021 Performed at [address] [address] ABO/RH(D) - O POSITIVE Performed at [address] [address] ANTIBODY SCREEN - NEGATIVE Performed at [address] [address] ARM BAND NUMBER - [id number] Performed at [address] [address] SURGERY DATE - [id number] BW Performed at [address] [address] TEST ORDERED - TYPE AND SCREEN Performed at [address] [address] PT TRANSFUSION HISTORY - BLOOD BANK RECORD SEARCH COMPLETED NO PREVIOUS RECORD NO PREVIOUS TRANSFUSIONS IN LIFETIME Performed at [address] [address]PyxthnGyecLong Island College HospitalComment on above:Performed By: #### TYSC #### Main Laboratory [address] [address]OB-DSFJAG TO CULTUREon [id number] SEENNormal0-3M[facility] Memorial HospitalUrinalysis dipstick W Reflex Microscopic panel (U)MANUAL MICROSCOPIC URINESAPI HealthcareWBCNON SEENNormal0-3M[facility] HospitalBacteria identified Cx Nom (U)API HealthcareComment on above: Result Comment: CULTURE NOT INDICATED Performed at [address] [address]UAWHXuthfjdsOuftazICXHxkv Health SystemClarity (U)CLEARNoBon [facility] SystemColor (U)YELLOWAPI HealthcareGLUCNegativeNormalNEGMarietta Memorial HospitalHemoglobin Ql (U)Negative NormalNEGMarietta Memorial HospitalKETNegativeNormnvNEGFormerly [facility], 1928–1983 SystemLEUKNegative NormalNEGFormerly [facility], 1928–1983 SystemNITNegativeNormalNEGFormerly [facility], 1928–1983 SystempH (U)7.5 [pH] Normal4.6-8.0[facility] HospitalPROTNegativeNormJ.W. Ruby Memorial HospitalP GRAV,URINE1.088Xcjihk2.005-1.030M[facility] Memorial HospitalURO0.2 MG/DLNormal0-1.0Madison Healthurgical Pathologyon 12-59-0570Tbcmfxbx Pathology(NOTE) [id number] [employer] [facility] [facility] ANATOMIC PATHOLOGY [address] [place] [address]. [place], [place] [address] SURGICAL PATHOLOGY CONSULTATION Patient Name: SHERICE PANDEY [facility] Rec: [id number] Path Number: [id number] Collected: 12/18/2018 Received: 12/19/2018 Reported: 12/20/2018 15:02 -- Diagnosis -- Labial lesion biopsy: Benign epithelial inclusion cyst. Polo Burt Electronically Signed Out rdd/12/20/2018 Clinical Information Pre-op Diagnosis: VULVAR LESION Operative Findings: LABIA Source of Specimen 1: LABIAL LESION Gross Description SHERICE PANDEY, LABIA LESION Thompson fragments, 0.4 x 0.3 x 0.1 cm in aggregate. Entirely 1cs. tm Microscopic Description Microscopic examination performed.Fisher-Titus Medical CenterComment on above: Performed By: #### PPPVS #### [address] [address] Umbrella Supervisor: Dimitri Murray, MDProgress Noteon [id number] IP Note OR TranscriptionUniversity Hospitals Geneva Medical CenterCult,Genitalon 02-23-2018 Cult,GenitalSpecimen Description .VAGINA Performed at [address] [place] [address] ([phone] Special Requests NOT REPORTED Culture PRESUMPTIVE ID: GARDNERELLA VAGINALIS HEAVY GROWTH NORMAL URO-GENITAL TANVI NEGATIVE FOR NEISSERIA GONORRHOEAE NEGATIVE FOR GROUP B STREPTOCOCCI Performed at [address] [id number] ([phone] Report Status FINAL 02/23/2018[facility] on above: Performed By: #### [facility] #### [address] [place] [address] Cytologyon [id number](NOTE) [id number] [facility] uma information technology [facility] ANATOMIC PATHOLOGY [address] [place] [id number] GYNECOLOGIC CYTOLOGY REPORT Patient Name: SHERICE PANDEY MR#: [id number] Specimen #[id number] Source: 1: Vaginal material, (ThinPrep vial, Imaging-assisted review) Clinical History Hysterectomy Atrophic vaginitis: N95.2 INTERPRETATION Vaginal material, (ThinPrep vial, Imaging-assisted review): Specimen Adequacy: Satisfactory for evaluation. - Scant cellularity, predominantly inflammatory exudate. Descriptive Diagnosis: Negative for intraepithelial lesion or malignancy. Health Information Systems Technician: YURIDIA Baron(ASCP) Electronically Signed Out angelica/03/18/2018[facility] CenterProgress Noteon [id number] IP Note OR TranscriptionUniversity Hospitals [facility] Vital Signs Date TimeVital SignValuePerforming VtwsjoxtzZgkicntx70-05-1181 09:33-0400Body egbpvs096.4 cmSteven Rusher DPM Work Phone: [facility] HospitalQrsbksbqbe90-54-5900 09:33-0400Body mass index (BMI) [Ratio]26.76 kg/b7Mawjrb Rusher DPM Work Phone: [phone])[address]10-07-2025 09:33-0400Body zxyasd97.14 kgSteven Rusher DPM Work Phone: [phone])549[facility]43[facility] HospitalSuoiawwauk77-80-7240 09:53-0400Body urpqio880.4 cmBrett Kuns DO Work Phone: [facility]10-02-2025 09:53-0400 Body mass index (BMI) [Ratio]29.2 kg/d5Kkdke Kuns DO Work Phone: [facility]10-02-2025 09:53-0400 Body ksoory74.03 kgBrett Kuns DO Work Phone: [facility]10-02-2025 09:53-0400 Diastolic blood avvblnoi94 mm[Hg]Sabrina Kuns DO Work Phone: [facility]10-02-2025 09:53-0400 Heart rate70 /minBrett Kuns DO Work Phone: [facility]10-02-2025 09:53-0400 Respiratory rate18 /minBrett Kuns DO Work Phone: [facility]10-02-2025 09:53-0400 SaO2% (BldA) [Mass fraction]97 %Sabrina Kuns DO Work Phone: [facility]10-02-2025 09:53-0400 Systolic blood jnlmzsfu368 mm[Hg]Sabrina Kuns DO Work Phone: [facility]08-26-2025 08:55-0400 Body mmjakn977.4 cmSteven Rusher DPM Work Phone: [phone])[address] [place], [place] 7566108-26-2025 08:55-0400Body mass index (BMI) [Ratio]26.76 kg/j1Vzwsdf Rusher DPM Work Phone: 1(429)[address] [place], [place] 7566108-26-2025 08:55-0400Body nufrfo30.14 kgSteven Rusher DPM Work Phone: 1(114)[address] [place], [place] 7566108-01-2025 11:09-0400Body drfgri033.4 cmSteven Rusher DPM Work Phone: 1(404)[address] [place], [place] 7566108-01-2025 11:09-0400Body mass index (BMI) [Ratio]28.32 kg/n5Ozbrij Rusher DPM Work Phone: 1(991)[address] [place], [place] 7566108-01-2025 11:09-0400Body warwxk16.77 kgSteven Rusher DPM Work Phone: 1(157)[address] [place], [place] 7566107-28-2025 09:50-0400Body ntojyh789.4 cmBrett Kuns DO Work Phone: [facility]07-28-2025 09:50-0400 Body mass index (BMI) [Ratio]29.7 kg/j7Htzlb Kuns DO Work Phone: [facility]07-28-2025 09:50-0400 Body ykfquzdrgdb85.9 [degF]Sabrina Kuns DO Work Phone: [facility]07-28-2025 09:50-0400 Body .22 kgBrett Kuns DO Work Phone: [facility]07-28-2025 09:50-0400 Diastolic blood nfpikibj42 mm[Hg]Sabrina Kuns DO Work Phone: [facility]07-28-2025 09:50-0400 Heart rate95 /minBrett Kuns DO Work Phone: [facility]07-28-2025 09:50-0400 Respiratory rate16 /minBrett Kuns DO Work Phone: [facility]07-28-2025 09:50-0400 SaO2% (BldA) [Mass fraction]96 %Sabrina Kuns DO Work Phone: [facility]07-28-2025 09:50-0400 Systolic blood itvibcwk276 mm[Hg]Sabrina Kuns DO Work Phone: [facility]04-29-2025 12:42-0400 Body cjadox757.4 cmBrett Kuns DO Work Phone: [facility]04-29-2025 12:42-0400 Body mass index (BMI) [Ratio]30.2 kg/b5Krqsj Kuns DO Work Phone: [facility]04-29-2025 12:42-0400 Body fjhqza25.3 kgBrett Kuns DO Work Phone: [facility]04-29-2025 12:42-0400 Diastolic blood fsserwgb41 mm[Hg]Sabrina Kuns DO Work Phone: [facility]04-29-2025 12:42-0400 Heart rate71 /minBrett Kuns DO Work Phone: [facility]04-29-2025 12:42-0400 Respiratory rate16 /minBrett Kuns DO Work Phone: [facility]04-29-2025 12:42-0400 SaO2% (BldA) [Mass fraction]97 %Sabrina Kuns DO Work Phone: [facility]04-29-2025 12:42-0400 Systolic blood lnrqbwoq749 mm[Hg]Sabrina Kuns DO Work Phone: [facility]04-10-2025 10:26-0400 Body vuyusd167.4 cmBrett Kuns DO Work Phone: [phone]04-10-2025 10:26-0400 Body mass index (BMI) [Ratio]30.4 kg/x9Igogt Kuns DO Work Phone: [facility]04-10-2025 10:26-0400 Body .8 kgBrett Kuns DO Work Phone: 1(206)[address]03-25-2025 09:42-0400 Body tnvteo674.4 cmBrett Kuns DO Work Phone: 1(806)7-[address] [place], [place] 2937503-25-2025 09:42-0400 Body mass index (BMI) [Ratio]30.4 kg/s4Sgkjq Kuns DO Work Phone: [phone]03-25-2025 09:42-0400 Body .76 kgBrett Kuns DO Work Phone: [phone]33[facility]03-25-2025 09:42-0400 Diastolic blood gompbgxw47 mm[Hg]Sabrina Kuns DO Work Phone: [facility]03-25-2025 09:42-0400 Heart rate91 /minBrett Kuns DO Work Phone: 1(447)751-[address] [place], [place] 2937503-25-2025 09:42-0400 Respiratory rate16 /minBrett Kuns DO Work Phone: 1(380)2-[address] [place], [place] 2937503-25-2025 09:42-0400 SaO2% (BldA) [Mass fraction]95 %Sabrina Kuns DO Work Phone: [facility]03-25-2025 09:42-0400 Systolic blood mm[Hg]Sabrina Meek DO Work Phone: [facility]11-08-2024 09:25-0500 Body orsekr483.4 cmFredric Itzkowitz DO Work Phone: [facility] HospitalKuehafcfeb53-47-5048 09:25-0500Body mass index (BMI) [Ratio]30.66 kg/w1Kbbhjgo Itzkowitz DO Work Phone: [phone]11-08-2024 09:25-0500Body ttjcvo69.22 kgFredric Itzkowitz DO Work Phone: 1(206)[address] [place], [place] 2308611-08-2024 09:25-0500Diastolic blood xqxlefxk26 mm[Hg]George Itzkowitz DO Work Phone: [phone]02[facility] HospitalEeelxrwdpx38-39-2944 09:25-0500Systolic blood gtohmrhg482 mm[Hg]George Itzkowitz DO Work Phone: [phone]01[facility] HospitalEnhlqvgpsp65-80-9139 13:02-0400Body pekuxf971.9 cmTeddy Johnston MD Work Phone: 3(836)689-[address] [place], [place] 3445209-26-2024 13:02-0400 Body mass index (BMI) [Ratio]29.21 kg/u5QkenygvTeddy Johnston MD Work Phone: 0(617)686-[address] [place], [place] 3445209-26-2024 13:02-0400 Body ezjswv04.13 kgTeddy Johnston MD Work Phone: 2(314)327-[address] [place], [place] 3445209-26-2024 13:02-0400 Diastolic blood mm[Hg]Teddy Johnston MD Work Phone: 6(913)837-[address] [place], [place] 3445209-26-2024 13:02-0400 Heart rate76 /minTeddy Johnston MD Work Phone: 1(034)562-[address] [place], [place] 3445209-26-2024 13:02-0400 Systolic blood tghuxyvy914 mm[Hg]Teddy Johnston MD Work Phone: [facility]09-25-2024 12:40-0400 Body .4 cmDO Sabrina Kuns Work Phone: [facility]09-25-2024 12:40-0400 Body mass index (BMI) [Ratio]30.4 kg/m2DO Sabrina Kuns Work Phone: [facility]09-25-2024 12:40-0400 Body hohdcp63.76 kgDO Sabrina Kuns Work Phone: [facility]09-25-2024 12:40-0400 Diastolic blood pzecznuu77 mm[Hg]DO Sabrina Kuns Work Phone: [facility]09-25-2024 12:40-0400 Heart rate68 /minDO Sabrina Kuns Work Phone: [facility]09-25-2024 12:40-0400 Respiratory rate16 /minDO Sabrina Kuns Work Phone: [facility]09-25-2024 12:40-0400 SaO2% (BldA) [Mass fraction]93 %DO Sabrina Kuns Work Phone: [facility]09-25-2024 12:40-0400 Systolic blood tarjfqim675 mm[Hg]DO Sabrina Kuns Work Phone: [facility]06-03-2024 11:46-0400 Diastolic blood zmskbbys82 mm[Hg]Sena [address] [place] [address] 03-18-2024 11:46-0400Heart rate75 /minEly [address] [place] [address] 03-18-2024 11:46-0400Systolic blood icrsdlgi767 mm[Hg]Sena [address] [place], [place] 6811804-24-2024 09:53-0400Body ugdfxt752.4 cmDO Sabrina Kuns Work Phone: [facility]04-24-2024 09:53-0400 Body mass index (BMI) [Ratio]31 kg/m2DO Sabrina Kuns Work Phone: [facility]04-24-2024 09:53-0400 Body vlzorc61.12 kgDO Sabrina Kuns Work Phone: [facility]03-19-2024 10:42-0400 Body .4 cmDO Sabrina Kuns Work Phone: 1(592)188-[address] [place], [place] 2937503-19-2024 10:42-0400 Body mass index (BMI) [Ratio]31.2 kg/m2DO Sabrina Kuns Work Phone: [phone]03-19-2024 10:42-0400 Body .57 kgDO Sabrina Kuns Work Phone: [facility]03-19-2024 10:42-0400 Diastolic blood mm[Hg]DO Sabrina Kuns Work Phone: [facility]03-19-2024 10:42-0400 Heart rate72 /minDO Sabrina Kuns Work Phone: [facility]03-19-2024 10:42-0400 Respiratory rate16 /minDO Sabrina Kuns Work Phone: [facility]03-19-2024 10:42-0400 SaO2% (BldA) [Mass fraction]98 %DO Sabrina Kuns Work Phone: [facility]03-19-2024 10:42-0400 Systolic blood lpumevek832 mm[Hg]DO Sbarina Kuns Work Phone: [facility]02-06-2024 09:05-0500 Diastolic blood zoujuljz71 mm[Hg]DO Sabrina Kuns Work Phone: [facility]02-06-2024 09:05-0500 Heart rate84 /minDO Sabrina Meek Work Phone: [facility]02-06-2024 09:05-0500 Respiratory rate18 /minDO Sabrina Sys Work Phone: [facility]02-06-2024 09:05-0500 SaO2% (BldA) [Mass fraction]95 %DO Sabrina Meek Work Phone: [facility]02-06-2024 09:05-0500 Systolic blood udlylcxs900 mm[Hg]DO Sabrina Abaxialaila Work Phone: [facility]02-06-2024 08:27-0500 Inhaled oxygen flow rate3 L/AylinO Sabrina Meek Work Phone: [facility]02-06-2024 08:06-0500 Body yktzao626.4 cmDO Sabrina Abaxialaila Work Phone: [facility]02-06-2024 08:06-0500 Body .57 kgDO Sabrina Abaxialaila Work Phone: [facility]01-11-2024 09:45-0500 Body ujnqrr953.4 cmRobert Chadwick II Other [facility]01-11-2024 09:45-0500 Body mass index (BMI) [Ratio]31.05 kg/r9Xlzeei Chadwick II Other [employer] Other 01-11-2024 09:45-0500Body .12 kgRobert Vasyl II Other [facility]11-22-2023 13:30-0500 Body rhdobi129.[address] [facility]11-22-2023 13:30-0500 Body mass index (BMI) [Ratio]31.05 kg/q2Scajfbf Toney Other [employer] Other 11-22-2023 13:30-0500Body tcywdc66.[address] Other [facility]11-22-2023 13:30-0500 Diastolic blood pdnoller35 mm[Hg]Rajeev Ziegler Other [facility]11-22-2023 13:30-0500 Respiratory rate16 /minRajeev Ziegler Other [employer] Other 11-22-2023 13:30-2148PrZ4% (BldA) [Mass fraction]97 % Rajeev Ziegler Other [employer] Other 11-22-2023 13:30-0500Systolic blood iobdrvet411 mm[Hg] Rajeev Ziegler Other [facility]11-16-2023 11:45-0500 Body pdjril837.4 cmRobert Chadwick II Other [employer] Other 11-16-2023 11:45-0500Body mass index (BMI) [Ratio] 30.46 kg/h6Mswjgc Chadwick II Other [employer] Other 11-16-2023 11:45-0500Body widvxw48.76 kgRobert Chadwick II Other [facility] [place] Other 09-26-2023 13:57-0400Diastolic blood odzxbakm69 mm[Hg] Sabrina Meek Work Phone: 1(903) [phone]-Gawfu [facility] 250 DO Work Phone: 1(112) 256-388809-26-2023 13:57-0400Systolic blood yaxisvvi007 mm[Hg] Sabrina R Kuns Work Phone: [phone]-Nvrmz [facility] 250 DO Work Phone: 1(462) 909-328909-26-2023 13:34-0400Body unisob204.94 cmBrett Gely Meek Work Phone: [phone]-Mpytn [facility] 250 DO Work Phone: 1(164) 468-224509-26-2023 13:34-0400Body mass index (BMI) [Ratio]29.4 kg/m9Jtleb Gely Meek Work Phone: mp198-4084PO-Pmsmz [facility] 250 DO Work Phone: 1(537) 912-472209-26-2023 13:34-0400Body surface area Derived from formula1.7 o2Iujwg Gely Meek Work Phone: mp400-8777NI-Uoflk [facility] 250 DO Work Phone: 1(624) 459-492309-26-2023 13:34-0400Body osdcyh32.58 kgBrechaparrita Gely Meek Work Phone: 1(162) 705-6983591-7303KM-Szjpb [facility] 250 DO Work Phone: 1(392) 939-229109-26-2023 13:34-0400Diastolic blood pzdpczyn31 mm[Hg] Sabrina R Fantasma Work Phone: 1(796) [phone]-Mcovv [facility] 250 DO Work Phone: 1(128) [phone] 13:34-0400Heart rate68 /minBrechaprarita Gely Meek Work Phone: 1(778) [phone]-Owzkh [facility] 250 DO Work Phone: 1(462) 691-114709-26-2023 13:34-0400Systolic blood arqzggdh277 mm[Hg] Sabrina R Yossis Work Phone: [phone]-Dirbr [facility] 250 DO Work Phone: 1(134) 725-368609-20-2023 15:30-0400Body vaurvn856.4 cmSabrina Meek Other [employer] Other 09-20-2023 15:30-0400Body mass index (BMI) [Ratio] 30.46 kg/g6Tmbzf Kuns Other [employer] Other 09-20-2023 15:30-0400Body zltgba92.76 kgBrett Kuns Other [employer] Other 09-20-2023 15:30-0400Diastolic blood iszpzlam14 mm[Hg] Sabrina Kuns Other [employer] Other 09-20-2023 15:30-0400Respiratory rate16 /minBrett Kuns Other [employer] Other 09-20-2023 15:30-8274UiX0% (BldA) [Mass fraction]97 % Sabrina Kuns Other [employer] Other 09-20-2023 15:30-0400Systolic blood jbffmoyv432 mm[Hg] Sabrina Kuns Other [employer] Other 08-16-2023 14:00-0400Body .4 cmBrett Kuns Other [employer] Other 08-16-2023 14:00-0400Body mass index (BMI) [Ratio] 30.66 kg/s4Amaki Kuns Other [employer] Other 08-16-2023 14:00-0400Body darfif21.22 kgBrett Kuns Other [employer] Other 08-16-2023 14:00-0400Diastolic blood oatgjcbq08 mm[Hg] Sabrina Kuns Other [facility] [employer] Other 08-16-2023 14:00-0400Respiratory rate16 /minBrett Kuns Other [employer] Other 08-16-2023 14:00-2439SbE0% (BldA) [Mass fraction]95 % Sabrina Kuns Other [employer] Other 08-16-2023 14:00-0400Systolic blood teodqgro771 mm[Hg] Sabrina Kuns Other [employer] Other 05-11-2023 15:30-0400Body pqzkom211.94 cmRobert Chadwick II Other [employer] Other 05-11-2023 15:30-0400Body mass index (BMI) [Ratio] 30.98 kg/c4Ztunvt Chadwick II Other [facility] [employer] Other 05-11-2023 15:30-0400Body .39 kgRobert Vasyl II Other [facility] [employer] Other 09-16-2022 10:09-0400Diastolic blood aninmcox05 mm[Hg] Sabrina R Kuns Work Phone: [phone]-Dchct [place] [facility] 250 DO Work Phone: 1(807) 430-571509-16-2022 10:09-0400Systolic blood ziyxhgiz911 mm[Hg] Sabrina R Kuns Work Phone: [phone]-Kbdsj [place] [facility] 250 DO Work Phone: 1(599) 110-486409-16-2022 09:54-0400Body rwhzjo201.94 cmBrett R Kuns Work Phone: mp031-6854AO-Cbgbk [facility] 250 DO Work Phone: 1(930) 770-109609-16-2022 09:54-0400Body mass index (BMI) [Ratio] 29.67 kg/w0Eweto R Kuns Work Phone: 1(259) 576-1777603-1998JX-Fcnmu [place] [employer] 250 DO Work Phone: 1(632) 328-126209-16-2022 09:54-0400Body surface area Derived from formula1.7 q8Tzwwr R Kuns Work Phone: mp713-0980SM-Htiek [place] [employer]-[place] 250 DO Work Phone: 1(237) 285-641509-16-2022 09:54-0400Body rymmax15.22 kgBrett R Yossis Work Phone: 1(448) [phone]-Vhyqm [place] [employer]-[place] 250 DO Work Phone: 1(496) 878-163409-16-2022 09:54-0400Diastolic blood ooqcffgu312 mm[Hg]Sabrina R Kuns Work Phone: 1(331) [phone]-Jmiap [facility] 250 DO Work Phone: 1(471) 495-932809-16-2022 09:54-0400Heart rate66 /minBrett R Kuns Work Phone: 1(635) [phone]-Lgntf [place] [employer]-[place] 250 DO Work Phone: 1(687) 514-116509-16-2022 09:54-0400Systolic blood msnqsrig259 mm[Hg] Sabrina R Kuns Work Phone: 1(754) [phone]-Hwejn [place] [employer] 250 DO Work Phone: 1(380) 907-497909-07-2022 14:15-0400Body axgryz490.94 cmBrechaparrita [employer] Other [employer] Other 09-07-2022 14:15-0400Body mass index (BMI) [Ratio] 29.74 kg/k8Wahvg [employer] Other [employer] [facility] [place] Other 09-07-2022 14:15-0400Body cuaoef87.4 kgBrechaparrita Meek Other [employer] Other 09-07-2022 14:15-0400Diastolic blood lqeiocqx05 mm[Hg] Sabrina Meek Other [employer] Other 09-07-2022 14:15-0400Respiratory rate20 /minBrechaparrita Meek Other [employer] Other 09-07-2022 14:15-9369MyA0% (BldA) [Mass fraction]96 % Sabrina Meek Other [employer] Other 09-07-2022 14:15-0400Systolic blood wjaqsiyo193 mm[Hg] Sabrina Meek Other [employer] Other 07-30-2022 13:15-0400Body .94 cmAyovany Carlos Other [employer] Other 07-30-2022 13:15-0400Body mass index (BMI) [Ratio] 29.66 kg/l7TkpvaSarahi Carlos Other [employer] Other 07-30-2022 13:15-0400Body .22 kgSarahi Carlos Other [employer] Other 07-30-2022 13:15-0400Diastolic blood ajvhrycj32 mm[Hg] Sarahi Carlos Other [employer] Other 07-30-2022 13:15-0400Respiratory rate20 /minSarahi aCrlos Other [employer] Other 07-30-2022 13:15-2234FmN2% (BldA) [Mass fraction]98 % Sarahi Carlos Other [employer] Other 07-30-2022 13:15-0400Systolic blood radhdrvc875 mm[Hg] Sarahi Carlos Other [employer] Other 06-17-2022 12:30-0400Body .94 cmRobert Vasyl II Other [employer] Other 06-17-2022 12:30-0400Body mass index (BMI) [Ratio] 30.42 kg/h9Oryiav Vasyl II Other [employer] Other 06-17-2022 12:30-0400Body jododb01.03 kgRobert Vasyl II Other [employer] Other 06-16-2022 11:15-0400Body .94 cmBrett Kuns Other [employer] Other 06-16-2022 11:15-0400Body mass index (BMI) [Ratio] 30.42 kg/n1Behcu Kuns Other [employer] Other 06-16-2022 11:15-0400Body vsvimz19.03 kgBrett Kuns Other [employer] Other 06-16-2022 11:15-0400Diastolic blood nkspxpij55 mm[Hg] Sabrinachaparrita Meek Other [employer] Other 06-16-2022 11:15-0400Respiratory rate18 /minBrechaparrita Meek Other [employer] Other 06-16-2022 11:15-5440EbW2% (BldA) [Mass fraction]97 % Sabrinachaparrita Meek Other [employer] Other 06-16-2022 11:15-0400Systolic blood smncdeqi837 mm[Hg] Sabrinachaparrita Meek Other [employer] Other 03-18-2022 12:30-0400Body pbaqhh225.94 cmRobert Chadwick II Other [employer] Other 03-18-2022 12:30-0400Body mass index (BMI) [Ratio] 30.61 kg/a0Vxxwkz Chadwick II Other [employer] Other 03-18-2022 12:30-0400Body nicnwg09.48 kgRobert Chadwick II Other [employer] Other 03-15-2022 11:30-0400Body nwhysj609.94 cmBrett Fantasma Other [employer] Other 03-15-2022 11:30-0400Body mass index (BMI) [Ratio] 30.61 kg/t4Jougb Kuns Other [employer] Other 03-15-2022 11:30-0400Body abqcuj26.48 kgBrett Kuns Other [employer] Other 03-15-2022 11:30-0400Diastolic blood udgosxbn44 mm[Hg] Sabrina Kuns Other [employer] Other 03-15-2022 11:30-0400Respiratory rate17 /minBrett Kuns Other [employer] Other 03-15-2022 11:30-1489PtB4% (BldA) [Mass fraction]99 % Sabrina Kuns Other [employer] Other 03-15-2022 11:30-0400Systolic blood jpzzawwd322 mm[Hg] Sabrina Kuns Other [employer] Other 12-10-2021 09:00-0500Body .94 cmRobert Chadwick II Other [employer] Other 12-10-2021 09:00-0500Body mass index (BMI) [Ratio] 28.72 kg/a0Cpxmcu Chadwick II Other [employer] Other 12-10-2021 09:00-0500Body sfzneq31.95 kgRobert Vasyl II Other [employer] Other 10-20-2021 15:30-0400Body ninawg928.94 cmBrett Kuns Other [employer] Other 10-20-2021 15:30-0400Body mass index (BMI) [Ratio] 29.09 kg/g8Qgttx Kuns Other [employer] Other 10-20-2021 15:30-0400Body oehyab25.85 kgBrett Kuns Other [employer] Other 10-20-2021 15:30-0400Diastolic blood iqosfrwx88 mm[Hg] Sabrina Meek Other [facility] [employer] Other 10-20-2021 15:30-0400Respiratory rate16 /minSabrina Meek Other [facility] [employer] Other 10-20-2021 15:30-9433CiI3% (BldA) [Mass fraction]97 % Sabrina Meek Other [employer] Other 10-20-2021 15:30-0400Systolic blood jwmabwai921 mm[Hg] Sabrina Meek Other [employer] Other Encounters Encounter DateEncounter TypeCare ProviderFacilityStart: 07-22-2025 End: 71-66-7704Ojblae flowsheetSteven A Rusher DPM Work Phone: [facility]ryStart: 07-22-2025 End: 18-16-4688Nuxrri flowsheetSteven A Rusher DPM Work Phone: [facility]iatryStart: 07-22-2025 End: 56-42-0603fthhofyzoiRYSCON A RUSHERNot AvailableStart: 07-22-2025 End: 13-07-6110yglknpthgbWYOOGY A RUSHERNot AvailableStart: 07-22-2025 End: 67-77-0949Ftzqpy follow up visit related to original pxSteven A Rusher DPM Work Phone: [facility] PodiatryComment on above:Fracture of base of fifth metatarsal bone of left foot with routine healing, subsequent encounter (Primary Dx); Pain and swelling of toe of left foot; Difficulty walkingStart: 07-17-2025 End: 66-46-5615bdhmteccxtMflgo Kuns DO Work Phone: [facility] Work Phone: Start: 07-17-2025 End: 44-24-4672Bwlihcd encounter procedureSabrina Meek DO-[facility] [place] Work Phone: Start: 07-07-2025 End: 77-06-5319Ibwtjhh encounter procedureSabrina Meek DO-Lab [place] Work Phone: Start: 07-07-2025 End: 26-73-5989mmahknapfgPksrk Kunlaila DO Work Phone: [facility] Work Phone: Start: 06-10-2025 End: 20-00-1740Weyvhr flowsheetSteven A Rusher DPM Work Phone: [facility]Start: 06-10-2025 End: 73-90-1084Hrxqqm flowsheetSteven A Rusher DPM Work Phone: [facility]ryStart: 06-10-2025 End: 23-51-9918jdmnbyrszwFJKGPZ A RUSHERNot AvailableStart: 06-10-2025 End: 80-33-1498Tzvohm follow up visit related to original pxSteven A Rusher DPM Work Phone: [facility]t PodiatryComment on above:Fracture of base of fifth metatarsal bone of left foot with routine healing, subsequent encounter (Primary Dx); Pain and swelling of toe of left foot; Difficulty walkingStart: 05-16-2025 End: 67-64-6900Mosixl flowsheetSteven A Rusher DPM Work Phone: noPR [facility] PodiatryStart: 05-16-2025 End: 61-37-6569Fmxmoc flowsheetSteven A Rusher DPM Work Phone: noPR [facility] PodiatryStart: 05-16-2025 End: 14-10-9610[place] outpatient new 30 minutesSteven A Maria Esther DPM Work Phone: [facility] PodiatryComment on above:Closed fracture of base of fifth metatarsal bone of left foot, initial encounter (Primary Dx); Pain and swelling of toe of left foot; Difficulty walkingStart: 05-16-2025 End: 74-65-6038lzdzsbffxuIMIUZA A RUSHERNot AvailableStart: 05-12-2025 End: 77-32-8512fkyyckbiemYsscp Kuns DO Work Phone: [facility] Work Phone: Start: 05-12-2025 End: 63-10-0821Eopircl encounter procedureNelida Cuellar APRN-[facility] Work Phone: Start: 04-10-2025 End: 01-34-9418dgxfzmlcdoAhxwf Kuns DO Work Phone: [facility] Work Phone: Start: 04-10-2025 End: 81-83-7160Rceivznmet RecurringGaetano Watson MD-[facility] [place] Work Phone: start: 02-11-2025 End: 30-51-7707vwxkfeznbpNrggq Kuns DO Work Phone: [facility] Work Phone: Start: 02-11-2025 End: 91-16-0217Mejhwxm encounter procedureBrett Kuns DO Work Phone: [facility] [place] Work Phone: Start: 02-10-2025 End: 49-84-8845Svmrxcw encounter procedureBrett Kuns DO Work Phone: [facility] [address] Work Phone: Start: 02-10-2025 End: 88-16-7083tvlfncejnkUctky Kuns DO Work Phone: [facility] Work Phone: Start: 01-23-2025 End: 35-56-3123Minowlwue encounterSammantjocelyne Maldonado PTNOMS CI PTComment on above:PT Initial Eval; FU w/ statusStart: 01-23-2025 End: 56-41-0082rjweinoovgMqcqq Kuns DO Work Phone: [facility] Work Phone: Start: 01-23-2025 End: 71-96-3191Ydkpibf encounter procedureBrechaparrita Sys DO Work Phone: [facility] Work Phone: start: 01-20-2025 End: 10-77-7296Vbkiidf encounter procedureBrechaparrita Sys DO Work Phone: [facility] [address] Cl[facility] Work Phone: Start: 01-20-2025 End: 28-90-7336aobrzdmnmjIlfih Kuns DO Work Phone: [facility] Work Phone: Start: 01-07-2025 End: 87-96-0830idofupkfizZfrmn Kuns DO Work Phone: [facility] Work Phone: Start: 01-07-2025 End: 57-59-0627Ahvtomh encounter procedureBrett Yossis DO Work Phone: [facility] Work Phone: Start: 01-04-2025 End: 72-17-0573Vwnaynf encounter procedureBrett Kuns DO Work Phone: [facility] [place] Work Phone: Start: 01-04-2025 End: 24-12-4006odxfikqwbfCwzjy Kuns DO Work Phone: [facility] Work Phone: Start: 12-68-9156Vdq-patient / Non-visitSabrina Meek DO Work Phone: [facility] Professional [facility] Work Phone: Start: 10-07-2024 End: 75-61-8863Zahgct follow up visit related to original pxFredric H Itzkowitz DO Work Phone: [facility] ST GENSComment on above:Family history of colon cancer (Primary Dx)Start: 09-25-2024 End: 22-70-7335Fkmbba flowsheetFredric H Itzkowitz DO Work Phone: [facility] GENSStart: 09-25-2024 End: 06-88-3421Vhnbwp flowsheetFredric H Itzkowitz DO Work Phone: [facility]oms ST GENSStart: 09-25-2024 End: 77-98-2625dnjndmnyhpDIEUNUO H ITZKOWITZNot AvailableStart: 08-23-2024 End: 31-50-5392aunphkacrtGBIMAEV H ITZKOWITZNot AvailableStart: 08-23-2024 End: 85-56-2540Ycwraz outpatient visit 15 minutesFredric H Itzkowitz DO Work Phone: [facility] ST GENSComment on above:Family history of colon cancer (Primary Dx)Start: 07-11-2024 End: 00-51-1421Mhyvbg outpatient visit 15 Wilmer Johnston MD Work Phone: [facility] on above:Premature ventricular contraction on electrocardiography (Primary Dx); Mixed hyperlipidemia; Essential hypertension, benign; Abnormal EKG; Former smoker; BMI 29.0-29.9,adult; Hyperlipidemia, unspecified hyperlipidemia typeStart: 07-11-2024 End: 63-72-7973tdljqmjpkqXHATEVF [facility] AmbulatoryStart: 66-04-1783Pupuhhw encounter statusDO Sabrinachaparrita Meek Work Phone: [facility]: 07-10-2024 End: 90-44-4024qwnnfjfsjoVU Sabrina Fantasma Work Phone: [facility] Work Phone: Start: 07-10-2024 End: 50-58-4322Bbohcswze for general adult medical examination without abnormal findingsDO Sabrina Meek Work Phone: [facility] Rehabilitationtart: 07-10-2024 End: 51-46-7235Mvhhdky encounter procedureDO Sabrina Meek Work Phone: [facility] [place] Work Phone: Start: 06-28-2024 End: 50-16-8353mzymwhwjkeGG Brett Kuns Work Phone: [facility] Work Phone: Start: 06-28-2024 End: 48-87-9776Aulycjh encounter procedureDO Sabrina Meek Work Phone: [facility] [place] Work Phone: Start: 03-18-2024 End: 16-67-1909Isljypppjr hospital visit by [facility] 1 [facility] HospitalComment on above:Premature ventricular contraction on electrocardiographyStart: 03-18-2024 End: 40-50-3886zpjqkkwqsbFWRDRWCSumma Healthtart: 02-07-2024 End: 69-06-8721ilzmewtlrpBT Brett Kuns Work Phone: [facility] Work Phone: Start: 02-07-2024 End: 16-45-1063Dgpmzzd encounter procedureDO Sabrina Meek Work Phone: [facility] [place] Work Phone: Start: 01-02-2024 End: 31-90-8388tbveuiuurkAM Sabrina Meek Work Phone: [facility] Work Phone: Start: 01-02-2024 End: 64-36-7244Dwtmzfd encounter procedureDO Sabrina Meek Work Phone: [facility] [place] Work Phone: Start: 59-12-3373Mcy-patient / Non-visitDO Sabrina Meek Work Phone: [facility] Professional [facility] Work Phone: Start: 11-30-2023 End: 79-59-6201bwaukuhwrmUO Sabrina Sys Work Phone: [facility] Work Phone: Start: 11-30-2023 End: 78-16-6971Ajewruh encounter procedureDO Sabrina Meek Work Phone: [facility] Work Phone: Start: 11-21-2023(Procedure) [facility] Medical OutPtStart: 11-21-2023 End: 26-23-8741Saeujzgmm to same day surgery centerDO Sabrina Meek Work Phone: [facility] Work Phone: Start: 11-21-2023 End: 08-05-8131xynfkspqgaBV Sabrina Kuns Work Phone: [facility] Work Phone: Start: 11-20-2023 End: 20-67-4450ixrqstwavkLU Sabrina Kuns Work Phone: [facility] Work Phone: Start: 11-20-2023 End: 45-73-1366Nmxjmnq encounter procedureDO Sabrina Meek Work Phone: [facility] [place] Work Phone: Start: 11-17-2023 End: 31-62-8733kihtxggbjdVktlt Kuns Other [employer] Other Start: 62-48-1584Rnmnsnnqe encounterBrechaparrita Morelos [facility] [place]Start: 11-08-2023 End: 59-09-9416rnzmggtjqbKoncii Felter Other [facility] [employer] Other Start: 56-55-0430Cizsaq outpatient new 45 minutes Mehul SolanoFPEl Pain Management Bone CreekStart: 11-08-2023 End: 84-65-5672Djprzpf encounter procedureDO Sabrina Meek Work Phone: [employer] [facility]-Start: 11-01-2023 End: 56-43-5236lslxibkrnjGgqqf Kuns Other [employer] Other Start: 30-48-2117Jgfefiham encounterBrechaparrita SylailaJESSIE Family Medicine [place]Start: 10-26-2023 End: 08-05-2206dvhbjcnqvvJxpvjb Vasyl II Other [facility] [employer] Other Start: 48-17-6022Ztapup outpatient visit 15 minutes Ascencion Fallon IIFPEl [facility] OrthopedicsStart: 10-26-2023 End: 79-04-3462Ahluxvh encounter procedureDO Sabrina Meek Work Phone: [employer] [facility] Work Phone: Start: 10-02-2023 End: 65-41-5474iatzhakqlmHgryljiv [place] Other [facility] [employer] Other Start: 57-72-3186Uzqdcyomj encounterEmytello Mark [facility] OrthopedicsStart: 09-25-2023 End: 76-75-7358ydyizhaxvcWzwmo Kuns Other [employer] Other Start: 09-00-3513Ldhdfyatu encounterBrechaparrita SylailaG Family Medicine [place]Start: 09-19-2023 End: 75-65-7101ufmwbrgnbeUxnqe Kuns Other [facility] [employer] Other Start: 15-73-7579Ialbcxadn encounterBrett YossisOR[facility] VALLEY [facility] Family Medicine [place]Start: 09-11-2023 End: 88-97-6122pgjhydiaouTquzcs Chadwick II Other [facility] [employer] Other Start: 66-84-1802Zgzlyxkei encounterRobert Chadwick II [facility] Family Medicine [place]yStart: 09-06-2023 End: 17-08-2549wkihcffwxfYkyqlcr Toney Other [facility] [employer] Other Start: 49-60-5380Cacbol consultation new/estab patient 40 minMatthew WidmerOR[facility] VALLEY [facility] Family Medicine [place]Start: 09-06-2023 End: 60-39-0656Dllqbuf encounter procedureDO Sabrina Meek Work Phone: [facility] Family [facility] Work Phone: Start: 71-45-0090Kaqzro outpatient visit 25 minutes Ascencion Fallon II[facility] OrthopedicsStart: 52-66-9434Zjyglrysz encounter Marcella FloresOR[facility] [place] OrthopedicsStart: 08-31-2023 End: 62-41-4665gqotweplmoIN Brett Kuns Work Phone: [employer] Other Start: 08-31-2023 End: 94-00-9887Bphbajj encounter procedureDO Sabrina Meek Work Phone: [facility] Start: 08-31-2023 End: 50-98-3644Smtoyaw encounter procedureDO Sabrinachaparrita Sys Work Phone: [facility] Work Phone: Start: 22-56-7131Ilpwnt outpatient visit 15 minutes Sabrina R Fantasma Work Phone: [phone]-Gojfk [facility] 250 DO Work Phone: Start: 55-94-1993feaihdbsqnXnqtfan Traboulnidhii Facility:[id number]: 07-05-2023 End: 25-10-1091hxnylqohabRwdjn Kuns Other [employer] Other Start: 00-85-8464Qxzqjtcfw for general adult medical examination without abnormal findingsBrechaparrita MeekEl [facility] [place] Start: 76-75-9292Tcnzkbh encounter statusBrechaparrita Meek Other [employer] Other Start: 29-93-2066Xyqfooea preventive med est patient 65yrs& olderBrechaparrita MeekEl [facility] [place]Start: 06-14-2023 End: 60-44-9066hrgczvjyqsBoxsq Kuns Other [employer] Other Start: 87-61-3259Vzpmgnxbz encounterBrechaparrita MeekEl Family Medicine [place]Start: 06-12-2023 End: 57-41-9146tuxcijqrzoCzxkw Kuns Other [employer] Other Start: 21-84-1287Qtohfmxxn encounterBrechaparrita MeekORO [facility]LEY [facility] Family Medicine [place]Start: 05-31-2023 End: 84-71-7665bovdsowqulAebyd Kuns Other [employer] Other Start: 73-45-6211Obgfyr outpatient visit 25 minutes Sabrina Morelos [facility] [place]Start: 05-24-2023 End: 91-44-3251qaadtvocoqBX Sabrina Meek Work Phone: [facility] Work Phone: Start: 05-24-2023 End: 30-27-4796Zyfzuof encounter procedureDO Sabrina Meek Work Phone: [facility] [place] Work Phone: Start: 05-16-2023 End: 78-47-7852kwtiwiudxwAzoaz Kuns Other [facility] [employer] Other Start: 91-87-1809Orggovvci encounterBrechaparrita Morelos [facility] [place]Start: 05-15-2023 End: 56-44-7130uixwpteghiBzfqk Kuns Other [facility] [employer] Other Start: 35-66-3540Dglxpsqrg encounterBrett Tamy [facility] [place]Start: 04-10-2023 End: 17-97-8708mfxhpvjgfhIxgsv Kuns Other [facility] [employer] Other Start: 28-69-2466Vwhgakavp encounterBrett KhadarG Family Medicine [place]Start: 03-22-2023 End: 35-01-8930msglniukxpWukeqxbs [place] Other [facility] [employer] Other Start: 94-27-3254Uwoindhoo encounterMarcella Morales OrthopedicsStart: 03-02-2023 End: 94-43-9380Xtjzmus encounter procedureDO Sabrina Meek Work Phone: [facility]burgtart: 02-23-2023 End: 10-42-9441Vbjeyue encounter procedureDO Sabrina Meek Work Phone: [facility] [place] [facility] Start: 02-23-2023 End: 98-63-7171bwkjoqlrzlHK Sabrina Meek Work Phone: [facility] Work Phone: Start: 02-16-6577Mejrgt outpatient visit 25 minutes Ascencion Fallon [facility] OrthopedicsStart: 02-09-2023 End: 55-81-4970vtesodggecTmzmi Kuns Other [facility] [employer] Other Start: 22-76-8327Hkhoqajop for general adult medical examination without abnormal findingsSabrina MeekEl [facility] [place] Start: 99-09-6217Dynxxamud encounterBrechaparrita Morelos [facility] [place]Start: 12-05-2022 End: 29-91-2380jadaitgguaDngfc Kuns Other [facility] [employer] Other Start: 65-37-3349Mctqdyxwn encounterSabrina Morelos [facility] [place]Start: 11-30-2022 End: 13-73-6943jwabnahpiuMdsyu Kuns Other [facility] [employer] Other Start: 45-36-6769Oyqqikzio encounterBrechaparrita MeekORO VALLEY [facility] Family Medicine [place]Start: 64-68-0745Fmccz UpdateBrechaparrita Meek Work Phone: [phone]-DgxvbMurray County Medical Center-[place] 250 DO Work Phone: Start: 10-31-2022 End: 31-67-9519hxrbuavypvZU Sabrina Meek Work Phone: [facility] Work Phone: Start: 10-31-2022 End: 30-87-8631Oltjgfn encounter procedureDO Sabrina Meek Work Phone: [facility] [place] Work Phone: Start: 08-29-2022 End: 39-40-6994Xcygziie ReferredDO Sabrina Meek Work Phone: [facility] [place] Work Phone: Start: 07-25-2022 End: 00-92-3743hrxzmkcpacST SABRINA MEEKFacility:R5Yqzua: 07-05-2022 End: 85-94-0005mxhrdmzoctPrcqo Kuns Other [employer] Other Start: 12-13-9655Gxxqeptma encounterBrechaparrita Morelos [facility] [place]Start: 07-05-2022 End: 18-67-6676Qenlzia encounter procedureDO Sabrina Meek Work Phone: [facility] [place] Start: 19-95-1117Yevyst outpatient visit 15 minutesBrechaparrita Meek Work Phone: [phone]-Ookzg [facility] 250 DO Work Phone: Start: 06-28-2022 End: 52-91-8438Ofatgoh encounter procedureDO Sabrina Meek Work Phone: [facility]-Lab [place]Start: 06-23-2022 End: 80-05-0311yndfrogthkLosgz Kuns Other [employer] Other Start: 23-08-1557Stztnejkw encounterBrechaparrita Morelos [facility] [place]Start: 06-22-2022 End: 67-07-9415yuuirmbnjkHhdor Kuns Other [employer] Other Start: 43-84-9533Lmoqam outpatient visit 25 minutes Sabrina MeekFPG Family [facility] [place]Start: 06-09-2022 End: 83-12-7248wzykgaqkjlUtyzm Kuns Other [employer] Other Start: 94-99-6244Fzlgzdwke encounterBrett KunsFPG Family Medicine [place]Start: 05-14-2022 End: 64-03-1857rfpgbwebsnNvcbq Terrance Other [place] [employer] Other Start: 69-82-5844Aqfovo outpatient visit 15 minutes Sarahi CarlosFPEl Urgent Care ClydeStart: 05-06-2022 End: 84-69-1470mzufunyfstFiasj Yossis Other [facility] [employer] Other Start: 44-96-4515Ltwobumor for general adult medical examination without abnormal findingsBrechaparrita SysFPG [facility] [place] Start: 21-63-0841Xwipsqxzy encounterBrett KunsFPG [facility] [place]Start: 05-02-2022 End: 33-09-1482wamydrxhlcDsktn Yossis Other [employer] Other Start: 73-23-7342Osncmorzm encounterBrett KunsFPG [facility] [place]Start: 04-01-2022 End: 74-08-6949lgrulvvgmkGoqvvm Chadwick II Other nort [employer] Other Start: 23-58-5327Trmlkw outpatient visit 15 minutes Ascencion Fallon IIFPG [facility] OrthopedicsStart: 03-31-2022 End: 73-59-5765psblfzfwfwJxjjk Yossis Other [employer] Other Start: 45-42-9032Seohykpde for general adult medical examination without abnormal findingsCopper Springs Hospitalchaparrita MeekOR[facility] [place] Start: 71-94-5530Ocijwjye preventive med est patient 65yrs& olderBrechaparrita SylailaG Family [facility] [place]Start: 02-14-2022 End: 33-11-1479yctbrgyavsLokql Kuns Other [employer] Other Start: 33-33-1426Roydfuule encounterBrett YossilailaORO VALLEY HOSPITAL Family Medicine [place]Start: 01-03-2022 End: 41-74-1307wsnkzwxqjmYhclko Chadwick II Other [employer] Other Start: 16-08-2717Vifdufrdf encounterRobert Chadwick II [facility] [place] OrthopedicsStart: 12-31-2021 End: 10-44-2556wwgvewkyslSnkwaa Chadwick II Other [employer] Other Start: 10-95-5145Cmocgk outpatient visit 25 minutes Ascencion Chadwick IIFP [place] OrthopedicsStart: 12-28-2021 End: 50-02-8103irgmitpyinIrxea Kuns Other [employer] Other Start: 65-25-5749Chedrw outpatient visit 15 minutes [facility]rina [facility]ekOR[facility] [place]Start: 12-01-2021 End: 67-82-4149jmkdifvncxFrlnx Kuns Other [employer] Other Start: 87-53-6256Uvhwwzcad for general adult medical examination without abnormal findingsSabrina MeekG [facility] [place] Start: 65-77-0975Qoovfncdp encounterBrechaparrita SylailaG [facility] [place]Start: 11-24-2021 End: 77-49-6715hkpjyndsttGumec Kuns Other [employer] Other Start: 77-75-9517Jplmqqrnr encounterBrett KhadarG [facility] [place]Start: 11-12-2021 End: 75-47-1683lhbaxfeqicHthyc Kuns Other [employer] Other Start: 90-38-9817Kzbecywkk encounterBrett KhadarG Vascular SurgeryStart: 11-05-2021 End: 96-05-5496afftujteysRhztc Yossis Other [employer] Other Start: 62-30-9759Wxeryzzfl for general adult medical examination without abnormal findingsBrechaparrita RubalcavaG [facility] [place] Start: 04-18-0097Hxerygoec encounterBrett KhadarG [facility] [place]Start: 09-27-2021 End: 44-31-1931blsofkucklNmohm Kuns Other [employer] Other Start: 69-68-6726Eizymznle encounterBrett KhadarG [facility] [place]Start: 09-24-2021 End: 36-03-2001upsbofklbxKxwkwf Chadwick II Other [employer] Other Start: 28-49-9882Rbmqaf outpatient new 45 minutes Ascencion Chadwick IIFPG [place] OrthopedicsStart: 09-22-2021 End: 87-27-8428hrxtzeiojkDvohn Kuns Other [employer] Other Start: 32-19-0939Ezundcojz encounterBrett YossilailaFPG [facility] [place]Start: 09-16-2021 End: 95-89-2257tbdnqjqpcdQnjvt Kuns Other [employer] Other Start: 27-95-8075Xuqnaqeys encounterSabrina MeekG [facility] Cast[place]Start: 08-31-2021 End: 08-26-5452ripjqvepbsPWAUVC ELI MERYFacility:U8Nxzsm: 29-50-0828Muctqt outpatient visit 15 minutesBrechaparrita MeekG [facility] Cast[place]Start: 12-18-2018 End: 36-00-7656Mksxfzg encounter procedureSUSAN MAEGAN [facility] HospitalStart: 02-20-2018 End: 40-56-8961Syzggdy encounter procedureSUSAN [facility] Procedures DateProcedureProcedure DetailPerforming ClinicianStart: 42-29-3906Xhybq foot complete minimum 3 viewsStwil Mayo DPM Work Phone: Start: 71-18-7019Kauej foot complete minimum 3 views Jose Alejandro Mayo DPM Work Phone: Start: 35-87-2549R-ray of left footBrett Kuns DO Work Phone: Start: 40-83-7469WA cervical spine without contrast Sabrina Kuns DO Work Phone: Start: 68-58-5751ELP of cervical spine without contrastBrett Kuns DO Work Phone: Start: 07-00-7558P-ray of cervical spineBrett Kuns DO Work Phone: Start: 45-74-6379PiievbigxtbOqyonxe Itzkowitz DO Work Phone: Start: 10-36-2472Aon routine ecg w/least 12 lds w/i&r Teddy Johnston MD Work Phone: Start: 27-63-3714Jz strs tst xers&/or rx cont ecg trcg Juve Johnston MD Work Phone: Start: 76-71-8379Efqyxfpeh of local anesthetic into sacroiliac jointDO Sabrinachaparrita Sys Work Phone: Start: 51-67-4497Lzhli X-ray of right femurDO Sabrinachaparrita Meek Work Phone: Start: 49-01-0000Lkgdz X-ray of right hipDO Sabrinachaparrita Sys Work Phone: Start: 90-25-4926Lqgf energy X-ray absorptiometryDO Sabrina Meek Work Phone: Start: 87-92-4834Acmhy X-ray of right hipDO Sabrinachaparrita Meek Work Phone: Start: 65-23-9378RX of head without contrastDO Sabrina Meek Work Phone: Start: 69-13-4616NbkwplsmcpnMsu 1Start: 12-18-2018 Level iv surg pathology gross&microscopic examSUSAN SMITHStart: 02-20-2018 Cytopathology procedure, preparation of smear, genital sourceSUSAN SMITHStart: 24-58-9558OZYHJJG CULTURESUSAN SMITHArthroplasty of kneeBrett R Kuns Work Phone: H/O: artificial jointBrett Kuns Other HysterectomyBrett R Kuns Work Phone: Operative procedure on hipBrett R Kuns Work Phone: Operative procedure on kneeBrett R Kuns Work Phone: Repair of shoulderBrett R Kuns Work Phone: Total colonoscopyBrett R Kuns Work Phone: Plan of Treatment DateCare ActivityDetailAuthorStart: 86-73-7155Nuvpmdyji for malignant neoplasm of colonNOMS HealthcareStart: 61-98-9792Zprmtgivz for malignant neoplasm of colonAdena Pike Medical CenterStart: 07-22-2025 End: 59-80-4294Mearkya encounter qxyeykhoc04/07/2025 9:15 AM EDT Office Visit [facility] [address] [place] [address] Jose Alejandro Mayo DPPolo [address] [place] [address] [facility]ryStart: 07-10-2025 End: 19-48-8342Skvxmyb encounter ayklswfcn69/25/2025 1:30 PM EDT Office Visit [place] [id number] [facility] [address] [place] [id number] Teddy Johnston MD [address] [facility] [address] [place] [address] [facility]Start: 10-66-6660Wzcrthhoe vaccinationInfluenza Vaccine (#1)[facility] HealthcareStart: 06-10-2025 End: 48-17-6449Pqvybnj encounter soipmgfxn98/26/2025 8:45 AM EDT Office Visit [facility] [address] [place] [address] Jose Alejandro Mayo DPM [address] [place] [address] [facility]ryStart: 05-16-2025 End: 67-43-6604Hznkhjt encounter aufrzzwqw53/01/2025 11:00 AM EDT Office Visit [facility] [address] [place] [address] Jose Alejandro Mayo DPM [address] [address] ArrivedURBAN [facility] PodiatryComment on above:ArrivedStart: 05-12-2025 [facility] Work Phone: Start: 17-40-3384Ewxzglj [facility] Work Phone: Start: 63-41-8657Khwwmfo referralFairfield Medical Center Work Phone: Start: 07-11-2024 End: 99-12-4659Xrjlmzj encounter idompdbda41/26/2024 1:00 PM EDT Office Visit [facility] [address] [place] [address] Teddy Johnston MD [address] [place] [address] [facility]osaStart: 71-34-1816MobahkcnfCleveland Clinic Children's Hospital for Rehabilitationtart: 63-57-8629CZIVL-19 Vaccine ( season)COVID-19 Vaccine ( season)[facility]: 76-80-8502MknefxtblCleveland Clinic [facility] Hospital for Rehabilitationtart: 11-39-6073JIV, Provider: Teddy Johnston, Status: Pen, Time: 1:30 PMFUV, Provider: Teddy Johnston, Status: Pen, Time: 1:30 PM-[facility] 250 DO Work Phone: Start: 13-54-2141Sdbbdag ultrasonography of bilateral carotid arteriesUS carotid doppler [facility] Troytart: 89-98-2554UWsZ/Tdap/Td Vaccines (2 - Td or Tdap)DTaP/Tdap/Td Vaccines (2 - Td or Tdap)[facility]: 40-13-8012Zbnuzflnt for malignant neoplasm of breastMammogramUnMcKitrick Hospital: 1973 Diabetes mellitus screeningDiabetes ScreeningAdena [facility]ike Medical [facility] Start: 02-53-2827Ctkgydcyg C screeningHepatitis C ScreeningOhioHealth Mansfield Hospital: 72-56-2897Jshnl panelLipid PanelOhioHealth Mansfield Hospital: 46-97-6866Xjaxfbdil for malignant neoplasm of colonUnMcKitrick Hospital: 47-63-3350Yowjgjbzo for osteoporosisBone Density ScanCrystal Clinic Orthopedic Centerart: 90-15-3005Jmkcwi Adult Physical Yearly Adult PhysicalUnLancaster Municipal HospitalComprehensive metabolic 2000 panel - Serum or PlasmaFirelands Regional Medical CenterComprehensive metabolic 1999 panel - Serum or [facility] CenterCT Cervical spine WO [facility] Dehydroepiandrosterone sulfate levelSt. Rita'S HospitalEstradiol (E2) [Mass/volume] in Serum or PlasmaSt. Rita'S HospitalEstrone (E1) [Mass/volume] in Serum or [facility]rium Medical CenterEstrone (E1) [Mass/volume] in Serum or [facility] Medical CenterGlucose measurement estimated from glycated hemoglobinSt. Rita'S Hospital Hemoglobin A1c/Hemoglobin.total in [facility] Ironton CampusMG Breast - bilateral ScreeningSt. Rita'S HospitalMR Cervical spine WO [facility] HospitalPatient EducationFelter Non Diagnostic BlockMemorial Hospital Ctr Work Phone: Patient referralMemorial Hospital Ctr Work Phone: Progesterone [Mass/volume] in Serum or [facility] Medical CenterTestosterone Free [Mass/volume] in Serum or Plasma St. Rita'S HospitalTestosterone Free [Mass/volume] in Serum or [facility] Atrium Medical CenterXR Foot - left GE 3 ViewsMoundview Memorial Hospital and Clinics Immunizations Immunization DateImmunizationNotesCare NrvbjbmtEgbvgten26-28-9195YZPON-91 (PFIZER) 12Y and olderSabrina Meek DO Work Phone: [facility]09-20-2025influenza, high dose seasonal, preservative-freeSabrina Meek DO Work Phone: [facility]01-31-2025tetanus toxoid, reduced diphtheria toxoid, and acellular pertussis vaccine, adsorbed Sabrinachaparrita Meek DO Work Phone: [facility]08-30-2024COVID-19 (PFIZER) 12Y and olderDO Sabrina Meek Work Phone: [facility]08-30-2024COVID-19 Comirnaty (Pfizer) Tri-Sucrose 12+DO Sabrina Meek Work Phone: [facility]08-30-2024influenza, high dose seasonal, preservative-freeDO Sabrina Meek Work Phone: [facility]08-30-2024Seasonal trivalent influenza vaccine, adjuvanted, preservative RoselynO Sabrina Meek Work Phone: [facility]08-30-2024influenza virus vaccine, unspecified formulationSteven [facility] Work Phone: [facility] HospitalCaevqislgt28-80-9589Ifnrjz-Crb documentation purposes onlyMehul Solano Other [facility]01-18-2024Prevnar Maris Solano Other [facility]12-27-2023COVID-19 Vaccine Pfizer - Documentation Purposes OnlyRobert Chadwick II Other [facility]12-27-2023Flu Shot - Documentation Purposes OnlyRobert Vasyl II Other [facility]11-03-2022COVID-19 Pfizer (bivalent)Sabrina Meek Other [facility]11-03-2022Fluzone High-Dose Quadrivalent 0.7 ML Intramuscular Suspension Prefilled SyringeSabrina Meek Work Phone: [phone]-Jqbof [facility] 250 DO Work Phone: [phone]s 30 MCG/0.3ML Intramuscular SuspensionSabrina Meek Work Phone: [facility]05-03-2022COVID-[address] [facility]11-16-2021COVID-19 Vaccine Pfizer - Documentation Purposes OnlySabrina Meek Other [facility]09-15-2021influenza, injectable, quadrivalent, contains preservativeBrett Kuns Other [employer] Other [id number], injectable, quadrivalent, preservative freeDO Sabrina Kuns Work Phone: [facility]03-08-2021COVID-19 Vaccine Talia - Documentation Purposes OnlyBrett Kuns Other [facility]10-14-2020influenza, seasonal, injectableBrett R Kuns Work Phone: [facility]09-25-2020zoster vaccine recombinantBrett Kuns Other [facility]08-26-2020influenza, seasonal, injectableBrett Kuns Other [facility]07-23-2020zoster vaccine recombinantBrett Kuns Other [facility]05-31-2020Kenalog -40 mgBrett Kuns Other [employer] Other [id number], injectable, quadrivalent, preservative freeDO Sabrina Kuns Work Phone: [facility]09-16-2019influenza, injectable, quadrivalent, contains preservativeBrett Kuns Other [employer] Other [id number] virus vaccine, unspecified formulationEly [address] [place] [address] Work Phone: [phone]) 176-451510220324-31-5058vabpcmqmg, seasonal, injectableBrett R Kuns Work Phone: [facility]09-04-2018influenza, injectable, quadrivalent, preservative freeDO Sabrina Kuns Work Phone: [facility]09-04-2018influenza, injectable, quadrivalent, contains preservativeBrett Kunlaila Other [facility] [employer] Other [id number] - 10 mgBrechaparrita Kunlaila Other [employer] Other [id number], injectable, quadrivalent, preservative freeBrett R Fantasma Work Phone: [facility]10-26-2015influenza, injectable, quadrivalent, contains preservativeAbriltt Kunlaila Other [employer] Other [id number] vaccine, liveSabrina Meek Other [facility]02-23-2015 pneumococcal polysaccharide vaccine, [address] [facility]05-12-2014Toradol per 15 mgSabrina Meek Other [employer] Other [id number] virus vaccine, split virus (incl. purified surface antigen)Sabrina Meek Other [employer] Other [id number] virus vaccine, unspecified formulationDO Sabrinachaparrita Meek Work Phone: [facility]09-26-2013KENALOG - 10 mgBrett Kunlaila Other [employer] Other [id number] vaccine, liveBrett Kuns Other [facility]11-08-2011tetanus and diphtheria toxoids, adsorbed, preservative free, for adult use (5 Lf of tetanus toxoid and 2 Lf of diphtheria toxoid)DO Sabrina Meek Work Phone: [facility]11-08-2011tetanus toxoid, reduced diphtheria toxoid, and acellular pertussis vaccine, adsorbed Sabrina Meek Other [facility] [employer] Other 03-24-2003TD(adult) unspecified formulationSabrina Meek Work Phone: [phone]-MheaqLakewood [facility] 250 DO Work Phone: [phone](adult) unspecified formulationSabrina Meek Work Phone: [phone]-DflcySauk Centre Hospital 250 DO Work Phone: Payers DatePayer CategoryPayerPolicy [id number] Health Insurance [id number] Health Insurance [id number] [id number] [id number] 1960Medicare [id number] [id number] 2.16.840.1.410858.[id number] 2.16.840.1.863550.3.57[id number] 2.16.840.1.184265.3.57[id number] 2.16.840.1.998445.3.57[id number] 2.16.840.1.025669.3.57[id number] 2.16.840.1.097162.3.57[id number] 2.16.840.1.378025.3.57[id number] 2.16.840.1.268741.3.57[id number] 2.16.840.1.572565.3.57[id number] 2.16.840.1.541794.3.57[id number] 2.16.840.1.595604.3.57[id number] 2.16.840.1.713852.3.57[id number] 2.16.840.1.096190.3.[id number] 2.840.1.951695.3.579.2.593 Social History DateTypeDetailFacilityUnknown if ever smokedWixom [employer] Other Start: 01-05-2024 End: 72-49-5840Xmm Assigned At [facility] [employer] Other Start: 11-06-2020 End: 00-35-8653Ulykipe smoking status NHISEx-smoker (findingACMC Healthcare Systemtart: 03-21-0477Xiv [facility]: 01-05-2024 End: 37-36-9981Flruuss useAlcohol useMP-[facility] 250 DO Work Phone: History of tobacco useCurrent smokerUnLancaster Municipal Hospital Work Phone: History of tobacco useCigarette SmokerUnLancaster Municipal Hospital Work Phone: Start: 01-05-2024 End: 68-29-6157Cghszetcu beverage intakeCurrent drinker of alcohol (finding) [facility] Work Phone: Start: 33-16-7258Zva assigned at birthNot on file [facility] Work Phone: Start: 03-08-2024 End: 52-92-3154Zffrglix to SARS-CoV-2 (event)Not sureUnLancaster Municipal HospitalStart: 72-90-3996Difslcx smoking status NHISNever smoked tobaccoBEAR RIVER VALLEY [facility] HealthcareStart: 03-27-2023 End: 30-87-2168Hwhpbol use and exposureSmokeless tobacco non-userUnLancaster Municipal Hospital Work Phone: Start: 81-05-5291Gxcxueozi31NQCL HealthcareStart: 84-29-9275Rsyrvzg Commentcaffeine: 2-4 cups per day, coffee/teaNOMS Healthcare Start: 01-05-2025 End: 12-06-1711GcvPsealk (finding)[facility] Goals DatePatient GoalDesired Activity/State Clinical Notes 09-07-2012 to 07-22-2025 Note Date & MdvcSyqzYdkhnqdv93-31-0564 History of Present illness Narrative* Jose Alejandro Mayo DPM - 07/22/2025 9:15 AM EDT Images from the original note were not included. Subjective Patient ID: Sherice Pandey is a 70 y.o. female who presents for FUV fracture (: Sherice Pandey is a 69 y.o. female. Pt is here today for FUV fracture Left foot. Patient relates she transitioned into a Hoka tennis shoe 4 days ago, and returned to her aerobics class today. SS: 7). HPI Follow-up assessment and fracture care. 5th metatarsal base fracture left foot sustained on or about 05/11/2025. Patient has been symptom free, reporting no pain over the past 2 weeks. She has effectively transitioned to Aldana or Hoka footwear without difficulty.. Denies calf pain, swelling or dyspnea. Recently returned from trip to [place], noting no particular problems or difficulty. Medications Current Outpatient Medications: acetaminophen (Tylenol) 325 MG tablet, 1 tablet, Disp: , Rfl: amLODIPine (Norvasc) 5 MG tablet, Daily, Disp: , Rfl: cholecalciferol (Vitamin D-3) 1.25 MG (76581 UT) capsule, Take by mouth 1 (one) time per week, Disp: , Rfl: CVS Calcium 600 MG tablet, TAKE 2 TABLETS BY MOUTH TWICE A DAY WITH MEALS FOR 90 DAYS, Disp: , Rfl: ezetimibe (Zetia) 10 MG tablet, Take 10 mg by mouth Daily, Disp: , Rfl: magnesium 250 MG tablet, 1 (one) time each day at the same time, Disp: , Rfl: meloxicam (Mobic) 7.5 MG tablet, Take 7.5 mg by mouth in the morning and 7.5 mg before bedtime., Disp: , Rfl: Multiple Vitamin (Multi Vitamin) tablet, 1 (one) time each day at the same time, Disp: , Rfl: potassium chloride CR (K-Tab) 20 MEQ ER tablet, Take 20 mEq by mouth Daily, Disp: , Rfl: prasterone, DHEA, 10 MG tablet, 1 (one) time each day at the same time, Disp: , Rfl: simvastatin (Zocor) 20 MG tablet, Take 20 mg by mouth at bedtime, Disp: , Rfl: triamterene-hydrochlorothiazide (Maxzide-25) 37.5-25 MG tablet, 1 (one) time each day at the same time, Disp: , Rfl: Allergies Monascus purpureus went yeast, Amoxicillin, Black cohosh, Clavulanic acid, Homatropine, Hydrocodone, Lovastatin, Codeine, Iodinated contrast media, and Rosuvastatin Past Surgical History Past Surgical History: Procedure Laterality Date BACK SURGERY ruptured disc COLONOSCOPY N/A 2014 COLONOSCOPY 09/25/2024 EGD 06/29/2020 HYSTERECTOMY LIPOMA RESECTION 08/29/2022 excision abdominal wall TOTAL HIP ARTHROPLASTY Right TOTAL KNEE ARTHROPLASTY Bilateral TOTAL SHOULDER ARTHROPLASTY Right 2019 TOTAL SHOULDER ARTHROPLASTY Left 2020 Family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 ventricular contraction on electrocardiography 2. Mixed hyperlipidemia 3. Essential hypertension, benign 4. Abnormal EKG 5. Former smoker 6. BMI 29.0-29.9,adult Scribe Attestation By signing my name below, I, Radha das attest that this documentation has been prepared under the direction and in the presence of MD Peter. Provider Attestation - Scribe documentation All medical record entries made by the Scribe were at my direction and personally dictated by me. Ihave reviewed the chart and agree that the record accurately reflects my personal performance of the history, physical exam, discussion and plan. documented in this encounterAdena [facility] Work Phone: 1(889) 494-416109-26-2024 Instructions* Patient Instructions* Tori Ravi LPN - 07/11/2024 1:00 PM EDT Please bring all medicines, vitamins, and herbal supplements with you when you come to the office. Prescriptions will not be filled unless you are compliant with your follow up appointments or have a follow up appointment scheduled as per instruction of your physician. Refills should be requested at the time of your visit. Fall Prevention Education Given BMI was above normal measurement. Current weight: 70.1 kg (154 lb 9.6 oz) Weight change since last visit (-) denotes wt loss -1 lbs Weight loss needed to achieve BMI 25: 22.6 Lbs Weight loss needed to achieve BMI 30: -3.8 Lbs Provided instructions on dietary changes Provided instructions on exercise. One year documented in this encounterAdena [facility] Work Phone: 1(556) 823-207209-25-2024 Evaluation note* Author Geri Sykes [facility] HospitalAuthoredSeptember 2023 12:58pmThe above note written by ANA Alejandra acting as human recorder, note dictated by Dr. Sabrina Meek. [facility] Work Phone: 1(954) 256-667503-19-2024 Evaluation note* Author Michaellecarola Carter [facility] HospitalLuizhoredFlower Hospital 2023 11:06amThe above note written by Michaelle Carter LPN, acting as human recorder, note dictated by Dr. Sabrina Meek. [facility] Work Phone: 1(287) 656-982702-02-2024 Evaluation note* Encounter Date Diagnosis Assessment Notes Treatment Notes Treatment Clinical Notes Nov, Hormone imbalance (ICD-10 - E34. 9) [facility] Other 01-24-2024 Evaluation note* Encounter Date Diagnosis [...] with patient in regards to patients condition. Oct,Trochanteric bursitis (ICD-10 - M70.60)Patient is also voicing complaints of pain over the outide of the right hip. She shows notable tende rness over the right greater trochanter on exam. Based on location of pain and exam findings, patient is a candidate for a right trochanteric bursa injection. Risks and benefits of procedure explained to patient; patient verbalizes understanding. Oct,Other chronic pain (ICD-10 - G89.29) Oct,OtherAbove note written by Gurpreet Hughes MA, Home Organizer. Edited and approved by Dr. Mehul Solano MD.Medical decision making shows a new problem to me with further workup planned or suggested with thepotential for extensive treatment options that were considered with the most applicable given this patient's situation as noted above. Treatment options considered include a combination of physical therapy approaches, pharmacologic management, and interventional procedures. Those most applicable tothe patient were discussed at this time. Risk [...] negative findings were considered in medical decision-making. [facility] Other 01-17-2024 Evaluation note* Encounter Date Diagnosis Assessment Notes Treatment Notes Treatment Clinical Notes Oct, Hypertension (ICD-10 - I10) [facility] Other 01-11-2024 Evaluation note* Encounter Date Diagnosis Assessment Notes Treatment Notes Treatment Clinical Notes Oct, Mass of right thigh (ICD-10 - R2 2.41) Oct,Sacroiliitis (ICD-10 - M46.1) Oct,History of right hip replacement (ICD-10 - Z96.641) Oct,It band syndrome, right (ICD-10 - M76.31) Oct,OtherIn regards to the right total hip we again discussed the [...] progress if she is not getting relief. [facility] Other 12-18-2023 Evaluation note* Encounter Date Diagnosis Assessment Notes Treatment Notes Treatment Clinical Notes Sep, Osteopenia, unspecified location (ICD-10 - M85.80) [facility] Other 12-11-2023 Evaluation note* Encounter Date Diagnosis Assessment Notes Treatment Notes Treatment Clinical Notes Sep, Osteopenia (ICD-10 - M85.80) [facility] Other 11-22-2023 Evaluation note* Encounter Date Diagnosis [...] her pain and discomfort when she is physicallyactive. Aug,It band syndrome, right (ICD-10 - M76.31)Patient has significant tenderness over the IT band and this is most likely what is causing her sign ificant pain given the types of activities that she does with pickleball, aerobic activities, and walking. Patient was instructed to do aggressive stretching of the IT band and ice as well as use Voltaren gel over this location. She was given an exercise handout for this. If worsening or not improving other aggressive therapies could be trialed, but I recommend these options first. [facility] Other 11-16-2023 Evaluation note* Encounter Date Diagnosis Assessment Notes Treatment Notes Treatment Clinical Notes Aug, History of right hip replacement (ICD-10 - Z96.641) Aug,Mass of right thigh (ICD-10 - R22.41) Aug,OtherWe had a long discussion today again regarding [...] personally and speak with Dr. Ziegler in regardsto an ultrasound evaluation of the mass. We will have the patient see him for an ultrasound evaluation to look to see if this is a fluid- filled mass or a solitary mass and if [...] she has been evaluated by Dr. Ziegler. [facility] Other 09-20-2023 Evaluation note* Encounter Date Diagnosis Assessment Notes Treatment Notes Treatment Clinical Notes Jun, Wellness examination (ICD-10 - Z 00.00) Personalized health advice was given to the [...] as risk factors for other medical problems. Jun,Hyperlipidemia (ICD-10 - E78.5) Discussion was had the patient would benefit from a statin medication . The patient states she was on Simvastatin for twenty years then her kettle fry cook operator stopped it and changed to Crestor . Patient has since stopped this due to intolerance and continues Zetia twice a week. I recommend the patient discuss restarting Simvastatin with at her upcoming appointment next month. The patient voices understanding. Jun,Hematuria, unspecified type (ICD-10 - R31.9) Trace hematuria noted upon review of in house urinalysis. A normal CT of the abdomen was performed 06/19/2020. Jun,VCs (premature ventricular contractions) (ICD-10 - I49.3) In house EKG ordered and reviewed resulting in similar abnormal findings compared to last year. Dysrhythmia is noted upon auscultation. I did provide the patient with a copy of her EKG and lab results and recommend she show these to her kettle fry cook operator at her upcoming visit. A copy was also sent from the office. [facility] Other 08-30-2023 Evaluation note* Encounter Date Diagnosis Assessment Notes Treatment Notes Treatment Clinical Notes May, Hypertension (ICD-10 - I10) [facility] Other 08-16-2023 Evaluation note* Encounter Date Diagnosis Assessment Notes Treatment Notes Treatment Clinical Notes May, Hyperlipidemia (ICD-10 - E78.5) Blood work reviewed with the patient. Total cholesterol increased from 196 to now 232, LDL increased as well from 92 to 129. I advised though that her HDL being as high as it is helps as her ratio isstill only 2.8. She is to continue with zetia and may discontinue the crestor due to intolerance. Patient voiced understanding and agreed. May,Vaginal dryness (ICD-10 - N89.8) Patient has noticed vaginal dryness which is becoming bothersome. Hormone levels reviewed with the patient. She is to follow with Buderer as scheduled. May,Low libido (ICD-10 - R68.82) Encouraged patient to follow with Buderer as scheduled for hormone therapy. May,Left knee pain (ICD-10 - M25.562) Refill e-scribed. May,Osteopenia (ICD-10 - M85.80) Patient is to continue on the above regimen. May,Hypertension (ICD-10 - I10) Blood pressure has seemed to improve after she started becoming more active. [facility] Other 08-01-2023 Evaluation note* Encounter Date Diagnosis Assessment Notes Treatment Notes Treatment Clinical Notes May, Hormone imbalance (ICD-10 - E34. 9) [facility] Other 07-31-2023 Evaluation note* Encounter Date Diagnosis Assessment Notes Treatment Notes Treatment Clinical Notes Apr, Hyperlipidemia (ICD-10 - E78.5) [facility] Other 06-26-2023 Evaluation note* Encounter Date Diagnosis Assessment Notes Treatment Notes Treatment Clinical Notes Mar, Hypertension (ICD-10 - I10) [facility] Other 05-11-2023 Evaluation note* Encounter Date Diagnosis Assessment Notes Treatment Notes Treatment Clinical Notes February, History of total right hip arthr oplasty (ICD-10 - Z96.641) February,OtherWe discussed at this time that overall her [...] can get the operative report from the [facility]. If the squeaking becomes persistent and starts driving her nuts then we would certainly need to consider revision to a possible ceramic on polyethylene component. We did not get into these details at this point. I am going to see her 1 year from now with repeat x-rays. She is in a call if there is any issues before then. [facility] Other 04-27-2023 Evaluation note* Encounter Date Diagnosis Assessment Notes Treatment Notes Treatment Clinical Notes Jan, Wellness examination (ICD-10 - Z 00.00) [facility] Other 02-20-2023 Evaluation note* Encounter Date Diagnosis Assessment Notes Treatment Notes Treatment Clinical Notes Nov, Hypertension (ICD-10 - I10) Nov,Left knee pain (ICD-10 - M25.562) [facility] Other 09-20-2022 Evaluation note* Encounter Date Diagnosis Assessment Notes Treatment Notes Treatment Clinical Notes Jun, Left knee pain (ICD-10 - M25.562 ) [facility] Other 09-08-2022 Evaluation note* Encounter Date Diagnosis Assessment Notes Treatment Notes Treatment Clinical Notes Jun, Obesity (ICD-10 - E66.9) Jun,ardiomyopathy (ICD-10 - I42.9) Jun,VCs (premature ventricular contractions) (ICD-10 - I49.3) Jun,2Dizziness (ICD-10 - R42) [facility] Other 09-07-2022 Evaluation note* Encounter Date Diagnosis Assessment Notes Treatment Notes Treatment Clinical Notes Jun, Hypertension (ICD-10 - I10) The patients blood pressure was WNL yupon check in. 07 Sep, 2022Head trauma, initial encounter (ICD-10 - S09.90XA) Noted from recent fall, due to the patients symtpoms we will order a head CT. Jun,Neck pain, acute (ICD-10 - M54.2) We will continue to monitor. Jun,Family history of dementia (ICD-10 - Z81.8) Brain CT ordered. Jun,Forgetfulness (ICD-10 - R68.89) Patient reports a recent episode of forgetting who she was with or where she was at for about 20 minutes. Jun,Fall (ICD-10 - W19.XXXA) Brusing noted upon examination, we will continue to monitor. Jun,Irregular heart rate (ICD-10 - I49.9) Noted upon auscultation. The patient does follow with Dr. Johnston. ECHO and carotid ultrasound ordered to rule out abnormalities. Jun,Headache (ICD-10 - R51.9) Brain CT ordered to rule out abnormalities. Jun,Hyperlipidemia (ICD-10 - E78.5) Patient is to continue to follow with Dr. Johnston as scheduled. Blood work ordered. Jun,MI 29.0-29.9,adult (ICD-10 - Z68.29) I advised the patient she is not a candidate for adipex. Patient is to continue to monitor diet andexercise. [facility] Other 07-30-2022 Evaluation note* Encounter Date Diagnosis [...] understanding and is agreeable to treatment plan [facility] Other 07-22-2022 Evaluation note* Encounter Date Diagnosis Assessment Notes Treatment Notes Treatment Clinical Notes Apr, Wellness examination (ICD-10 - Z 00.00) [facility] Other 06-17-2022 Evaluation note* Encounter Date Diagnosis Assessment Notes Treatment Notes Treatment Clinical Notes Mar, Hip pain, bilateral (ICD-10 - M2 5.551) Mar,Hyperlipidemia (ICD-10 - E78.5) Mar,therIn regards to her bilateral greater trochanteric bursitis and she is [...] the left knee and discuss treatment options. [facility] Other 06-16-2022 Evaluation note* Encounter Date Diagnosis Assessment Notes Treatment Notes Treatment Clinical Notes Mar, Wellness examination (ICD-10 - Z 00.00) Personalized health advice was given to the [...] as risk factors for other medical problems. Mar,Hyperlipidemia (ICD-10 - E78.5) Blood work results reviewed with the patient . No signs of anemia or leukemia. Liver enzymes, kidney functions , TSH and glucose are within normal limits. Total cholesterol has improved compared to previous findings. The patient is tolerating the medication well , therefore I recommend the patient continue as directed. The patient encourged to continue following with kettle fry cook operator for annual exam as scheduled 06/2022. [facility] Other 05-02-2022 Evaluation note* Encounter Date Diagnosis Assessment Notes Treatment Notes Treatment Clinical Notes February, Left knee pain (ICD-10 - M25.562 ) [facility] Other 03-18-2022 Evaluation note* Encounter Date Diagnosis Assessment Notes Treatment Notes Treatment Clinical Notes Dec, Hip pain, bilateral (ICD-10 - M2 5.551) Dec,Hyperlipidemia (ICD-10 - E78.5) Dec,ther 1. We again discussed her left hip bursitis. And she was doing fantastic keeping this at bay until she flared it up with all the yard work. 2. We discussed oral anti-inflammatories and Tylenol. Recommended continuing her Mobic as [...] appointment so we can do an injection. [facility] Other 03-15-2022 Evaluation note* Encounter Date Diagnosis Assessment Notes Treatment Notes Treatment Clinical Notes Dec, Hip pain, bilateral (ICD-10 - M2 5.551) Upon discussion with the patient exercise and activity improves bilateral hip pain. As above the patient consulted with orthopedic and states she had a good experience with . I recommend the patient continue performing her daily exercise regimen and return to the office with any other concerns. Dec,Hyperlipidemia (ICD-10 - E78.5) [facility] Other 02-16-2022 Evaluation note* Encounter Date Diagnosis Assessment Notes Treatment Notes Treatment Clinical Notes Nov, Wellness examination (ICD-10 - Z 00.00) [facility] Other 02-09-2022 Evaluation note* Encounter Date Diagnosis Assessment Notes Treatment Notes Treatment Clinical Notes Nov, Left knee pain (ICD-10 - M25.562 ) Nov,Hyperlipidemia (ICD-10 - E78.5) [facility] Other 01-28-2022 Evaluation note* Encounter Date Diagnosis Assessment Notes Treatment Notes Treatment Clinical Notes Oct, Hyperlipidemia (ICD-10 - E78.5) [facility] Other 01-21-2022 Evaluation note* Encounter Date Diagnosis Assessment Notes Treatment Notes Treatment Clinical Notes Oct, Wellness examination (ICD-10 - Z 00.00) [facility] Other 12-13-2021 Evaluation note* Encounter Date Diagnosis Assessment Notes Treatment Notes Treatment Clinical Notes Sep, Left knee pain (ICD-10 - M25.562 ) [facility] Other 12-10-2021 Evaluation note* Encounter Date Diagnosis Assessment Notes Treatment Notes Treatment Clinical Notes Sep, Left hip pain (ICD-10 - M25.552) Sep,ight hip pain (ICD-10 - M25.551) Sep,Other 1. We had a long discussion regarding the etiology of her symptoms. In regards to the right lower extremity, I feel that she is got some tight hamstrings that is now led to pes bursitis. I recommended continuing with her physical therapy and stretching on the right lower extremity. Also recommendedTylenol up to 3000 mg a day as needed pain. Recommended continuing with her meloxicam as prescribed. Also recommended using Voltaren gel over the pes bursa. In regards to the left hip, I explained toher that she needs to continue with physical therapy for stretching for this bursitis. Also recommended similar Tylenol and meloxicam uses. Furthermore, recommended Voltaren gel for pain on the left hip. 2. We did discuss doing injections in the greater trochanteric bursa as well as the pes bursa but Ifeel that were still early in the process and the patient may be able to manage this with physical therapy and oral anti-inflammatories alone. Patient is in agreement. She will continue physical therapy for 6-8 more weeks and then follow-up with me to see her progress. If she still having significant pain then we can consider corticosteroid injections at that time. [facility] Other 12-02-2021 Evaluation note* Encounter Date Diagnosis Assessment Notes Treatment Notes Treatment Clinical Notes Sep, Cough (ICD-10 - R05.9) [facility] Other 10-20-2021 Evaluation note* Encounter Date Diagnosis Assessment Notes Treatment Notes Treatment Clinical Notes Jul, Left knee pain (ICD-10 - M25.562 ) Patient continues to have left hip pain with swelling. Denies any pain with rotation. Patient is toincrease the meloxicam to 15 mg daily.Physical therapy order provided. Jul,eft hip pain (ICD-10 - M25.552) Patient does complain of left hip pain in which it make her limp. She is currently in physical therapy for her shoulder and I do feel this would benefit her hip. [facility] Other 01-24-2021 Consult note Author Mark Mendoza [facility] November 08, 2020 3:39pmNote Date/TimeJan2020 8:29[facility] [place] [address] Hem/Onc Consult Note - OP Signed Patient: Sherice Pandey MR#: [id number] : 1955 Acct:[id number] Age/Sex: 65 / F Type: REG RCR [...] 0.74 with a BUN of 8. Electrolytes withinnormal range. Total protein of 6.9 with an [...] exercise bike for an hour a day. [facility] - Medical History Medical History: Medical History [...] (Last Updated 11/06/20 @ 08:16 by Jimena Leda) Mother Cancer Colon cancer Liver cancer Father [...] mg PO DAILY 11/05/20 [History Confirmed 11/06/20] ibtdxidiznqj-Zh-xtzh-minerals [Multiple Vitamin, Womens] 10 tab PO DAILY [...] for coordination of care (as documented) and xxlo-do-ohlr counseling of patient and/or family. Attestation Statement [...] by Mark Mendoza II, DO> 11/08/20 [address] [facility] Work Phone: [phone]) 774-845211-23-2012 History general Narrative - Reported* Type Description Date Medical History Right [place] [facility] [place] Medical HistoryLeft Breast [facility] (01/2013)Medical HistoryLabs (11/28/13,11/07/14)Medical HistoryBi-lateral Breast Implant Removal (07/2013) Medical HistoryChest x-ray (09/2014)Medical HistoryCardiomyopathyMedical History EKG (10/27/2014)Medical HistoryNOHC consult w/ (11/14/2014)Medical History11/2014-received Pneumovax vaccineMedical HistoryLeft Rotator Cuff Tear Medical HistoryRight Rotator Cuff DegenerationMedical HistoryArthritisMedical Lgzvvja26/2013 ColonscopyMedical HistoryEKG 08/26/17Medical HistoryMammogram 01/29/18; neg 05/13/2019Medical HistoryhyperlipidemiaMedical Historychronic depressionMedical Historynormal colonoscopy 09/14/2015 5-10 yearsMedical History 06/2020 EGD/ColonSurgical HistoryRight total Hip ArthroplastySurgical History Total HysterectomySurgical HistoryLeft breast repair from dog bite07/2013 Surgical HistoryRt Shoulder Rotator Cuff repair ()08/2014Surgical HistoryRight knee surgerySurgical HistoryLeft shoulder replacement- 04/20/2021Hospitalization HistoryRight Total Hip ArthroplastyHospitalization HistoryTotal HysterectomyHospitalization Historychildbirth x4 [facility] Other 11-23-2012 History general Narrative - Reported* Type Description Date Medical History Right Hip X[place] [facility] [place]) Medical HistoryLeft Breast [facility] (01/2013)Medical HistoryLabs (11/28/13,11/07/14)Medical HistoryBi-lateral Breast Implant Removal (07/2013) Medical HistoryChest x-ray (09/2014)Medical HistoryCardiomyopathyMedical History EKG (10/27/2014)Medical HistoryNOHC consult w/ (11/14/2014)Medical History11/2014-received Pneumovax vaccineMedical HistoryLeft Rotator Cuff Tear Medical HistoryRight Rotator Cuff DegenerationMedical HistoryArthritisMedical Xmyxdzg21/2013 ColonscopyMedical HistoryEKG 08/26/17Medical HistoryMammogram 01/29/18; neg 05/13/2019Medical HistoryhyperlipidemiaMedical Historychronic depressionMedical Historynormal colonoscopy 09/14/2015 5-10 yearsMedical History 06/2020 EGD/Colon-Surgical HistoryRight total Hip ArthroplastySurgical History Total HysterectomySurgical HistoryLeft breast repair from dog bite07/2013 Surgical HistoryRt Shoulder Rotator Cuff repair ()08/2014Surgical HistoryRight knee surgerySurgical HistoryLeft shoulder replacement- 04/20/2021Hospitalization HistoryRight Total Hip ArthroplastyHospitalization HistoryTotal HysterectomyHospitalization Historychildbirth x4 [facility] Other 11-23-2012 History general Narrative - Reported* Type Description Date Medical History Right Hip X-[place] [facility] [place]) Medical HistoryLeft Breast [facility] (01/2013)Medical HistoryLabs (11/28/13,11/07/14)Medical HistoryBi-lateral Breast Implant Removal (07/2013) Medical HistoryChest x-ray (09/2014)Medical HistoryCardiomyopathyMedical History EKG (10/27/2014)Medical HistoryNOHC consult w/ (11/14/2014)Medical History11/2014-received Pneumovax vaccineMedical HistoryLeft Rotator Cuff Tear Medical HistoryRight Rotator Cuff DegenerationMedical HistoryArthritisMedical Ymnjxvi07/2013 ColonscopyMedical HistoryEKG 08/26/17Medical HistoryMammogram 01/29/18; neg 05/13/2019Medical HistoryhyperlipidemiaMedical Historychronic depressionMedical Historynormal colonoscopy 09/14/2015 5-10 yearsMedical History 06/2020 EGD/Colon-Medical HistoryIrregular heart rhythmSurgical HistoryRight total Hip ArthroplastySurgical HistoryTotal HysterectomySurgical HistoryLeft breast repair from dog bite07/2013Surgical HistoryRt Shoulder Rotator Cuff repair ()08/2014Surgical HistoryRight knee surgerySurgical HistoryLeft shoulder replacement-07/03/2021Hospitalization HistoryRight Total Hip ArthroplastyHospitalization HistoryTotal HysterectomyHospitalization History childbirth x4 [facility] Other Chief complaint+Reason for visit Narrative* Chief Complaint Op Sp Lt Hip Pain z96.[address] Fallon Us Right Thigh Mas Op Sp Rt Hip Pain [facility] Work Phone: Chief complaint+Reason for visit Narrative* Chief Complaint Op Sp Lt Hip Pain z96.[address] Fallon Us Right Thigh Mas Op Sp Rt Hip Pain 21327, [address]78 [facility] Work Phone: Chief complaint+Reason for visit Narrative* Chief Complaint Referral Dr. Daisy dunlap Us Right Thigh Mas Op Sp Rt Hip Pain Consult Dr Fallon Rt Hip Pain Si Joint E34.9 91987, F/U RIGHT SI JOINT AND RIGHT TROCH BURSA INJECTIONReason for VisitOther chronic pain Sacroiliitis Trochanteric bursitis [facility] Work Phone: Evaluation noteNo InformationNortExcela [facility] [employer] Other Evaluation noteNo assessment information available [facility] Work Phone: Evaluation noteNort [employer] Other Evaluation note* Diagnosis Onset Date Resolution Status Other chronic pain acuteSacroiliitisacuteTrochanteric bursitisacute [facility] Work Phone: Evaluation note* Author Michaelle Carter [facility] 2023 11:06amThe above note written by Michaelle Carter LPN, acting as human recorder, note dictated by Dr. Sabrina Meek. [facility] Work Phone: Evaluation note* Diagnosis Premature ventricular contraction on electrocardiography documented in this encounter [facility] Work Phone: Evaluation note* Author Geri Sykes [facility] HospitalAuthoredSeptember 2023 12:58pmThe above note written by ANA Alejandra acting as human recorder, note dictated by Dr. Sabrina Meek. [facility] Work Phone: Evaluation note* Diagnosis Family history of colon cancer- Primary Family history of malignant neoplasm of gastrointestinal tract documented in this encounter [facility]* Diagnosis Premature ventricular contraction on electrocardiography- Primary Mixed hyperlipidemia Essential hypertension, benign Abnormal EKG Nonspecific abnormal electrocardiogram (ECG) (EKG) Former smoker Personal history of tobacco use, presenting hazards to health BMI 29.0-29.9,adult Hyperlipidemia, unspecified hyperlipidemia type documented in this encounter [facility] Work Phone: Evaluation note* Diagnosis Family history of colon cancer- Primary Family history of malignant neoplasm of gastrointestinal tract documented in this encounter [facility] HealthcareEvaluation note* Diagnosis Onset Date Resolution Status Admit Date Multilevel degenerative disc disease acuteMarch 2024 9:11am [facility] Work Phone: Evaluation note* Author Geri Sykes [facility] HospitalAuthoredApril 2024 1:02pmThe above note written by ANA Alejandra acting as human recorder, note dictated by Dr. Sabrina Meek. [facility] Work Phone: Evaluation note* Diagnosis Closed fracture of base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
== END 2025-08-20 10:00 | disposition home or self-care (01) ==
LOC: MAMMO 09:59
PROVIDERS: PCP Family Medicine; Visit Provider Family Medicine
DX: Z12.31 Encounter for screening mammogram for malignant neoplasm of breast (principal); Z80.0 Family history of malignant neoplasm of digestive organs; Z80.8 Family history of malignant neoplasm of other organs or systems
CPT/HCPCS: 77063; 77067